=== PATIENT | female | born 1935 | race Caucasian/White ===

== ENCOUNTER → 2020-05-08 11:12 | Outpatient (BNVA) | payer MEDICARE, SELFPAY | PROVIDERS: PCP Internal Medicine; Visit Provider Internal Medicine | DX: I48.0 Paroxysmal atrial fibrillation (principal); Z51.81 Encounter for therapeutic drug level monitoring; Z79.01 Long term (current) use of anticoagulants | CPT/HCPCS: 85610; 99211 ==

== ENCOUNTER 2020-06-25 10:53 | Outpatient (REF) | payer MEDICARE, SELFPAY ==
[2020-06-25 12:19] LABS: MANUAL DIFF FLAG NO
[2020-06-25 12:24] LABS: Basophils Percent Auto 0.2 % (0-2); Eosinophils Absolute Auto 0.1 X10*3/uL (0.0-0.4); Eosinophils Percent Auto 0.8 % (0-4); Hematocrit 39.3 % (37-47); Hemoglobin 13.4 g/dl (12.0-16.0); Imm Gran Abs Auto 0.04 X10*3/uL (0.00-0.03); Imm Gran Pct Auto 0.4 % (0.0-0.4); Lymphocytes Absolute Auto 2.5 X10*3/uL (1.2-4.9); Lymphocytes Percent Auto 27.5 % (20-40); Mean Corpuscular HGB Conc 34.1 g/dl (31.0-35.0); Mean Corpuscular Hemoglobin 34.4 pg (27.0-33.0); Mean Corpuscular Volume 100.8 fL (80-98); Mean Platelet Volume 9.1 fL (9.4-12.3); Monocytes Absolute Auto 1.1 X10*3/uL (0.1-1.2); Monocytes Percent Auto 11.5 % (2-11); Neutrophils Absolute Auto 5.4 X10*3/uL (2.0-8.3); Neutrophils Percent Auto 59.6 % (45-73); Platelet Count 223 X10*3/uL (160-400); Red Cell Distribution Width 12.9 % (11.0-16.0); White Blood Count 9.1 X10*3/uL (4.8-10.8)
[2020-06-25 13:11] LABS: Alanine Aminotransferase 19 U/L (0-31); Albumin Level 3.8 g/dL (3.5-5.0); Alkaline Phosphatase 74 U/L (39-117); Anion Gap 13 (12-20); Aspartate Amino Transferase 20 U/L (5-31); Bilirubin Total 1.5 mg/dL (0.0-1.0); Blood Urea Nitrogen 24 mg/dL (9-16); Calcium 8.6 mg/dL (8.4-10.2); Carbon Dioxide 29 mmol/L (22-29); Chloride 97 mmol/L (96-108); Cholesterol 231 mg/dL; Estimated Glomerular Filt Rate > 60; Glucose Random 87 mg/dL (60-115); HDL Cholesterol 105 mg/dL; LDL Cholesterol Calculated 111 mg/dl; Potassium 4.2 mmol/l (3.3-5.1); Sodium 135 mmol/L (135-145); Total Protein 6.5 g/dL (6.5-8.0); Triglycerides 79 mg/dL
[2020-06-25 13:15] LABS: B Type Natriuretic Peptide 545 pg/mL (<100)
[2020-06-25 13:30] LABS: Thyroid Stimulating Hormone 2.18 uIU/mL (0.32-4.0)
[2020-06-25 13:38] LABS: Folate 5.8 ng/mL (> or = 4.0); Vitamin B12 1837 pg/mL (200-900)
== END 2020-06-25 10:54 | disposition home or self-care (01) ==
LOC: HO.LAB 10:53
PROVIDERS: PCP Internal Medicine; Visit Provider Internal Medicine
DX: Z76.89 Persons encountering health services in other specified circumstances (principal)
CPT/HCPCS: 36415; 80053; 80061; 82607; 82746; 83880; 84439; 84443; 85025; 85610; 99211

== ENCOUNTER 2020-06-26 15:36 | Inpatient (IN) | payer MEDICARE, SELFPAY ==
[2020-06-26 15:46] VITALS: BP 128/65; BP 153/93; PULSE 63; PULSE 70; RESP 17; TEMP 36.7; O2SAT 94; O2SAT 98; BMI 24.9
--- NOTE | 2020-06-26 16:08 | CT_ITS ---
EXAMINATION: CT HEAD WITHOUT CONTRAST CT CERVICAL SPINE WITHOUT CONTRAST CLINICAL INFORMATION: Fall. Hit head. COMPARISON: CT head from 06/15/2019. TECHNIQUE: Contiguous axial imaging was performed from the skull base to vertex without intravenous administration of contrast. Contiguous axial imaging was performed from the upper chest through the skull base without intravenous administration of contrast. Coronal and sagittal reformats were obtained at the acquisition workstation. This CT examination was performed using dose optimization techniques as appropriate, variously including the following: *Automated exposure control. *Adjustment of mA and/or kV according to patient size (this includes techniques or standardized protocols for targeted exams where dose is matched to indication/reason for exam; i.e. extremities or head). *Use of iterative reconstruction technique. DLP: 1054 mGy-cm FINDINGS: Head: There is no evidence of acute intracranial hemorrhage or edematous territorial infarction. 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 Scattered hypoattenuation in the periventricular and deep white matter are consistent with moderate microangiopathy. No new loss of aviles-white matter differentiation. Proportional prominence of the ventricles and sulcal spaces. No evidence for obstructive hydrocephalus. No abnormal mass effect or midline shift. No extra-axial fluid collections. Calcific atherosclerotic disease of the intracranial internal carotid arteries without hyperdense vessel sign. No acute soft tissue or osseous abnormalities. Mild degenerative arthropathy of the left temporomandibular joint. Mild mucosal thickening of the paranasal sinuses. The mastoid air cells and middle ear cavities are clear. Bilateral lens extractions. Cervical Spine: The atlantooccipital and atlantoaxial articulations remain well aligned. There is anatomic alignment of the vertebral bodies and posterior elements. No evidence of acute fracture or subluxation. The vertebral body heights are maintained. Moderate degenerative disc disease at C5-C6 and C6-C7. Moderate facet and uncovertebral joint arthropathy leads to osseous encroachment on the neural foramina from C4-C7. There is no prevertebral soft tissue swelling. The thyroid gland and remaining cervical soft tissues are normal in appearance. The lung apices demonstrate no abnormalities. CT/CT cervical spine wo con IMPRESSION: 1. No evidence of acute intracranial hemorrhage or edematous territorial infarction. 2. No evidence of acute fracture or traumatic subluxation of the cervical spine. 3. 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 Moderate underlying microangiopathy and generalized cerebral volume loss. 4. 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
--- NOTE | 2020-06-26 16:08 | XR_ITS ---
EXAMINATION: XR CHEST CLINICAL INFORMATION: Trauma, fall COMPARISON: 2 view chest 11/30/2018 TECHNIQUE: Frontal view of the chest was obtained. FINDINGS: The heart is enlarged. There is rotation to the right causing the cardiac silhouette to project further into the left hemithorax. No evidence of CHF. It is difficult to exclude a small left effusion because of rotation. No acute displaced rib fractures seen. There is an old healed rib fracture involving the left 10th posterolateral rib. Degenerative changes and mild scoliosis present throughout the spine. Vascular calcifications are present. XR/XR chest 1V IMPRESSION: No evidence of an acute traumatic injury.
--- NOTE | 2020-06-26 16:08 | XR_ITS ---
EXAMINATION: XR HIP, RIGHT CLINICAL INFORMATION: Fall, trauma, pain COMPARISON: Radiographs bilateral hips 06/24/2019. TECHNIQUE: AP view pelvis is performed along with AP and crosstable lateral views of the right hip. FINDINGS: There is right femoral neck fracture. The lateral base femoral head is ill-defined and the possibility of a pathologic fracture cannot be excluded. There is varus angulation distal fracture fragment and superior displacement distal fragment by approximately one half bone diameter. There is no dislocation. There is mild osteitis pubis. The pelvis appears intact. Left hip are unremarkable. Bowel gas is normal. Rectal stool ball measures 7.4 cm in diameter. XR/XR hip RT min 2V IMPRESSION: Right hip fracture, possibly pathologic.
--- NOTE | 2020-06-26 16:09 | ECG_ITS ---
Test Reason : FALL Blood Pressure : / mmHG Vent. Rate : 077 BPM Atrial Rate : 101 BPM P-R Int : 000 ms QRS Dur : 088 ms QT Int : 390 ms P-R-T Axes : 000 061 050 degrees QTc Int : 441 ms Atrial fibrillation with premature ventricular or aberrantly conducted complexes Nonspecific ST abnormality Abnormal ECG When compared with ECG of 14-NOV-2015 12:28, No significant change was found Referred By: Abigail Mendiola Electronically Signed By:Juan Jules
--- NOTE | 2020-06-26 16:12 | ED.FALL ---
HPI - Fall General Chief Complaint: Fall <Abelardo Smiley NP - Last Filed: 06/26/20 18:06> Stated Complaint: FALL,RT SIDED HIP PAIN <Abelardo Smiley NP - Last Filed: 06/26/20 18:06> Time Seen by Provider: 06/26/20 16:00 <Abelardo Smiley NP - Last Filed: 06/26/20 18:06> Source: EMS <Abelardo Smiley NP - Last Filed: 06/26/20 18:06> Mode of arrival: EMS <Abelardo Smiley NP - Last Filed: 06/26/20 18:06> Limitations: no limitations <Abelardo Smiley NP - Last Filed: 06/26/20 18:06> History of Present Illness HPI Narrative: 4-year-old female with a past medical history of high cholesterol, hypertension, peripheral vascular disease, osteoarthritis, insomnia, AFib on Coumadin, allergic rhinitis, vitamin-D deficiency, TIA, congestive heart failure, mitral valve insufficiency, tricuspid valve insufficiency here with right hip pain. The patient tells me that she does have chronic right hip pain and has had multiple cortisone injections. She tells me that today she had a slip and fall landing on her right hip. She believe she may have hit her head. She denies loss of consciousness. No headache, nausea, dizziness, vision changes. No chest or abdominal pain. No back or neck pain. The patient tells me she does have right hip pain. She took 1 tylenol #3 at home with continued pain. Unable to bear weight since fall. <Abelardo Smiley NP - Last Filed: 06/26/20 18:06> MD complaint: fall <Abelardo Smiley NP - Last Filed: 06/26/20 18:06> Onset (ago): hour(s) <Abelardo Smiley NP - Last Filed: 06/26/20 18:06> Fall from: standing <Abelardo Smiley NP - Last Filed: 06/26/20 18:06> Fall witnessed: no <Abelardo Smiley NP - Last Filed: 06/26/20 18:06> Place fall occurred: home <Abelardo Smiley NP - Last Filed: 06/26/20 18:06> Loss of consciousness: none <Abelardo Smiley NP - Last Filed: 06/26/20 18:06> Prolonged down time: no <Abelardo Smiley NP - Last Filed: 06/26/20 18:06> Symptoms prior to fall: none <Abelardo Smiley NP - Last Filed: 06/26/20 18:06> Context: tripped/slipped <Abelardo Smiley NP - Last Filed: 06/26/20 18:06> Location of injury: other (righ thip ) <Abelardo Smiley NP - Last Filed: 06/26/20 18:06> Severity: moderate <Abelardo Smiley NP - Last Filed: 06/26/20 18:06> Quality: sharp <Abelardo Smiley NP - Last Filed: 06/26/20 18:06> Associated symptoms (after fall): denies <Abelardo Smiley NP - Last Filed: 06/26/20 18:06> Related Data Home Medications: Home Medications Medication Instructions Recorded Confirmed cholecalciferol (vitamin D3) 25 25 mcg PO DAILY 05/14/20 06/26/20 mcg (1,000 unit) capsule cyanocobalamin (vitamin B-12) 1,000 mcg PO DAILY 05/14/20 06/26/20 1,000 mcg capsule warfarin 2.5 mg PO SUTUWETHFRSA 06/26/20 07/05/20 warfarin 5 mg PO MO 06/26/20 07/05/20 Previous Rx's Medication Instructions Recorded zolpidem 12.5 mg tablet,extended 12.5 mg PO BEDTIME 90 Days #90 tab 04/19/20 release,multiphase losartan 50 mg tablet 50 mg PO DAILY 90 Days #90 tab 04/20/20 comp.stocking,knee,long,medium #12 ea 05/10/20 compress.stocking,knee,reg,med #2 ea 05/14/20 metoprolol succinate 200 mg 300 mg PO DAILY #135 cap 05/30/20 tablet,extended release 24 hr Walker with seat and wheels #1 ea 06/22/20 acetaminophen 300 mg-codeine 30 mg 1 tab PO TID PRN 30 Days #90 tab 07/02/20 tablet enoxaparin 40 mg SUBCUT Q24H #5 ml 07/02/20 walker #1 ea 07/02/20 cane #1 ea 07/04/20 miscellaneous medical supply #1 ea 07/04/20 walker #1 ea 07/04/20 <Abelardo Smiley NP - Last Filed: 06/26/20 18:06> Allergies/Adverse Reactions: Allergies Allergy/AdvReac Type Severity Reaction Status Date / Time amlodipine [AMLODIPINE] Allergy Unknown UNKNOWN Verified 07/05/20 12:20 carvedilol [CARVEDILOL] Allergy Unknown UNKNOWN Verified 07/05/20 12:20 irbesartan [From AVAPRO] Allergy Unknown UNKNOWN Verified 07/05/20 12:20 levofloxacin [From LEVAQUIN] Allergy Unknown GENERALIZED Verified 07/05/20 12:20 MUSCLE PAIN naproxen [Naproxen] Allergy Unknown HIVES, Verified 07/05/20 12:20 severe rash tetracycline [TETRACYCLINE] Allergy Unknown UNKNOWN Verified 07/05/20 12:20 <Abelardo Smiley NP - Last Filed: 06/26/20 18:06> Review of Systems Review of Systems: Yes all other systems are reviewed and are negative <Abelardo Smiley NP - Last Filed: 06/26/20 18:06> Constitutional: Constitutional: Reports no additional constitutional complaints, Denies body ache(s), Denies chills, Denies fever(s), Denies headache(s) and Denies weakness <Abelardo Smiley NP - Last Filed: 06/26/20 18:06> Eyes: Eyes: Reports no additional eye complaints and Denies change in vision <Abelardo Smiley NP - Last Filed: 06/26/20 18:06> ENT: Reports system reviewed and no additional complaints, except as documented, Denies dizziness, Denies headache(s), Denies nasal congestion, Denies nasal discharge and Denies neck pain <Abelardo Smiley NP - Last Filed: 06/26/20 18:06> Cardiovascular: Cardiovascular: Reports no additional cardiovascular complaints, Denies chest pain, Denies leg edema and Denies dyspnea <Abelardo Smiley NP - Last Filed: 06/26/20 18:06> Respiratory: Respiratory: Reports no additional respiratory complaints, Denies cough and Denies dyspnea <Abelardo Smiley NP - Last Filed: 06/26/20 18:06> Gastrointestinal: Gastrointestinal: Reports no additional gastrointestinal complaints, Denies abdominal pain, Denies diarrhea, Denies nausea and Denies vomiting <Abelardo Smiley NP - Last Filed: 06/26/20 18:06> Genitourinary: Genitourinary: Reports no additional female genitourinary complaints and Denies urinary incontinence <Abelardo Smiley NP - Last Filed: 06/26/20 18:06> Musculoskeletal: Musculoskeletal: Reports no additional musculoskeletal complaints, Denies back pain, Reports arthralgias, Reports joint swelling, Denies neck pain, Denies numbness and Denies tingling <Abelardo Smiley NP - Last Filed: 06/26/20 18:06> Integumentary/Breasts: Skin/Breast: Reports system reviewed and no additional complaints, except as docu and Denies rash <Abelardo Smiley NP - Last Filed: 06/26/20 18:06> Neurologic: Reports system reviewed and no additional complaints, except as documented, Denies Abnormal speech present, Denies dizziness, Denies headache(s), Denies numbness, Denies tingling and Denies weakness <Abelardo Smiley NP - Last Filed: 06/26/20 18:06> [facility] Past Medical History Attestation statement: The following information was validated with the patient. <Abelardo Smiley NP - Last Filed: 06/26/20 18:06> Source: old records reviewed and nursing notes reviewed <Abelardo Smiley NP - Last Filed: 06/26/20 18:06> Medical History: Medical History Atrial fibrillation Cataract Compression fracture of T10 vertebra Congestive heart failure Hypercholesterolemia Hypertension Insomnia Mammogram declined Osteoarthritis of knee Peripheral vascular disease Porphyria cutanea tarda TIA (transient ischemic attack) Uterine prolapse <Abelardo Smiley NP - Last Filed: 06/26/20 18:06> Surgical History: Surgical History History of biopsy History of D&C History of uterine prolapse <Abelardo Smiley NP - Last Filed: 06/26/20 18:06> Family History Family History: Family History Father Hypertension Mother Hypertension Daughter Colon cancer Lymph node cancer <Abelardo Smiley NP - Last Filed: 06/26/20 18:06> Social History Social History: Social History Household Members: None Housing: House Smoking Status: Never smoker Second Hand Smoke Exposure: No service: No Current occupational status: retired <Abelardo Smiley NP - Last Filed: 06/26/20 18:06> Physical Exam Vital Signs: Vital Signs: Last Vital Signs Temp 98.5 F 07/02/20 12:06 Pulse 62 07/02/20 12:06 Resp 16 07/02/20 12:06 BP 150/88 H 07/02/20 10:00 Pulse Ox 95 07/02/20 08:00 Body Mass Index 24.9 <Abelardo Smiley NP - Last Filed: 06/26/20 18:06> Vital Signs: Last Vital Signs Temp 98.5 F 07/02/20 12:06 Pulse 62 07/02/20 12:06 Resp 16 07/02/20 12:06 BP 150/88 H 07/02/20 10:00 Pulse Ox 95 07/02/20 08:00 Body Mass Index 24.9 <Fred Rider - Last Filed: 06/28/20 07:28> Vital Signs: Last Vital Signs Temp 98.5 F 07/02/20 12:06 Pulse 62 07/02/20 12:06 Resp 16 07/02/20 12:06 BP 150/88 H 07/02/20 10:00 Pulse Ox 95 07/02/20 08:00 Body Mass Index 24.9 <Ambrosio Enamorado MD - Last Filed: 07/08/20 09:39> Const: General: cooperative, healthy appearing, comfortable and no acute distress <Abelardo Smiley NP - Last Filed: 06/26/20 18:06> Orientation/consciousness: patient oriented x3 <Abelardo Smiley NP - Last Filed: 06/26/20 18:06> Limitations: no limitations <Abelardo Smiley NP - Last Filed: 06/26/20 18:06> HENMT: Head: Yes normal to inspection <Abelardo Smiley NP - Last Filed: 06/26/20 18:06> Ears: hearing grossly normal bilaterally <Abelardo Smiley NP - Last Filed: 06/26/20 18:06> General nose exam: Normal external nose present <Abelardo Smiley NP - Last Filed: 06/26/20 18:06> Face and sinus: Yes normal facial exam <Abelardo Smiley NP - Last Filed: 06/26/20 18:06> Mouth: Normal oral and palatal mucosa present <Abelardo Smiley NP - Last Filed: 06/26/20 18:06> Throat: Yes posterior oropharynx normal <Abelardo Smiley NP - Last Filed: 06/26/20 18:06> Eyes: General: appearance normal, both eyes and all related structures <Abelardo Smiley NP - Last Filed: 06/26/20 18:06> Pupils: Equal, round and reactive pupils present <Abelardo Smiley NP - Last Filed: 06/26/20 18:06> Neck: Neck: Yes normal visual inspection <Abelardo Smiley NP - Last Filed: 06/26/20 18:06> Chest: Chest palpation & inspection: normal inspection of the chest <Abelardo Smiley NP - Last Filed: 06/26/20 18:06> Resp: Effort & Inspection: normal respiratory effort <Abelardo Smiley NP - Last Filed: 06/26/20 18:06> Auscultation: clear to auscultation bilaterally <Abelardo Smiley NP - Last Filed: 06/26/20 18:06> Cardio: Rate: regular rate <Abelardo Smiley NP - Last Filed: 06/26/20 18:06> Rhythm: regular rhythm <Abelardo Smiley NP - Last Filed: 06/26/20 18:06> Peripheral pulses: Peripheral pulses 2+ throughout <Abelardo Smiley NP - Last Filed: 06/26/20 18:06> GI: Inspection: Yes normal to inspection <Abelardo Smiley NP - Last Filed: 06/26/20 18:06> Palpation (GI): Soft to palpation and nontender <Abelardo Smiley NP - Last Filed: 06/26/20 18:06> Auscultation: normal bowel sounds <Abelardo Smiley NP - Last Filed: 06/26/20 18:06> Back/Spine/Pelvis: Thoracic/Lumbar Spine: thoracic and lumbar spine normal to inspection <Abelardo Smiley NP - Last Filed: 06/26/20 18:06> Skin: Other: Patient has ecchymosis over the bilateral lower extremities, upper thighs <Abelardo Smiley NP - Last Filed: 06/26/20 18:06> General skin exam: no rashes or lesions noted <Abelardo Smiley NP - Last Filed: 06/26/20 18:06> Neuro: General: patient oriented x3, no focal motor deficits and normal sensation to monofilament <Abelardo Smiley [facility] - Last Filed: 06/26/20 18:06> Cranial nerves: Yes Equal, round and reactive pupils present <Abelardo Smiley NP - Last Filed: 06/26/20 18:06> Cognition (Neuro): normal cognition <Abelardo Smiley NP - Last Filed: 06/26/20 18:06> Speech: No Abnormal speech present <Abelardo Smiley NP - Last Filed: 06/26/20 18:06> Gait exam (Neuro): Normal gait present <Abelardo Smiley NP - Last Filed: 06/26/20 18:06> Motor exam (neuro): 5/5 motor strength present throughout <Abelardo Smiley NP - Last Filed: 06/26/20 18:06> Extrem: Other: Moderate pain to right lateral and posterior hip. There is no external rotation or shortening of the right lower leg. Neurovascular intact distally. Normal cap refill. Patient is able to flex and extend the foot. Not able to move the entire leg <Abelardo Smiley NP - Last Filed: 06/26/20 18:06> General: Yes normal to inspection <Abelardo Smiley NP - Last Filed: 06/26/20 18:06> Course Course Course Narrative: 84-year-old female here with right hip pain status post mechanical fall. She will need imaging of the hip and pelvis. She does tell me she hit her head so will check imaging of head and neck. She was on Coumadin so will check labs including INR. EKG for preop clearance for fracture. COVID swab for inpatient. 1700-hip x-rays c/w with right femoral neck fracture, lateral base of head is ill defined and pathological fracture cannot be excluded. Discussed with orthopedics. Will need surgical intervention. Plan to evaluate patient tomorrow. Will discuss with Medicine for admission of once additional imaging and labs are returned. Nursing to place Ling catheter. 1800-Labs pending. Reviewed labs from 06/25 including INR 2.2. Discussed with Chiquis PANIAGUA who was made aware of patient. Sign out to Marimar PETERS who will review labs when resulted today and notify medicine of any changes. <Abelardo Smiley NP - Last Filed: 06/26/20 18:06> I have reviewed the chart <Ambrosio Enamorado MD - Last Filed: 07/08/20 09:39> MDM - Fall MDM Narrative Medical decision making narrative: Contusion, arthritis, fracture <Abelardo Smiley NP - Last Filed: 06/26/20 18:06> Medical Records Attestation: I reviewed the patient's medical records. <Abelardo Smiley NP - Last Filed: 06/26/20 18:06> Lab Data Attestation: I reviewed the patient's lab results. <Abelardo Smiley NP - Last Filed: 06/26/20 18:06> Result diagrams: : 07/02/20 05:19 06/29/20 06:07 <Abelardo Smiley, [facility] - Last Filed: 06/26/20 18:06> Labs: Lab Results 06/26/20 06/26/20 06/26/20 Range/Units 17:50 17:50 17:50 WBC 13.0 H (4.8-10.8) X10*3/uL RBC 3.39 L (4.20-5.50) X10*6/uL Hgb 11.6 L (12.0-16.0) g/dl Hct 33.6 L (37-47) % MCV 99.1 H (80-98) fL MCH 34.2 H (27.0-33.0) pg MCHC 34.5 (31.0-35.0) g/dl RDW 12.8 (11.0-16.0) % Plt Count 180 (160-400) X10*3/uL MPV 9.2 L (9.4-12.3) fL Immature Gran % (Auto) 0.6 H (0.0-0.4) % Neut % (Auto) 78.9 H (45-73) % Lymph % (Auto) 12.4 L (20-40) % [place] % (Auto) 7.6 (2-11) % Eos % (Auto) 0.4 (0-4) % Baso % (Auto) 0.1 (0-2) % Lymph # (Auto) 1.6 (1.2-4.9) X10*3/uL [place] # (Auto) 1.0 (0.1-1.2) X10*3/uL Eos # (Auto) 0.1 (0.0-0.4) X10*3/uL Baso # (Auto) 0.0 (0.0-0.2) X10*3/uL Abs Immat Gran (auto) 0.08 H (0.00-0.03) X10*3/uL Absolute Neuts (auto) 10.2 H (2.0-8.3) X10*3/uL Absolute Nucleated RBC 0.000 (0.0-0.012) X10*3/uL Nucleated RBC % (auto) 0.0 (0.0-0.2) /100WBC PT 28.5 H (10.8-13.0) SEC INR 2.4 H (0.9-1.1) Sodium 134 L (135-145) mmol/L Potassium 3.7 (3.3-5.1) mmol/l Chloride 98 (96-108) mmol/L Carbon Dioxide 25 (22-29) mmol/L Anion Gap 15 (12-20) BUN 21 H (9-16) mg/dL Creatinine 0.66 (0.5-1.4) mg/dL Estim Creat Clear Calc 59.2 Estimated GFR > 60 Random Glucose 134 H D (60-115) mg/dL Calcium 8.1 L (8.4-10.2) mg/dL COVID-19 ([place]) (Negative) COVID-19 Clin Com 06/26/20 Range/Units 17:50 WBC (4.8-10.8) X10*3/uL RBC (4.20-5.50) X10*6/uL Hgb (12.0-16.0) g/dl Hct (37-47) % MCV (80-98) fL MCH (27.0-33.0) pg MCHC (31.0-35.0) g/dl RDW (11.0-16.0) % Plt Count (160-400) X10*3/uL MPV (9.4-12.3) fL Immature Gran % (Auto) (0.0-0.4) % Neut % (Auto) (45-73) % Lymph % (Auto) (20-40) % [place] % (Auto) (2-11) % Eos % (Auto) (0-4) % Baso % (Auto) (0-2) % Lymph # (Auto) (1.2-4.9) X10*3/uL [place] # (Auto) (0.1-1.2) X10*3/uL Eos # (Auto) (0.0-0.4) X10*3/uL Baso # (Auto) (0.0-0.2) X10*3/uL Abs Immat Gran (auto) (0.00-0.03) X10*3/uL Absolute Neuts (auto) (2.0-8.3) X10*3/uL Absolute Nucleated RBC (0.0-0.012) X10*3/uL Nucleated RBC % (auto) (0.0-0.2) /100WBC PT (10.8-13.0) SEC INR (0.9-1.1) Sodium (135-145) mmol/L Potassium (3.3-5.1) mmol/l Chloride (96-108) mmol/L Carbon Dioxide (22-29) mmol/L Anion Gap (12-20) BUN (9-16) mg/dL Creatinine (0.5-1.4) mg/dL Estim Creat Clear Calc Estimated GFR Random Glucose (60-115) mg/dL Calcium (8.4-10.2) mg/dL COVID-19 ([place]) Negative (Negative) COVID-19 Clin Com See Note <Abelardo Smiley, ARCELIA - Last Filed: 06/26/20 18:06> Lab Results 06/26/20 06/26/20 06/26/20 Range/Units 17:50 17:50 17:50 WBC 13.0 H (4.8-10.8) X10*3/uL RBC 3.39 L (4.20-5.50) X10*6/uL Hgb 11.6 L (12.0-16.0) g/dl Hct 33.6 L (37-47) % MCV 99.1 H (80-98) fL MCH 34.2 H (27.0-33.0) pg MCHC 34.5 (31.0-35.0) g/dl RDW 12.8 (11.0-16.0) % Plt Count 180 (160-400) X10*3/uL MPV 9.2 L (9.4-12.3) fL Immature Gran % (Auto) 0.6 H (0.0-0.4) % Neut % (Auto) 78.9 H (45-73) % Lymph % (Auto) 12.4 L (20-40) % [place] % (Auto) 7.6 (2-11) % Eos % (Auto) 0.4 (0-4) % Baso % (Auto) 0.1 (0-2) % Lymph # (Auto) 1.6 (1.2-4.9) X10*3/uL [place] # (Auto) 1.0 (0.1-1.2) X10*3/uL Eos # (Auto) 0.1 (0.0-0.4) X10*3/uL Baso # (Auto) 0.0 (0.0-0.2) X10*3/uL Abs Immat Gran (auto) 0.08 H (0.00-0.03) X10*3/uL Absolute Neuts (auto) 10.2 H (2.0-8.3) X10*3/uL Absolute Nucleated RBC 0.000 (0.0-0.012) X10*3/uL Nucleated RBC % (auto) 0.0 (0.0-0.2) /100WBC PT 28.5 H (10.8-13.0) SEC INR 2.4 H (0.9-1.1) Sodium 134 L (135-145) mmol/L Potassium 3.7 (3.3-5.1) mmol/l Chloride 98 (96-108) mmol/L Carbon Dioxide 25 (22-29) mmol/L Anion Gap 15 (12-20) BUN 21 H (9-16) mg/dL Creatinine 0.66 (0.5-1.4) mg/dL Estim Creat Clear Calc 59.2 Estimated GFR > 60 Random Glucose 134 H D (60-115) mg/dL Calcium 8.1 L (8.4-10.2) mg/dL COVID-19 ([place]) (Negative) COVID-19 Clin Com 06/26/20 Range/Units 17:50 WBC (4.8-10.8) X10*3/uL RBC (4.20-5.50) X10*6/uL Hgb (12.0-16.0) g/dl Hct (37-47) % MCV (80-98) fL MCH (27.0-33.0) pg MCHC (31.0-35.0) g/dl RDW (11.0-16.0) % Plt Count (160-400) X10*3/uL MPV (9.4-12.3) fL Immature Gran % (Auto) (0.0-0.4) % Neut % (Auto) (45-73) % Lymph % (Auto) (20-40) % [place] % (Auto) (2-11) % Eos % (Auto) (0-4) % Baso % (Auto) (0-2) % Lymph # (Auto) (1.2-4.9) X10*3/uL [place] # (Auto) (0.1-1.2) X10*3/uL Eos # (Auto) (0.0-0.4) X10*3/uL Baso # (Auto) (0.0-0.2) X10*3/uL Abs Immat Gran (auto) (0.00-0.03) X10*3/uL Absolute Neuts (auto) (2.0-8.3) X10*3/uL Absolute Nucleated RBC (0.0-0.012) X10*3/uL Nucleated RBC % (auto) (0.0-0.2) /100WBC PT (10.8-13.0) SEC INR (0.9-1.1) Sodium (135-145) mmol/L Potassium (3.3-5.1) mmol/l Chloride (96-108) mmol/L Carbon Dioxide (22-29) mmol/L Anion Gap (12-20) BUN (9-16) mg/dL Creatinine (0.5-1.4) mg/dL Estim Creat Clear Calc Estimated GFR Random Glucose (60-115) mg/dL Calcium (8.4-10.2) mg/dL COVID-19 ([place]) Negative (Negative) COVID-19 Clin Com See Note <Fred Ridre - Last Filed: 06/28/20 07:28> Lab Results 06/26/20 06/26/20 06/26/20 Range/Units 17:50 17:50 17:50 WBC 13.0 H (4.8-10.8) X10*3/uL RBC 3.39 L (4.20-5.50) X10*6/uL Hgb 11.6 L (12.0-16.0) g/dl Hct 33.6 L (37-47) % MCV 99.1 H (80-98) fL MCH 34.2 H (27.0-33.0) pg MCHC 34.5 (31.0-35.0) g/dl RDW 12.8 (11.0-16.0) % Plt Count 180 (160-400) X10*3/uL MPV 9.2 L (9.4-12.3) fL Immature Gran % (Auto) 0.6 H (0.0-0.4) % Neut % (Auto) 78.9 H (45-73) % Lymph % (Auto) 12.4 L (20-40) % [place] % (Auto) 7.6 (2-11) % Eos % (Auto) 0.4 (0-4) % Baso % (Auto) 0.1 (0-2) % Lymph # (Auto) 1.6 (1.2-4.9) X10*3/uL [place] # (Auto) 1.0 (0.1-1.2) X10*3/uL Eos # (Auto) 0.1 (0.0-0.4) X10*3/uL Baso # (Auto) 0.0 (0.0-0.2) X10*3/uL Abs Immat Gran (auto) 0.08 H (0.00-0.03) X10*3/uL Absolute Neuts (auto) 10.2 H (2.0-8.3) X10*3/uL Absolute Nucleated RBC 0.000 (0.0-0.012) X10*3/uL Nucleated RBC % (auto) 0.0 (0.0-0.2) /100WBC PT 28.5 H (10.8-13.0) SEC INR 2.4 H (0.9-1.1) Sodium 134 L (135-145) mmol/L Potassium 3.7 (3.3-5.1) mmol/l Chloride 98 (96-108) mmol/L Carbon Dioxide 25 (22-29) mmol/L Anion Gap 15 (12-20) BUN 21 H (9-16) mg/dL Creatinine 0.66 (0.5-1.4) mg/dL Estim Creat Clear Calc 59.2 Estimated GFR > 60 Random Glucose 134 H D (60-115) mg/dL Calcium 8.1 L (8.4-10.2) mg/dL COVID-19 ([place]) (Negative) COVID-19 Clin Com 12/15/20 Range/Units 17:50 WBC (4.8-10.8) X10*3/uL RBC (4.20-5.50) X10*6/uL Hgb (12.0-16.0) g/dl Hct (37-47) % MCV (80-98) fL MCH (27.0-33.0) pg MCHC (31.0-35.0) g/dl RDW (11.0-16.0) % Plt Count (160-400) X10*3/uL MPV (9.4-12.3) fL Immature Gran % (Auto) (0.0-0.4) % Neut % (Auto) (45-73) % Lymph % (Auto) (20-40) % [place] % (Auto) (2-11) % Eos % (Auto) (0-4) % Baso % (Auto) (0-2) % Lymph # (Auto) (1.2-4.9) X10*3/uL [place] # (Auto) (0.1-1.2) X10*3/uL Eos # (Auto) (0.0-0.4) X10*3/uL Baso # (Auto) (0.0-0.2) X10*3/uL Abs Immat Gran (auto) (0.00-0.03) X10*3/uL Absolute Neuts (auto) (2.0-8.3) X10*3/uL Absolute Nucleated RBC (0.0-0.012) X10*3/uL Nucleated RBC % (auto) (0.0-0.2) /100WBC PT (10.8-13.0) SEC INR (0.9-1.1) Sodium (135-145) mmol/L Potassium (3.3-5.1) mmol/l Chloride (96-108) mmol/L Carbon Dioxide (22-29) mmol/L Anion Gap (12-20) BUN (9-16) mg/dL Creatinine (0.5-1.4) mg/dL Estim Creat Clear Calc Estimated GFR Random Glucose (60-115) mg/dL Calcium (8.4-10.2) mg/dL COVID-19 ([place]) Negative (Negative) COVID-19 Clin Com See Note <Ambrosio Enamorado MD - Last Filed: 07/08/20 09:39> Imaging Data Chest x-ray: Attestation: I personally reviewed and interpreted this imaging study as follows: <Abelardo Smiley NP - Last Filed: 06/26/20 18:06> Radiologist's impression: [address] [address] XRay Report Signed Patient: Theodora Meehan#: [id number] : 5Acct:[id number] Age/Sex: 84 / FADM Date: 06/26/20 Loc: HO.ED Attending Dr: Ordering Physician: ABELARDO SMILEY NP Date of Service: 06/26/20 Procedure(s): XR chest 1V Accession Number(s): [id number] cc: ABELARDO SMILEY NP~ EXAMINATION: XR CHEST CLINICAL INFORMATION: Trauma, fall COMPARISON: 2 view chest 11/30/2018 TECHNIQUE: Frontal view of the chest was obtained. FINDINGS: The heart is enlarged. There is rotation to the right causing the cardiac silhouette to project further into the left hemithorax. No evidence of CHF. It is difficult to exclude a small left effusion because of rotation. No acute displaced rib fractures seen. There is an old healed rib fracture involving the left 10th posterolateral rib. Degenerative changes and mild scoliosis present throughout the spine. Vascular calcifications are present. XR/XR chest 1V IMPRESSION: No evidence of an acute traumatic injury. <Abelardo Smiley NP - Last Filed: 06/26/20 18:06> hip xray: Attestation: I personally reviewed and interpreted this imaging study as follows: <Abelardo Smiley NP - Last Filed: 06/26/20 18:06> Radiologist's impression: EXAMINATION: XR HIP, RIGHT CLINICAL INFORMATION: Fall, trauma, pain COMPARISON: Radiographs bilateral hips 06/24/2019. TECHNIQUE: AP view pelvis is performed along with AP and crosstable lateral views of the right hip. FINDINGS: There is right femoral neck fracture. The lateral base femoral head is ill-defined and the possibility of a pathologic fracture cannot be excluded. There is varus angulation distal fracture fragment and superior displacement distal fragment by approximately one half bone diameter. There is no dislocation. There is mild osteitis pubis. The pelvis appears intact. Left hip are unremarkable. Bowel gas is normal. Rectal stool ball measures 7.4 cm in diameter. XR/XR hip RT min 2V IMPRESSION: Right hip fracture, possibly pathologic. <Abelardo Smiley NP - Last Filed: 06/26/20 18:06> ct head/cervical: Attestation: I personally reviewed and interpreted this imaging study as follows: <Abelardo Smiley NP - Last Filed: 06/26/20 18:06> Radiologist's impression: CT/CT cervical spine wo con IMPRESSION: 1. No evidence of acute intracranial hemorrhage or edematous territorial infarction. 2. No evidence of acute fracture or traumatic subluxation of the cervical spine. 3. 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 Moderate underlying microangiopathy and generalized cerebral volume loss. 4. 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 <Abelardo Smiley NP - Last Filed: 06/26/20 18:06> ECG Data Attestation: I personally reviewed and interpreted this ECG as follows: <Abelardo Smiley NP - Last Filed: 06/26/20 18:06> ECG interpretation date: 06/26/20 <Abelardo Smiley NP - Last Filed: 06/26/20 18:06> ECG interpretation time: 17:00 <Abelardo Smiley NP - Last Filed: 06/26/20 18:06> Interpretation: AFib, rate 77, normal QRS, normal QT <Abelardo Smiley NP - Last Filed: 06/26/20 18:06> Discharge Plan Discharge Clinical Impression: Femoral neck fracture Qualifiers: Encounter type: initial encounter Fracture type: closed Laterality: right Qualified Code(s): S72.001A - Fracture of unspecified part of neck of right femur, initial encounter for closed fracture <ARCELIA Sabillon Last Filed: 06/26/20 18:06> Patient Disposition: Admitted As Inpatient <Abelardo Smiley NP - Last Filed: 06/26/20 18:06> Interventions: Admission Worksheet (ED) Last Done: 06/26/20 23:52 <Abelardo Smiley NP - Last Filed: 06/26/20 18:06> Discharge Date/Time: 06/26/20 23:53 <Abelardo Smiley NP - Last Filed: 06/26/20 18:06>
[2020-06-26 17:51] VITALS: RESP 18
[2020-06-26] MEDS: fentaNYL citrate/PF 100 MCG/2 ML VIAL 25 MCG IVPUSH (17:51)
[2020-06-26 17:59] LABS: MANUAL DIFF FLAG NO
[2020-06-26 18:05] LABS: Basophils Percent Auto 0.1 % (0-2); Eosinophils Absolute Auto 0.1 X10*3/uL (0.0-0.4); Eosinophils Percent Auto 0.4 % (0-4); Hematocrit 33.6 % (37-47); Hemoglobin 11.6 g/dl (12.0-16.0); Imm Gran Abs Auto 0.08 X10*3/uL (0.00-0.03); Imm Gran Pct Auto 0.6 % (0.0-0.4); Lymphocytes Absolute Auto 1.6 X10*3/uL (1.2-4.9); Lymphocytes Percent Auto 12.4 % (20-40); Mean Corpuscular HGB Conc 34.5 g/dl (31.0-35.0); Mean Corpuscular Hemoglobin 34.2 pg (27.0-33.0); Mean Corpuscular Volume 99.1 fL (80-98); Mean Platelet Volume 9.2 fL (9.4-12.3); Monocytes Percent Auto 7.6 % (2-11); Neutrophils Absolute Auto 10.2 X10*3/uL (2.0-8.3); Neutrophils Percent Auto 78.9 % (45-73); Platelet Count 180 X10*3/uL (160-400); Red Blood Count 3.39 X10*6/uL (4.20-5.50); Red Cell Distribution Width 12.8 % (11.0-16.0)
[2020-06-26 18:12] LABS: INTERNATIONAL NORM RATIO 2.4 (0.9-1.1); Prothrombin Time 28.5 SEC (10.8-13.0)
[2020-06-26 18:22] VITALS: RESP 17
[2020-06-26] MEDS: Morphine Sulfate 4 MG/ML CARTRIDGE IVPUSH (18:22)
[2020-06-26 18:25] LABS: Anion Gap 15 (12-20); Blood Urea Nitrogen 21 mg/dL (9-16); Calcium 8.1 mg/dL (8.4-10.2); Carbon Dioxide 25 mmol/L (22-29); Chloride 98 mmol/L (96-108); Creatinine Clr Calc Pharmacy 59.2; Estimated Glomerular Filt Rate > 60; Glucose Random 134 mg/dL (60-115); Potassium 3.7 mmol/l (3.3-5.1); Sodium 134 mmol/L (135-145)
--- NOTE | 2020-06-26 19:07 | P.HPHOSP_ITS ---
History of Present Illness Date of Service: 06/26/20 <Chiquis Baeza NP - Last Filed: 06/26/20 19:32> Chief Complaint: Fall <Chiquis Baeza NP - Last Filed: 06/26/20 19:32> 84-year-old woman presented to the ER after a fall. She slipped and fell on the landing in her house. She reports that she may have hit her head but did not pass. She denied any headache, chest pain, shortness of breath, visual changes, nausea vomiting. She reported that she has been having chronic right hip pain and has had multiple cortisone injections. She reported that she was able to crawl to the phone and call her son. Hip x-ray in the ER showed right hip fracture. head CT was negative for any acute abnormality. Chest x-ray and cervical spine CT also negative. White blood cell count was elevated at 13.0, at at this point no source of infection. Urinalysis is pending. BNP was noted to be elevated with patient does not appear to be in heart failure. Her vital signs are stable she was not noted to have any fever or hypoxia. She was given fentanyl and morphine for pain. She will be admitted for hip fracture secondary to mechanical fall. <Chiquis Baeza NP - Last Filed: 06/26/20 19:32> Review of Systems Review of Systems: Denies any recent fever chills or decrease in appetite respiratory denies any shortness of breath coverage production cardiovascular is adjustment of any PND or edema gastrointestinal denies any dysphagia abdominal pain nausea vomiting or diarrhea genitourinary denies any dysuria frequency or hematuria musculoskeletal hip pain neuropsych denies any weakness or seizures all other systems reviewed are negative <Chiquis Baeza NP - Last Filed: 06/26/20 19:32> Constitutional: Constitutional: Denies headache(s) and Denies weakness <Chiquis Baeza NP - Last Filed: 06/26/20 19:32> ENT: Denies dizziness and Denies headache(s) <Chiquis Baeza NP - Last Filed: 06/26/20 19:32> Musculoskeletal: Musculoskeletal: Denies numbness and Denies tingling <Jose Baeza NP - Last Filed: 06/26/20 19:32> Neurologic: Reports system reviewed and no additional complaints, except as documented, Denies Abnormal speech present, Denies dizziness, Denies headache(s), Denies numbness, Denies tingling and Denies weakness <Chiquis Baeza NP - Last Filed: 06/26/20 19:32> [facility] Medical History: Medical History Atrial fibrillation Cataract Compression fracture of T10 vertebra Congestive heart failure Hypercholesterolemia Hypertension Insomnia Mammogram declined Osteoarthritis of knee Peripheral vascular disease Porphyria cutanea tarda TIA (transient ischemic attack) Uterine prolapse <Chiquis Baeza NP - Last Filed: 06/26/20 19:32> Family History: Family History Father Hypertension Mother Hypertension Daughter Colon cancer Lymph node cancer <Chiquis Baeza NP - Last Filed: 06/26/20 19:32> Surgical History: Surgical History History of biopsy History of D&C History of uterine prolapse <Chiquis Baeza NP - Last Filed: 06/26/20 19:32> Social History: Social History Household Members: None Housing: House Smoking Status: Never smoker Second Hand Smoke Exposure: No service: No Current occupational status: retired <Chiquis Baeza NP - Last Filed: 06/26/20 19:32> Meds Allergies/Adverse reactions: Allergies Allergy/AdvReac Type Severity Reaction Status Date / Time amlodipine [AMLODIPINE] Allergy Unknown UNKNOWN Verified 07/05/20 12:20 carvedilol [CARVEDILOL] Allergy Unknown UNKNOWN Verified 07/05/20 12:20 irbesartan [From AVAPRO] Allergy Unknown UNKNOWN Verified 07/05/20 12:20 levofloxacin [From LEVAQUIN] Allergy Unknown GENERALIZED Verified 07/05/20 12:20 MUSCLE PAIN naproxen [Naproxen] Allergy Unknown HIVES, Verified 07/05/20 12:20 severe rash tetracycline [TETRACYCLINE] Allergy Unknown UNKNOWN Verified 07/05/20 12:20 <Chiquis Baeza NP - Last Filed: 06/26/20 19:32> Home medications: Home Medications Medication Instructions Recorded Confirmed Type cholecalciferol (vitamin D3) 25 25 mcg PO DAILY 05/14/20 08/06/20 History mcg (1,000 unit) capsule cyanocobalamin (vitamin B-12) 1,000 mcg PO DAILY 05/14/20 08/06/20 History 1,000 mcg capsule warfarin 5 mg PO MO 06/26/20 08/06/20 History <Chiquis Baeza NP - Last Filed: 06/26/20 19:32> Physical Exam Vital Signs and Narrative: Vital Signs: Last Vital Signs Temp 98.1 F 06/26/20 15:46 Pulse 63 06/26/20 15:46 Resp 17 06/26/20 18:22 BP 128/65 06/26/20 15:46 Pulse Ox 94 06/26/20 15:46 Body Mass Index 24.9 <Chiquis Baeza NP - Last Filed: 06/26/20 19:32> Appearing in no acute distress head is normocephalic atraumatic eyes pupils are PERRLA sclera is anicteric mouth throat mucous membranes are intact and moist neck is supple no lymphadenopathy, no JVD noted lung sounds are clear to auscultation heart regular rate rhythm, clear S1, S2 positive bowel sounds, abdomen is soft, nontender neuro patient is alert x3 Difficult to assess for neuro deficits as patient has hip pain. <Chiquis Baeza NP - Last Filed: 06/26/20 19:32> Neuro: Speech: No Abnormal speech present <Chiquis Baeza NP - Last Filed: 06/26/20 19:32> Results Labs CBC and Chem 7: : 07/02/20 05:19 06/29/20 06:07 <Chiquis Baeza NP - Last Filed: 06/26/20 19:32> Labs: Laboratory Results - last 24 hr 06/26/20 06/26/20 06/26/20 17:50 17:50 17:50 MCV 99.1 H MCH 34.2 H MCHC 34.5 RDW 12.8 Plt Count 180 MPV 9.2 L Immature Gran % (Auto) 0.6 H Neut % (Auto) 78.9 H Lymph % (Auto) 12.4 L Graham % (Auto) 7.6 Eos % (Auto) 0.4 Baso % (Auto) 0.1 Lymph # (Auto) 1.6 Graham # (Auto) 1.0 Eos # (Auto) 0.1 Baso # (Auto) 0.0 Abs Immat Gran (auto) 0.08 H Absolute Neuts (auto) 10.2 H Absolute Nucleated RBC 0.000 Nucleated RBC % (auto) 0.0 PT 28.5 H INR 2.4 H Anion Gap 15 Estim Creat Clear Calc 59.2 Estimated GFR > 60 Random Glucose 134 H D Calcium 8.1 L <Chiquis Baeza NP - Last Filed: 06/26/20 19:32> Imaging Radiologist's Impressions: Impressions Cervical Spine CT 06/26/20 16:08 IMPRESSION: 1. No evidence of acute intracranial hemorrhage or edematous territorial infarction. 2. No evidence of acute fracture or traumatic subluxation of the cervical spine. 3. 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 Moderate underlying microangiopathy and generalized cerebral volume loss. 4. 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 Chest X-Ray 06/26/20 16:08 IMPRESSION: No evidence of an acute traumatic injury. Head CT 06/26/20 16:08 IMPRESSION: 1. No evidence of acute intracranial hemorrhage or edematous territorial infarction. 2. No evidence of acute fracture or traumatic subluxation of the cervical spine. 3. 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 Moderate underlying microangiopathy and generalized cerebral volume loss. 4. 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 Hip X-Ray 06/26/20 16:08 IMPRESSION: Right hip fracture, possibly pathologic. <Chiquis Baeza NP - Last Filed: 06/26/20 19:32> Assessment and Plan (1) Femoral neck fracture: Qualifiers: Encounter type: initial encounter Fracture type: closed Laterality: right Qualified Code(s): S72.001A - Fracture of unspecified part of neck of right femur, initial encounter for closed fracture <Chiquis Baeza NP - Last Filed: 06/26/20 19:32> Status: Acute <Chiquis Baeza NP - Last Filed: 06/26/20 19:32> 84-year-old woman with acute hip fracture secondary to mechanical fall. Acute femoral neck fracture. Secondary to mechanical fall. Will consult Orthopedic surgery. She is on warfarin reported that she took her last dose at 15:00 today. Will start vitamin K, check PT INR closely. Pain management. Bedrest. Atrial fibrillation. Hold warfarin, will need surgical intervention for acute femoral neck fracture. Continue with metoprolol. Hypertension. Stable blood pressure. Continue losartan. DVT prophylaxis with mechanical compression boots. Case discussed with Dr. Espinal Full code <Chiquis Baeza NP - Last Filed: 06/26/20 19:32>
[2020-06-26 20:09] VITALS: BP 137/70; PULSE 73; RESP 16; O2SAT 93
[2020-06-26 20:26] LABS: Glucose Urine UA NEG (NEG); Leukocyte Esterase Urine NEG (NEG); Nitrite Urine NEG (NEG); PH 5.5 (5.0-8.0); Specific Gravity - Urine >= 1.030 (1.005-1.025); Urine Blood NEG (NEG); Urine Ketones NEG (NEG); Urine Protein NEG (NEG-TRACE)
[2020-06-26 20:29] LABS: Appearance Urine CLEAR; Color Urine AMBER
[2020-06-26 22:20] LABS: COVID-19 Test Negative (Negative)
[2020-06-26 23:41] VITALS: BP 140/53; PULSE 71; RESP 19; TEMP 36.3; O2SAT 96
[2020-06-26] MEDS: Zolpidem Tartrate 5 MG TABLET PO (23:55)
[2020-06-26] MEDS: Acetaminophen 325 MG TABLET 650 MG PO (23:55)
--- NOTE | 2020-06-27 00:46 | P.EN_ITS ---
Event Note Date of Service: 06/27/20 Event Note: admission note: 85 y/o female with an extensive PMHX who presented from home s/p fall. To be admitted for right hip fracture. ROS and PE as per H and P. PMHX; Atrial fibrillation Cataract Compression fracture of T10 vertebra Congestive heart failure Hypercholesterolemia Hypertension Insomnia Mammogram declined Osteoarthritis of knee Peripheral vascular disease Porphyria cutanea tarda TIA (transient ischemic attack) Uterine prolapse PSx; History of biopsy History of D&C History of uterine prolapse Assessment/Plan: 1- Right Hip fracture s/p mechanical fall NPO IV fluids Pain control Hold Anticoagulation. Follow up repeat INR and start with vit K as of now Orthopedic consult for management Cardiology consult in the am Rest of the plan as discussed with [employer] Chiquis jackson per H and P
[2020-06-27] MEDS: Phytonadione (Vit K1) 5 MG in 0.9 % Sodium Chloride 50 ML 50.5 MG IV (00:53)
[2020-06-27] MEDS: 0.9 % Sodium Chloride Flush 3 ML SYRINGE IVFLUSH ×4 (00:54→22:34)
[2020-06-27 04:00] VITALS: RESP 16
[2020-06-27] MEDS: Acetaminophen 325 MG TABLET 650 MG PO ×4 (05:50→22:33)
[2020-06-27] MEDS: oxyCODONE HCl Immed Release 5 MG TABLET PO (05:50)
[2020-06-27 08:00] VITALS: BP 192/89; PULSE 73; RESP 17; TEMP 36.3; O2SAT 95
--- NOTE | 2020-06-27 08:18 | HO.PM.IMPN ---
Subjective Subjective Date of Service: 06/27/20 Interval History: Seen in f/u for right hip fracture due to fall. Has pain with movement, she is agreable to surgery Review of Systems Gen: no fever Resp: no sob, no cough CV: no chest, no ROLDAN, no leg edema GI: No n/v, no abd pain Neuro: No confusion Muskl: hip pain with movement Physical Exam Vital Signs: Vital Signs: Last Vital Signs Temp 97.3 F 06/27/20 08:00 Pulse 73 06/27/20 08:00 Resp 17 06/27/20 08:00 BP 192/89 H 06/27/20 08:00 Pulse Ox 95 06/27/20 08:00 Body Mass Index 24.9 Const: Other: General: AO X 3, no acute distress Resp: CTA bilateral CVS: S1,S2,RRR GI: +BS, NT, no distention Skin: No rash Neuro: motor grossly intact Psych: appropriate affect Objective Data Current Medications Generic Name Dose Route Start Last Admin Trade Name Freq PRN Reason Stop Dose Admin Acetaminophen 650 mg 06/26/20 23:01 06/27/20 05:50 Acetaminophen 325 Mg Tablet PO 650 mg Q6H GIA Administration Cyanocobalamin 1,000 mcg 06/27/20 09:00 Cyanocobalamin (Vitamin B-12) 1,000 Mcg Tablet PO DAILY [facility] Losartan Potassium 50 mg 06/27/20 09:00 Losartan Potassium 50 Mg Tablet PO DAILY [facility] Protocol Metoprolol Succinate 300 mg 06/27/20 09:00 Metoprolol Succinate Er 100 Mg Tab.Er.24h PO DAILY [facility] Protocol Morphine Sulfate 2 mg 06/26/20 23:01 Morphine Sulfate 2 Mg/Ml Cartridge IM Q4H PRN Pain, Mild (Pain Scale 1-3) Ondansetron HCl 4 mg 06/26/20 23:01 Ondansetron Hcl 4 Mg/2 Ml Vial IVPUSH Q8H PRN Nausea and Vomiting Oxycodone HCl 5 mg 06/26/20 23:01 06/27/20 05:50 Oxycodone Hcl Immed Release 5 Mg Tablet PO 5 mg Q6H PRN Administration Pain, Mild (Pain Scale 1-3) Pharmacy Consult 1 each 06/26/20 16:10 Consult Rx Perform Med Rec MISCELLANE ONCE PRN Consult order Sodium Chloride 3 ml 06/27/20 00:00 06/27/20 00:54 0.9 % Sodium Chloride Flush 3 Ml Syringe IVFLUSH 3 ml QSHIFT GIA Administration Vitamin D 25 mcg 06/27/20 09:00 Cholecalciferol (Vitamin D3) 25 Mcg Tablet PO DAILY [facility] Labs CBC & Chem 7: 06/26/20 17:50 06/26/20 17:50 Assessment and Plan (1) Femoral neck fracture: Status: Acute (2) Atrial fibrillation: Problem details: Dr. Diaz 03/12/2011 Holter and echo September 2017, ejection fraction 60-65% moderate pulmonary hypertension April 2019 normal LV elevate LV EDP, atrial dilatation moderate MR TR Status: Acute (3) Hypertension: Status: Acute (4) Hypercholesterolemia: Status: Acute (5) Congestive heart failure: Status: Acute (6) Peripheral vascular disease: Status: Acute Assessment and Plan: 84/F with AF on coumadin, CHF, HTN, HLd here with right hip fracture from mechanical fall Acute femoral neck fracture. She is agreable to operative repair, no further risk stratification w/u at this time, check INR today Atrial fibrillation. continue Metoprolol, hold coumadin until after surgery Hypertension. Stable blood pressure. Continue losartan and Metoprolol DVT prophylaxis with mechanical compression boots and resume coumadin after sugery
[2020-06-27] MEDS: Cholecalciferol (Vitamin D3) 25 MCG TABLET PO (08:30)
[2020-06-27] MEDS: Losartan Potassium 50 MG TABLET PO (08:30)
[2020-06-27] MEDS: Cyanocobalamin (Vitamin B-12) 1,000 MCG TABLET 1000 MCG PO (08:30)
[2020-06-27] MEDS: Metoprolol Succinate ER 100 MG TAB.ER.24H 300 MG PO (08:30)
[2020-06-27 09:00] LABS: MANUAL DIFF FLAG NO
[2020-06-27 09:24] LABS: INTERNATIONAL NORM RATIO 1.4 (0.9-1.1); Prothrombin Time 16.7 SEC (10.8-13.0)
[2020-06-27 09:40] LABS: Anion Gap 12 (12-20); Blood Urea Nitrogen 20 mg/dL (9-16); Calcium 7.9 mg/dL (8.4-10.2); Carbon Dioxide 26 mmol/L (22-29); Chloride 98 mmol/L (96-108); Creatinine Clr Calc Pharmacy 60.9; Estimated Glomerular Filt Rate > 60; Glucose Random 112 mg/dL (60-115); Potassium 3.9 mmol/l (3.3-5.1); Sodium 132 mmol/L (135-145)
[2020-06-27] MEDS: Morphine Sulfate 2 MG/ML CARTRIDGE IVPUSH ×2 (09:56→17:58)
[2020-06-27 10:40] LABS: Basophils Percent Auto 0.3 % (0-2); Eosinophils Absolute Auto 0.2 X10*3/uL (0.0-0.4); Eosinophils Percent Auto 1.6 % (0-4); Hematocrit 29.9 % (37-47); Hemoglobin 10.3 g/dl (12.0-16.0); Imm Gran Abs Auto 0.07 X10*3/uL (0.00-0.03); Imm Gran Pct Auto 0.6 % (0.0-0.4); Lymphocytes Absolute Auto 1.7 X10*3/uL (1.2-4.9); Lymphocytes Percent Auto 15.1 % (20-40); Mean Corpuscular HGB Conc 34.4 g/dl (31.0-35.0); Mean Corpuscular Hemoglobin 34.3 pg (27.0-33.0); Mean Corpuscular Volume 99.7 fL (80-98); Mean Platelet Volume 9.7 fL (9.4-12.3); Monocytes Absolute Auto 0.9 X10*3/uL (0.1-1.2); Monocytes Percent Auto 7.7 % (2-11); Neutrophils Absolute Auto 8.3 X10*3/uL (2.0-8.3); Neutrophils Percent Auto 74.7 % (45-73); Platelet Count 169 X10*3/uL (160-400); Red Cell Distribution Width 12.9 % (11.0-16.0); White Blood Count 11.2 X10*3/uL (4.8-10.8)
--- NOTE | 2020-06-27 10:49 | P.CONOP_ITS ---
History of Present Illness HPI Consult date: 06/27/20 Chief complaint: Fall Narrative: Ms. Meehan is an 85-year-old female who presented to the emergency department after sustaining a fall at home. She has a past medical history significant for Congestive heart failure and AFib on Coumadin. She also has mitral valve insufficiency and tricuspid valve insufficiency. She fell off landing on her right hip and EMS was called and she was transported to the emergency department for evaluation of the right hip. On exam she was found to have a hip fracture and x-rays demonstrated a right femoral neck fracture. She was admitted to the hospital service and Orthopedics was consulted for further evaluation and treatment . Review of Systems Constitutional: Constitutional: Denies headache(s) and Denies weakness ENT: Denies dizziness and Denies headache(s) Musculoskeletal: Musculoskeletal: Denies numbness and Denies tingling Neurologic: Reports system reviewed and no additional complaints, except as d ocumented, Denies Abnormal speech present, Denies dizziness, Denies headache(s), Denies numbness, Denies tingling and Denies weakness PMFSH Past Medical History Medical History Atrial fibrillation Cataract Compression fracture of T10 vertebra Congestive heart failure Hypercholesterolemia Hypertension Insomnia Mammogram declined Osteoarthritis of knee Peripheral vascular disease Porphyria cutanea tarda TIA (transient ischemic attack) Uterine prolapse Family History Family History Father Hypertension Mother Hypertension Daughter Colon cancer Lymph node cancer Surgical History Surgical History History of biopsy History of D&C History of uterine prolapse Social History Social History Household Members: None Housing: House Housing Other:: Ambulates with a cane Do you presently have visiting nurse or other home services: Yes (elder care, heel slugger, meals on wheels) Smoking Status: Never smoker Second Hand Smoke Exposure: No Use of substances other than those prescribed or required for medical reasons: No Have you been hit, kicked, punched, or otherwise hurt by someone within the past year? If so, by whom?: No Do you feel safe in your current relationship?: No Is there a partner from a previous relationship who is making you feel unsafe now?: No Are you made to feel afraid or neglected: No Advance Directives: No Advance Directives Information Provided: Yes Do you have thoughts of harming others: None Do you have a plan to hurt others: No Plan Recently lost weight without trying: No service: No Current occupational status: retired Meds Allergies Allergy/AdvReac Type Severity Reaction Status Date / Time amlodipine [AMLODIPINE] Allergy Unknown UNKNOWN Verified 05/14/20 13:06 carvedilol [CARVEDILOL] Allergy Unknown UNKNOWN Verified 05/14/20 13:06 irbesartan [From AVAPRO] Allergy Unknown UNKNOWN Verified 05/14/20 13:06 levofloxacin [From LEVAQUIN] Allergy Unknown GENERALIZED Verified 05/14/20 13:06 MUSCLE PAIN naproxen [Naproxen] Allergy Unknown HIVES, Verified 05/14/20 13:06 severe rash tetracycline [TETRACYCLINE] Allergy Unknown UNKNOWN Verified 05/14/20 13:06 Home Medications Medication Instructions Recorded Confirmed Type cholecalciferol (vitamin D3) 25 25 mcg PO DAILY 05/14/20 06/26/20 History mcg (1,000 unit) capsule cyanocobalamin (vitamin B-12) 1,000 mcg PO DAILY 05/14/20 06/26/20 History 1,000 mcg capsule acetaminophen-codeine 1 tab PO TID PRN 06/26/20 06/26/20 History warfarin 2.5 mg PO SUTUWETHFRSA 06/26/20 06/26/20 History warfarin 5 mg PO MO 06/26/20 06/26/20 History Physical Exam Vital Signs: Vital Signs: Last Vital Signs Temp 97.3 F 06/27/20 08:00 Pulse 73 06/27/20 08:00 Resp 17 06/27/20 08:00 BP 192/89 H 06/27/20 08:00 Pulse Ox 95 06/27/20 08:00 Body Mass Index 24.9 Const: General: cooperative, healthy appearing, comfortable, no acute distress, well developed and alert Orientation/consciousness: patient oriented x3 HENMT: Head: Yes normal to inspection, Yes normocephalic and Yes atraumatic Eyes: General: appearance normal, both eyes and all related structures Neck: Neck: Yes normal visual inspection and Yes no lymphadenopathy Resp: Effort & Inspection: normal respiratory effort and able to speak in complete sentences Cardio: Rate: regular rate Peripheral pulses: Peripheral pulses 2+ throughout GI: Inspection: Yes normal to inspection Palpation (GI): Soft to palpation Skin: General skin exam: no rashes or lesions noted Neuro: General: patient oriented x3 Speech: No Abnormal speech present Extrem: Other: Right hip skin intact there is tenderness over the lateral aspect of the hip and pain with log roll she is unable to actively flex the right hip. Peripheral pulses are present. Psych: Appearance: grossly normal Results Labs Result Diagrams: 06/27/20 08:03 06/27/20 08:03 Labs: Abnormal lab results 06/26/20 06/26/20 06/26/20 Range/Units 17:50 17:50 17:50 WBC 13.0 H (4.8-10.8) X10*3/uL RBC 3.39 L (4.20-5.50) X10*6/uL Hgb 11.6 L (12.0-16.0) g/dl Hct 33.6 L (37-47) % MCV 99.1 H (80-98) fL MCH 34.2 H (27.0-33.0) pg MPV 9.2 L (9.4-12.3) fL Immature Gran % (Auto) 0.6 H (0.0-0.4) % Neut % (Auto) 78.9 H (45-73) % Lymph % (Auto) 12.4 L (20-40) % Abs Immat Gran (auto) 0.08 H (0.00-0.03) X10*3/uL Absolute Neuts (auto) 10.2 H (2.0-8.3) X10*3/uL PT 28.5 H (10.8-13.0) SEC INR 2.4 H (0.9-1.1) Sodium 134 L (135-145) mmol/L BUN 21 H (9-16) mg/dL Random Glucose 134 H D (60-115) mg/dL Calcium 8.1 L (8.4-10.2) mg/dL Ur Specific [place] (1.005-1.025) 06/26/20 06/27/20 06/27/20 Range/Units 20:08 08:03 08:03 WBC (4.8-10.8) X10*3/uL RBC (4.20-5.50) X10*6/uL Hgb (12.0-16.0) g/dl Hct (37-47) % MCV (80-98) fL MCH (27.0-33.0) pg MPV (9.4-12.3) fL Immature Gran % (Auto) (0.0-0.4) % Neut % (Auto) (45-73) % Lymph % (Auto) (20-40) % Abs Immat Gran (auto) (0.00-0.03) X10*3/uL Absolute Neuts (auto) (2.0-8.3) X10*3/uL PT 16.7 H D (10.8-13.0) SEC INR 1.4 H (0.9-1.1) Sodium 132 L (135-145) mmol/L BUN 20 H (9-16) mg/dL Random Glucose (60-115) mg/dL Calcium 7.9 L (8.4-10.2) mg/dL Ur Specific [place] >= 1.030 H (1.005-1.025) H & H 06/26/20 Range/Units 17:50 Hgb 11.6 L (12.0-16.0) g/dl Hct 33.6 L (37-47) % Coagulation 06/26/20 06/27/20 Range/Units 17:50 08:03 INR 2.4 H 1.4 H (0.9-1.1) All other labs normal. Diagnostic results Hip x-ray: image reviewed (There is a displaced right femoral neck fracture) Assessment and Plan (1) Femoral neck fracture: Qualifiers: Encounter type: initial encounter Fracture type: closed Laterality: right Qualified Code(s): S72.001A - Fracture of unspecified part of neck of right femur, initial encounter for closed fracture Status: Acute I discussed the case with Dr. Villanueva and explained the extent of the injury to the patient and options available which include surgical intervention. I explained the procedure in detail along with the length of recovery and rehab course. I explained the risk, benefits and alternatives. Risk including, but not limited to infection, blood clots, bleeding, non union or malunion and nerve/tissue damage to surrounding areas. I answered all their questions and with their understanding they have consented to move forward with Operative Fixation of (the right hip . The patient with be T&S, med clearance obtained and NPO after midnight. Cardiology recommendation: Postprocedure recommend restart of Coumadin with INR goal 2-3. Since she received vitamin K may take longer for her INR to reach goal. Recommend Lovenox bridge with her high chads Vasc score
[2020-06-27 12:00] VITALS: BP 177/84; PULSE 72; RESP 16; TEMP 36.7; O2SAT 96
--- NOTE | 2020-06-27 13:58 | P.CONCA_ITS ---
History of Present Illness History of Present Illness Date of Service: 06/27/20 Requesting physician: Tim Tyson Consult reason: pre-op evaluation Chief complaint: Fall Narrative: Julianna is an 85 yo female with PMH of HTN, HLD, diastolic HF, pulm HTN, chronic afib with coumadin for anticoagulation who had mechanical fall at home and is admitted with fx right hip. Cardiology clearance requested. Today she reports that she has been doing generally well since her last visit to Cardiology 05/2019. She has not had any other hospital admissions. She describes a mechanical fall at home with no dizziness, lightheadedness prior to the event. She had no loss of consciousness. She states she does not typically fall at home. She denies having any chest discomfort at rest or with activity, palpitations, dizziness, presyncope, syncope, PND, orthopnea. She does have mild lower leg edema which is not new for her. She will get short of breath with walking which she contributes to her age. She lives alone at home and has help of a home health aide and Elder Care Service. She reports compliance with all her medications and follows at the [facility]. Review of Systems Review of Systems: As above Yes all other systems are reviewed and are negative Musculoskeletal: Comments: Right hip discomfort with movement PMFSH Past Medical History Medical History Atrial fibrillation Cataract Compression fracture of T10 vertebra Congestive heart failure Hypercholesterolemia Hypertension Insomnia Mammogram declined Osteoarthritis of knee Peripheral vascular disease Porphyria cutanea tarda TIA (transient ischemic attack) Uterine prolapse Family History Family History Father Hypertension Mother Hypertension Daughter Colon cancer Lymph node cancer Surgical History Surgical History History of biopsy History of D&C History of uterine prolapse Social History Social History Household Members: None Housing: House Housing Other:: Ambulates with a cane Do you presently have visiting nurse or other home services: Yes (elder care, wood die maker, meals on wheels) Smoking Status: Never smoker Second Hand Smoke Exposure: No Use of substances other than those prescribed or required for medical reasons: No Have you been hit, kicked, punched, or otherwise hurt by someone within the past year? If so, by whom?: No Do you feel safe in your current relationship?: No Is there a partner from a previous relationship who is making you feel unsafe now?: No Are you made to feel afraid or neglected: No Advance Directives: No Advance Directives Information Provided: Yes Do you have thoughts of harming others: None Do you have a plan to hurt others: No Plan Recently lost weight without trying: No Meds Allergies Allergy/AdvReac Type Severity Reaction Status Date / Time amlodipine [AMLODIPINE] Allergy Unknown UNKNOWN Verified 05/14/20 13:06 carvedilol [CARVEDILOL] Allergy Unknown UNKNOWN Verified 05/14/20 13:06 irbesartan [From AVAPRO] Allergy Unknown UNKNOWN Verified 05/14/20 13:06 levofloxacin [From LEVAQUIN] Allergy Unknown GENERALIZED Verified 05/14/20 13:06 MUSCLE PAIN naproxen [Naproxen] Allergy Unknown HIVES, Verified 05/14/20 13:06 severe rash tetracycline [TETRACYCLINE] Allergy Unknown UNKNOWN Verified 05/14/20 13:06 Home Medications Medication Instructions Recorded Confirmed Type cholecalciferol (vitamin D3) 25 25 mcg PO DAILY 05/14/20 06/26/20 History mcg (1,000 unit) capsule cyanocobalamin (vitamin B-12) 1,000 mcg PO DAILY 05/14/20 06/26/20 History 1,000 mcg capsule acetaminophen-codeine 1 tab PO TID PRN 06/26/20 06/26/20 History warfarin 2.5 mg PO SUTUWETHFRSA 06/26/20 06/26/20 History warfarin 5 mg PO MO 06/26/20 06/26/20 History Physical Exam Vital Signs: Vital Signs: Last Vital Signs Temp 98.1 F 06/27/20 12:00 Pulse 72 06/27/20 12:00 Resp 16 06/27/20 12:00 BP 177/84 H 06/27/20 12:00 Pulse Ox 96 06/27/20 12:00 Body Mass Index 24.9 Const: General: cooperative, no acute distress, alert and awake Orientation/consciousness: patient oriented x3 HENMT: Head: Yes normal to inspection Neck: Neck: Yes normal visual inspection and Yes no JVD Resp: Effort & Inspection: normal respiratory effort, able to speak in complete sentences and not labored Auscultation: clear to auscultation bilaterally, no crackles, no rales, no rhonchi and no wheezes Cardio: Other: Heart irregularly irregular Palpation: normal PMI Heart sounds: S1 normal heart sound present and S2 normal heart sound present Peripheral pulses: Peripheral pulses 2+ throughout GI: Inspection: Yes normal to inspection Skin: General skin exam: no rashes or lesions noted Neuro: General: patient oriented x3 Extrem: Other: Ecchymotic area noted to left inner thigh. Facial grimace with repositioning, related to right hip discomfort. Soft pitting edema of her lower extremities bilaterally Results Labs and Meds Result diagrams: 06/27/20 08:03 06/27/20 08:03 Lab results: Laboratory Results - last 24 hr 06/26/20 06/26/20 06/26/20 17:50 17:50 17:50 WBC 13.0 H RBC 3.39 L Hgb 11.6 L Hct 33.6 L MCV 99.1 H MCH 34.2 H MCHC 34.5 RDW 12.8 Plt Count 180 MPV 9.2 L Immature Gran % (Auto) 0.6 H Neut % (Auto) 78.9 H Lymph % (Auto) 12.4 L [place] % (Auto) 7.6 Eos % (Auto) 0.4 Baso % (Auto) 0.1 Lymph # (Auto) 1.6 [place] # (Auto) 1.0 Eos # (Auto) 0.1 Baso # (Auto) 0.0 Abs Immat Gran (auto) 0.08 H Absolute Neuts (auto) 10.2 H Absolute Nucleated RBC 0.000 Nucleated RBC % (auto) 0.0 PT 28.5 H INR 2.4 H Sodium 134 L Potassium 3.7 Chloride 98 Carbon Dioxide 25 Anion Gap 15 BUN 21 H Creatinine 0.66 Estim Creat Clear Calc 59.2 Estimated GFR > 60 Random Glucose 134 H D Calcium 8.1 L Urine Color Urine Appearance Urine pH Ur Specific [place] Urine Protein Urine Glucose (UA) Urine Ketones Urine Blood Urine Nitrite Ur Leukocyte Esterase COVID-19 ([place]) COVID-19 Clin Com Blood Type Antibody Screen 06/26/20 06/26/20 06/27/20 17:50 20:08 08:03 WBC 11.2 H RBC 3.00 L Hgb 10.3 L Hct 29.9 L MCV 99.7 H MCH 34.3 H MCHC 34.4 RDW 12.9 Plt Count 169 MPV 9.7 Immature Gran % (Auto) 0.6 H Neut % (Auto) 74.7 H Lymph % (Auto) 15.1 L [place] % (Auto) 7.7 Eos % (Auto) 1.6 Baso % (Auto) 0.3 Lymph # (Auto) 1.7 [place] # (Auto) 0.9 Eos # (Auto) 0.2 Baso # (Auto) 0.0 Abs Immat Gran (auto) 0.07 H Absolute Neuts (auto) 8.3 Absolute Nucleated RBC 0.000 Nucleated RBC % (auto) 0.0 PT INR Sodium Potassium Chloride Carbon Dioxide Anion Gap BUN Creatinine Estim Creat Clear Calc Estimated GFR Random Glucose Calcium Urine Color JONATHAN Urine Appearance CLEAR Urine pH 5.5 Ur Specific [place] >= 1.030 H Urine Protein NEG Urine Glucose (UA) NEG Urine Ketones NEG Urine Blood NEG Urine Nitrite NEG Ur Leukocyte Esterase NEG COVID-19 ([place]) Negative COVID-19 Clin Com See Note Blood Type Antibody Screen 06/27/20 06/27/20 06/27/20 08:03 08:03 12:09 WBC RBC Hgb Hct MCV MCH MCHC RDW Plt Count MPV Immature Gran % (Auto) Neut % (Auto) Lymph % (Auto) [place] % (Auto) Eos % (Auto) Baso % (Auto) Lymph # (Auto) [place] # (Auto) Eos # (Auto) Baso # (Auto) Abs Immat Gran (auto) Absolute Neuts (auto) Absolute Nucleated RBC Nucleated RBC % (auto) PT 16.7 H D INR 1.4 H Sodium 132 L Potassium 3.9 Chloride 98 Carbon Dioxide 26 Anion Gap 12 BUN 20 H Creatinine 0.63 Estim Creat Clear Calc 60.9 Estimated GFR > 60 Random Glucose 112 Calcium 7.9 L Urine Color Urine Appearance Urine pH Ur Specific [place] Urine Protein Urine Glucose (UA) Urine Ketones Urine Blood Urine Nitrite Ur Leukocyte Esterase COVID-19 ([place]) COVID-19 Clin Com Blood Type B Positive Antibody Screen NEGATIVE Assessment and Plan (1) Preop cardiovascular exam: Status: Acute Preop for ORIF of right hip. She has no known history of coronary artery disease, prior NM or cardiomyopathy. She does have history of diastolic Congestive heart failure, chronic AFib. No reports of anginal sounding symptoms. No clinical signs of acute heart failure on examination. She is on Coumadin for anticoagulation, INR yesterday 2.4. She did recieve Vit K yest. INR today 1.4. EKG yesterday shows atrial fibrillation, poor tracing without obvious acute abnormalities, rate 77. Case reviewed with Dr. Jules. Patient i s intermediate cardiac risk to proceed with hip surgery. Continue metoprolol, losartan. She is chads Vasc score of at least 5 (CHF, HTN, age, female). Postprocedure recommend restart of Coumadin with INR goal 2-3. Since she received vitamin K may take longer for her INR to reach goal. Recommend Lovenox bridge with her high chads Vasc score. Call us if needed (2) Current use of anticoagulant therapy: Status: Acute (3) Atrial fibrillation: Qualifiers: Atrial fibrillation type: paroxysmal Qualified Code(s): I48.0 - Paroxy smal atrial fibrillation Problem details: Dr. Gamez 03/12/2011 Holter and echo September 2017, ejection fraction 60-65% moderate pulmonary hypertension April 2019 normal LV elevate LV EDP, atrial dilatation moderate MR TR Status: Acute History of persistent AFib, now seems chronic. EKG on admit shows AFib, rate 77. No reports of heart palpitations. She is maintained on metoprolol for heart rate control and on Coumadin for anticoagulation. Follows with the [facility] as outpatient. (4) Femoral neck fracture: Qualifiers: Encounter type: initial encounter Fracture type: closed Laterality: right Qualified Code(s): S72.001A - Fracture of unspecified part of neck of right femur, initial encounter for closed fracture Status: Acute Being followed by Orthopedics (5) Hypertension: Qualifiers: Hypertension type: essential hypertension Qualified Code(s): I10 - Essential (primary) hypertension Status: Acute BP has been elevated. She is restarted on her usual metoprolol and losartan. Elevation may be related to pain. Treat with pain control. There is room to increase losartan if needed.
[2020-06-27 15:36] VITALS: BP 134/60; PULSE 81; RESP 18; TEMP 36.3; O2SAT 93
--- NOTE | 2020-06-27 15:40 | MHC.CM.PN ---
nurse overnight caregiver note electronic medical record reviewed along with case discussed with staff nurse. met with patient and explained the role f the nurse overnight caregiver intake transition from the hospital to home or to short term rehab . patient reports that she had a mechanical fall at home (she denied any dizziness, no ringing in the ears , no blurred vision.) patient reports that she had a fall about a year ago, she reports that at times she requires some assistance with alds , she receives services with [facility] services - 1. meals on wheels (Thursday -Thursday ) and band saw marker 2x week ) she has no vna services , she confirmed pcp dr dey and she is followed by [facility] application helper fr her a-fib and on warfarin. she comes to the [facility] last seen Thursday and comes usually q6 weeks. she reported she has a health care proxy and Darius and Chrissy are her agents , requested copy to be brought in . reviewed with patient short term rehab facilities and she requested that i try the ones in the [facility] naty Gross , [facility] , [place] AND [facility] THEN SHE CAN HAVE CHOICES nd discuss further with her family DISCHARGE PLAN STR TO BE DETERMINED REFERRALS STARTED WITH NATY ROMO ,[facility] , [facility] AND [facility] /
[2020-06-27 19:33] VITALS: BP 116/62; PULSE 75; RESP 19; TEMP 36.7; O2SAT 94
[2020-06-27] MEDS: Zolpidem Tartrate 5 MG TABLET PO (22:33)
[2020-06-28] VITALS (11 sets, daily range): BP systolic 104–180; BP diastolic 59–94; PULSE 62–90; RESP 14–19; TEMP 36.2–37.6; O2SAT 95–100
[2020-06-28] MEDS: Acetaminophen 325 MG TABLET 650 MG PO ×4 (04:56→22:21)
[2020-06-28] MEDS: oxyCODONE HCl Immed Release 5 MG TABLET PO ×2 (04:56→22:21)
[2020-06-28 06:16] LABS: Hematocrit 27.7 % (37-47); Hemoglobin 9.5 g/dl (12.0-16.0); Mean Corpuscular HGB Conc 34.3 g/dl (31.0-35.0); Mean Corpuscular Hemoglobin 34.4 pg (27.0-33.0); Mean Corpuscular Volume 100.4 fL (80-98); Mean Platelet Volume 9.4 fL (9.4-12.3); Platelet Count 153 X10*3/uL (160-400); Red Blood Count 2.76 X10*6/uL (4.20-5.50); Red Cell Distribution Width 12.8 % (11.0-16.0); White Blood Count 10.8 X10*3/uL (4.8-10.8)
[2020-06-28 06:40] LABS: Anion Gap 10 (12-20); Blood Urea Nitrogen 21 mg/dL (9-16); Calcium 7.8 mg/dL (8.4-10.2); Carbon Dioxide 29 mmol/L (22-29); Chloride 97 mmol/L (96-108); Creatinine Clr Calc Pharmacy 54.1; Estimated Glomerular Filt Rate > 60; Glucose Random 131 mg/dL (60-115); Potassium 3.7 mmol/l (3.3-5.1); Sodium 132 mmol/L (135-145)
[2020-06-28] MEDS: Lactated Ringers 1,000 ML 100 ML IVCONT ×3 (06:43→22:43)
[2020-06-28] MEDS: ceFAZolin Sodium/Dextrose,Iso 2 GM/50 ML PIGGYBACK IV ×2 (06:48→13:29)
--- NOTE | 2020-06-28 07:28 | HO.ANESPROP2 ---
[facility] Past Medical History Medical History Atrial fibrillation Cataract Compression fracture of T10 vertebra Congestive heart failure Hypercholesterolemia Hypertension Insomnia Mammogram declined Osteoarthritis of knee Peripheral vascular disease Porphyria cutanea tarda TIA (transient ischemic attack) Uterine prolapse Family History Family History Father Hypertension Mother Hypertension Daughter Colon cancer Lymph node cancer Surgical History Surgical History History of biopsy History of D&C History of uterine prolapse Social History Social History Household Members: None Housing: House Housing Other:: Ambulates with a cane Do you presently have visiting nurse or other home services: Yes (elder care, foster care worker, meals on wheels) Smoking Status: Never smoker Second Hand Smoke Exposure: No Use of substances other than those prescribed or required for medical reasons: No Currently Displaying Signs/Symptoms of Drug Intoxication Withdrawal: No Have you been hit, kicked, punched, or otherwise hurt by someone within the past year? If so, by whom?: No Do you feel safe in your current relationship?: No Is there a partner from a previous relationship who is making you feel unsafe now?: No Are you made to feel afraid or neglected: No Advance Directives: No Advance Directives Information Provided: Yes Do you have thoughts of harming others: None Do you have a plan to hurt others: No Plan Recently lost weight without trying: No service: No Current occupational status: retired Meds Allergies Allergy/AdvReac Type Severity Reaction Status Date / Time amlodipine [AMLODIPINE] Allergy Unknown UNKNOWN Verified 05/14/20 13:06 carvedilol [CARVEDILOL] Allergy Unknown UNKNOWN Verified 05/14/20 13:06 irbesartan [From AVAPRO] Allergy Unknown UNKNOWN Verified 05/14/20 13:06 levofloxacin [From LEVAQUIN] Allergy Unknown GENERALIZED Verified 05/14/20 13:06 MUSCLE PAIN naproxen [Naproxen] Allergy Unknown HIVES, Verified 05/14/20 13:06 severe rash tetracycline [TETRACYCLINE] Allergy Unknown UNKNOWN Verified 05/14/20 13:06 Home Medications Medication Instructions Recorded Confirmed Type cholecalciferol (vitamin D3) 25 25 mcg PO DAILY 05/14/20 06/26/20 History mcg (1,000 unit) capsule cyanocobalamin (vitamin B-12) 1,000 mcg PO DAILY 05/14/20 06/26/20 History 1,000 mcg capsule acetaminophen-codeine 1 tab PO TID PRN 06/26/20 06/26/20 History warfarin 2.5 mg PO SUTUWETHFRSA 06/26/20 06/26/20 History warfarin 5 mg PO MO 06/26/20 06/26/20 History Exam Exam Date and Time: June 28, 2020 07 Height,Weight and Vital Signs: Height 5 ft 4 in Weight 65.771 kg Last Vital Signs Temp 98.2 F 06/28/20 06:13 Pulse 62 06/28/20 06:13 Resp 16 06/28/20 06:13 BP 153/94 H 06/28/20 06:13 Pulse Ox 95 06/28/20 06:13 Pertinent Lab Results Pertinent Lab Results: Laboratory Tests 06/26/20 06/26/20 06/26/20 17:50 17:50 17:50 WBC 13.0 H RBC 3.39 L Hgb 11.6 L Hct 33.6 L MCV 99.1 H MCH 34.2 H MCHC 34.5 RDW 12.8 Plt Count 180 MPV 9.2 L Immature Gran % (Auto) 0.6 H Neut % (Auto) 78.9 H Lymph % (Auto) 12.4 L [place] % (Auto) 7.6 Eos % (Auto) 0.4 Baso % (Auto) 0.1 Lymph # (Auto) 1.6 [place] # (Auto) 1.0 Eos # (Auto) 0.1 Baso # (Auto) 0.0 Abs Immat Gran (auto) 0.08 H Absolute Neuts (auto) 10.2 H Absolute Nucleated RBC 0.000 Nucleated RBC % (auto) 0.0 PT 28.5 H INR 2.4 H Sodium 134 L Potassium 3.7 Chloride 98 Carbon Dioxide 25 Anion Gap 15 BUN 21 H Creatinine 0.66 Estim Creat Clear Calc 59.2 Estimated GFR > 60 Random Glucose 134 H D Calcium 8.1 L Urine Color Urine Appearance Urine pH Ur Specific [place] Urine Protein Urine Glucose (UA) Urine Ketones Urine Blood Urine Nitrite Ur Leukocyte Esterase COVID-19 ([place]) COVID-19 Clin Com Blood Type Antibody Screen 06/26/20 06/26/20 06/27/20 17:50 20:08 08:03 WBC 11.2 H RBC 3.00 L Hgb 10.3 L Hct 29.9 L MCV 99.7 H MCH 34.3 H MCHC 34.4 RDW 12.9 Plt Count 169 MPV 9.7 Immature Gran % (Auto) 0.6 H Neut % (Auto) 74.7 H Lymph % (Auto) 15.1 L [place] % (Auto) 7.7 Eos % (Auto) 1.6 Baso % (Auto) 0.3 Lymph # (Auto) 1.7 [place] # (Auto) 0.9 Eos # (Auto) 0.2 Baso # (Auto) 0.0 Abs Immat Gran (auto) 0.07 H Absolute Neuts (auto) 8.3 Absolute Nucleated RBC 0.000 Nucleated RBC % (auto) 0.0 PT INR Sodium Potassium Chloride Carbon Dioxide Anion Gap BUN Creatinine Estim Creat Clear Calc Estimated GFR Random Glucose Calcium Urine Color JONATHAN Urine Appearance CLEAR Urine pH 5.5 Ur Specific [place] >= 1.030 H Urine Protein NEG Urine Glucose (UA) NEG Urine Ketones NEG Urine Blood NEG Urine Nitrite NEG Ur Leukocyte Esterase NEG COVID-19 ([place]) Negative COVID-[employer] Com See Note Blood Type Antibody Screen 06/27/20 06/27/20 06/27/20 08:03 08:03 12:09 WBC RBC Hgb Hct MCV MCH MCHC RDW Plt Count MPV Immature Gran % (Auto) Neut % (Auto) Lymph % (Auto) [place] % (Auto) Eos % (Auto) Baso % (Auto) Lymph # (Auto) [place] # (Auto) Eos # (Auto) Baso # (Auto) Abs Immat Gran (auto) Absolute Neuts (auto) Absolute Nucleated RBC Nucleated RBC % (auto) PT 16.7 H D INR 1.4 H Sodium 132 L Potassium 3.9 Chloride 98 Carbon Dioxide 26 Anion Gap 12 BUN 20 H Creatinine 0.63 Estim Creat Clear Calc 60.9 Estimated GFR > 60 Random Glucose 112 Calcium 7.9 L Urine Color Urine Appearance Urine pH Ur Specific [place] Urine Protein Urine Glucose (UA) Urine Ketones Urine Blood Urine Nitrite Ur Leukocyte Esterase COVID-19 ([place]) COVID-[employer] Com Blood Type B Positive Antibody Screen NEGATIVE 06/28/20 06/28/20 06:01 06:01 WBC 10.8 RBC 2.76 L Hgb 9.5 L Hct 27.7 L MCV 100.4 H MCH 34.4 H MCHC 34.3 RDW 12.8 Plt Count 153 L MPV 9.4 Immature Gran % (Auto) Neut % (Auto) Lymph % (Auto) [place] % (Auto) Eos % (Auto) Baso % (Auto) Lymph # (Auto) [place] # (Auto) Eos # (Auto) Baso # (Auto) Abs Immat Gran (auto) Absolute Neuts (auto) Absolute Nucleated RBC 0.000 Nucleated RBC % (auto) 0.0 PT INR Sodium 132 L Potassium 3.7 Chloride 97 Carbon Dioxide 29 Anion Gap 10 L BUN 21 H Creatinine 0.71 Estim Creat Clear Calc 54.1 Estimated GFR > 60 Random Glucose 131 H Calcium 7.8 L Urine Color Urine Appearance Urine pH Ur Specific [place] Urine Protein Urine Glucose (UA) Urine Ketones Urine Blood Urine Nitrite Ur Leukocyte Esterase COVID-19 ([place]) COVID-19 Clin Com Blood Type Antibody Screen Airway Mallampati Class: II TM Dist: >3cm Neck ROM: Full Partial: Upper and Lower
--- NOTE | 2020-06-28 09:01 | P.PCNOP_ITS ---
Brief Operative Note Date of procedure: 06/28/20 Pre-op diagnosis: fractured right hip Post-op diagnosis: same Procedure: OPERATIVE FIXATION RIGHT HIP WITH HEMIARTHROPLASTY Anesthesia: SULMAA Surgeon: Fredy Villanueva House Painter Helper: Jimena Healy Estimated blood loss (mL): 100 Condition: stable Disposition: PACU
--- NOTE | 2020-06-28 09:03 | MHC.SHP ---
Pre-Procedural Eval Section A The patient is an INPATIENT: Yes Section B Chief Complaint: Fall Allergies: Allergies Allergy/AdvReac Type Severity Reaction Status Date / Time amlodipine [AMLODIPINE] Allergy Unknown UNKNOWN Verified 05/14/20 13:06 carvedilol [CARVEDILOL] Allergy Unknown UNKNOWN Verified 05/14/20 13:06 irbesartan [From AVAPRO] Allergy Unknown UNKNOWN Verified 05/14/20 13:06 levofloxacin [From LEVAQUIN] Allergy Unknown GENERALIZED Verified 05/14/20 13:06 MUSCLE PAIN naproxen [Naproxen] Allergy Unknown HIVES, Verified 05/14/20 13:06 severe rash tetracycline [TETRACYCLINE] Allergy Unknown UNKNOWN Verified 05/14/20 13:06 Plan I have reviewed the history and physical and performed a pertinent physical examination on my patient. No changes have occurred unless specified.
[2020-06-28] MEDS: Cyanocobalamin (Vitamin B-12) 1,000 MCG TABLET 1000 MCG PO (10:42)
[2020-06-28] MEDS: Cholecalciferol (Vitamin D3) 25 MCG TABLET PO (10:43)
[2020-06-28] MEDS: Losartan Potassium 50 MG TABLET PO (10:43)
[2020-06-28] MEDS: Metoprolol Succinate ER 100 MG TAB.ER.24H 300 MG PO (10:43)
--- NOTE | 2020-06-28 12:26 | HO.PM.IMPN ---
Subjective Subjective Date of Service: 06/28/20 Interval History: Seen in f/u for right hip fracture due to fall. Surgery today without complication Physical Exam Vital Signs: Vital Signs: vitals Selected Entries 06/28/20 14:15 Temperature 97.8 F Pulse Rate 84 Respiratory Rate 17 Blood Pressure 104/66 Pulse Oximetry 99 Body Mass Index 24.9 Const: Other: General: AO X 3, no acute distress Resp: CTA bilateral CVS: S1,S2,RRR GI: +BS, NT, no distention Skin: wound d/c/i Neuro: motor grossly intact Psych: appropriate affect Objective Data Current Medications Generic Name Dose Route Start Last Admin Trade Name Freq PRN Reason Stop Dose Admin Acetaminophen 650 mg 06/26/20 23:01 06/28/20 10:43 Acetaminophen 325 Mg Tablet PO 650 mg Q6H GIA Administration Cyanocobalamin 1,000 mcg 06/27/20 09:00 06/28/20 10:42 Cyanocobalamin (Vitamin B-12) 1,000 Mcg Tablet PO 1,000 mcg DAILY GIA Administration Lactated Ringer's 1,000 mls @ 100 mls/hr 06/28/20 07:30 06/28/20 11:35 Lr IVCONT 100 mls/hr .Q10H GIA Administration Cefazolin Sodium/Dextrose 2 gm in 50 mls @ 100 mls/hr 06/28/20 13:50 Ancef IV 06/28/20 14:19 POSTOP ONE Losartan Potassium 50 mg 06/27/20 09:00 06/28/20 10:43 Losartan Potassium 50 Mg Tablet PO 50 mg DAILY GIA Administration Protocol Metoprolol Succinate 300 mg 06/27/20 09:00 06/28/20 10:43 Metoprolol Succinate Er 100 Mg Tab.Er.24h PO 300 mg DAILY GIA Administration Protocol Morphine Sulfate 2 mg 06/28/20 10:15 Morphine Sulfate 2 Mg/Ml Cartridge IVPUSH Q2H PRN Pain, Severe (Pain Scale 7-10) Naloxone HCl 0.2 mg 06/28/20 10:15 Naloxone Hcl 0.4 Mg/Ml Vial IVPUSH Q2M PRN Excessive sedation or RR < 8 Ondansetron HCl 4 mg 06/26/20 23:01 Ondansetron Hcl 4 Mg/2 Ml Vial IVPUSH Q8H PRN Nausea and Vomiting Oxycodone HCl 5 mg 06/26/20 23:01 06/28/20 04:56 Oxycodone Hcl Immed Release 5 Mg Tablet PO 5 mg Q6H PRN Administration Pain, Mild (Pain Scale 1-3) Sodium Chloride 3 ml 06/27/20 00:00 06/28/20 10:52 0.9 % Sodium Chloride Flush 3 Ml Syringe IVFLUSH Not Given QSHIFT [facility] Sodium Chloride 3 ml 06/28/20 16:00 0.9 % Sodium Chloride Flush 3 Ml Syringe IVFLUSH QSHIFT GIA Vitamin D 25 mcg 06/27/20 09:00 06/28/20 10:43 Cholecalciferol (Vitamin D3) 25 Mcg Tablet PO 25 mcg DAILY GIA Administration Labs CBC & Chem 7: 06/29/20 06:07 06/29/20 06:07 Assessment and Plan (1) Femoral neck fracture: Status: Acute (2) Atrial fibrillation: Problem details: Dr. Gamez 03/12/2011 Holter and echo September 2017, ejection fraction 60-65% moderate pulmonary hypertension April 2019 normal LV elevate LV EDP, atrial dilatation moderate MR TR Status: Acute (3) Hypertension: Status: Acute (4) Hypercholesterolemia: Status: Acute (5) Congestive heart failure: Status: Acute (6) Peripheral vascular disease: Status: Acute Assessment and Plan: 84/F with AF on coumadin, CHF, HTN, HLd here with right hip fracture from mechanical fall Acute femoral neck fracture. Repair done today, no post op issues Atrial fibrillation. continue Metoprolol. Restart coumadin tomorrow Hypertension. Continue losartan and Metoprolol DVT prophylaxis with mechanical compression boots and resume coumadin after sugery
[2020-06-28] MEDS: Zolpidem Tartrate 5 MG TABLET PO (22:21)
[2020-06-29] VITALS (11 sets, daily range): BP systolic 103–165; BP diastolic 53–89; PULSE 57–81; RESP 15–19; TEMP 36.2–36.8; O2SAT 99–100
[2020-06-29] MEDS: Acetaminophen 325 MG TABLET 650 MG PO ×4 (05:46→23:02)
[2020-06-29 06:28] LABS: Hematocrit 24.8 % (37-47); Hemoglobin 8.1 g/dl (12.0-16.0); Mean Corpuscular HGB Conc 32.7 g/dl (31.0-35.0); Mean Corpuscular Hemoglobin 33.6 pg (27.0-33.0); Mean Corpuscular Volume 102.9 fL (80-98); Mean Platelet Volume 9.3 fL (9.4-12.3); Platelet Count 146 X10*3/uL (160-400); Red Blood Count 2.41 X10*6/uL (4.20-5.50); Red Cell Distribution Width 12.8 % (11.0-16.0); White Blood Count 10.7 X10*3/uL (4.8-10.8)
--- NOTE | 2020-06-29 06:43 | PC.NURSE ---
cabrera removed at 0640.
--- NOTE | 2020-06-29 07:00 | XR_ITS ---
EXAMINATION: XR HIP, RIGHT CLINICAL INFORMATION: Status post right hip arthroplasty COMPARISON: 06/26/2020 right hip radiographs. TECHNIQUE: Two views of the right hip. FINDINGS: The patient is status post right hip arthroplasty showing good anatomic alignment with no evidence for hardware malfunction. There is no acute fracture. The right hemipelvis is intact. Mild subcutaneous air is noted. XR/XR hip RT w [id number] IMPRESSION: Postsurgical changes without hardware abnormality.
[2020-06-29 07:06] LABS: Anion Gap 11 (12-20); Blood Urea Nitrogen 20 mg/dL (9-16); Calcium 7.7 mg/dL (8.4-10.2); Carbon Dioxide 28 mmol/L (22-29); Chloride 101 mmol/L (96-108); Creatinine Clr Calc Pharmacy 56.4; Estimated Glomerular Filt Rate > 60; Glucose Random 145 mg/dL (60-115); Potassium 4.5 mmol/l (3.3-5.1); Sodium 135 mmol/L (135-145)
--- NOTE | 2020-06-29 09:25 | P.PNIM_ITS ---
Subjective Subjective Date of Service: 06/29/20 Interval History: Seen in f/u for right hip fracture due to fall. POD 1, doing well. Denies pain Review of Systems Gen: no fever Resp: no sob, no cough CV: no chest, no ROLDAN, no leg edema GI: No n/v, no abd pain Neuro: No confusion Cardiovascular Cardiovascular: Denies chest pain, Denies leg edema and Denies dyspnea Respiratory Respiratory: Reports no additional respiratory complaints, Denies cough and Denies dyspnea Gastrointestinal Gastrointestinal: Reports no additional gastrointestinal complaints, Denies abdominal pain, Denies diarrhea, Denies nausea and Denies vomiting Musculoskeletal Musculoskeletal: Reports no additional musculoskeletal complaints, Denies back pain, Reports arthralgias and Reports joint swelling Physical Exam Vital Signs: Vital Signs: Last Vital Signs Temp 97.1 F 06/29/20 07:27 Pulse 57 06/29/20 07:27 Resp 18 06/29/20 07:27 BP 163/89 H 06/29/20 07:27 Pulse Ox 100 06/29/20 07:27 Body Mass Index 24.9 Const: Other: General: AO X 3, no acute distress Resp: CTA bilateral CVS: S1,S2,RRR GI: +BS, NT, no distention Skin: wound d/c/i Neuro: motor grossly intact Psych: appropriate affect Objective Data Current Medications Generic Name Dose Route Start Last Admin Trade Name Herve PRN Reason Stop Dose Admin Acetaminophen 650 mg 06/26/20 23:01 06/29/20 05:46 Acetaminophen 325 Mg Tablet PO 650 mg Q6H GIA Administration Cyanocobalamin 1,000 mcg 06/27/20 09:00 06/28/20 10:42 Cyanocobalamin (Vitamin B-12) 1,000 Mcg Tablet PO 1,000 mcg DAILY GIA Administration Lactated Ringer's 1,000 mls @ 100 mls/hr 06/28/20 07:30 06/28/20 22:43 Lr IVCONT 100 mls/hr .Q10H GIA Administration Losartan Potassium 50 mg 06/27/20 09:00 06/28/20 10:43 Losartan Potassium 50 Mg Tablet PO 50 mg DAILY GIA Administration Protocol Metoprolol Succinate 300 mg 06/27/20 09:00 06/28/20 10:43 Metoprolol Succinate Er 100 Mg Tab.Er.24h PO 300 mg DAILY GIA Administration Protocol Morphine Sulfate 2 mg 06/28/20 10:15 Morphine Sulfate 2 Mg/Ml Cartridge IVPUSH Q2H PRN Pain, Severe (Pain Scale 7-10) Naloxone HCl 0.2 mg 06/28/20 10:15 Naloxone Hcl 0.4 Mg/Ml Vial IVPUSH Q2M PRN Excessive sedation or RR < 8 Ondansetron HCl 4 mg 06/26/20 23:01 Ondansetron Hcl 4 Mg/2 Ml Vial IVPUSH Q8H PRN Nausea and Vomiting Oxycodone HCl 5 mg 06/26/20 23:01 06/28/20 22:21 Oxycodone Hcl Immed Release 5 Mg Tablet PO 5 mg Q6H PRN Administration Pain, Mild (Pain Scale 1-3) Sodium Chloride 3 ml 06/27/20 00:00 06/28/20 22:22 0.9 % Sodium Chloride Flush 3 Ml Syringe IVFLUSH Not Given QSHIFT [facility] Sodium Chloride 3 ml 06/28/20 16:00 06/28/20 23:47 0.9 % Sodium Chloride Flush 3 Ml Syringe IVFLUSH Not Given QSHIFT [facility] Vitamin D 25 mcg 06/27/20 09:00 06/28/20 10:43 Cholecalciferol (Vitamin D3) 25 Mcg Tablet PO 25 mcg DAILY [facility] Administration Warfarin Sodium 2.5 mg 06/29/20 18:00 Warfarin Sodium 2.5 Mg Tablet PO SUTUWETHFRSA [facility] Warfarin Sodium 5 mg 07/02/20 18:00 Warfarin Sodium 5 Mg Tablet PO MO [facility] Labs CBC & Chem 7: 06/29/20 06:07 06/29/20 06:07 Assessment and Plan (1) Femoral neck fracture: Status: Acute (2) Atrial fibrillation: Problem details: Dr. Gamez 03/12/2011 Holter and echo September 2017, ejection fraction 60-65% mo derate pulmonary hypertension April 2019 normal LV elevate LV EDP, atrial dilatation moderate MR TR Status: Acute (3) Hypertension: Status: Acute (4) Hypercholesterolemia: Status: Acute (5) Congestive heart failure: Status: Acute (6) Peripheral vascular disease: Status: Acute Assessment and Plan: 84/F with AF on coumadin, CHF, HTN, HLd here with right hip fracture from mechanical fall Acute femoral neck fracture. Repair done 06/28 without complications, -post op management with pain control, PT/OT, restart coumadin for DVT prophylaxis Atrial fibrillation. Rate controlled. continue Metoprolol. Restart coumadin tomorrow Hypertension. Continue losartan and Metoprolol Anemia from acute blood loss from fractured hip, monitor to rehab by tomorrow DVT prophylaxis with mechanical compression boots and resume coumadin after sugery
[2020-06-29] MEDS: Cyanocobalamin (Vitamin B-12) 1,000 MCG TABLET 1000 MCG PO (09:40)
[2020-06-29] MEDS: Lactated Ringers 1,000 ML 100 ML IVCONT ×2 (09:40→19:53)
[2020-06-29] MEDS: Cholecalciferol (Vitamin D3) 25 MCG TABLET PO (09:40)
[2020-06-29] MEDS: Metoprolol Succinate ER 100 MG TAB.ER.24H 300 MG PO (09:45)
[2020-06-29] MEDS: Losartan Potassium 50 MG TABLET PO (09:45)
--- NOTE | 2020-06-29 12:04 | P.CDIC_ITS ---
CDI Concurrent Query Service Date: 06/30/20 Documentation Clarification: Please clarify if you are treating a proba ble/suspected/likely or confirmed: Acute on chronic diastolic and/or systolic Congestive heart failure Chronic diastolic and/or systolic Congestive heart failure Please specify if known Provider Response: Other Other Diagnosis: Chronic diastolic heart failure PLEASE DO NOT DELETE/MODIFY EXISTING CONTENT Additional information is needed in order to code to the highest accuracy and appropriate Severity of Illness (SOI). Please clarify the information noted below in your progress notes and discharge summary. Risk Factors/Clinical Indicators/Treatments History of CHF Dr. Gamez 03/12/2011 Holter and echo September 2017, ejection fraction 60-65% moderate pulmonary hypertension April 2019 normal LV elevate LV EDP, atrial dilatation moderate MR TR Assessment/plan: CHF, acute CDS: Maci Dunn [facility], CDIS Contact Number: [phone] Please Review the information above and exercise your independent professional judgment in responding to the query. If you concur, pleas document in the PROGRESS NOTES and DISCHARGE SUMMARY. If you do not agree with the query, please document in the query above. THIS QUERY IS PART OF THE PERMANENT MEDICAL RECORD
--- NOTE | 2020-06-29 12:22 | MHC.CM.PN ---
nurse embedded case manager note -desiree [facility] no INSURANCE CONTRACTS, [facility] TO FOLLOW DEPENDING ON BED AVAILABILITY, [facility] [place] [facility] AND [facility] SENT VIA [employer] DISCHARGE PLAN SHORT TERM REHAB- [facility] PENDING BED AVAIABILITY, [facility] [place]
--- NOTE | 2020-06-29 14:00 | HO.POSTANES ---
Post Anesthesia Evaluation Post Anesthesia Evaluation Vital Signs: Vital Signs Temp Pulse Resp BP Pulse Ox 06/29/20 12:00 73 06/29/20 11:55 98.3 F 18 103/53 L 100 06/29/20 10:09 81 140/67 H 06/29/20 09:45 81 140/67 H 06/29/20 07:27 97.1 F 57 18 163/89 H 100 06/29/20 04:00 98.0 F 62 19 121/58 L 100 Anesthesia: General Mental Status: Awake Pain Control: Satisfactory Nausea/Vomiting: None Hydration: Adequate Anesthesia-Related Issues: No Anes. Related Issues
--- NOTE | 2020-06-29 14:27 | MHC.CM.PN ---
Addendum entered by Mel Quinonez RN 06/29/20 16:08: REFERRAL MADE FOR [facility], PT ACCEPTED PENDING INSURANCE AUTHORIZATION. Original Note: THIS RN DISCUSSED SHORT TERM REHAB WITH AND THE TWO OPTIONS WHO HAD OFFERED HER A BED, [facility] AND [facility], PATIENT ASKED RN TO COME BACK AND AFTER THIS RN RETURNED PATIENT CONTINUING TO REFUSE SHORT TERM REHAB. THIS RN CALLED HCP DAUGHTER AILYN AND AILYN REPORTS SHE WOULD ALSO LIKE HER MOM TO GO TO [facility] AND SPOKE TO HER BROTHER WINTER AND THEY ARE IN AGREEMENT [facility] IS THE BETTER OPTION AND THEY WILL WORK ON CONVINCING HER TO GO. NOTE: DAUGHTER/HCP DOES REPORT SHE IS UNABLE TO CARE FOR HER MOTHER SHE WOULD ONLY BE ABLE TO ASSIST ON OCCASION.
--- NOTE | 2020-06-29 14:37 | OP_ITS ---
SURGEON: Fredy Villanueva MD PREOPERATIVE DIAGNOSIS: Garden 4 subcapital fracture, right hip. POSTOPERATIVE DIAGNOSIS: Garden 4 subcapital fracture, right hip. PROCEDURE PERFORMED: Operative fixation of right hip with hemiarthroplasty - Austin Accolade II, size 5 x 127 femoral component, +4 neck sleeve, 46 mm Unitrax head. ESTIMATED BLOOD LOSS: COMPLICATIONS: No complications. ANESTHESIA: ASSISTANTS: LORRAINE Fam. SPECIMENS: CLINICAL NOTE: This lady fell and injured her hip on the date of her admission. She was admitted to the medical service. We were subsequently consulted and after she was medically cleared and explaining the risks, benefits, and alternatives and answering all her questions, it was mutually agreed upon to carry following procedure. DESCRIPTION OF PROCEDURE: Under a general anesthetic, the patient was placed in the left lateral decubitus position with the right hip up. The right hip was prepped and draped in standard fashion with the right leg free. Surgical time-out was then performed. The patient was identified, procedure confirmed, site confirmed. Medical analogy and history were reviewed. Preoperative antibiotics were given. Standard DVT prophylaxis was in place. All other items were discussed and agreed upon. Standard anterolateral approach to the hip was carried out, taken down through subcutaneous tissues. Hemostasis was achieved along the way using electrocautery. This brought us down level of fascia spencer, divided along the length of the incision. The abductor musculature was then identified. The anterior two-thirds were taken through tendon directly off the capsule and elevated to the level of the acetabulum. Capsulectomy was then performed as significant amount of fracture hematoma was cleared. The fracture was delivered into the wound. The head and neck were resected according to preoperative templating. The head was removed, it measured to 46 mm size. The acetabulum was then thoroughly inspected. There was no evidence of any significant arthritis and therefore, we turned our attention to the femur. Box osteotome was used to lateralize the canal. T-reamer was used to sound the reamer. It was sequentially broached from a 0 to a 5. Once 5 was fully seated, it had excellent fit and fill and rotational control. Then, we trialed a standard length 46 mm Unitrax head. It had good leg length, excellent range of motion, and was stable even with full extension and external rotation, but just to see if there was any difference, it was retrialed with a +4 sleeve and the leg lengths were just slightly longer, but it appeared to be a more stable in that position and therefore, the size 5 x 127 Accolade II stem with the 46 mm Unitrax head and the +4 neck sleeve were selected and brought up the table. The hip was re-dislocated. The trial components were all removed. The acetabulum was thoroughly irrigated. The femoral canal was thoroughly irrigated. The permanent components were brought up the table. The femoral component was press-fit into place. The Moses taper was cleaned and dried, the head sleeve already in it was tapped into place. The hip was reduced a final time. It demonstrated excellent leg lengths, full range of motion, and stability and therefore proceeded to closure. Wound was thoroughly irrigated. The abductor musculature was closed with #2 Dexon. Fascia spencer was closed with #2 Quill suture. Skin approximated using interrupted 2-0 Dexon. Skin was closed with jeferson. Sterile dressing was then applied. The patient's anesthesia was then reversed and transferred supine to the room bed, then taken to the recovery room in good condition. Intraoperatively, there was approximately 100 mL blood loss. MD RAMIRO Hassan/FAISAL / [id number]
[2020-06-29] MEDS: 0.9 % Sodium Chloride Flush 3 ML SYRINGE IVFLUSH (15:04)
[2020-06-29] MEDS: oxyCODONE HCl Immed Release 5 MG TABLET PO (16:21)
[2020-06-29] MEDS: Warfarin Sodium 2.5 MG TABLET PO (17:28)
--- NOTE | 2020-06-29 19:05 | PC.NURSE ---
1500- Pt cabrera removed at 0640 this morning. It is unclear if patient had been incontinent at one point or not. Pad dry now. Pt bladder scanned for 169ml. Dr. Tyson made aware. No new orders. 1730- Pt incontinent of large amount of urine. Will continue to monitor.
[2020-06-30] VITALS (18 sets, daily range): BP systolic 136–200; BP diastolic 71–99; PULSE 55–89; RESP 17–20; TEMP 36.1–36.6; O2SAT 95–100
[2020-06-30] MEDS: diphenhydrAMINE HCL 50 MG/ML VIAL 25 MG IVPUSH (01:12)
[2020-06-30] MEDS: Acetaminophen 325 MG TABLET 650 MG PO ×4 (05:06→23:32)
[2020-06-30] MEDS: Lactated Ringers 1,000 ML 100 ML IVCONT ×2 (05:07→20:51)
[2020-06-30 06:55] LABS: Hematocrit 22.7 % (37-47); Hemoglobin 7.6 g/dl (12.0-16.0)
[2020-06-30] MEDS: oxyCODONE HCl Immed Release 5 MG TABLET PO ×2 (07:48→13:17)
[2020-06-30] MEDS: Cholecalciferol (Vitamin D3) 25 MCG TABLET PO (08:51)
[2020-06-30] MEDS: Losartan Potassium 50 MG TABLET PO (08:51)
[2020-06-30] MEDS: Cyanocobalamin (Vitamin B-12) 1,000 MCG TABLET 1000 MCG PO (08:52)
[2020-06-30] MEDS: Metoprolol Succinate ER 100 MG TAB.ER.24H 300 MG PO (08:52)
--- NOTE | 2020-06-30 10:23 | P.PNIM_ITS ---
Subjective Subjective Date of Service: 06/30/20 Interval History: Seen in f/u for right hip fracture due to fall. POD 1, doing well. Denies pain, H/H is lower, with some oozing at surgery site and needing reenforce dressing. Review of Systems Gen: no fever Resp: no sob, no cough CV: no chest, no ROLDAN, no leg edema GI: No n/v, no abd pain Neuro: No confusion Physical Exam Vital Signs: Vital Signs: Last Vital Signs Temp 97.3 F 06/30/20 10:21 Pulse 77 06/30/20 10:21 Resp 20 06/30/20 10:21 BP 136/71 06/30/20 10:21 Pulse Ox 100 06/30/20 07:51 Body Mass Index 24.9 Const: Other: General: AO X 3, no acute distress Resp: CTA bilateral CVS: S1,S2,RRR GI: +BS, NT, no distention Skin: wound d/c/i, earlier reported to have blood in dresing Neuro: motor grossly intact Psych: appropriate affect Objective Data Current Medications Generic Name Dose Route Start Last Admin Trade Name Freq PRN Reason Stop Dose Admin Acetaminophen 650 mg 06/26/20 23:01 06/30/20 05:06 Acetaminophen 325 Mg Tablet PO 650 mg Q6H GIA Administration Cyanocobalamin 1,000 mcg 06/27/20 09:00 06/30/20 08:52 Cyanocobalamin (Vitamin B-12) 1,000 Mcg Tablet PO 1,000 mcg DAILY GIA Administration Lactated Ringer's 1,000 mls @ 100 mls/hr 06/28/20 07:30 06/30/20 05:07 Lr IVCONT 100 mls/hr .Q10H GIA Administration Losartan Potassium 50 mg 06/27/20 09:00 06/30/20 08:51 Losartan Potassium 50 Mg Tablet PO 50 mg DAILY GIA Administration Protocol Metoprolol Succinate 300 mg 06/27/20 09:00 06/30/20 08:52 Metoprolol Succinate Er 100 Mg Tab.Er.24h PO 300 mg DAILY GIA Administration Protocol Morphine Sulfate 2 mg 06/28/20 10:15 Morphine Sulfate 2 Mg/Ml Cartridge IVPUSH Q2H PRN Pain, Severe (Pain Scale 7-10) Naloxone HCl 0.2 mg 06/28/20 10:15 Naloxone Hcl 0.4 Mg/Ml Vial IVPUSH Q2M PRN Excessive sedation or RR < 8 Ondansetron HCl 4 mg 06/26/20 23:01 Ondansetron Hcl 4 Mg/2 Ml Vial IVPUSH Q8H PRN Nausea and Vomiting Oxycodone HCl 5 mg 06/26/20 23:01 06/30/20 07:48 Oxycodone Hcl Immed Release 5 Mg Tablet PO 5 mg Q6H PRN Administration Pain, Mild (Pain Scale 1-3) Sodium Chloride 3 ml 06/27/20 00:00 06/30/20 07:50 0.9 % Sodium Chloride Flush 3 Ml Syringe IVFLUSH Not Given QSHIFT [facility] Vitamin D 25 mcg 06/27/20 09:00 06/30/20 08:51 Cholecalciferol (Vitamin D3) 25 Mcg Tablet PO 25 mcg DAILY GIA Administration Warfarin Sodium 2.5 mg 06/29/20 18:00 06/29/20 17:28 Warfarin Sodium 2.5 Mg Tablet PO 2.5 mg SUTUWETHFRSA GIA Administration Warfarin Sodium 5 mg 07/02/20 18:00 Warfarin Sodium 5 Mg Tablet PO MO [facility] Labs CBC & Chem 7: 06/30/20 06:19 06/29/20 06:07 Assessment and Plan (1) Femoral neck fracture: Status: Acute (2) Atrial fibrillation: Problem details: Dr. Gamez 03/12/2011 Holter and echo September 2017, ejection fraction 60-65% moderate pulmonary hypertension April 2019 normal LV elevate LV EDP, atrial dilatation moderate MR TR Status: Acute (3) Hypertension: Status: Acute (4) Hypercholesterolemia: Status: Acute (5) Congestive heart failure: Status: Acute (6) Peripheral vascular disease: Status: Acute Assessment and Plan: 84/F with AF on coumadin, CHF, HTN, HLd here with right hip fracture from mechanical fall Acute femoral neck fracture. Repair done 06/28 without complications, -post op management with pain control, PT/OT, restarted coumadin for DVT prophylaxis Atrial fibrillation. Rate controlled. continue Metoprolol. Restart coumadin tomorrow Hypertension. BP on high side this morning. Continue losartan and Metoprolol Anemia from acute blood loss from fractured hip, H/H down further. She has consented for 2 units of RBC Monitor today and if stable tomorrow then transfer to rehab DVT prophylaxis with mechanical compression boots and resume coumadin after suge ry
--- NOTE | 2020-06-30 11:10 | MHC.CM.PN ---
[facility] HAS VERBAL AUTH TO ADMIT PATIENT OVER THE WEEKEND ACCORDING TO REVIEW OF PROGRESS NOTE, NO PLAN FOR DC TODAY; POSSIBLY TOMORROW.
[2020-06-30 11:28] LABS: INTERNATIONAL NORM RATIO 1.2 (0.9-1.1); Prothrombin Time 14.2 SEC (10.8-13.0)
--- NOTE | 2020-06-30 13:09 | PC.NURSE ---
DRESSING TO RIGHT HIP WIT LARGE AMOUNT OF STAINING AND LEAKING OUT ONTO BED PAD. DRESSING REINFORCED. HH LOW- DR LOCO AWARE AND TRANSFUSION ORDERED. DR FOWLER NOTIFIED OF DRESSING VIA [employer]. WILL CONTINUE TO MONITOR.
--- NOTE | 2020-06-30 19:20 | PC.NURSE ---
1230: dr giang notified of bp 167/86 after 1st unit of bloos transfused. ok to start 2nd bag per md. 2 units complete at [address] giang tigtrey message sent regardinh holding coumadin secondary to dressing with large amount drainage this morning and low hh. no response. this rn spoke to superviser Darius and coumadin held.
[2020-06-30] MEDS: hydrALAZINE HCl 20 MG/ML VIAL 5 MG IVPUSH (20:47)
[2020-06-30] MEDS: traZODone HCL 25 MG HALFTAB PO (20:47)
--- NOTE | 2020-06-30 23:18 | PC.NURSE ---
Pt had a BP 180/91. Md was made aware. Hydrazine was ordered. After the hour BP was 174/98. Md was made aware. No further action was needed. 15 mins later BP was 155/81
[2020-06-30] MEDS: 0.9 % Sodium Chloride Flush 3 ML SYRINGE IVFLUSH (23:33)
[2020-07-01] VITALS (18 sets, daily range): BP systolic 110–205; BP diastolic 53–98; PULSE 63–100; RESP 16–18; TEMP 36.1–37.1; O2SAT 94–100
[2020-07-01] MEDS: Zolpidem Tartrate 5 MG TABLET PO ×2 (01:51→20:59)
[2020-07-01] MEDS: hydrALAZINE HCl 20 MG/ML VIAL 5 MG IVPUSH (01:51)
[2020-07-01] MEDS: Acetaminophen 325 MG TABLET 650 MG PO ×4 (05:47→22:57)
[2020-07-01] MEDS: Morphine Sulfate 2 MG/ML CARTRIDGE IVPUSH (05:47)
[2020-07-01] MEDS: Lactated Ringers 1,000 ML 100 ML IVCONT (06:19)
[2020-07-01] MEDS: Nitroglycerin 0.1 MG PATCH.TD24 TRANSDERMA (06:19)
--- NOTE | 2020-07-01 06:42 | PC.NURSE ---
At 07/01/20 01:30 pt had a BP of 191/93. Md was made aware. Another dose of hydrazine was ordered. Pt BP improved
--- NOTE | 2020-07-01 06:48 | PC.NURSE ---
Pt had a BP of 196/98 @ 0522. was made aware. Nitro patch was ordered.
[2020-07-01 07:04] LABS: INTERNATIONAL NORM RATIO 1.2 (0.9-1.1); Prothrombin Time 13.7 SEC (10.8-13.0)
[2020-07-01 07:09] LABS: Hemoglobin 11.9 g/dl (12.0-16.0); Mean Platelet Volume 9.4 fL (9.4-12.3); Platelet Count 183 X10*3/uL (160-400); Red Blood Count 3.61 X10*6/uL (4.20-5.50); Red Cell Distribution Width 16.1 % (11.0-16.0); White Blood Count 9.3 X10*3/uL (4.8-10.8)
[2020-07-01] MEDS: Cyanocobalamin (Vitamin B-12) 1,000 MCG TABLET 1000 MCG PO (07:32)
[2020-07-01] MEDS: Losartan Potassium 50 MG TABLET PO (07:32)
[2020-07-01] MEDS: Cholecalciferol (Vitamin D3) 25 MCG TABLET PO (07:32)
[2020-07-01] MEDS: Metoprolol Succinate ER 100 MG TAB.ER.24H 300 MG PO (07:33)
--- NOTE | 2020-07-01 08:52 | HO.PM.IMPN ---
Subjective Subjective Date of Service: 07/01/20 Interval History: Seen in f/u for right hip fracture due to fall. POD 2, doing well. Doesn't feel good, blood pressure is high Review of Systems Gen: no fever Resp: no sob, no cough CV: no chest, no ROLDAN, no leg edema GI: No n/v, no abd pain Neuro: No confusion Physical Exam Vital Signs: Vital Signs: Last Vital Signs Temp 97.8 F 07/01/20 07:58 Pulse 73 07/01/20 07:58 Resp 17 07/01/20 07:58 BP 186/84 H 07/01/20 07:58 Pulse Ox 100 07/01/20 07:58 Body Mass Index 24.9 Const: Other: General: AO X 3, no acute distress Resp: CTA bilateral CVS: S1,S2,RRR GI: +BS, NT, no distention Skin: wound d/c/i, no bleeding at the site Neuro: motor grossly intact Psych: appropriate affect Objective Data Current Medications Generic Name Dose Route Start Last Admin Trade Name Rodolfoq PRN Reason Stop Dose Admin Acetaminophen 650 mg 06/26/20 23:01 07/01/20 05:47 Acetaminophen 325 Mg Tablet PO 650 mg Q6H GIA Administration Cyanocobalamin 1,000 mcg 06/27/20 09:00 07/01/20 07:32 Cyanocobalamin (Vitamin B-12) 1,000 Mcg Tablet PO 1,000 mcg DAILY GIA Administration Enoxaparin Sodium 40 mg 07/01/20 09:00 Enoxaparin Sodium 40 Mg/0.4 Ml Syringe SUBCUT Q24H GIA Losartan Potassium 50 mg 06/27/20 09:00 07/01/20 07:32 Losartan Potassium 50 Mg Tablet PO 50 mg DAILY GIA Administration Protocol Metoprolol Succinate 300 mg 06/27/20 09:00 07/01/20 07:33 Metoprolol Succinate Er 100 Mg Tab.Er.24h PO 300 mg DAILY GIA Administration Protocol Morphine Sulfate 2 mg 06/28/20 10:15 07/01/20 05:47 Morphine Sulfate 2 Mg/Ml Cartridge IVPUSH 2 mg Q2H PRN Administration Pain, Severe (Pain Scale 7-10) Naloxone HCl 0.2 mg 06/28/20 10:15 Naloxone Hcl 0.4 Mg/Ml Vial IVPUSH Q2M PRN Excessive sedation or RR < 8 Ondansetron HCl 4 mg 06/26/20 23:01 Ondansetron Hcl 4 Mg/2 Ml Vial IVPUSH Q8H PRN Nausea and Vomiting Oxycodone HCl 5 mg 06/26/20 23:01 06/30/20 13:17 Oxycodone Hcl Immed Release 5 Mg Tablet PO 5 mg Q6H PRN Administration Pain, Mild (Pain Scale 1-3) Sodium Chloride 3 ml 06/27/20 00:00 06/30/20 23:33 0.9 % Sodium Chloride Flush 3 Ml Syringe IVFLUSH 3 ml QSHIFT [facility] Administration Vitamin D 25 mcg 06/27/20 09:00 07/01/20 07:32 Cholecalciferol (Vitamin D3) 25 Mcg Tablet PO 25 mcg DAILY [facility] Administration Warfarin Sodium 2.5 mg 06/29/20 18:00 06/30/20 18:12 Warfarin Sodium 2.5 Mg Tablet PO Not Given SUTUWETHFRSA [facility] Warfarin Sodium 5 mg 07/02/20 18:00 Warfarin Sodium 5 Mg Tablet PO MO [facility] Labs CBC & Chem 7: 07/01/20 06:30 06/29/20 06:07 Assessment and Plan (1) Femoral neck fracture: Status: Acute (2) Atrial fibrillation: Problem details: Dr. Gamez 03/12/2011 Holter and echo September 2017, ejection fraction 60-65% moderate pulmonary hypertension April 2019 normal LV elevate LV EDP, atrial dilatation moderate MR TR Status: Acute (3) Hypertension: Status: Acute (4) Hypercholesterolemia: Status: Acute (5) Congestive heart failure: Status: Acute (6) Peripheral vascular disease: Status: Acute Assessment and Plan: 84/F with AF on coumadin, CHF, HTN, HLd here with right hip fracture from mechanical fall Acute femoral neck fracture. Repair done 06/28 without complications, -post op management with pain control, PT/OT, restarted coumadin for DVT prophylaxis along with Lovenox until INR is up Atrial fibrillation. Rate controlled. continue Metoprolol. Continue coumadin adjust for INR 2 to 3 Hypertension. BP remains high not due to pain. Continue Metoprolol 300mg/daily, increase Losartan form 50 to 100 and if neede Anemia from acute blood loss from fractured hip, Hct 22 on 06/30 and transfused 2 units of RBC, hematocrit today 07/01 is 35. Monitor today and if no issues to rehab later today or tomorrow
[2020-07-01] MEDS: 0.9 % Sodium Chloride Flush 3 ML SYRINGE IVFLUSH ×3 (09:41→21:02)
[2020-07-01] MEDS: Enoxaparin Sodium 40 MG/0.4 ML SYRINGE SUBCUT (09:41)
[2020-07-01] MEDS: oxyCODONE HCl Immed Release 5 MG TABLET PO (09:42)
[2020-07-01] MEDS: Losartan Potassium 25 MG TABLET PO (09:43)
--- NOTE | 2020-07-01 16:02 | PC.NURSE ---
BP 110/53. HR 63. NITRODUR PATCH REMOVED FROM LEFT ARM. PO FLUIDS ENCOURAGED. REPORTED BP TO DR LOCO. WILL CONTINUE TO MONITOR
[2020-07-01] MEDS: Warfarin Sodium 2.5 MG TABLET PO (17:37)
[2020-07-02] VITALS (9 sets, daily range): BP systolic 150–221; BP diastolic 60–124; PULSE 62–80; RESP 14–16; TEMP 35.9–36.9; O2SAT 95–96
[2020-07-02] MEDS: Acetaminophen 325 MG TABLET 650 MG PO (04:58)
[2020-07-02 05:45] LABS: Hematocrit 34.2 % (37-47); Hemoglobin 11.6 g/dl (12.0-16.0); Mean Corpuscular HGB Conc 33.9 g/dl (31.0-35.0); Mean Corpuscular Hemoglobin 32.7 pg (27.0-33.0); Mean Corpuscular Volume 96.3 fL (80-98); Platelet Count 214 X10*3/uL (160-400); Red Blood Count 3.55 X10*6/uL (4.20-5.50); Red Cell Distribution Width 15.5 % (11.0-16.0); White Blood Count 8.5 X10*3/uL (4.8-10.8)
[2020-07-02 05:48] LABS: INTERNATIONAL NORM RATIO 1.2 (0.9-1.1); Prothrombin Time 13.8 SEC (10.8-13.0)
--- NOTE | 2020-07-02 08:35 | PC.NURSE ---
notified dr. Caleb cesar that Pt's BP manual was 170/90 in the left arm. The machine had the BP much higher. Waiting for a response.
--- NOTE | 2020-07-02 08:42 | PC.NURSE ---
Dr. Ellis responded to monitor BP
[2020-07-02] MEDS: Cholecalciferol (Vitamin D3) 25 MCG TABLET PO (08:44)
[2020-07-02] MEDS: Metoprolol Succinate ER 100 MG TAB.ER.24H 300 MG PO (08:44)
[2020-07-02] MEDS: Losartan Potassium 50 MG TABLET PO (08:45)
[2020-07-02] MEDS: Cyanocobalamin (Vitamin B-12) 1,000 MCG TABLET 1000 MCG PO (08:45)
[2020-07-02] MEDS: Enoxaparin Sodium 40 MG/0.4 ML SYRINGE SUBCUT (08:46)
[2020-07-02] MEDS: 0.9 % Sodium Chloride Flush 3 ML SYRINGE IVFLUSH (08:46)
--- NOTE | 2020-07-02 09:01 | MHC.CM.PN ---
JEREMY received a call from pts daughter, Chrissy who reports the pt is telling her she wants to go home instead of STR. She reports the pt lives alone and has no services. CM explained the DC plan has been STR at [facility] likely today. CM assured Chrissy that CM would speak with the pt and encourage STR. CM will call Chrissy back once the DC is confirmed. Chrissy [phone]
--- NOTE | 2020-07-02 09:50 | PC.NURSE ---
retook patients BP after given BP medication 150/88, Dr. Ellis aware by tigertext
--- NOTE | 2020-07-02 11:06 | P.DS_ITS ---
DS: Providers Provider Date of admission: 06/26/20 19:22 Primary care physician: Unknown Physician Consults: 06/26/20 23:01 Consult to Orthopedics Routine Consulting Provider: Fredy Villanueva Reason for consultation: Fall, hip fracture Has provider been notified: No 06/27/20 00:49 Consult to Cardiology Routine Consulting Provider: [facility] [place] [facility] Reason for consultation: proposed right hip procedure. Patient on anticoagulation. Has provider been notified: No DS: Diagnosis Discharge Diagnosis (1) Femoral neck fracture: Status: Acute (2) Atrial fibrillation: Status: Acute Problem details: Dr. Gamez 03/12/2011 Holter and echo September 2017, ejection fraction 60-65% moderate pulmonary hypertension April 2019 normal LV elevate LV EDP, atrial dilatation moderate MR TR (3) Hypertension: Status: Acute (4) Hypercholesterolemia: Status: Acute (5) Congestive heart failure: Status: Acute (6) Peripheral vascular disease: Status: Acute DS: Medications Discharge Medications Home Medications: Home Medications Medication Instructions Recorded Confirmed cholecalciferol (vitamin D3) 25 25 mcg PO DAILY 05/14/20 06/26/20 mcg (1,000 unit) capsule cyanocobalamin (vitamin B-12) 1,000 mcg PO DAILY 05/14/20 06/26/20 1,000 mcg capsule warfarin 2.5 mg PO SUTUWETHFRSA 06/26/20 06/26/20 warfarin 5 mg PO MO 06/26/20 06/26/20 Previous Rx's Medication Instructions Recorded zolpidem 12.5 mg tablet,extended 12.5 mg PO BEDTIME 90 Days #90 tab 04/19/20 release,multiphase losartan 50 mg tablet 50 mg PO DAILY 90 Days #90 tab 04/20/20 comp.stocking,knee,long,medium #12 ea 05/10/20 compress.stocking,knee,reg,med #2 ea 05/14/20 metoprolol succinate 200 mg 300 mg PO DAILY #135 cap 05/30/20 tablet,extended release 24 hr Walker with seat and wheels #1 ea 06/22/20 acetaminophen 300 mg-codeine 30 mg 1 tab PO TID PRN 30 Days #90 tab 06/29/20 tablet enoxaparin 40 mg SUBCUT Q24H #5 ml 07/02/20 DS: Summary Hospital Course Hospital Course: Patient was admitted for mechanical fall causing femoral neck fracture. Surgery 06/27/2020, which was uneventful, other than expected postoperative blood loss anemia. Patient did receive 2 units PRBC and hemoglobin responded appropriately. Was able to ambulate with physical therapy. Have been labile, we have avoided over treating, given fall risks. Patient will be discharged home with home physical therapy. She has been restarted on her Coumadin, she will be bridged with prophylactic dose Lovenox. Time Spent with Patient Time attestation: Total time spent providing and/or coordinating discharge services: Physical Exam Vital Signs: Vital Signs: Last Vital Signs Temp 98.5 F 07/02/20 08:00 Pulse 80 07/02/20 08:00 Resp 16 07/02/20 08:00 BP 150/88 H 07/02/20 10:00 Pulse Ox 95 07/02/20 08:00 Body Mass Index 24.9 General: AO X 3, no acute distress Resp: CTA bilateral CVS: S1,S2,RRR GI: soft, non tender, non distended Neuro: motor grossly intact Psych: appropriate affect DS: Data Data Completed and Pending Completed studies during hospitalization [Text1]: Pending at discharge 06/28/20 08:48 Surgical [PTH] Routine Labs on day of discharge: 06/26/20 16:08 CT cervical spine wo con Stat CT head/brain wo con Stat XR chest 1V Stat XR hip RT min 2V Stat 06/26/20 16:09 ECG 12 lead EKG Stat EKG Documentation DIRECTED 06/26/20 16:10 Consult Rx Perform Med Rec 1 each MISCELLANE ONCE PRN fentaNYL citrate/PF [Sublimaze] 25 mcg IVPUSH ONCE ONE 06/26/20 17:50 Basic Metabolic Panel Stat COVID-19 ID NOW (Mchugh) Stat Complete Blood Count Auto Diff Stat Prothrombin Time INR Stat 06/26/20 18:08 Morphine Sulfate 4 mg IVPUSH ONCE ONE 06/26/20 19:16 Transfer Order Routine 06/26/20 20:08 UA CC w/rflx Micro + Cult Stat 06/26/20 23:01 Morphine Sulfate 2 mg IM Q4H PRN Phytonadione (Vit K1) [Vitamin K] 5 mg 0.9 % Sodium Chloride [Ns] 50 ml IV ONCE oxyCODONE HCl Immed Release [Roxicodone] 5 mg PO Q6H PRN 06/26/20 23:46 Zolpidem Tartrate [Ambien] 5 mg PO ONCE ONE 06/27/20 00:46 Phytonadione (Vit K1) [Vitamin K] 10 mg IV .STK-MED ONE 06/27/20 08:03 Basic Metabolic Panel DAILY@0600 Complete Blood Count Auto Diff DAILY@0600 Prothrombin Time INR DAILY@0600 06/27/20 08:32 Morphine Sulfate 2 mg IVPUSH Q4H PRN 06/27/20 Breakfast NPO Diet 06/27/20 12:09 Type and Screen Stat 06/27/20 Lunch Cardiac Diet 06/27/20 21:15 Zolpidem Tartrate [Ambien] 5 mg PO ONCE ONE 06/28/20 06:00 ceFAZolin Sodium/Dextrose,Iso [Ancef] 2 gm in 50 ml IV PREOP 06/28/20 06:01 Basic Metabolic Panel DAILY@0600 Complete Blood Count no Diff DAILY@0600 06/28/20 06:47 ceFAZolin Sodium/Dextrose,Iso [Ancef] 2 gm in 50 ml .ROUTE As directed 06/28/20 07:30 Lactated Ringers [Lr] 1,000 ml IVCONT 100 mls/hr 06/28/20 07:44 Ketamine HCl/NS 50 mg IVPUSH .STK-MED ONE dexAMETHasone sod phosphate [Decadron] 4 mg .ROUTE .STK-MED ONE ondansetron HCL [Zofran] 4 mg .ROUTE .STK-MED ONE propofoL [Diprivan] 200 mg IVPUSH .STK-MED ONE 06/28/20 07:45 Lidocaine HCl 2 % MPF [Xylocaine 2 % MPF] 5 ml .ROUTE .STK-MED ONE Rocuronium [place] [Zemuron] 100 mg IV .STK-MED ONE 06/28/20 07:48 fentaNYL citrate/PF [Sublimaze] 50 mcg .ROUTE .STK-MED ONE 06/28/20 08:03 Phenylephrine HCL 1,000 mcg IVPUSH .STK-MED ONE 06/28/20 08:25 Ketamine HCl/NS 50 mg IVPUSH .STK-MED ONE 06/28/20 08:45 Sugammadex Sodium [Bridion] 200 mg IVPUSH .STK-MED ONE 06/28/20 08:48 Surgical [PTH] Routine 06/28/20 08:55 Transfer Order Routine 06/28/20 13:50 ceFAZolin Sodium/Dextrose,Iso [Ancef] 2 gm in 50 ml IV POSTOP 06/28/20 16:00 0.9 % Sodium Chloride Flush [NS Flush] 3 ml IVFLUSH QSHIFT 06/28/20 22:16 Zolpidem Tartrate [Ambien] 5 mg PO ONCE ONE 06/29/20 06:07 Basic Metabolic Panel DAILY@0600 Complete Blood Count no Diff DAILY@0600 06/29/20 07:00 XR hip RT w PEL1V Routine 06/30/20 00:52 diphenhydrAMINE HCL [Benadryl] 25 mg IVPUSH ONCE ONE 06/30/20 06:19 Hemoglobin and Hematocrit DAILY@0600 06/30/20 07:28 Red Blood Cells Routine 06/30/20 10:59 Prothrombin Time INR Stat 06/30/20 20:13 hydrALAZINE HCl [Apresoline] 5 mg IVPUSH ONCE ONE traZODone HCL [Desyrel] 25 mg PO ONCE ONE 07/01/20 01:33 Zolpidem Tartrate [Ambien] 5 mg PO ONCE ONE hydrALAZINE HCl [Apresoline] 5 mg IVPUSH ONCE ONE 07/01/20 05:27 Nitroglycerin [Nitro-Dur] 0.1 mg TRANSDERMA ONCE ONE 07/01/20 06:30 Complete Blood Count no Diff DAILY@0600 Prothrombin Time INR Routine 07/01/20 08:59 Losartan Potassium [Cozaar] 25 mg PO ONCE ONE 07/02/20 05:19 Complete Blood Count no Diff DAILY@0600 Prothrombin Time INR DAILY@0600 Laboratory Last Values WBC 8.5 X10*3/uL (4.8-10.8) 07/02/20 05:19 RBC 3.55 X10*6/uL (4.20-5.50) L 07/02/20 05:19 Hgb 11.6 g/dl (12.0-16.0) L 07/02/20 05:19 Hct 34.2 % (37-47) L 07/02/20 05:19 MCV 96.3 fL (80-98) 07/02/20 05:19 MCH 32.7 pg (27.0-33.0) 07/02/20 05:19 MCHC 33.9 g/dl (31.0-35.0) 07/02/20 05:19 RDW 15.5 % (11.0-16.0) 07/02/20 05:19 Plt Count 214 X10*3/uL (160-400) 07/02/20 05:19 MPV 9.0 fL (9.4-12.3) L 07/02/20 05:19 Immature Gran % (Auto) 0.6 % (0.0-0.4) H 06/27/20 08:03 Neut % (Auto) 74.7 % (45-73) H 06/27/20 08:03 Lymph % (Auto) 15.1 % (20-40) L 06/27/20 08:03 Rankin % (Auto) 7.7 % (2-11) 06/27/20 08:03 Eos % (Auto) 1.6 % (0-4) 06/27/20 08:03 Baso % (Auto) 0.3 % (0-2) 06/27/20 08:03 Lymph # (Auto) 1.7 X10*3/uL (1.2-4.9) 06/27/20 08:03 Rankin # (Auto) 0.9 X10*3/uL (0.1-1.2) 06/27/20 08:03 Eos # (Auto) 0.2 X10*3/uL (0.0-0.4) 06/27/20 08:03 Baso # (Auto) 0.0 X10*3/uL (0.0-0.2) 06/27/20 08:03 Abs Immat Gran (auto) 0.07 X10*3/uL (0.00-0.03) H 06/27/20 08:03 Absolute Neuts (auto) 8.3 X10*3/uL (2.0-8.3) 06/27/20 08:03 Absolute Nucleated RBC 0.000 X10*3/uL (0.0-0.012) 07/02/20 05:19 Nucleated RBC % (auto) 0.0 /100WBC (0.0-0.2) 07/02/20 05:19 PT 13.8 SEC (10.8-13.0) H 07/02/20 05:19 INR 1.2 (0.9-1.1) H 07/02/20 05:19 Sodium 135 mmol/L (135-145) 06/29/20 06:07 Potassium 4.5 mmol/l (3.3-5.1) D 06/29/20 06:07 Chloride 101 mmol/L (96-108) 06/29/20 06:07 Carbon Dioxide 28 mmol/L (22-29) 06/29/20 06:07 Anion Gap 11 (12-20) L 06/29/20 06:07 BUN 20 mg/dL (9-16) H 06/29/20 06:07 Creatinine 0.68 mg/dL (0.5-1.4) 06/29/20 06:07 Estim Creat Clear Calc 56.4 06/29/20 06:07 Estimated GFR > 60 06/29/20 06:07 Random Glucose 145 mg/dL (60-115) H 06/29/20 06:07 Calcium 7.7 mg/dL (8.4-10.2) L 06/29/20 06:07 Urine Color JONATHAN 06/26/20 20:08 Urine Appearance CLEAR 06/26/20 20:08 Urine pH 5.5 (5.0-8.0) 06/26/20 20:08 Ur Specific [place] >= 1.030 (1.005-1.025) H 06/26/20 20:08 Urine Protein NEG MG/DL (NEG-TRACE) 06/26/20 20:08 Urine Glucose (UA) NEG MG/DL (NEG) 06/26/20 20:08 Urine Ketones NEG MG/DL (NEG) 06/26/20 20:08 Urine Blood NEG (NEG) 06/26/20 20:08 Urine Nitrite NEG (NEG) 06/26/20 20:08 Ur Leukocyte Esterase NEG (NEG) 06/26/20 20:08 COVID-19 ([place]) Negative (Negative) 06/26/20 17:50 COVID-19 Clin Com See Note 06/26/20 17:50 Blood Type B Positive 06/27/20 12:09 Antibody Screen NEGATIVE 06/27/20 12:09 Crossmatch See Detail 06/27/20 12:09 Discharge Plan Discharge Patient Disposition: Home Health Service Referrals: Jimena Healy PA-C [Physician House [facility]] - (2 weeks post op) Physician,Unknown [Primary Care Provider] - Discharge Medications: New enoxaparin 40 mg/0.4 mL Syringe 40 mg subcut Q24H Qty: 5 RF: 0 Continued zolpidem 12.5 mg tablet,ext release multiphase 12.5 mg PO BEDTIME 90 Days Qty: 90 RF: 0 losartan 50 mg tablet 50 mg PO DAILY 90 Days Qty: 90 RF: 0 (DME) comp.stocking,knee,long,medium Misc See Rx Instructions .ROUTE .MEDSUPPLY Qty: 12 RF: 0 metoprolol succinate 200 mg tablet extended release 24 hr 300 mg PO DAILY Qty: 135 RF: 1 (DME) Walker with seat and wheels See Rx Instructions .Route .MEDSUPPLY Qty: 1 RF: 0 acetaminophen-codeine 300-30 mg tablet 1 tab PO TID PRN (Reason: pain) 30 Days Qty: 90 RF: 0 warfarin 5 mg Tablet 5 mg PO MO RF: 0 warfarin 5 mg Tablet 2.5 mg PO SUTUWETHFRSA RF: 0 cyanocobalamin (vitamin B-12) 1,000 mcg capsule 1,000 mcg PO DAILY RF: 0 cholecalciferol (vitamin D3) 25 mcg (1,000 unit) capsule 25 mcg PO DAILY RF: 0 (DME) compress.stocking,knee,reg,med Misc See Rx Instructions .ROUTE .MEDSUPPLY Qty: 2 RF: 0 Discharge Orders: Discharge Order (Routine); Ordered 07/02/20 Ordered By: Kwesi Ellis Diet: regular diet Activity on Discharge: Use cane or walker Activity Restrictions/Additional Instructions: * Physical Therapy for right hip lyn arthroplasty: no precautions, gait training, ROM, strength * Limit stair climbing * No showering, no tub bath-keep dressing clean, dry and intact * No driving x6 weeks * Continue Anticoagulation * Follow up with [facility] [place] [facility] in 2 weeks Visit Report Forms: Patient Portal Discharge page Care Plan Goals: Restore function of right hip Health Concerns: none Plan of Treatment: Physical Therapy Pain management DVT prophylaxis
--- NOTE | 2020-07-02 11:06 | P.F2F_ITS ---
Service Date Service Date: 07/02/20 Reasons for Services Homebound: Leaving the home is medically contraindicated at this time without the asist of a device and/or another person due th the listed conditions above and below. Certification: Based on the above findings, I certify that this patient is confined to the home and needs intermittent long term care, physical therapy and/or speech therapy, or continues to need occupational therapy. The patient is under my care, and I have initiated the establishment of the plan of care. The patient will be followed by a physician who will periodically review the plan of care.
--- NOTE | 2020-07-02 12:12 | P.PNOP_ITS ---
Subjective Subjective Date of Service: 07/02/20 Principal diagnosis: RT hip hemiarthroplasty Interval history: POD 4 s/p RT hip hemiarthroplasty no overnight events, resting chair, bandage saturated. no complaints. Physical Exam Vital Signs: Vital Signs: Last Vital Signs Temp 98.5 F 07/02/20 12:06 Pulse 62 07/02/20 12:06 Resp 16 07/02/20 12:06 BP 150/88 H 07/02/20 10:00 Pulse Ox 95 07/02/20 08:00 Body Mass Index 24.9 Const: General: cooperative, healthy appearing and no acute distress Resp: Effort & Inspection: normal respiratory effort and able to speak in complete sentences Cardio: Rate: regular rate Peripheral pulses: Peripheral pulses 2+ throughout GI: Inspection: Yes normal to inspection Palpation (GI): Soft to palpation Skin: General skin exam: no rashes or lesions noted Extrem: Other: Right hip skin intact, mild swelling and ecchymosis. No drainage. Progress Note: A&P Assessment and plan (1) Femoral neck fracture: Status: Acute Assessment and Plan: Continue pain mgmnt coumadin dvt ppx PT for Rt hip Dispo planning-home Fall Risk Details Current Medications: Current Medications Generic Name Dose Route Start Last Admin Trade Name Freq PRN Reason Stop Dose Admin Acetaminophen 650 mg 06/26/20 23:01 07/02/20 04:58 Acetaminophen 325 Mg Tablet PO 650 mg Q6H GIA Administration Cyanocobalamin 1,000 mcg 06/27/20 09:00 07/02/20 08:45 Cyanocobalamin (Vitamin B-12) 1,000 Mcg Tablet PO 1,000 mcg DAILY GIA Administration Enoxaparin Sodium 40 mg 07/01/20 09:00 07/02/20 08:46 Enoxaparin Sodium 40 Mg/0.4 Ml Syringe SUBCUT 40 mg Q24H GIA Administration Losartan Potassium 50 mg 06/27/20 09:00 07/02/20 08:45 Losartan Potassium 50 Mg Tablet PO 50 mg DAILY GIA Administration Protocol Metoprolol Succinate 300 mg 06/27/20 09:00 07/02/20 08:44 Metoprolol Succinate Er 100 Mg Tab.Er.24h PO 300 mg DAILY GIA Administration Protocol Morphine Sulfate 2 mg 06/28/20 10:15 07/01/20 05:47 Morphine Sulfate 2 Mg/Ml Cartridge IVPUSH 2 mg Q2H PRN Administration Pain, Severe (Pain Scale 7-10) Naloxone HCl 0.2 mg 06/28/20 10:15 Naloxone Hcl 0.4 Mg/Ml Vial IVPUSH Q2M PRN Excessive sedation or RR < 8 Ondansetron HCl 4 mg 06/26/20 23:01 Ondansetron Hcl 4 Mg/2 Ml Vial IVPUSH Q8H PRN Nausea and Vomiting Oxycodone HCl 5 mg 07/01/20 09:01 Oxycodone Hcl Immed Release 5 Mg Tablet PO Q6H PRN Pain, Severe (Pain Scale 7-10) Sodium Chloride 3 ml 06/27/20 00:00 07/02/20 08:46 0.9 % Sodium Chloride Flush 3 Ml Syringe IVFLUSH 3 ml QSHIFT GIA Administration Vitamin D 25 mcg 06/27/20 09:00 07/02/20 08:44 Cholecalciferol (Vitamin D3) 25 Mcg Tablet PO 25 mcg DAILY GIA Administration Warfarin Sodium 2.5 mg 06/29/20 18:00 07/01/20 17:37 Warfarin Sodium 2.5 Mg Tablet PO 2.5 mg SUTUWETHFRSA GIA Administration Warfarin Sodium 5 mg 07/02/20 18:00 Warfarin Sodium 5 Mg Tablet PO MO [facility] Zolpidem Tartrate 5 mg 07/01/20 15:49 07/01/20 20:59 Zolpidem Tartrate 5 Mg Tablet PO 5 mg BEDTIME PRN Administration Insomnia Time Spent With Patient Time: Total time spent is greater than 50% in coordination of care (as do cumented) at patient's floor/unit and/or counseling patient: Time with patient: less than 15 minutes
--- NOTE | 2020-07-02 12:28 | MHC.CM.PN ---
Addendum entered by Mel Quinonez RN 07/02/20 13:17: Daughter to meet ambulance at patients home to get her settled and reports she will stay with her for the time being. Original Note: Pt continues to refuse STR, hospitalist ok to send patient home with VNA nursing and PT, referral sent to [facility] per patient. Patient will need nursing for lovenox teaching and daily INR's, CM spoke with daughter who is concerned that patient needs more care and is concerned about her being alone, daughter reports patient uses walker or cane in the home and rarely leaves house prior to fall. Daughter reports patient has [facility] services twice a week for two hours for cleaning, meals on wheels, referral was sent requesting assessment for an increase in hours and assistance with personal care. Daughter does report she goes to patients house daily in the mornings. CM requested bedside nurse to do initial lovenox teaching, VNA to reinforce and will do daily INR's. Daughter/HCP Chrissy [phone]
--- NOTE | 2020-07-02 13:41 | MHC.CM.PN ---
Addendum entered by Mel Quinonez RN 07/02/20 13:47: PT RECEIVED SCRIPT FOR WHEELED SEATED WALKER PER HER REQUEST, DAUGHTER AWARE. Original Note: CM MET WITH PATIENT A SECOND TIME TODAY ENCOURAGING PT TO GO TO SHORT TERM REHAB HOWEVER PT ADAMANTLY DECLINES, PER DAUGHTER PATIENT HAS LIFE-LINE WHICH SHE DOES WEAR, PT DISCHARGING HOME WITH [facility] AND PT TO START TOMORROW 07/03/20, [facility] FOR BLS TRANSPORTATION, REFERRAL FOR INCREASES HOURS AND CARE WITH [facility] SUBMITTED WELL. PER DAUGHTER PT HAS GIVEN HERSELF LOVENOX INJECTIONS SO SHE IS COMFORTABLE ASSISTING OR ADMINISTERING TO PATIENT.
--- NOTE | 2020-07-06 18:31 | PC.NURSE ---
LATE ENTRY: 06/30/20 1615 UNIT PRBCS COMPLETE. 350ML INTAKE.
== END 2020-07-02 13:45 | disposition home health service (06) | DRG 522 ==
LOC: HO.ED 17:39 → HO.S3 22:30
PROVIDERS: Internal Medicine; Nurse Practitioner Acute Care; Nurse Practitioner Family; Orthopaedic Surgery; Admitting Provider Internal Medicine; Emergency Provider Emergency Medicine; Visit Provider Internal Medicine
PROC: 0SRR0JA Replacement of Right Hip Joint, Femoral Surface with Synthetic Substitute, Uncemented, Open Approach (ICD-10-PCS; CPT 27125; principal; 2020-06-28 07:30)
DX: S72.011A Unspecified intracapsular fracture of right femur, initial encounter for closed fracture (principal); I48.20 Chronic atrial fibrillation, unspecified; I50.32 Chronic diastolic (congestive) heart failure; D62 Acute posthemorrhagic anemia; W01.0XXA Fall on same level from slipping, tripping and stumbling without subsequent striking against object, initial encounter; I11.0 Hypertensive heart disease with heart failure; Y93.9 Activity, unspecified; Y92.9 Unspecified place or not applicable; Y99.9 Unspecified external cause status; Z20.828 Contact with and (suspected) exposure to other viral communicable diseases; Z88.6 Allergy status to analgesic agent; Z79.01 Long term (current) use of anticoagulants; Z79.899 Other long term (current) drug therapy
CPT/HCPCS: 36415; 70450; 71045; 72125; 73502; 80048; 80053; 80061; 81003; 82607; 82746; 83880; 84439; 84443; 85014; 85018; 85025; 85027; 85610; 86850; 86900; 86901; 86920; 86923; 87635; 88305; 88311; 93005; 96374; 96375; 97110; 97116; 97162; 97166; 99211; 99285; C1758; C1776; J0690; J1100; J1200; J1650; J2270; J2370; J2405; J3010; J3430; P9016

== ENCOUNTER → 2020-07-03 13:17 | Outpatient (BNVA) | payer MEDICARE, SELFPAY | PROVIDERS: PCP Internal Medicine; Visit Provider Internal Medicine | DX: I48.91 Unspecified atrial fibrillation (principal); Z79.01 Long term (current) use of anticoagulants; Z51.81 Encounter for therapeutic drug level monitoring; S72.001D Fracture of unspecified part of neck of right femur, subsequent encounter for closed fracture with routine healing; X58.XXXD Exposure to other specified factors, subsequent encounter | CPT/HCPCS: Q3014 ==

== ENCOUNTER → 2020-07-05 12:19 | Outpatient (BNVA) | payer MEDICARE, SELFPAY | PROVIDERS: PCP Internal Medicine; Visit Provider Internal Medicine | DX: I48.0 Paroxysmal atrial fibrillation (principal); Z79.01 Long term (current) use of anticoagulants; Z51.81 Encounter for therapeutic drug level monitoring | CPT/HCPCS: Q3014 ==

== ENCOUNTER → 2020-07-09 12:52 | Outpatient (BNVA) | payer MEDICARE, SELFPAY | PROVIDERS: PCP Internal Medicine; Visit Provider Internal Medicine | DX: I48.0 Paroxysmal atrial fibrillation (principal); Z51.81 Encounter for therapeutic drug level monitoring; Z79.01 Long term (current) use of anticoagulants | CPT/HCPCS: Q3014 ==

== ENCOUNTER → 2020-07-12 15:10 | Outpatient (BNVA) | payer MEDICARE, SELFPAY | PROVIDERS: PCP Internal Medicine; Visit Provider Internal Medicine | DX: I48.0 Paroxysmal atrial fibrillation (principal); Z51.81 Encounter for therapeutic drug level monitoring; Z79.01 Long term (current) use of anticoagulants | CPT/HCPCS: Q3014 ==

== ENCOUNTER → 2020-07-16 15:15 | Outpatient (BNVA) | payer MEDICARE, SELFPAY | PROVIDERS: PCP Internal Medicine; Visit Provider Internal Medicine | DX: I48.0 Paroxysmal atrial fibrillation (principal); Z51.81 Encounter for therapeutic drug level monitoring; Z79.01 Long term (current) use of anticoagulants | CPT/HCPCS: Q3014 ==

== ENCOUNTER → 2020-07-17 12:35 | Outpatient (BNVA) | payer MEDICARE, SELFPAY | PROVIDERS: PCP Internal Medicine; Visit Provider Orthopaedic Surgery | DX: Z47.1 Aftercare following joint replacement surgery (principal); Z96.641 Presence of right artificial hip joint | CPT/HCPCS: 99212 ==

== ENCOUNTER 2020-07-21 07:59 | Emergency (ER) | payer MEDICARE, SELFPAY ==
[2020-07-21] VITALS (10 sets, daily range): BP systolic 97–161; BP diastolic 57–91; PULSE 61–82; RESP 7–20; TEMP 36.9; O2SAT 95–100; BMI 24.7
--- NOTE | 2020-07-21 | XR_ITS ---
EXAMINATION: XR HIP, RIGHT CLINICAL INFORMATION: Right hip reduction COMPARISON: None TECHNIQUE: 6 views of the right hip. FINDINGS: Multiple images during reduction of the right hip are submitted. The final image labeled as 3 of 3 demonstrates reduction of the right hip arthroplasty now in anatomic alignment with the right acetabulum. No acute visible fracture or dislocation is visualized. Orthopedic hardware is intact. Radiopaque screw is noted overlying the right iliac wing. 1.4 cm soft tissue granuloma versus fat necrosis along the right lateral subcutaneous soft tissues of the hip. Degenerative changes of the lumbosacral spine, inferior aspect of the right sacroiliac joint and pubic symphysis. XR/XR hip RT 1V IMPRESSION: 1. Interval reduction of previously visualized right hip arthroplasty dislocation now with the right hip femoral arthroplasty in anatomic alignment with the right acetabulum. 2. No acute visualize dislocation. 3. Degenerative changes.
--- NOTE | 2020-07-21 08:18 | PC.NURSE ---
su baird [phone]
--- NOTE | 2020-07-21 08:20 | XR_ITS ---
EXAMINATION: XR PELVIS XR FEMUR, RIGHT CLINICAL INFORMATION: Status post fall, pain, recent surgery COMPARISON: Right hip radiograph from 06/29/2020 TECHNIQUE: AP view of the pelvis and 4 views of the femur were obtained FINDINGS: Patient is status post right hip arthroplasty with rotation and superior anterior displacement of the femoral head prosthesis in relation to the right acetabulum. Orthopedic hardware is otherwise intact. A screw is noted overlying the right iliac wing. No acute visible fracture. Visualized osseous structures are osteopenic. Degenerative changes of the right knee with narrowing of the lateral femorotibial compartment. There are changes of the lower lumbar spine, left femoral acetabular joint, and pubic symphysis. Visualized bowel gas pattern is intact. Atherosclerotic calculations are visualized. Pelvic phleboliths are visualized. XR/XR femur RT 2V IMPRESSION: 1. Status post right hip arthroplasty with rotation and superior anterior displacement of the femoral head prosthesis in relation to the right acetabulum. 2. No acute visualized fracture. 3. Osteopenia. This critical result was discussed with Abigail Mendiola by telephone on 07/21/2020 9:03 AM and it was ascertained that the content and urgency of the report was understood at the time of direct communication.
--- NOTE | 2020-07-21 08:20 | XR_ITS ---
EXAMINATION: XR PELVIS XR FEMUR, RIGHT CLINICAL INFORMATION: Status post fall, pain, recent surgery COMPARISON: Right hip radiograph from 06/29/2020 TECHNIQUE: AP view of the pelvis and 4 views of the femur were obtained FINDINGS: Patient is status post right hip arthroplasty with rotation and superior anterior displacement of the femoral head prosthesis in relation to the right acetabulum. Orthopedic hardware is otherwise intact. A screw is noted overlying the right iliac wing. No acute visible fracture. Visualized osseous structures are osteopenic. Degenerative changes of the right knee with narrowing of the lateral femorotibial compartment. There are changes of the lower lumbar spine, left femoral acetabular joint, and pubic symphysis. Visualized bowel gas pattern is intact. Atherosclerotic calculations are visualized. Pelvic phleboliths are visualized. XR/XR pelvis 1-2V IMPRESSION: 1. Status post right hip arthroplasty with rotation and superior anterior displacement of the femoral head prosthesis in relation to the right acetabulum. 2. No acute visualized fracture. 3. Osteopenia. This critical result was discussed with Abigail Mendiola by telephone on 07/21/2020 9:03 AM and it was ascertained that the content and urgency of the report was understood at the time of direct communication.
--- NOTE | 2020-07-21 08:22 | ED.FALL ---
HPI - Fall General Chief Complaint: Fall Stated Complaint: fall, r hip pain Time Seen by Provider: 07/21/20 08:06 Source: patient and EMS Mode of arrival: EMS Limitations: no limitations History of Present Illness HPI Narrative: 85-year-old female with a past medical history of high cholesterol, hypertension, peripheral vascular disease, osteoarthritis, insomnia, AFib on Coumadin, TIA, CHF, mitral valve insufficiency, tricuspid valve insufficiency here with right hip pain. The patient tells me that she stepped up onto the scale to check her weight and lost her balance falling backwards landing on the right hip. She tells me she did not hit her head. There was no loss of consciousness. Her son was there and he was able to get her into the wheelchair. She has not tried weight-bearing since the fall. Of note, the patient is ORIF with right lyn arthroplasty on 06/[address] Villanueva. complaint: fall Onset (ago): hour(s) Fall from: standing Fall witnessed: yes, by family Place fall occurred: home Loss of consciousness: none Prolonged down time: no Symptoms prior to fall: none Context: tripped/slipped Location of injury: pelvis (Right hip) Severity: mild Quality: sharp Associated symptoms (after fall): denies Related Data Home Medications Medication Instructions Recorded Confirmed cholecalciferol (vitamin D3) 25 25 mcg PO DAILY 05/14/20 07/21/20 mcg (1,000 unit) capsule cyanocobalamin (vitamin B-12) 1,000 mcg PO DAILY 05/14/20 07/21/20 1,000 mcg capsule warfarin 2.5 mg PO SUTUWETHFRSA 06/26/20 07/21/20 warfarin 5 mg PO MO 06/26/20 07/21/20 zolpidem 1 tab PO BEDTIME 07/21/20 07/21/20 Previous Rx's Medication Instructions Recorded comp.stocking,knee,long,medium #12 ea 05/10/20 compress.stocking,knee,reg,med #2 ea 05/14/20 metoprolol succinate 200 mg 300 mg PO DAILY #135 cap 05/30/20 tablet,extended release 24 hr Walker with seat and wheels #1 ea 06/22/20 acetaminophen 300 mg-codeine 30 mg 1 tab PO TID PRN 30 Days #90 tab 07/02/20 tablet enoxaparin 40 mg SUBCUT Q24H #5 ml 07/02/20 walker #1 ea 07/02/20 cane #1 ea 07/04/20 miscellaneous medical supply #1 ea 07/04/20 walker #1 ea 07/04/20 losartan 50 mg tablet 50 mg PO DAILY #90 cap 07/16/20 Allergies Allergy/AdvReac Type Severity Reaction Status Date / Time amlodipine [AMLODIPINE] Allergy Unknown UNKNOWN Verified 07/05/20 12:20 carvedilol [CARVEDILOL] Allergy Unknown UNKNOWN Verified 07/05/20 12:20 irbesartan [From AVAPRO] Allergy Unknown UNKNOWN Verified 07/05/20 12:20 levofloxacin [From LEVAQUIN] Allergy Unknown GENERALIZED Verified 07/05/20 12:20 MUSCLE PAIN naproxen [Naproxen] Allergy Unknown HIVES, Verified 07/05/20 12:20 severe rash tetracycline [TETRACYCLINE] Allergy Unknown UNKNOWN Verified 07/05/20 12:20 Review of Systems Review of Systems: Yes all other systems are reviewed and are negative Constitutional: Constitutional: Reports no additional constitutional complaints, Denies body ache(s), Denies chills, Denies fever(s), Denies headache(s) and Denies weakness Eyes: Eyes: Reports no additional eye complaints and Denies change in vision ENT: Reports system reviewed and no additional complaints, except as documented, Denies dizziness, Denies headache(s), Denies nasal congestion, Denies nasal discharge and Denies neck pain Cardiovascular: Cardiovascular: Reports no additional cardiovascular complaints, Denies chest pain, Denies leg edema and Denies dyspnea Respiratory: Respiratory: Reports no additional respiratory complaints, Denies cough and Denies dyspnea Gastrointestinal: Gastrointestinal: Reports no additional gastrointestinal complaints, Denies abdominal pain, Denies diarrhea, Denies nausea and Denies vomiting Genitourinary: Genitourinary: Reports no additional female genitourinary complaints and Denies urinary incontinence Musculoskeletal: Musculoskeletal: Reports no additional musculoskeletal complaints, Denies back pain, Reports arthralgias, Denies joint swelling, Denies neck pain, Denies numbness and Denies tingling Integumentary/Breasts: Skin/Breast: Reports system reviewed and no additional complaints, except as docu and Denies rash Neurologic: Reports system reviewed and no additional complaints, except as documented, Denies Abnormal speech present, Denies dizziness, Denies headache(s), Denies numbness, Denies tingling and Denies weakness PMF Past Medical History Attestation statement: The following information was validated with the patient. Source: old records reviewed and nursing notes reviewed Medical History Atrial fibrillation Cataract Compression fracture of T10 vertebra Congestive heart failure Hypercholesterolemia Hypertension Insomnia Mammogram declined Osteoarthritis of knee Peripheral vascular disease Porphyria cutanea tarda TIA (transient ischemic attack) Uterine prolapse Surgical History History of biopsy History of D&C History of uterine prolapse Family History Family History Father Hypertension Mother Hypertension Daughter Colon cancer Lymph node cancer Social History Social History Household Members: None Housing: House Smoking Status: Never smoker Smoked in Last 30 Days: No Second Hand Smoke Exposure: No Use of substances other than those prescribed or required for medical reasons: No Advance Directives: No Advance Directives Information Provided: No service: No Current occupational status: retired Physical Exam Vital Signs: Vital Signs: Last Vital Signs Temp 98.5 F 07/21/20 10:27 Pulse 61 07/21/20 11:07 Resp 13 07/21/20 11:07 BP 143/68 H 07/21/20 11:07 Pulse Ox 98 07/21/20 10:57 Body Mass Index 24.7 Const: General: cooperative, healthy appearing, comfortable and no acute distress Orientation/consciousness: patient oriented x3 Limitations: no limitations HENMT: Head: Yes normal to inspection Ears: hearing grossly normal bilaterally General nose exam: Normal external nose present Face and sinus: Yes normal facial exam Mouth: Normal oral and palatal mucosa present Throat: Yes posterior oropharynx normal Eyes: General: appearance normal, both eyes and all related structures Pupils: Equal, round and reactive pupils present Neck: Neck: Yes normal visual inspection Chest: Chest palpation & inspection: normal inspection of the chest Resp: Effort & Inspection: normal respiratory effort Auscultation: clear to auscultation bilaterally Cardio: Rate: regular rate Rhythm: regular rhythm Peripheral pulses: Peripheral pulses 2+ throughout GI: Inspection: Yes normal to inspection Palpation (GI): Soft to palpation and nontender Auscultation: normal bowel sounds Back/Spine/Pelvis: Thoracic/Lumbar Spine: thoracic and lumbar spine normal to inspection Skin: General skin exam: no rashes or lesions noted Neuro: General: patient oriented x3, no focal motor deficits, normal sensation to monofilament and Unable to assess gait Cranial nerves: Yes Equal, round and reactive pupils present Cognition (Neuro): normal cognition Speech: No Abnormal speech present Gait exam (Neuro): Unable to assess gait Extrem: Other: RLE is shortened and externally rotated. Palpable DP/PT pulses. Sensation intact. Pain over lateral hip Bilateral lower extremity swelling which is pitting extending to the mid calf. Mild redness. No warmth or discomfort on exam. Patient tells me this is chronic General: Yes normal to inspection Course Course Course Narrative: 85-year-old female here with right hip pain status post mechanical fall. There was no reports of head injury and the fall was witnessed by his son. Of note, the patient is approximately 1 month post right ORIF with lyn. On exam the right hip is shortened and externally rotated. Concern for additional fracture versus dislocation. Will check x-rays. Check labs including INR. Also on exam notes some bilateral lower extremity pitting edema which patient tells me is chronic. No shortness of breath, cough or chest pain. Stable vital signs. 0900-informed by nursing that patient has an abnormal x-ray. Looked at the x-ray is concerning for right hip dislocation. As the patient is recently postop I will discuss with orthopedics. Attending physician Dr. Palafox aware as patient will likely need reduction and conscious sedation in the emergency department. 0920-discussed with Vandana orthopedic LORRAINE who will come down to see the patient. 1100-conscious sedation done at the bedside for joint reduction with Dr. Morales. Respiratory therapy and nursing at the bedside. See flow sheet. Reduction took 3 attempts as the patient easily was dislocated with any manipulation. Postreduction films confirmed alignment. Will discuss with Orthopedics if splinting is required. 1115-Discussed with Vandana PETERS. Recommended avoid external rotation. Ambulate with walker at baseline. Will attempt ambulation here when more awake. Nursing aware. 1215-patient ambulated with a walker to the bathroom with no difficulty. Plan for discharge home. Called and discussed with su Mccoy. Reviewed instructions for care and follow-up by Dr. Villanueva. Reviewed worrisome signs and symptoms and when to return to the emergency department. Comfortable discharge home. Procedures Orthopedic Joint Reduction Joint #1: Time Out Performed: Yes Side: right Joint Reduction Location: hip Analgesia: procedural sedation Technique used: other (Comer technique) Post-reduction neuro exam: intact Post-reduction vascular: intact Post Reduction X-Ray Obtained: Yes Post Reduction X-Ray Results: reduced Patient Tolerated Procedure: well Additional Comments: See conscious sedation flow sheet. Patient required 100 mg total of propofol. Three attempts for reduction with success on 3rd attempt. Done with Dr Morales. Procedural Sedation Indication: fracture/dislocation reduction Presedation Evaluation: Water 06 ASA Class: III Time of Last PO Intake: 06:00 Preparation: surveillance monitor applied, pulse oximeter, capnometry used, supplemental O2 applied, suction/airway equipment at bedside and IV secured IV Propofol dose (mg): 100 Patient Tolerated Procedure: well Complications: none MDM - Fall Medical Records Attestation: I reviewed the patient's medical records. Lab Data Attestation: I reviewed the patient's lab results. Result diagrams: 07/21/20 09:36 07/21/20 09:36 Labs: Lab Results 07/21/20 07/21/20 07/21/20 Range/Units 09:36 09:36 09:36 WBC 8.6 (4.8-10.8) X10*3/uL RBC 3.37 L (4.20-5.50) X10*6/uL Hgb 11.2 L (12.0-16.0) g/dl Hct 34.5 L (37-47) % MCV 102.4 H (80-98) fL MCH 33.2 H (27.0-33.0) pg MCHC 32.5 (31.0-35.0) g/dl RDW 15.1 (11.0-16.0) % Plt Count 271 D (160-400) X10*3/uL MPV 8.6 L (9.4-12.3) fL Immature Gran % (Auto) 0.5 H (0.0-0.4) % Neut % (Auto) 59.8 (45-73) % Lymph % (Auto) 24.9 (20-40) % [place] % (Auto) 13.1 H (2-11) % Eos % (Auto) 1.4 (0-4) % Baso % (Auto) 0.3 (0-2) % Lymph # (Auto) 2.1 (1.2-4.9) X10*3/uL [place] # (Auto) 1.1 (0.1-1.2) X10*3/uL Eos # (Auto) 0.1 (0.0-0.4) X10*3/uL Baso # (Auto) 0.0 (0.0-0.2) X10*3/uL Abs Immat Gran (auto) 0.04 H (0.00-0.03) X10*3/uL Absolute Neuts (auto) 5.1 (2.0-8.3) X10*3/uL Absolute Nucleated RBC 0.000 (0.0-0.012) X10*3/uL Nucleated RBC % (auto) 0.0 (0.0-0.2) /100WBC PT 26.0 H D (10.8-13.0) SEC INR 2.2 H (0.9-1.1) Sodium 138 (135-145) mmol/L Potassium 3.9 (3.3-5.1) mmol/l Chloride 95 L (96-108) mmol/L Carbon Dioxide 35 H (22-29) mmol/L Anion Gap 12 (12-20) BUN 28 H (9-16) mg/dL Creatinine 0.70 (0.5-1.4) mg/dL Estim Creat Clear Calc 50.7 Estimated GFR > 60 Random Glucose 112 (60-115) mg/dL Calcium 8.6 D (8.4-10.2) mg/dL Imaging Data hip xr-y right: Attestation: I personally reviewed and interpreted this imaging study as follows: Radiologist's impression: right hip is status post right arthroplasty with rotation and superior anterior displacement right hip xray: Attestation: I personally reviewed and interpreted this imaging study as follows: Radiologist's impression: Reduction and anatomic alignment ECG Data Attestation: I personally reviewed and interpreted this ECG as follows: ECG interpretation date: 07/21/20 ECG interpretation time: 09:21 Interpretation: AFib with a rate of 68, normal QRS, normal QT Discharge Plan Discharge Clinical Impression: Dislocation closed, hip Qualifiers: Encounter type: initial encounter Laterality: right Qualified Code(s): S73.004A - Unspecified dislocation of right hip, initial encounter Patient Disposition: Home, Self-Care Instructions: Hip Dislocation (ED) Additional Instructions: Avoid external rotation of the right lower extremity Follow-up with Dr. Villanueva Prescriptions: No Action (DME) comp.stocking,knee,long,medium Misc See Rx Instructions .ROUTE .MEDSUPPLY Qty: 12 RF: 0 metoprolol succinate 200 mg tablet extended release 24 hr 300 mg PO DAILY Qty: 135 RF: 1 (DME) Walker with seat and wheels See Rx Instructions .Route .MEDSUPPLY Qty: 1 RF: 0 acetaminophen-codeine 300-30 mg tablet 1 tab PO TID PRN (Reason: pain) 30 Days Qty: 90 RF: 0 (DME) walker Misc See Rx Instructions .MEDSUPPLY Qty: 1 RF: 0 (DME) cane Device See Rx Instructions .MEDSUPPLY Qty: 1 RF: 0 (DME) miscellaneous medical supply Misc See Rx Instructions .ROUTE .MEDSUPPLY Qty: 1 RF: 0 losartan 50 mg tablet 50 mg PO DAILY Qty: 90 RF: 2 warfarin 5 mg Tablet 5 mg PO MO RF: 0 warfarin 5 mg Tablet 2.5 mg PO SUTUWETHFRSA RF: 0 enoxaparin 40 mg/0.4 mL Syringe 40 mg subcut Q24H Qty: 5 RF: 0 (DME) walker Misc See Rx Instructions .ROUTE .MEDSUPPLY Qty: 1 RF: 0 zolpidem 12.5 mg tablet,ext release multiphase 1 tab PO BEDTIME RF: 0 cyanocobalamin (vitamin B-12) 1,000 mcg capsule 1,000 mcg PO DAILY RF: 0 cholecalciferol (vitamin D3) 25 mcg (1,000 unit) capsule 25 mcg PO DAILY RF: 0 (DME) compress.stocking,knee,reg,med Misc See Rx Instructions .ROUTE .MEDSUPPLY Qty: 2 RF: 0 Referrals: Fredy Villanueva MD [Physician] - 2 days Interventions: ED Discharge Assessment Last Done: 07/21/20 12:24 Discharge Date/Time: 07/21/20 13:01
--- NOTE | 2020-07-21 08:48 | ECG_ITS ---
Test Reason : WEAKNESS Blood Pressure : / mmHG Vent. Rate : 068 BPM Atrial Rate : 072 BPM P-R Int : 000 ms QRS Dur : 088 ms QT Int : 398 ms P-R-T Axes : 000 060 038 degrees QTc Int : 423 ms Atrial fibrillation Abnormal ECG When compared with ECG of 26-JUN-2020 17:00, No significant change was found Referred By: Abigail Mendiola Electronically Signed By:Juan Jules
[2020-07-21 09:40] LABS: MANUAL DIFF FLAG NO
[2020-07-21 09:41] LABS: Basophils Percent Auto 0.3 % (0-2); Eosinophils Absolute Auto 0.1 X10*3/uL (0.0-0.4); Eosinophils Percent Auto 1.4 % (0-4); Hematocrit 34.5 % (37-47); Hemoglobin 11.2 g/dl (12.0-16.0); Imm Gran Abs Auto 0.04 X10*3/uL (0.00-0.03); Imm Gran Pct Auto 0.5 % (0.0-0.4); Lymphocytes Absolute Auto 2.1 X10*3/uL (1.2-4.9); Lymphocytes Percent Auto 24.9 % (20-40); Mean Corpuscular HGB Conc 32.5 g/dl (31.0-35.0); Mean Corpuscular Hemoglobin 33.2 pg (27.0-33.0); Mean Corpuscular Volume 102.4 fL (80-98); Mean Platelet Volume 8.6 fL (9.4-12.3); Monocytes Absolute Auto 1.1 X10*3/uL (0.1-1.2); Monocytes Percent Auto 13.1 % (2-11); Neutrophils Absolute Auto 5.1 X10*3/uL (2.0-8.3); Neutrophils Percent Auto 59.8 % (45-73); Platelet Count 271 X10*3/uL (160-400); Red Blood Count 3.37 X10*6/uL (4.20-5.50); Red Cell Distribution Width 15.1 % (11.0-16.0); White Blood Count 8.6 X10*3/uL (4.8-10.8)
[2020-07-21 09:49] LABS: INTERNATIONAL NORM RATIO 2.2 (0.9-1.1)
[2020-07-21 10:13] LABS: Anion Gap 12 (12-20); Blood Urea Nitrogen 28 mg/dL (9-16); Calcium 8.6 mg/dL (8.4-10.2); Carbon Dioxide 35 mmol/L (22-29); Chloride 95 mmol/L (96-108); Creatinine Clr Calc Pharmacy 50.7; Estimated Glomerular Filt Rate > 60; Glucose Random 112 mg/dL (60-115); Potassium 3.9 mmol/l (3.3-5.1); Sodium 138 mmol/L (135-145)
[2020-07-21] MEDS: fentaNYL citrate/PF 100 MCG/2 ML VIAL 50 MCG IVPUSH (10:27)
[2020-07-21] MEDS: propofoL 200 MG/20 ML VIAL IVPUSH (11:33)
== END 2020-07-21 13:01 | disposition home or self-care (01) ==
PROVIDERS: Nurse Practitioner Family; Emergency Provider Internal Medicine; PCP Internal Medicine
DX: S73.004A Unspecified dislocation of right hip, initial encounter (principal); W17.89XA Other fall from one level to another, initial encounter; I11.0 Hypertensive heart disease with heart failure; I50.9 Heart failure, unspecified; I48.91 Unspecified atrial fibrillation; Y93.89 Activity, other specified; Y92.019 Unspecified place in single-family (private) house as the place of occurrence of the external cause; Y99.9 Unspecified external cause status; Z86.73 Personal history of transient ischemic attack (TIA), and cerebral infarction without residual deficits; Z79.01 Long term (current) use of anticoagulants
CPT/HCPCS: 27250; 36415; 72170; 73501; 73552; 80048; 85025; 85610; 93005; 96374; 96375; 99152; 99284; 99285; J3010

== ENCOUNTER → 2020-07-23 15:25 | Outpatient (BNVA) | payer MEDICARE, SELFPAY | PROVIDERS: PCP Internal Medicine; Visit Provider Internal Medicine | DX: I48.0 Paroxysmal atrial fibrillation (principal); Z79.01 Long term (current) use of anticoagulants; Z51.81 Encounter for therapeutic drug level monitoring | CPT/HCPCS: Q3014 ==

== ENCOUNTER → 2020-07-25 14:21 | Outpatient (BNVA) | payer MEDICARE, SELFPAY | PROVIDERS: PCP Internal Medicine; Visit Provider Orthopaedic Surgery | DX: Z96.649 Presence of unspecified artificial hip joint (principal) | CPT/HCPCS: 99212 ==

== ENCOUNTER → 2020-07-31 10:32 | Outpatient (BNVA) | payer MEDICARE, SELFPAY | PROVIDERS: PCP Internal Medicine; Visit Provider Internal Medicine | DX: I48.91 Unspecified atrial fibrillation (principal); Z79.01 Long term (current) use of anticoagulants; Z51.81 Encounter for therapeutic drug level monitoring | CPT/HCPCS: Q3014 ==

== ENCOUNTER → 2020-08-06 15:07 | Outpatient (BNVA) | payer MEDICARE, SELFPAY | PROVIDERS: PCP Internal Medicine; Visit Provider Internal Medicine | DX: I48.0 Paroxysmal atrial fibrillation (principal); Z51.81 Encounter for therapeutic drug level monitoring; Z79.01 Long term (current) use of anticoagulants | CPT/HCPCS: Q3014 ==

== ENCOUNTER → 2020-08-13 11:27 | Outpatient (BNVA) | payer MEDICARE, SELFPAY | PROVIDERS: PCP Internal Medicine; Visit Provider Internal Medicine | DX: I48.0 Paroxysmal atrial fibrillation (principal); Z51.81 Encounter for therapeutic drug level monitoring; Z79.01 Long term (current) use of anticoagulants | CPT/HCPCS: Q3014 ==

== ENCOUNTER 2020-08-21 08:07 | Outpatient (RCR) | payer MEDICARE, SELFPAY | END 2020-11-09 11:24 | disposition home or self-care (01) | LOC: HO.WCC 08:07 | PROVIDERS: Visit Provider Physician Assistant | DX: L89.892 Pressure ulcer of other site, stage 2 (principal); L89.893 Pressure ulcer of other site, stage 3; I87.2 Venous insufficiency (chronic) (peripheral); Z96.641 Presence of right artificial hip joint | CPT/HCPCS: 11042; 11045; 97597; 99212 ==

== ENCOUNTER → 2020-08-23 15:03 | Outpatient (BNVA) | payer MEDICARE, SELFPAY | PROVIDERS: PCP Internal Medicine; Visit Provider Internal Medicine | DX: I48.0 Paroxysmal atrial fibrillation (principal); Z51.81 Encounter for therapeutic drug level monitoring; Z79.01 Long term (current) use of anticoagulants | CPT/HCPCS: Q3014 ==

== ENCOUNTER → 2020-08-29 15:37 | Outpatient (BNVA) | payer MEDICARE, SELFPAY | PROVIDERS: PCP Internal Medicine; Visit Provider Internal Medicine | DX: I48.0 Paroxysmal atrial fibrillation (principal); Z51.81 Encounter for therapeutic drug level monitoring; Z79.01 Long term (current) use of anticoagulants | CPT/HCPCS: Q3014 ==

== ENCOUNTER → 2020-09-04 09:28 | Outpatient (BNVA) | payer MEDICARE, SELFPAY | PROVIDERS: PCP Internal Medicine; Visit Provider Orthopaedic Surgery | DX: Z96.643 Presence of artificial hip joint, bilateral (principal) | CPT/HCPCS: 99212 ==

== ENCOUNTER → 2020-09-06 13:40 | Outpatient (BNVA) | payer MEDICARE, SELFPAY | PROVIDERS: PCP Internal Medicine; Visit Provider Internal Medicine | DX: I48.0 Paroxysmal atrial fibrillation (principal); Z51.81 Encounter for therapeutic drug level monitoring; Z79.01 Long term (current) use of anticoagulants | CPT/HCPCS: Q3014 ==

== ENCOUNTER → 2020-09-13 12:16 | Outpatient (BNVA) | payer MEDICARE, SELFPAY | PROVIDERS: PCP Internal Medicine; Visit Provider Internal Medicine | DX: I48.0 Paroxysmal atrial fibrillation (principal); Z51.81 Encounter for therapeutic drug level monitoring; Z79.01 Long term (current) use of anticoagulants | CPT/HCPCS: Q3014 ==

== ENCOUNTER 2020-09-18 10:00 | Outpatient (REF) | payer MEDICARE, SELFPAY ==
--- NOTE | ~2020-09-18 | US_ITS ---
EXAMINATION: COLOR-FLOW DUPLEX IMAGING OF THE BILATERAL LOWER EXTREMITY ARTERIAL SYSTEM. VELOCITY MEASUREMENTS THROUGHOUT THE FEMORAL ARTERIES WITH ANKLE-BRACHIAL PERIPHERAL ARTERIAL TESTING. CLINICAL INFORMATION: This is an 85-year-old female with hyperlipidemia, hypertension. Peripheral vascular disease. Pressure ulcer. Interventional Radiologist: Aiden Millan M.D., F.S.I.R., F.A.C.R. RIGHT FEMORAL RUNOFF VELOCITIES: The right common femoral artery measures 149 cm/s and triphasic. The right profunda femoral artery is 94 cm/s and is triphasic. Right proximal superficial femoral artery measures 92 cm/s and biphasic. Mid superficial femoral artery is 128 cm/s and triphasic. Distal right superficial femoral artery measures 89 cm/s and is triphasic. Right popliteal velocity measures 98 cm/s and is triphasic. The posterior tibial artery velocity measures 41 cm/s and was monophasic. LEFT FEMORAL RUNOFF VELOCITIES: The left common femoral artery measures 120 cm/s and biphasic. The left profunda femoral artery is 111 cm/s and is biphasic. Left proximal superficial femoral artery measures 120 cm/s and biphasic. Mid superficial femoral artery is 84 cm/s and biphasic. Distal left superficial femoral artery measures 67 cm/s and is biphasic. Left popliteal velocity measures 75 cm/s and is biphasic. The posterior tibial artery velocity measures 42 cm/s and was monophasic. An arrhythmia is seen during the duplex portion of the exam. There is a right popliteal fossa cyst. US/US arterial duplex LE BI IMPRESSION: 1. No hemodynamically significant stenosis is seen in the inflow or outflow vessels bilaterally.
== END 2020-09-18 10:01 | disposition home or self-care (01) ==
LOC: HO.US 10:00
PROVIDERS: PCP Internal Medicine; Visit Provider Physician Assistant
DX: L89.893 Pressure ulcer of other site, stage 3 (principal); I73.9 Peripheral vascular disease, unspecified
CPT/HCPCS: 93925

== ENCOUNTER → 2020-09-20 11:35 | Outpatient (BNVA) | payer MEDICARE, SELFPAY | PROVIDERS: PCP Internal Medicine; Visit Provider Internal Medicine | DX: I48.0 Paroxysmal atrial fibrillation (principal); Z51.81 Encounter for therapeutic drug level monitoring; Z79.01 Long term (current) use of anticoagulants | CPT/HCPCS: Q3014 ==

== ENCOUNTER → 2020-09-27 12:11 | Outpatient (BNVA) | payer MEDICARE, SELFPAY | PROVIDERS: PCP Internal Medicine; Visit Provider Internal Medicine | DX: I48.0 Paroxysmal atrial fibrillation (principal); Z51.81 Encounter for therapeutic drug level monitoring; Z79.01 Long term (current) use of anticoagulants | CPT/HCPCS: Q3014 ==

== ENCOUNTER → 2020-10-04 11:24 | Outpatient (BNVA) | payer MEDICARE, SELFPAY | PROVIDERS: PCP Internal Medicine; Visit Provider Internal Medicine | DX: I48.0 Paroxysmal atrial fibrillation (principal); Z51.81 Encounter for therapeutic drug level monitoring; Z79.01 Long term (current) use of anticoagulants | CPT/HCPCS: Q3014 ==

== ENCOUNTER → 2020-10-11 13:40 | Outpatient (BNVA) | payer MEDICARE, SELFPAY | PROVIDERS: PCP Internal Medicine; Visit Provider Internal Medicine | DX: I48.0 Paroxysmal atrial fibrillation (principal); Z51.81 Encounter for therapeutic drug level monitoring; Z79.01 Long term (current) use of anticoagulants | CPT/HCPCS: Q3014 ==

== ENCOUNTER → 2020-10-18 15:09 | Outpatient (BNVA) | payer MEDICARE, SELFPAY | PROVIDERS: PCP Internal Medicine; Visit Provider Internal Medicine | DX: I48.0 Paroxysmal atrial fibrillation (principal); Z79.01 Long term (current) use of anticoagulants; Z51.81 Encounter for therapeutic drug level monitoring | CPT/HCPCS: Q3014 ==

== ENCOUNTER → 2020-10-25 10:14 | Outpatient (BNVA) | payer MEDICARE, SELFPAY | PROVIDERS: PCP Internal Medicine; Visit Provider Internal Medicine | DX: I48.0 Paroxysmal atrial fibrillation (principal); Z79.01 Long term (current) use of anticoagulants; Z51.81 Encounter for therapeutic drug level monitoring | CPT/HCPCS: Q3014 ==

== ENCOUNTER 2020-11-05 | Outpatient (REF) | payer MEDICARE, SELFPAY ==
[2020-11-05 11:15] LABS: INTERNATIONAL NORM RATIO 1.7 (0.9-1.1); Prothrombin Time 19.9 SEC (10.8-13.0)
== END 2020-11-05 00:01 ==
LOC: HO.LHD
PROVIDERS: Visit Provider Internal Medicine
DX: I48.0 Paroxysmal atrial fibrillation (principal); Z51.81 Encounter for therapeutic drug level monitoring; Z79.01 Long term (current) use of anticoagulants
CPT/HCPCS: 36415; 85610; Q3014

== ENCOUNTER 2020-11-12 02:55 | Outpatient (REF) | payer MEDICARE, SELFPAY | END 2020-11-12 02:56 | disposition home or self-care (01) | LOC: HO.LHD 02:55 | PROVIDERS: Visit Provider Internal Medicine | DX: Z13.89 Encounter for screening for other disorder (principal) ==

== ENCOUNTER 2020-11-13 01:03 | Outpatient (REF) | payer MEDICARE, SELFPAY ==
[2020-11-13 11:34] LABS: INTERNATIONAL NORM RATIO 2.4 (0.9-1.1); Prothrombin Time 28.9 SEC (10.8-13.0)
== END 2020-11-13 01:04 | disposition home or self-care (01) ==
LOC: HO.LHD 01:03
PROVIDERS: Visit Provider Internal Medicine
DX: I48.0 Paroxysmal atrial fibrillation (principal)
CPT/HCPCS: 36415; 85610

== ENCOUNTER 2020-12-03 10:33 | Outpatient (REF) | payer MEDICARE, SELFPAY ==
[2020-12-03 12:12] LABS: MANUAL DIFF FLAG NO
[2020-12-03 12:24] LABS: Basophils Absolute Auto 0.1 X10*3/uL (0.0-0.2); Basophils Percent Auto 0.8 % (0-2); Eosinophils Absolute Auto 0.1 X10*3/uL (0.0-0.4); Eosinophils Percent Auto 1.2 % (0-4); Hematocrit 38.5 % (37-47); Hemoglobin 12.9 g/dl (12.0-16.0); Imm Gran Abs Auto 0.02 X10*3/uL (0.00-0.03); Imm Gran Pct Auto 0.3 % (0.0-0.4); Lymphocytes Absolute Auto 2.3 X10*3/uL (1.2-4.9); Lymphocytes Percent Auto 36.1 % (20-40); Mean Corpuscular HGB Conc 33.5 g/dl (31.0-35.0); Mean Corpuscular Hemoglobin 31.7 pg (27.0-33.0); Mean Corpuscular Volume 94.6 fL (80-98); Monocytes Absolute Auto 0.8 X10*3/uL (0.1-1.2); Monocytes Percent Auto 11.7 % (2-11); Neutrophils Absolute Auto 3.2 X10*3/uL (2.0-8.3); Neutrophils Percent Auto 49.9 % (45-73); Platelet Count 185 X10*3/uL (160-400); Red Blood Count 4.07 X10*6/uL (4.20-5.50); Red Cell Distribution Width 13.4 % (11.0-16.0); White Blood Count 6.4 X10*3/uL (4.8-10.8)
[2020-12-03 12:39] LABS: B Type Natriuretic Peptide 266 pg/mL (<100)
[2020-12-03 12:40] LABS: Alanine Aminotransferase 13 U/L (0-31); Albumin Level 3.9 g/dL (3.5-5.0); Alkaline Phosphatase 100 U/L (39-117); Anion Gap 17 (12-20); Aspartate Amino Transferase 27 U/L (5-31); Bilirubin Total 1.5 mg/dL (0.0-1.0); Blood Urea Nitrogen 14 mg/dL (9-16); Calcium 9.3 mg/dL (8.4-10.2); Carbon Dioxide 22 mmol/L (22-29); Chloride 97 mmol/L (96-108); Cholesterol 199 mg/dL; Estimated Glomerular Filt Rate > 60; Glucose Random 95 mg/dL (60-115); HDL Cholesterol 93 mg/dL; LDL Cholesterol Calculated 91 mg/dl; Potassium 4.1 mmol/L (3.3-5.1); Sodium 132 mmol/L (135-145); Total Protein 7.7 g/dL (6.5-8.0); Triglycerides 77 mg/dL
[2020-12-03 12:55] LABS: Free T4 (Free Thyroxine) 1.06 ng/dL (0.71-1.85); Thyroid Stimulating Hormone 1.86 uIU/mL (0.32-4.0)
== END 2020-12-03 10:34 | disposition home or self-care (01) ==
LOC: HO.LAB 10:33
PROVIDERS: PCP Internal Medicine; Visit Provider Internal Medicine
DX: I50.32 Chronic diastolic (congestive) heart failure (principal); E78.00 Pure hypercholesterolemia, unspecified; I48.0 Paroxysmal atrial fibrillation; Z51.81 Encounter for therapeutic drug level monitoring; Z79.01 Long term (current) use of anticoagulants
CPT/HCPCS: 36415; 80053; 80061; 83880; 84439; 84443; 85025; 85610; 99211

== ENCOUNTER 2020-12-12 10:30 | Outpatient (RCR) | payer MEDICARE, SELFPAY | END 2020-12-24 16:24 | disposition home or self-care (01) | LOC: HO.WCC 10:30 | PROVIDERS: Visit Provider Surgery | DX: I87.301 Chronic venous hypertension (idiopathic) without complications of right lower extremity (principal) | CPT/HCPCS: 99212 ==

== ENCOUNTER → 2021-01-03 08:15 | Outpatient (BNVA) | payer MEDICARE, SELFPAY | PROVIDERS: PCP Internal Medicine; Visit Provider Internal Medicine | DX: I48.0 Paroxysmal atrial fibrillation (principal); Z51.81 Encounter for therapeutic drug level monitoring; Z79.01 Long term (current) use of anticoagulants | CPT/HCPCS: 85610; 99211 ==

== ENCOUNTER → 2021-02-05 08:33 | Outpatient (BNVA) | payer MEDICARE, SELFPAY | PROVIDERS: PCP Internal Medicine; Visit Provider Internal Medicine | DX: I48.0 Paroxysmal atrial fibrillation (principal); Z51.81 Encounter for therapeutic drug level monitoring; Z79.01 Long term (current) use of anticoagulants | CPT/HCPCS: 85610; 99211 ==

== ENCOUNTER → 2021-02-19 08:23 | Outpatient (BNVA) | payer MEDICARE, SELFPAY | PROVIDERS: PCP Internal Medicine; Visit Provider Internal Medicine | DX: I48.0 Paroxysmal atrial fibrillation (principal); Z51.81 Encounter for therapeutic drug level monitoring; Z79.01 Long term (current) use of anticoagulants | CPT/HCPCS: 85610; 99211 ==

== ENCOUNTER → 2021-02-26 09:16 | Outpatient (BNVA) | payer MEDICARE, SELFPAY | PROVIDERS: PCP Internal Medicine; Visit Provider Internal Medicine | DX: I48.0 Paroxysmal atrial fibrillation (principal); Z51.81 Encounter for therapeutic drug level monitoring; Z79.01 Long term (current) use of anticoagulants | CPT/HCPCS: 85610; 99211 ==

== ENCOUNTER 2021-05-06 10:51 | Outpatient (REF) | payer MEDICARE, SELFPAY ==
[2021-05-06 11:43] LABS: INTERNATIONAL NORM RATIO 2.1 (0.9-1.1); Prothrombin Time 23.9 SEC (9.9-13.0)
== END 2021-05-06 10:52 | disposition home or self-care (01) ==
LOC: HO.LAB 10:51
PROVIDERS: PCP Internal Medicine; Visit Provider Nurse Practitioner Family
DX: I48.0 Paroxysmal atrial fibrillation (principal); R09.81 Nasal congestion; R05.9 Cough, unspecified; H10.9 Unspecified conjunctivitis; Z20.822 Contact with and (suspected) exposure to COVID-19
CPT/HCPCS: 36415; 85610; U0003; U0005

== ENCOUNTER 2021-05-30 10:09 | Outpatient (REF) | payer MEDICARE, SELFPAY ==
--- NOTE | ~2021-05-30 | XR_ITS ---
EXAMINATION: XR CHEST CLINICAL INFORMATION: Bronchitis. COMPARISON: Chest x-ray 06/26/2020 TECHNIQUE: 2 views of the chest were obtained. FINDINGS: Large hiatal hernia. Cardiac mediastinal contours remain unchanged. No acute airspace disease. No pleural effusion or pneumothorax. Kyphosis of dorsal spine. Dextroscoliosis of thoracolumbar spine. Multilevel degenerative spondylosis of the spine. XR/XR chest 2V IMPRESSION: No acute abnormality of chest. Large hiatal hernia.
== END 2021-05-30 10:10 | disposition home or self-care (01) ==
LOC: HO.XRAY 10:09
PROVIDERS: PCP Internal Medicine; Visit Provider Internal Medicine
DX: J40 Bronchitis, not specified as acute or chronic (principal)
CPT/HCPCS: 71046

== ENCOUNTER 2021-06-21 12:24 | Outpatient (REF) | payer MEDICARE, SELFPAY ==
[2021-06-21 12:38] LABS: MANUAL DIFF FLAG NO
[2021-06-21 13:00] LABS: Basophils Percent Auto 0.6 % (0-2); Eosinophils Absolute Auto 0.4 X10*3/uL (0.0-0.4); Eosinophils Percent Auto 5.2 % (0-4); Hematocrit 40.9 % (37.0-47.0); Hemoglobin 13.6 g/dl (12.0-16.0); Imm Gran Abs Auto 0.01 X10*3/uL (0.00-0.03); Imm Gran Pct Auto 0.1 % (0.0-0.4); Lymphocytes Absolute Auto 2.1 X10*3/uL (1.2-4.9); Lymphocytes Percent Auto 30.7 % (20-40); Mean Corpuscular HGB Conc 33.3 g/dl (31.0-35.0); Mean Corpuscular Hemoglobin 33.2 pg (27.0-33.0); Mean Corpuscular Volume 99.8 fL (80.0-98.0); Mean Platelet Volume 9.6 fL (9.4-12.3); Monocytes Absolute Auto 0.9 X10*3/uL (0.1-1.2); Monocytes Percent Auto 13.5 % (2-11); Neutrophils Absolute Auto 3.3 x10*3/uL (2.0-8.3); Neutrophils Percent Auto 49.9 % (45-73); Platelet Count 190 X10*3/uL (160-400); White Blood Count 6.7 X10*3/uL (4.8-10.8)
[2021-06-21 13:08] LABS: INTERNATIONAL NORM RATIO 3.9 (0.9-1.1); Prothrombin Time 45.2 SEC (9.9-13.0)
[2021-06-21 13:27] LABS: Alanine Aminotransferase 14 U/L (0-31); Albumin Level 4.2 g/dL (3.5-5.0); Alkaline Phosphatase 99 U/L (39-117); Anion Gap 15 (12-20); Aspartate Amino Transferase 28 U/L (5-31); Bilirubin Total 1.2 mg/dL (0.0-1.0); Blood Urea Nitrogen 17 mg/dL (9-16); Calcium 9.8 mg/dL (8.4-10.2); Carbon Dioxide 27 mmol/L (22-29); Chloride 98 mmol/L (96-108); Estimated Glomerular Filt Rate > 60; Glucose Random 102 mg/dL (60-115); Potassium 4.5 mmol/L (3.3-5.1); Sodium 135 mmol/L (135-145); Total Protein 7.8 g/dL (6.5-8.0)
[2021-06-21 13:47] LABS: Thyroid Stimulating Hormone 3.23 uIU/mL (0.32-4.0)
[2021-06-21 14:29] LABS: Folate 9.6 ng/mL (> or = 4.0); Vitamin B12 1756 pg/mL (200-900)
== END 2021-06-21 12:25 | disposition home or self-care (01) ==
LOC: HO.LAB 12:24
PROVIDERS: PCP Internal Medicine; Visit Provider Internal Medicine
DX: I48.0 Paroxysmal atrial fibrillation (principal)
CPT/HCPCS: 36415; 80053; 82607; 82746; 84443; 85025; 85610

== ENCOUNTER 2021-06-26 09:10 | Emergency (ER) | payer MEDICARE, SELFPAY ==
[2021-06-26] VITALS (9 sets, daily range): BP systolic 136–204; BP diastolic 58–95; PULSE 68–88; RESP 16–18; O2SAT 94–97; BMI 24.0
--- NOTE | ~2021-06-26 | XR_ITS ---
EXAMINATION: BILATERAL KNEES CLINICAL INFORMATION: Fall. On Coumadin. COMPARISON: March 16, 2015 TECHNIQUE: 4 views of each knee FINDINGS: Left knee: There is a large amount of soft tissue swelling seen about the anterior aspect of the patella and suprapatellar regions. No acute fracture or dislocation is seen. The joint spaces are maintained. There is some spurring undersurface of the patella. Prominent vascular calcifications are seen. Right knee: There appears to be a nondisplaced fracture through the mid patella without distraction of fragments. There is severe narrowing of the medial joint space compartment with prominent marginal spurring. There is a large knee effusion. XR/XR knee RT 4V IMPRESSION: Nondisplaced right patellar fracture with large amount soft tissue swelling and large right knee effusion. Significant degenerative joint disease involving the right medial joint space and the patellofemoral joint. Patellofemoral joint spurring.
--- NOTE | ~2021-06-26 | CT_ITS ---
EXAMINATION: CT CHEST, ABDOMEN AND PELVIS WITH CONTRAST CLINICAL INFORMATION: Fall, on Coumadin. COMPARISON: Chest x-ray 05/30/2021 TECHNIQUE: 5 mm thin axial and reformatted 3 mm thin sagittal and coronal images of the chest, abdomen and pelvis were obtained without contrast. DLP: 1202 mGy-cm. FINDINGS: CHEST: Lungs: The lungs are well-expanded with patchy atelectatic changes in the lingula and bilateral dependent lower lobes, slightly greater on the left. No consolidation, contusion, mass, or abnormal nodule visualized. Mediastinum: The thyroid lobes are symmetric and normal. The central trachea and the bronchi are widely patent. Heart size and pulmonary vascularity is normal. Mild arthroscopic changes of thoracic arch are noted. No aneurysmal dilatation. There are mild coronary artery calcifications. A moderate-sized hiatal hernia is present. No abnormal sized lymph nodes seen. Pleura: There is no pleural effusion, thickening or calcification. Axilla: No abnormal lymph nodes seen. The chest wall is unremarkable. ABDOMEN AND PELVIS: Liver, Ducts and Gallbladder: The liver is homogeneous in density, normal size and contour. No focal lesion or intrahepatic ductal dilatation seen. The gallbladder is distended without any radiopaque calculi or wall thickening. Spleen: Unremarkable. Pancreas: Unremarkable. Adrenal Glands: Small left adrenal lesion measuring 1.4 x 1.3 cm measuring 1.50 Hounsfield units suggestive of benign adenoma. The right adrenal gland is unremarkable. Kidneys, Ureter and Bladder: Both kidneys are normal size, contour and density. No radiopaque renal calculi or hydronephrosis seen. There is bilateral perinephric stranding, likely chronic. Lymphovascular Structures: There is atherosclerotic calcification of the abdominal aorta without aneurysmal dilatation. No abnormal sized retroperitoneal or mesenteric lymph nodes seen. GI Tract: There is gas, diverticula and stool visualized in the colon without distention. The small bowel loops are normal caliber. The appendix is not seen. There is a moderate sized hiatal hernia. Abdominal Wall: There is no evidence of hernia. Mild kyphosis of the dorsolumbar junction with endplate deformity of T10 and T12 vertebrae, as described above. There is vacuum disc phenomena throughout lower dorsal and upper lumbar spine with bridging ventral osteophytes. Pelvis: The uterus is midline. There are scattered phleboliths and vascular calcifications in the pelvis. Osseous Structures: There is a right hip prosthesis producing beam hardening artifact and limiting evaluation of the lower pelvis. No aggressive lytic or sclerotic process seen. There is mild kyphosis at the thoracolumbar junction. There is old T12 superior endplate and old T10 inferior endplate compression fractures with intervening vacuum disc phenomena. There is moderate ventral spondylosis. CT/CT abdomen pelvis wo con IMPRESSION: Dependent atelectatic changes in both lower lobes and lingula. No acute mass or contusion. No consolidation. Moderate sized hiatal hernia. Mild constipation. No free air or free fluid. No obstruction seen. There is mild constipation and colonic diverticulosis without obstruction. No free air or free fluid. Mild kyphosis of the dorsolumbar junction with old endplate deformity T12 and T10 vertebrae.
--- NOTE | ~2021-06-26 | XR_ITS ---
EXAMINATION: BILATERAL KNEES CLINICAL INFORMATION: Fall. On Coumadin. COMPARISON: March 16, 2015 TECHNIQUE: 4 views of each knee FINDINGS: Left knee: There is a large amount of soft tissue swelling seen about the anterior aspect of the patella and suprapatellar regions. No acute fracture or dislocation is seen. The joint spaces are maintained. There is some spurring undersurface of the patella. Prominent vascular calcifications are seen. Right knee: There appears to be a nondisplaced fracture through the mid patella without distraction of fragments. There is severe narrowing of the medial joint space compartment with prominent marginal spurring. There is a large knee effusion. XR/XR knee LT 4V IMPRESSION: Nondisplaced right patellar fracture with large amount soft tissue swelling and large right knee effusion. Significant degenerative joint disease involving the right medial joint space and the patellofemoral joint. Patellofemoral joint spurring.
--- NOTE | ~2021-06-26 | CT_ITS ---
EXAMINATION: CT CERVICAL SPINE WITHOUT CONTRAST CLINICAL INFORMATION: Fall on Coumadin. COMPARISON: June 26, 2020 TECHNIQUE: CT cervical spine with coronal and sagittal reconstructions. This CT examination was performed using dose optimization techniques as appropriate, variously including the following: *Automated exposure control *Adjustment of mA and/or kV according to patient size (this includes techniques or standardized protocols for targeted exams where dose is matched to indication/reason for exam; i.e. extremities or head) *Use of iterative reconstruction technique DLP: 395.20 mGy-cm FINDINGS: No acute cervical spine fracture is identified. No abnormal prevertebral soft tissue swelling is seen. Paraspinal fat planes are maintained. There is degenerative disc disease seen C4-C7 most significant at the C5-C6 and C6-C7 levels. There is spurring of the joints of Luschka at the C5-C6 and C6-C7 levels bilaterally causing some mild anterior neural foraminal encroachment. There is some degenerative flattening and irregularity of the left mandibular condyle. Pterygoid plates intact. CT/CT cervical spine wo con IMPRESSION: Cervical spondylosis without evidence of acute fracture.
--- NOTE | ~2021-06-26 | CT_ITS ---
EXAMINATION: CT HEAD WITHOUT CONTRAST CLINICAL INFORMATION: History of fall. On Coumadin COMPARISON: None TECHNIQUE: Contiguous axial imaging was performed from the skull base to vertex without intravenous administration of contrast. This CT examination was performed using dose optimization techniques as appropriate, variously including the following: *Automated exposure control *Adjustment of mA and/or kV according to patient size (this includes techniques or standardized protocols for targeted exams where dose is matched to indication/reason for exam; i.e. extremities or head) *Use of iterative reconstruction technique DLP: 737 mGy-cm FINDINGS: There is no evidence of acute intracranial hemorrhage or territorial infarction. 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 Younger to white matter differentiation is well preserved. No extra-axial fluid collections are identified. The ventricles are normal in size. There is no abnormal attenuation within the brain parenchyma. There is bilateral frontal scalp hematoma without calvarial fracture. The mastoid air cells and visualized portions of the paranasal sinuses are well aerated. CT/CT head/brain wo con IMPRESSION: No acute intracranial process seen. 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 Bilateral frontal scalp moderate size hematoma without calvarial fracture.
--- NOTE | ~2021-06-26 | CT_ITS ---
EXAMINATION: CT FACIAL BONES WITHOUT CONTRAST CLINICAL INFORMATION: Fall COMPARISON: None TECHNIQUE: CT facial bones with sagittal and coronal reconstructions This CT examination was performed using dose optimization techniques as appropriate, variously including the following: *Automated exposure control *Adjustment of mA and/or kV according to patient size (this includes techniques or standardized protocols for targeted exams where dose is matched to indication/reason for exam; i.e. extremities or head) *Use of iterative reconstruction technique DLP: 264.20 mGy-cm FINDINGS: There is no acute maxillofacial fracture. The pterygoid plates are intact. The zygomatic arches are intact. The lamina papyracea are intact. The orbital rims are intact. The paranasal sinuses are well-aerated. No air-fluid levels are seen. There is no deviation of the nasal septum. The ostiomeatal complexes are clear. The lamina papyracea are intact. The ethmoid roofs are symmetric. The carotid canals are normally covered by bone. Carotid artery calcifications seen. There is prominent soft tissue swelling seen about the bilateral frontal regions, periorbital, and maxillary soft tissues. No intraconal abnormalities appreciated. No maxillary periapical disease is seen. The mastoid air cells and visualized middle ear cavities are well-aerated. The orbits are normal. There is mild degenerative change of the left temporomandibular joint.. CT/CT facial bones wo con IMPRESSION: No acute discrete facial bone fracture.
--- NOTE | 2021-06-26 09:38 | ED.FALL ---
HPI - Fall General Chief Complaint: Fall Stated Complaint: FALL T-I W/ HEAD STRIKE/FACIAL INJURY,+CCOLLAR Time Seen by Provider: 06/26/21 09:28 Source: patient Mode of arrival: EMS Limitations: no limitations History of Present Illness complaint: fall Onset (ago): day(s) (yesterday) Fall from: standing Fall witnessed: yes, by family Place fall occurred: home Loss of consciousness: none Prolonged down time: no Symptoms prior to fall: none Context: tripped/slipped (fell using walker outside - came today because the bruising was so sever) Location of injury: head and face Location of injury - extremities: left: knee Severity: moderate Quality: aching Associated symptoms (after fall): headache and unable to walk Related Data Home Medications Medication Instructions Recorded Confirmed warfarin 1 mg tablet 1 mg PO DAILY 06/26/21 06/26/21 Previous Rx's Medication Instructions Recorded cholecalciferol (vitamin D3) 25 25 mcg PO DAILY #90 cap 08/29/20 mcg (1,000 unit) capsule (Vitamin D3) furosemide 20 mg tablet 20 mg PO DAILY 90 Days #90 cap 12/04/20 metoprolol succinate 200 mg 300 mg PO DAILY #135 cap 12/14/20 tablet,extended release 24 hr losartan 50 mg tablet 50 mg PO DAILY #90 cap 05/02/21 fluticasone propionate 50 1 spray INTRANASAL DAILY #16 g 05/17/21 mcg/actuation nasal spray,suspension (Flonase Allergy Relief) zolpidem 12.5 mg tablet,extended 12.5 mg PO BEDTIME PRN 90 Days #90 05/17/21 release,multiphase tab cyanocobalamin (vitamin B-12) 1,000 mcg PO DAILY #90 cap 05/28/21 1,000 mcg tablet (Vitamin B-12) acetaminophen 300 mg-codeine 30 mg 1 tab PO BID PRN 30 Days #60 tab 06/12/21 tablet albuterol sulfate 90 mcg/actuation 2 puff INHALATION Q6H PRN #8.5 g 06/19/21 aerosol inhaler (ProAir HFA) Allergies Allergy/AdvReac Type Severity Reaction Status Date / Time amlodipine [AMLODIPINE] Allergy Unknown UNKNOWN Verified 06/19/21 13:52 carvedilol [CARVEDILOL] Allergy Unknown UNKNOWN Verified 06/19/21 13:52 irbesartan [From AVAPRO] Allergy Unknown UNKNOWN Verified 06/19/21 13:52 levofloxacin [From LEVAQUIN] Allergy Unknown GENERALIZED Verified 06/19/21 13:52 MUSCLE PAIN naproxen [Naproxen] Allergy Unknown HIVES, Verified 06/19/21 13:52 severe rash tetracycline [TETRACYCLINE] Allergy Unknown UNKNOWN Verified 06/19/21 13:52 Review of Systems Review of Systems: Constitutional : No Fever, No Chills, No Fatigue ENT/Mouth : No sore throat, No Rhinorrhea Eyes: No Eye Pain, pos Swelling, No Redness Cardiovascular : No Chest Pain, No SOB, No Dyspnea on Exertion Respiratory : No Cough, No Sputum Gastrointestinal : No Nausea, No Vomiting, No Diarrhea, No abdominal Pain Genitourinary : No Dysuria, No Urinary Frequency, No Hematuria, Musculoskeletal : pos joint pain, No Myalgias, pos Joint Swelling Skin : No Skin Lesions, No rash Neuro : No Weakness, No Numbness, No Dizziness, positive Headache Psych : No Anxiety/Panic, No Depression Heme/Lymph: pos Bruising, No Bleeding,No Lymphadenopathy Endocrine : No Polyuria, No Polydipsia All other systems reviewed and are negative [facility] Past Medical History Medical History Atrial fibrillation Cataract Compression fracture of T10 vertebra Congestive heart failure Hypercholesterolemia Hypertension Insomnia Mammogram declined Osteoarthritis of knee Peripheral vascular disease Porphyria cutanea tarda TIA (transient ischemic attack) Uterine prolapse Surgical History History of biopsy History of D&C History of right hip hemiarthroplasty History of uterine prolapse S/P hip hemiarthroplasty Family History Family History Father Hypertension Mother Hypertension Daughter Colon cancer Lymph node cancer Social History Social History Household Members: None Housing: House Housing Other:: Ambulates with a cane Do you presently have visiting nurse or other home services: Yes (elder care, blindstitch hemmer, meals on wheels) Alcohol intake: current Alcohol intake frequency: does not drink Alcohol type: wine Patient Tobacco Use Status: Never used Tobacco e-Cigarette/Vaping Use: Never Used Second Hand Smoke Exposure: No Use of substances other than those prescribed or required for medical reasons: No Advance Directives: No Advance Directives Information Provided: No service: No Current occupational status: retired Physical Exam Vital Signs: Vital Signs: Last Vital Signs Pulse 68 06/26/21 12:58 Resp 18 06/26/21 12:58 BP 153/72 H 06/26/21 12:58 Pulse Ox 96 06/26/21 12:58 BMI result Body Mass Index 24.0 Appearance: Alert. Oriented X3. No acute distress. Eyes: Pupils equal, round and reactive to light. L eye subconjunctival hemorrhage, vision intact. Ecchymosis to both periorbital area, nasal bridge, zygomas, entire forehead is swollen and ecchymotic ENT: Pharynx normal. Neck: Normal inspection. Neck supple. CVS: Normal heart rate and rhythm. Pulses normal. No chest wall pain no bruising noted Respiratory: No respiratory distress. Breath sounds normal. Abdomen: Soft and non-tender. Back: notes some lower back mild ttp no bruising noted Skin: Skin warm and dry. Normal skin color. Normal skin turgor. Extremities: No lower extremity edema. Ecchymosis and ttp to both knees anteriorly Neuro: Oriented X 3. No motor deficit. No sensory deficit. Course Course Course Narrative: - discussed with orthopedics - immobilizer toe touch weight bearing and follow up with orthopedics in 2 weeks - Monet PETERS Patient placed in physician observation at 148pm. The indication for observation is that the patient needs more time for PT/CM input given falls injury and patella fracture she is not safe DC to home. At this time the patient is well developed well nourished, lungs clear, CV RRR, abd nontender, neuro is intact. Procedures Orthopedic Splinting/Casting Injury #1: Side: right Lower Extremity Injury Location: knee Lower Extremity Immobilizer: knee immobilizer MDM - Fall MDM Narrative Medical decision making narrative: 85 yo female with hx of afib on coumadin, CHF, falls, PVD, bronchitis, uses a walker had mechanical fall yesterday c/o injury to face and head no LOC as well as both knees at this time given significant bruising and swelling to face needs STAT trauma workup of CT head, facial bones, cervical spine, CT chest and abdomen - also xrays of both knees - dispo per results and findings. She has vision intact Lab Data Result diagrams: 06/26/21 10:34 06/26/21 10:34 Labs: Lab Results 06/26/21 06/26/21 06/26/21 Range/Units 09:35 10:34 10:34 WBC 9.7 (4.8-10.8) X10*3/uL RBC 3.48 L (4.20-5.50) X10*6/uL Hgb 11.6 L (12.0-16.0) g/dl Hct 34.4 L (37.0-47.0) % MCV 98.9 H (80.0-98.0) fL MCH 33.3 H (27.0-33.0) pg MCHC 33.7 (31.0-35.0) g/dl RDW 12.7 (11.0-16.0) % Plt Count 150 L (160-400) X10*3/uL MPV 9.8 (9.4-12.3) fL Immature Gran % (Auto) 0.3 (0.0-0.4) % Neut % (Auto) 78.0 H (45-73) % Lymph % (Auto) 9.0 L (20-40) % [place] % (Auto) 12.4 H (2-11) % Eos % (Auto) 0.0 (0-4) % Baso % (Auto) 0.3 (0-2) % Lymph # (Auto) 0.9 L (1.2-4.9) X10*3/uL [place] # (Auto) 1.2 (0.1-1.2) X10*3/uL Eos # (Auto) 0.0 (0.0-0.4) X10*3/uL Baso # (Auto) 0.0 (0.0-0.2) X10*3/uL Abs Immat Gran (auto) 0.03 (0.00-0.03) X10*3/uL Absolute Neuts (auto) 7.6 (2.0-8.3) x10*3/uL Absolute Nucleated RBC 0.000 (0.0-0.012) X10*3/uL Nucleated RBC % (auto) 0.0 (0.0-0.2) /100WBC PT 23.6 H (9.9-13.0) SEC Whole Blood PT 24.3 H (11.1-13.5) sec INR 2.0 H (0.9-1.1) Whole Blood INR 2.0 H (0.9-1.1) Sodium (135-145) mmol/L Potassium (3.3-5.1) mmol/L Chloride (96-108) mmol/L Carbon Dioxide (22-29) mmol/L Anion Gap (12-20) BUN (9-16) mg/dL Creatinine (0.5-1.4) mg/dL Estim Creat Clear Calc Estimated GFR Random Glucose (60-115) mg/dL Calcium (8.4-10.2) mg/dL Total Bilirubin (0.0-1.0) mg/dL Direct Bilirubin (0.0-0.5) mg/dL AST (5-31) U/L ALT (0-31) U/L Alkaline Phosphatase (39-117) U/L Total Protein (6.5-8.0) g/dL Albumin (3.5-5.0) g/dL Lipase (8-78) U/L COVID-19 ([facility]) (Negative) COVID-19 Clin Com 06/26/21 06/26/21 Range/Units 10:34 10:34 WBC (4.8-10.8) X10*3/uL RBC (4.20-5.50) X10*6/uL Hgb (12.0-16.0) g/dl Hct (37.0-47.0) % MCV (80.0-98.0) fL MCH (27.0-33.0) pg MCHC (31.0-35.0) g/dl RDW (11.0-16.0) % Plt Count (160-400) X10*3/uL MPV (9.4-12.3) fL Immature Gran % (Auto) (0.0-0.4) % Neut % (Auto) (45-73) % Lymph % (Auto) (20-40) % Marinette % (Auto) (2-11) % Eos % (Auto) (0-4) % Baso % (Auto) (0-2) % Lymph # (Auto) (1.2-4.9) X10*3/uL [place] # (Auto) (0.1-1.2) X10*3/uL Eos # (Auto) (0.0-0.4) X10*3/uL Baso # (Auto) (0.0-0.2) X10*3/uL Abs Immat Gran (auto) (0.00-0.03) X10*3/uL Absolute Neuts (auto) (2.0-8.3) x10*3/uL Absolute Nucleated RBC (0.0-0.012) X10*3/uL Nucleated RBC % (auto) (0.0-0.2) /100WBC PT (9.9-13.0) SEC Whole Blood PT (11.1-13.5) sec INR (0.9-1.1) Whole Blood INR (0.9-1.1) Sodium 134 L (135-145) mmol/L Potassium 4.6 (3.3-5.1) mmol/L Chloride 98 (96-108) mmol/L Carbon Dioxide 25 (22-29) mmol/L Anion Gap 16 (12-20) BUN 16 (9-16) mg/dL Creatinine 0.69 (0.5-1.4) mg/dL Estim Creat Clear Calc 51.4 Estimated GFR > 60 Random Glucose 169 H (60-115) mg/dL Calcium 9.7 (8.4-10.2) mg/dL Total Bilirubin 2.4 H (0.0-1.0) mg/dL Direct Bilirubin 0.8 H (0.0-0.5) mg/dL AST 27 (5-31) U/L ALT 14 (0-31) U/L Alkaline Phosphatase 81 (39-117) U/L Total Protein 7.4 (6.5-8.0) g/dL Albumin 4.1 (3.5-5.0) g/dL Lipase < 4 L (8-78) U/L COVID-19 ([facility]) Negative (Negative) COVID-19 Clin Com See Note Discharge Plan Discharge Clinical Impression: Subconjunctival hemorrhage of left eye Facial hematoma Qualifiers: Encounter type: initial encounter Qualified Code(s): S00.83XA - Contusion of other part of head, initial encounter Fracture, patella Qualifiers: Encounter type: initial encounter Fracture type: closed Fracture morphology: longitudinal Fracture alignment: nondisplaced Laterality: right Qualified Code(s): S82.024A - Nondisplaced longitudinal fracture of right patella, initial encounter for closed fracture Additional Instructions: remain in immobilizer - toe touch weight bearing follow up with orthopedics in 2 weeks Prescriptions: No Action cholecalciferol (vitamin D3) [Vitamin D3] 25 mcg (1,000 unit) capsule 25 mcg PO DAILY Qty: 90 RF: 3 metoprolol succinate 200 mg tablet extended release 24 hr 300 mg PO DAILY Qty: 135 RF: 2 losartan 50 mg tablet 50 mg PO DAILY Qty: 90 RF: 2 cyanocobalamin (vitamin B-12) [Vitamin B-12] 1,000 mcg tablet 1,000 mcg PO DAILY Qty: 90 RF: 2 acetaminophen-codeine 300-30 mg tablet 1 tab PO BID PRN (Reason: pain) 30 Days Qty: 60 RF: 0 warfarin 1 mg tablet 1 mg PO DAILY RF: 0 furosemide 20 mg tablet 20 mg PO DAILY 90 Days Qty: 90 RF: 3 fluticasone propionate [Flonase Allergy Relief] 50 mcg/actuation spray,suspension 1 spray intranasal DAILY Qty: 16 RF: 0 zolpidem 12.5 mg tablet,ext release multiphase 12.5 mg PO BEDTIME PRN (Reason: insomnia) 90 Days Qty: 90 RF: 1 albuterol sulfate [ProAir HFA] 90 mcg/actuation HFA aerosol inhaler 2 puff inhalation Q6H PRN (Reason: shortness of breath or wheezing) Qty: 8.5 RF: 0
[2021-06-26 10:40] LABS: MANUAL DIFF FLAG NO
[2021-06-26 10:45] LABS: Basophils Percent Auto 0.3 % (0-2); Hematocrit 34.4 % (37.0-47.0); Hemoglobin 11.6 g/dl (12.0-16.0); Imm Gran Abs Auto 0.03 X10*3/uL (0.00-0.03); Imm Gran Pct Auto 0.3 % (0.0-0.4); Lymphocytes Absolute Auto 0.9 X10*3/uL (1.2-4.9); Mean Corpuscular HGB Conc 33.7 g/dl (31.0-35.0); Mean Corpuscular Hemoglobin 33.3 pg (27.0-33.0); Mean Corpuscular Volume 98.9 fL (80.0-98.0); Mean Platelet Volume 9.8 fL (9.4-12.3); Monocytes Absolute Auto 1.2 X10*3/uL (0.1-1.2); Monocytes Percent Auto 12.4 % (2-11); Neutrophils Absolute Auto 7.6 x10*3/uL (2.0-8.3); Platelet Count 150 X10*3/uL (160-400); Red Blood Count 3.48 X10*6/uL (4.20-5.50); Red Cell Distribution Width 12.7 % (11.0-16.0); White Blood Count 9.7 X10*3/uL (4.8-10.8)
[2021-06-26 10:49] LABS: Prothrombin Time 23.6 SEC (9.9-13.0)
[2021-06-26] MEDS: HYDROcodone Bit/Acetam 5/325 TABLET 1 TAB PO ×2 (10:56→16:55)
[2021-06-26] MEDS: Ondansetron ODT 4 MG TAB.RAPDIS TRANSLINGU (10:56)
[2021-06-26 10:57] LABS: COVID-19 Test Negative (Negative); IDNOW Serial# 9DD0AD1C
--- NOTE | 2021-06-26 10:59 | PC.NURSE ---
pt is alert and oriented, skin pwd, respirations even and unlabored, pt coming in for a fall outside yesterday, entire face covered with brusing, raccoons eyes, very swollen eyes, left knee swollen, but pt reports right knee pain, 10/10
[2021-06-26 11:07] LABS: Alanine Aminotransferase 14 U/L (0-31); Albumin Level 4.1 g/dL (3.5-5.0); Alkaline Phosphatase 81 U/L (39-117); Anion Gap 16 (12-20); Aspartate Amino Transferase 27 U/L (5-31); Bilirubin Direct 0.8 mg/dL (0.0-0.5); Bilirubin Total 2.4 mg/dL (0.0-1.0); Blood Urea Nitrogen 16 mg/dL (9-16); Calcium 9.7 mg/dL (8.4-10.2); Carbon Dioxide 25 mmol/L (22-29); Chloride 98 mmol/L (96-108); Creatinine Clr Calc Pharmacy 51.4; Estimated Glomerular Filt Rate > 60; Glucose Random 169 mg/dL (60-115); Lipase < 4 U/L (8-78); Potassium 4.6 mmol/L (3.3-5.1); Sodium 134 mmol/L (135-145); Total Protein 7.4 g/dL (6.5-8.0)
--- NOTE | 2021-06-26 11:37 | PHA.MEDREC ---
Pharmacy Consult ? Medication Reconciliation Pharmacy has completed the medication reconciliation. Last patient INR was 3.9, patient did not take any warfarin on the weekend and restarted 1mg on thursday. Thanks Ag Plasencia Pharm D
[2021-06-26 11:55] LABS: Prothrombin Time Whole Bld POC 24.3 sec (11.1-13.5)
[2021-06-26] MEDS: Losartan Potassium 50 MG TABLET PO (16:11)
[2021-06-26] MEDS: Metoprolol Succinate ER 100 MG TAB.ER.24H 300 MG PO (16:11)
[2021-06-26] MEDS: Furosemide 20 MG TABLET PO (16:12)
--- NOTE | 2021-06-26 16:48 | MHC.CM.ED ---
CM met with alana, A&Ox3 elderly woman and her children. Pt tripped and fell yesterday with her walker. Extreme bruising and swelling to face and eyes. One eye swollen shut, the other eye partially swollen shut. Pt has R patellar FX and can only bear toe touch weight on that leg. PT recommends STR. Pt is adamant that she will go home tomorrow. Family wants STR. CM spoke with patient at length regarding need for STR. Discussed non-weight bearing and pain concerns. Will place referrals and discuss again in the am. Might have to have pt attempt to stand to convince her she needs STR. Requesting pain meds and ice pack. RN notified. Pt lives with her son. Very independent. Has [employer] 1.5 hr/day/5 days a week. Also has MOW. Services through [facility]. Pt has a walker, a wheeled walker, and a cane. Pt still drives. Fully vaccinated with J&J 10/31. D/C plan is STR. Referrals placed. Transportation by [facility]
--- NOTE | 2021-06-26 18:18 | PC.NURSE ---
pt reports feeling a little better after the medication, pain at 5/10
--- NOTE | 2021-06-26 19:33 | PC.NURSE ---
Assumed care of pt. Pt resting in bed and in NAD, given dinner tray and tolerated PO intake w/o issue, plan for case management. Call light at hand
[2021-06-26] MEDS: Zolpidem Tartrate 5 MG TABLET PO (22:08)
[2021-06-27 00:30] VITALS: RESP 16
--- NOTE | 2021-06-27 03:52 | PC.NURSE ---
Vital signs deferred to promote sleep hygiene. Even and non-labored respirations noted
[2021-06-27 05:05] VITALS: BP 142/91; PULSE 79; RESP 16; TEMP 37.1; O2SAT 96
--- NOTE | 2021-06-27 09:12 | MHC.CM.ED ---
Patient remains in ER. Short term rehab bed offers have been made by [facility] Met with patient in regards to discharge planning. Patient is adament that she can safely return home because she has had problem with that leg are years. Patient is agreeable to getting out of bed with assitance to make sure she can safely transfer. If she can safely transfer, patient will be discharged home with [facility]. Daisha LANDEROS aware. Continue to monitor for d/c needs.
--- NOTE | 2021-06-27 09:43 | PC.NURSE ---
pt bruised throughout face and left knee, right 5th toe. adamant that she be discharged home. has removed her knee brace. insists on getting her sneakers and cane. i want to go home and call a [facility]
[2021-06-27 09:48] VITALS: BP 148/70; PULSE 87; RESP 18; O2SAT 98
[2021-06-27 09:49] VITALS: BP 148/70; PULSE 87
[2021-06-27] MEDS: Metoprolol Succinate ER 100 MG TAB.ER.24H 300 MG PO (09:49)
[2021-06-27 09:50] VITALS: BP 148/70; PULSE 87
[2021-06-27] MEDS: Furosemide 20 MG TABLET PO (09:50)
[2021-06-27] MEDS: Cyanocobalamin (Vitamin B-12) 1,000 MCG TABLET 1000 MCG PO (09:50)
[2021-06-27] MEDS: Losartan Potassium 50 MG TABLET PO (09:50)
--- NOTE | 2021-06-27 10:06 | PC.NURSE ---
up to commode with kneebrace on. walker used. pt has poor judgement, planning of mechanics and needs assistance.
[2021-06-27 11:08] VITALS: BP 148/70; PULSE 87
--- NOTE | 2021-06-27 12:03 | MHC.CM.ED ---
Physical therapy re-eval completed. Short term rehab is still being recommended. Met with patient again in regards to discharge planning. Patient is still refusing short term rehab. T/W spoke with patient's daughter, Chrissy, via telephone at [phone]. Explained above information. Chrissy is concerned about patient being home all day by herself. T/W explained about patient's capacity to make her own decisions, even if they're bad decisions. Chrissy verbalized understanding. She will be coming to the ER to speak with patient. Continue to monitor for d/c needs.
--- NOTE | 2021-06-27 12:29 | PC.NURSE ---
family with patient
--- NOTE | 2021-06-27 12:33 | MHC.CM.ED ---
Patient's son Darius visiting with patient. Darius is adamant that patient needs STR. Patient is adamant that she is going home. Patient states she will be able to get to the bathroom herself and make her own food. Patient and son discussing discharge plan. Continue to monitor for d/c needs.
--- NOTE | 2021-06-27 12:41 | PC.NURSE ---
up to commode with assist and difficulty. son present. pt insists on leaving.
--- NOTE | 2021-06-27 14:16 | MHC.CM.ED ---
Transport booked with [facility]. Med nec with chart. Patient and daughter, Chrissy aware.
--- NOTE | 2021-06-27 15:20 | MHC.CM.ED ---
[facility] was not able to see patient before Thursday. T/W attempted to find another agency. However, due to patient not being safe to go home, no other agency has accepted. [facility]
--- NOTE | 2021-06-29 08:11 | MHC.CM.ED ---
Received notification from [facility] that patient is not safe to go home and therefore can't be accepted to their service. Patient and daughter made aware by LETI Sim.
== END 2021-06-27 16:57 | disposition home or self-care (01) ==
PROVIDERS: Emergency Provider Emergency Medicine; PCP Internal Medicine
DX: H11.32 Conjunctival hemorrhage, left eye (principal); S00.93XA Contusion of unspecified part of head, initial encounter; S82.024A Nondisplaced longitudinal fracture of right patella, initial encounter for closed fracture; R51.9 Headache, unspecified; I48.91 Unspecified atrial fibrillation; I11.0 Hypertensive heart disease with heart failure; I50.9 Heart failure, unspecified; K44.9 Diaphragmatic hernia without obstruction or gangrene; M47.812 Spondylosis without myelopathy or radiculopathy, cervical region; Z86.73 Personal history of transient ischemic attack (TIA), and cerebral infarction without residual deficits; Z79.01 Long term (current) use of anticoagulants; W01.0XXA Fall on same level from slipping, tripping and stumbling without subsequent striking against object, initial encounter; Y93.9 Activity, unspecified; Y92.009 Unspecified place in unspecified non-institutional (private) residence as the place of occurrence of the external cause; Y99.9 Unspecified external cause status; Z20.822 Contact with and (suspected) exposure to COVID-19
CPT/HCPCS: 36415; 70450; 70486; 71250; 72125; 73564; 74176; 80048; 80076; 83690; 85025; 85610; 87635; 97162; 97530; 99285

== ENCOUNTER 2021-07-09 07:22 | Outpatient (REF) | payer MEDICARE, SELFPAY ==
[2021-07-09 09:59] LABS: INTERNATIONAL NORM RATIO 1.1 (0.9-1.1); Prothrombin Time 12.5 SEC (9.9-13.0)
== END 2021-07-09 07:23 | disposition home or self-care (01) ==
LOC: HO.LHD 07:22
PROVIDERS: Visit Provider Internal Medicine
DX: I48.0 Paroxysmal atrial fibrillation (principal); Z79.01 Long term (current) use of anticoagulants
CPT/HCPCS: 36415; 85610

== ENCOUNTER 2021-07-26 05:52 | Outpatient (REF) | payer MEDICARE, SELFPAY ==
[2021-07-26 10:53] LABS: MANUAL DIFF FLAG NO
[2021-07-26 10:57] LABS: Basophils Absolute Auto 0.1 X10*3/uL (0.0-0.2); Basophils Percent Auto 0.8 % (0-2); Eosinophils Absolute Auto 0.3 X10*3/uL (0.0-0.4); Eosinophils Percent Auto 4.6 % (0-4); Hematocrit 39.5 % (37.0-47.0); Hemoglobin 13.1 g/dl (12.0-16.0); Imm Gran Abs Auto 0.01 X10*3/uL (0.00-0.03); Imm Gran Pct Auto 0.2 % (0.0-0.4); Immature Retic Fraction 6.7 % (3.0-15.9); Lymphocytes Absolute Auto 2.4 X10*3/uL (1.2-4.9); Lymphocytes Percent Auto 37.5 % (20-40); Mean Corpuscular HGB Conc 33.2 g/dl (31.0-35.0); Mean Corpuscular Hemoglobin 33.5 pg (27.0-33.0); Mean Platelet Volume 9.7 fL (9.4-12.3); Monocytes Absolute Auto 0.8 X10*3/uL (0.1-1.2); Monocytes Percent Auto 12.3 % (2-11); Neutrophils Absolute Auto 2.8 x10*3/uL (2.0-8.3); Neutrophils Percent Auto 44.6 % (45-73); Platelet Count 206 X10*3/uL (160-400); Red Blood Count 3.91 X10*6/uL (4.20-5.50); Red Cell Distribution Width 13.9 % (11.0-16.0); Retic HGB Equivalent 35.8 pg (30.0-35.0); Reticulocyte Percent 1.9 % (0.5-1.8); Reticulocytes Absolute 0.074 X10*6/uL (0.026-0.095); White Blood Count 6.3 X10*3/uL (4.8-10.8)
[2021-07-26 11:05] LABS: Prothrombin Time 11.7 SEC (9.9-13.0)
[2021-07-26 11:29] LABS: Alanine Aminotransferase 13 U/L (0-31); Albumin Level 4.2 g/dL (3.5-5.0); Alkaline Phosphatase 106 U/L (39-117); Anion Gap 12 (12-20); Aspartate Amino Transferase 22 U/L (5-31); Bilirubin Total 1.4 mg/dL (0.0-1.0); Blood Urea Nitrogen 18 mg/dL (9-16); Carbon Dioxide 30 mmol/L (22-29); Chloride 97 mmol/L (96-108); Estimated Glomerular Filt Rate > 60; Glucose Random 117 mg/dL (60-115); Iron 172 mcg/dL (30-160); Percent Iron Saturation 55 % (15-50); Potassium 4.3 mmol/L (3.3-5.1); Sodium 135 mmol/L (135-145); Total Iron Binding Capacity 310 mcg/dL (228-428); Unsaturated Iron Binding 138 ug/dL
[2021-07-26 11:54] LABS: Ferritin 344 ng/mL (10-250)
[2021-07-26 12:14] LABS: Folate 7.5 ng/mL (> or = 4.0); Vitamin B12 974 pg/mL (200-900)
== END 2021-07-26 05:53 | disposition home or self-care (01) ==
LOC: HO.LHD 05:52
PROVIDERS: Visit Provider Internal Medicine
DX: I48.0 Paroxysmal atrial fibrillation (principal); R29.6 Repeated falls
CPT/HCPCS: 36415; 80053; 82607; 82728; 82746; 83540; 85025; 85045; 85610

== ENCOUNTER 2021-08-02 06:00 | Outpatient (REF) | payer MEDICARE, SELFPAY ==
[2021-08-02 11:02] LABS: INTERNATIONAL NORM RATIO 1.1 (0.9-1.1); Prothrombin Time 12.1 SEC (9.9-13.0)
== END 2021-08-02 06:01 | disposition home or self-care (01) ==
LOC: HO.LHD 06:00
PROVIDERS: Visit Provider Internal Medicine
DX: I48.0 Paroxysmal atrial fibrillation (principal)
CPT/HCPCS: 36415; 85610

== ENCOUNTER 2021-08-09 06:59 | Outpatient (REF) | payer MEDICARE, SELFPAY | END 2021-08-09 07:00 | disposition home or self-care (01) | LOC: HO.LHD 06:59 | PROVIDERS: Visit Provider Internal Medicine | DX: Z13.89 Encounter for screening for other disorder (principal) ==

== ENCOUNTER 2022-03-04 11:36 | Outpatient (REF) | payer MEDICARE, SELFPAY ==
--- NOTE | ~2022-03-04 | XR_ITS ---
EXAMINATION: XR RIBS, LEFT CLINICAL INFORMATION: Chest pain and left rib pain COMPARISON: Previous chest x-ray May [address] June 2021 TECHNIQUE: 3 views of the left ribs and one view of the chest were obtained. FINDINGS: The cardiac silhouette is slightly enlarged but stable. There is a large air-fluid level to projects over the heart just above the esophageal hernia or intrathoracic stomach. Hilar and mediastinal contours are otherwise unremarkable. The lungs are clear. There is no pleural effusion or pneumothorax. There are old left anterior lateral lower rib fractures. No acute rib fracture is seen. There are degenerative changes of the thoracic spine and multiple old compression fractures. XR/XR ribs LT min 3V w CXR1V IMPRESSION: Old left rib fractures. No acute rib fracture or acute disease in the chest. Large esophageal hernia or intrathoracic stomach. Multiple thoracic compression fractures.
== END 2022-03-04 11:37 | disposition home or self-care (01) ==
LOC: HO.XRAY 11:36
PROVIDERS: PCP Internal Medicine; Visit Provider Internal Medicine
DX: R07.9 Chest pain, unspecified (principal)
CPT/HCPCS: 71101

== ENCOUNTER 2022-06-04 12:13 | Outpatient (REF) | payer MEDICARE, SELFPAY ==
[2022-06-04 12:28] LABS: MANUAL DIFF FLAG NO
[2022-06-04 12:56] LABS: Basophils Absolute Auto 0.1 X10*3/uL (0.0-0.2); Basophils Percent Auto 0.8 % (0-2); Eosinophils Absolute Auto 0.1 X10*3/uL (0.0-0.4); Eosinophils Percent Auto 1.8 % (0-4); Hematocrit 40.6 % (37.0-47.0); Hemoglobin 13.5 g/dl (12.0-16.0); Imm Gran Abs Auto 0.02 X10*3/uL (0.00-0.03); Imm Gran Pct Auto 0.3 % (0.0-0.4); Lymphocytes Absolute Auto 2.1 X10*3/uL (1.2-4.9); Lymphocytes Percent Auto 29.5 % (20-40); Mean Corpuscular HGB Conc 33.3 g/dl (31.0-35.0); Mean Corpuscular Hemoglobin 33.8 pg (27.0-33.0); Mean Corpuscular Volume 101.8 fL (80.0-98.0); Mean Platelet Volume 9.7 fL (9.4-12.3); Monocytes Percent Auto 14.3 % (2-11); Neutrophils Absolute Auto 3.8 x10*3/uL (2.0-8.3); Neutrophils Percent Auto 53.3 % (45-73); Platelet Count 185 X10*3/uL (160-400); Red Blood Count 3.99 X10*6/uL (4.20-5.50); Red Cell Distribution Width 13.1 % (11.0-16.0); White Blood Count 7.2 X10*3/uL (4.8-10.8)
[2022-06-04 13:00] LABS: INTERNATIONAL NORM RATIO 1.2 (0.9-1.1); Prothrombin Time 14.2 SEC (10.0-13.1)
[2022-06-04 13:21] LABS: Alanine Aminotransferase 12 U/L (0-31); Albumin Level 4.3 g/dL (3.5-5.0); Alkaline Phosphatase 122 U/L (39-117); Anion Gap 19 (12-20); Aspartate Amino Transferase 23 U/L (5-31); Bilirubin Total 1.5 mg/dL (0.0-1.0); Blood Urea Nitrogen 16 mg/dL (9-16); Calcium 10.2 mg/dL (8.4-10.2); Carbon Dioxide 29 mmol/L (22-29); Chloride 93 mmol/L (96-108); Estimated Glomerular Filt Rate > 60; Glucose Random 102 mg/dL (60-115); Potassium 4.6 mmol/L (3.3-5.1); Sodium 136 mmol/L (135-145); Total Protein 7.8 g/dL (6.5-8.0)
[2022-06-04 13:51] LABS: Appearance Urine Clear; Color Urine Yellow; Glucose Urine UA Negative (Negative); Leukocyte Esterase Urine Negative (Negative); Nitrite Urine Negative (Negative); Urine Blood Negative (Negative); Urine Ketones Negative (Negative); Urine Protein Negative (Neg-Trace)
[2022-06-04 13:58] LABS: Bacteria Urine None Seen (None Seen); Hyaline Casts Urine 0-2 /LPF (0-2); RBC Urine 0-2 /HPF (0-2); Squamous Epithelial Cell Urine 0-2 /HPF (0-2); WBC Urine 0-5 /HPF (0-5)
== END 2022-06-04 12:14 | disposition home or self-care (01) ==
LOC: HO.LAB 12:13
PROVIDERS: PCP Internal Medicine; Visit Provider Internal Medicine
DX: I48.0 Paroxysmal atrial fibrillation (principal)
CPT/HCPCS: 36415; 80053; 81001; 85025; 85610

== ENCOUNTER 2022-10-30 14:17 | Outpatient (REF) | payer MEDICARE, SELFPAY ==
--- NOTE | ~2022-10-30 | XR_ITS ---
EXAMINATION: XR CHEST CLINICAL INFORMATION: Cough COMPARISON: 03/04/2022 TECHNIQUE: 2 views of the chest were obtained. FINDINGS: The lungs are well expanded. There is no focal consolidation, edema, or effusion. No pneumothorax. The cardiomediastinal silhouette is within normal limits. No acute osseous abnormality. Large gas-filled hiatal hernia. XR/XR chest 2V IMPRESSION: Clear lungs. Large hiatal hernia.
== END 2022-10-30 14:18 | disposition home or self-care (01) ==
LOC: HO.XRAY 14:17
PROVIDERS: PCP Internal Medicine; Visit Provider Internal Medicine
DX: R05.9 Cough, unspecified (principal)
CPT/HCPCS: 71046

== ENCOUNTER 2022-11-24 08:10 | Outpatient (REF) | payer MEDICARE, SELFPAY ==
[2022-11-24 08:31] LABS: MANUAL DIFF FLAG NO
[2022-11-24 08:49] LABS: Basophils Absolute Auto 0.1 X10*3/uL (0.0-0.2); Basophils Percent Auto 0.8 % (0-2); Eosinophils Percent Auto 13.5 % (0-4); Hematocrit 39.4 % (37.0-47.0); Hemoglobin 12.9 g/dl (12.0-16.0); Imm Gran Abs Auto 0.02 X10*3/uL (0.00-0.03); Imm Gran Pct Auto 0.3 % (0.0-0.4); Lymphocytes Absolute Auto 2.1 X10*3/uL (1.2-4.9); Lymphocytes Percent Auto 28.5 % (20-40); Mean Corpuscular HGB Conc 32.7 g/dl (31.0-35.0); Mean Corpuscular Hemoglobin 33.4 pg (27.0-33.0); Mean Corpuscular Volume 102.1 fL (80.0-98.0); Mean Platelet Volume 9.9 fL (9.4-12.3); Monocytes Absolute Auto 0.8 X10*3/uL (0.1-1.2); Monocytes Percent Auto 10.6 % (2-11); Neutrophils Absolute Auto 3.4 x10*3/uL (2.0-8.3); Neutrophils Percent Auto 46.3 % (45-73); Platelet Count 185 X10*3/uL (160-400); Red Blood Count 3.86 X10*6/uL (4.20-5.50); White Blood Count 7.3 X10*3/uL (4.8-10.8)
[2022-11-24 08:52] LABS: INTERNATIONAL NORM RATIO 1.1 (0.9-1.1); Prothrombin Time 12.9 SEC (10.0-13.1)
[2022-11-24 09:31] LABS: B Type Natriuretic Peptide 290 pg/mL (<100)
[2022-11-24 09:38] LABS: Alanine Aminotransferase 14 U/L (0-31); Albumin Level 3.7 g/dL (3.5-5.0); Alkaline Phosphatase 73 U/L (39-117); Anion Gap 12 (12-20); Aspartate Amino Transferase 20 U/L (5-31); Bilirubin Total 1.5 mg/dL (0.0-1.0); Blood Urea Nitrogen 21 mg/dL (9-16); Calcium 9.4 mg/dL (8.4-10.2); Carbon Dioxide 34 mmol/L (22-29); Chloride 98 mmol/L (96-108); Estimated Glomerular Filt Rate 59; Glucose Random 112 mg/dL (60-115); Magnesium 1.8 mg/dL (1.6-2.6); Sodium 140 mmol/L (135-145); Total Protein 6.8 g/dL (6.5-8.0)
[2022-11-24 09:57] LABS: Free T4 (Free Thyroxine) 1.13 ng/dL (0.71-1.85); Thyroid Stimulating Hormone 2.33 uIU/mL (0.32-4.0)
== END 2022-11-24 08:11 | disposition home or self-care (01) ==
LOC: HO.LAB 08:10
PROVIDERS: PCP Internal Medicine; Visit Provider Internal Medicine
DX: I48.0 Paroxysmal atrial fibrillation (principal); I50.32 Chronic diastolic (congestive) heart failure
CPT/HCPCS: 36415; 80053; 83735; 83880; 84439; 84443; 85025; 85610

== ENCOUNTER 2023-04-07 09:06 | Outpatient (AMB) | payer MEDICARE, SELFPAY ==
[2023-04-07 09:16] VITALS: BP 152/88; PULSE 87; O2SAT 96; BMI 22.3
--- NOTE | 2023-04-07 09:16 | A.OFFPC_ITS ---
Vital Signs 04/07/23 09:16 Height 5 ft 4 in Weight 130 lb BMI 22.3 BP 152/88 H Blood Pressure Location Lt brachial Position Sitting Pulse 87 Pulse Source Pulse Oximeter Pulse Oximetry (%) 96 Oxygen Delivery Method Room Air Intake Visit Reasons: CHF Allergies amlodipine [AMLODIPINE] Allergy (Unknown, Verified 04/07/23 09:17) UNKNOWN carvedilol [CARVEDILOL] Allergy (Unknown, Verified 04/07/23 09:17) UNKNOWN irbesartan [From AVAPRO] Allergy (Unknown, Verified 04/07/23 09:17) UNKNOWN levofloxacin [From LEVAQUIN] Allergy (Unknown, Verified 04/07/23 09:17) GENERALIZED MUSCLE PAIN naproxen [Naproxen] Allergy (Unknown, Verified 04/07/23 09:17) HIVES, severe rash tetracycline [TETRACYCLINE] Allergy (Unknown, Verified 04/07/23 09:17) UNKNOWN Medication List - Last Reconciled 04/07/23 by Ann Marie Lyles MD acetaminophen-codeine 300-15 mg 1 tab PO Q8H PRN albuterol sulfate 90 mcg/actuation 2 inhalations inhalation Q6H albuterol sulfate 2.5 mg (3 mL) inhalation QID PRN apixaban 2.5 mg PO BID 30 days carbamide peroxide 6.5% (Debrox) 4 drps otic (ear) left BID 4 days cholecalciferol (vitamin D3) (Vitamin D3) 25 mcg PO DAILY cyanocobalamin (vitamin B-12) (Vitamin B-12) 1,000 mcg PO DAILY fluticasone propionate 50 mcg/actuation (Flonase Allergy Relief) 1 spray intranasal DAILY furosemide 40 mg PO DAILY 90 days guaifenesin ER (Mucinex) 600 mg PO Q12H PRN losartan 50 mg PO DAILY melatonin 1 mg PO BEDTIME PRN metoprolol succinate ER 300 mg (1.5 x 200 mg) PO DAILY nebulizers (Aeroneb Go Nebulizer) As directed nystatin 1 appl topical BID nystatin 1 appl topical TID sodium chloride 0.65% (Saline Nasal) 2 sprays intranasal QID PRN [wheelchair As directed] zolpidem ER 6.25 mg PO BEDTIME PRN 90 days Tobacco use date assessed: 12/19/22 Fall risk assessment: No Falls in past year Last assessed Fall Risk: 04/07/23 Dental Screening Dental Screen Date: 04/07/23 Did you have a dental visit in the last 12 months?: No Did you have a dental problem in the last 6 months where you did not have access to dental care?: No Was dental information given to patient?: No HPI CHF HPI Details 87-year-old female with a history of atr ial fibrillation congestive heart failure with osteoarthritis of the knee on narcotic pain medication coming in for follow-up. Last seen in November 2022. Patient was seen by the nurse practitioner in December 2022 for shortness of breath treated with doxycycline prednisone. [facility] Medical History Atrial fibrillation Bilateral artificial lens implant Blurring of vision Bronchitis Cataract Compression fracture of T10 vertebra Congestive heart failure Conjunctivitis, both eyes Cough Hypercholesterolemia Hypertension Insomnia Left-sided chest pain Mammogram declined Nasal congestion Nasal congestion Osteoarthritis of knee Peripheral vascular disease Porphyria cutanea tarda Reactive airway disease Screening for eye condition TIA (transient ischemic attack) Uterine prolapse Surgical History History of biopsy History of D&C History of right hip hemiarthroplasty History of uterine prolapse S/P hip hemiarthroplasty Family History Father Hypertension Mother Hypertension Daughter Colon cancer Lymph node cancer Social History Household Members: None Housing: House Housing Other:: Ambulates with a cane Do you presently have visiting nurse or other home services: Yes (elder care, rn travel, meals on wheels) Alcohol intake: current Alcohol intake frequency: does not drink Alcohol type: wine Patient Tobacco Use Status: Never used Tobacco e-Cigarette/Vaping Use: Never Used Second Hand Smoke Exposure: No service: No Current occupational status: retired Cognitive needs: No Hearing needs: Yes Vision needs: Yes Questionnaire PHQ-9 Over the last 2 weeks, how often have you been bothered by any of the following problems? 1. Little interest or pleasure in doing things: not at all 2. Feeling down, depressed, or hopeless: not at all 3. Trouble falling or staying asleep, or sleeping too much: not at all 4. Feeling tired or having little energy: not at all 5. Poor appetite or overeating: not at all 6. Feeling bad about yourself - or that you are a failure or have let yourself or your family down: not at all 7. Trouble concentrating on things, such as reading the newspaper or watching television: not at all 8. Moving or speaking so slowly that other people could have noticed. Or the opposite - being so fidgety or restless that you have been moving around a lot more than usual: not at all 9. Thoughts that you would be better off or of hurting yourself in some way: not at all Total score: 0 Depression Screening Interpretation: Negative Source: Developed by Drs. Kevin Kelly, Jacqui Horton, Castro Buck and colleagues, with an educational ed from [employer]. Thrive Questionnaire Date Thrive assessed: 08/15/22 AUDIT C Alcohol Use Questionnaire (AUDIT-C) 1. How often do you have a drink containing alcohol?: Never 3. How often do you have six or more drinks on one occasion?: Never Total Score: 0 Score Reviewed/Action Taken: No BRIAN-7 AMB Questionnaire BRIAN-7 Date BRIAN - 7 assessed: 08/15/22 Source: Developed by Drs. Kevin Kelly, Jacqui Horton, Castro Buck and colleagues, with an educational ed from [employer]. Physical exam (Primary Care) Vital Signs: Last Vital Signs Pulse 87 04/07/23 09:16 BP 152/88 H 04/07/23 09:16 Pulse Ox 96 04/07/23 09:16 Oxygen Delivery Method Room Air 04/07/23 09:16 Care Plan Goal for BP management: impacted cerumen bilateral ear BMI result Body Mass Index 22.3 Tobacco/Smoking Status: Tobacco use Status Tobacco use date assessed 12/19/22 04/07/23 09:29 Patient Tobacco Use Status Never used Tobacco 04/07/23 09:29 e-Cigarette/Vaping Use Never Used 04/07/23 09:29 PHQ-9: PHQ-9 Score PHQ-9: Total score 0 04/07/23 09:58 Depression Screening Interpretation: Negative Thrive Assessment: Date of Thrive Assessment Date Thrive assessed 02/03/23 09/26/23 09:29 Const General: alert; No acute distress Eyes Conjunctivae: conjunctivae normal Resp Auscultation: clear to auscultation bilaterally Cardio Rate: regular rate Rhythm: regular rhythm GI Inspection: Yes normal to inspection Extrem General: Yes normal to inspection and No edema Office Procedures Cerumen Removal From which ear canal was the cerumen removed: right Removal: otoscope w/curette and cerumen loop/spoon Notes: patient tolerated procedure well, no complications and ear canal clear [id number] Wax Removal by Spoon/Curette Assessment and Plan Assessment & Plan (1) Atrial fibrillation: Comment: Dr. Gamez 03/12/2011 Holter and echo September 2017, ejection fraction 60-65% moderat e pulmonary hypertension April 2019 normal LV elevate LV EDP, atrial dilatation moderate MR TR Code(s): I48.91 - Unspecified atrial fibrillation Qualifiers: Atrial fibrillation type: paroxysmal Qualified Code(s): I48.0 - Paroxysmal atrial fibrillation Plan: Continue with anticoagulation (2) Hypertension: Code(s): I10 - Essential (primary) hypertension Qualifiers: Hypertension type: essential hypertension Qualified Code(s): I10 - Essential (primary) hypertension Plan: Continue with blood pressure medication. Decrease salt intake and exercise continue with metoprolol 300 mg once a day with losartan 50 mg once a day patient follows up with Cardiology (3) Hypercholesterolemia: Code(s): E78.00 - Pure hypercholesterolemia, unspecified Plan: Avoid fried foods, chicken skin, eggs, butter margarine, pastries and meat. Be it pork or beef they have a lot of cholesterol LDL goal of less than 100 and triglyceride of less than 150 (4) Peripheral vascular disease: Code(s): I73.9 - Peripheral vascular disease, unspecified Plan: When sitting down elevate the legs, exercise, and support stockings (5) Osteoarthritis of knee: Code(s): M17.10 - Unilateral primary osteoarthritis, unspecified knee Qualifiers: Laterality: bilateral Osteoarthritis type: primary Qualified Code(s): M17.0 - Bilateral primary osteoarthritis of knee Plan: Narcotic pain meds: Is being prescribed with the understanding that these medications are potentially addictive and should be used only when absolutely necessary and must always be secured. Any remaining pills should be safely disposed off appropriately. Patient is advised that narcotics can impaired judgment and one should not drive or operate heavy machinery while taking these medications. Never share these medications with anybody and do not leave them unattended. They will not be replaced under any circumstances. (6) Congestive heart failure: Code(s): I50.9 - Heart failure, unspecified Qualifiers: Heart failure chronicity: chronic Heart failure type: diastolic Qualified Code(s): I50.32 - Chronic diastolic (congestive) heart failure Plan: Weigh daily and continue with the diuretic (7) Vision changes: Code(s): H53.9 - Unspecified visual disturbance (8) Impacted cerumen of both ears: Code(s): H61.23 - Impacted cerumen, bilateral Plan: scoop used R ear TM intact, L ear not succesful and will need irrigaiton (9) Ulnar neuropathy at elbow of left upper extremity: Code(s): G56.22 - Lesion of ulnar nerve, left upper limb Orders: Orders Complete Blood Count Auto Diff Today I50.32 - Chronic diastolic (congestive) heart failure Comprehensive Met. Panel Today I50.32 - Chronic diastolic (congestive) heart failure Thyroid Stimulating Hormone Today I50.32 - Chronic diastolic (congestive) heart failure Vitamin B12 and Folate Today I50.32 - Chronic diastolic (congestive) heart failure Magnesium Today I50.32 - Chronic diastolic (congestive) heart failure Phosphorus Today I50.32 - Chronic diastolic (congestive) heart failure CA echo transthoracic complete Today I48.0 - Paroxysmal atrial fibrillation B Type Natriuretic Peptide Today I50.32 - Chronic diastolic (congestive) heart failure Lipid Panel Today E78.00 - Pure hypercholesterolemia, unspecified, I50.32 - Chronic diastolic (congestive) heart failure Free T4 (Free Thyroxine) Today I50.32 - Chronic diastolic (congestive) heart failure Referrals Ophthalmology Referral H53.9 - Unspecified visual disturbance Cardiology Referral I48.0 - Paroxysmal atrial fibrillation Medications: New carbamide peroxide 6.5% (Debrox) 4 drps otic (ear) left BID 4 days 15 mL 0RF H61.23 - Impacted cerumen, bilateral Coding Level of Care Code Est Pt Level 4 (66528) Diagnoses Paroxysmal atrial fibrillation I48.0 Atrial fibrillation type: paroxysmal Essential hypertension I10 Hypertension type: essential hypertension Hypercholesterolemia E78.00 Peripheral vascular disease I73.9 Primary osteoarthritis of both knees M17.0 Laterality: bilateral Osteoarthritis type: primary Chronic diastolic congestive heart failure I50.32 Heart failure chronicity: chronic Heart failure type: diastolic Vision changes H53.9 Impacted cerumen of both ears H61.23 Ulnar neuropathy at elbow of left upper extremity G56.22 CPT Codes Office Procedure - CPT: 61196-Tqz Wax Removal by Spoon/Curette ([id number])
== END 2023-04-07 10:27 | disposition home or self-care (01) ==
PROVIDERS: PCP Internal Medicine; Visit Provider Internal Medicine
DX: I48.0 Paroxysmal atrial fibrillation (principal); I11.0 Hypertensive heart disease with heart failure; I73.9 Peripheral vascular disease, unspecified; I50.32 Chronic diastolic (congestive) heart failure; H61.23 Impacted cerumen, bilateral; E78.00 Pure hypercholesterolemia, unspecified; M17.0 Bilateral primary osteoarthritis of knee; H53.9 Unspecified visual disturbance; G56.22 Lesion of ulnar nerve, left upper limb
CPT/HCPCS: 69210; 99214

== ENCOUNTER 2023-04-14 09:12 | Outpatient (REF) | payer MEDICARE, SELFPAY ==
[2023-04-14 10:00] LABS: MANUAL DIFF FLAG NO
[2023-04-14 10:35] LABS: Basophils Absolute Auto 0.1 X10*3/uL (0.0-0.2); Basophils Percent Auto 0.8 % (0-2); Eosinophils Absolute Auto 0.2 X10*3/uL (0.0-0.4); Eosinophils Percent Auto 3.2 % (0-4); Hematocrit 36.8 % (37.0-47.0); Hemoglobin 12.2 g/dl (12.0-16.0); Imm Gran Abs Auto 0.02 X10*3/uL (0.00-0.03); Imm Gran Pct Auto 0.3 % (0.0-0.4); Lymphocytes Percent Auto 34.1 % (20-40); Mean Corpuscular HGB Conc 33.2 g/dl (31.0-35.0); Mean Corpuscular Hemoglobin 33.3 pg (27.0-33.0); Mean Corpuscular Volume 100.5 fL (80.0-98.0); Mean Platelet Volume 10.2 fL (9.4-12.3); Monocytes Absolute Auto 0.9 X10*3/uL (0.1-1.2); Monocytes Percent Auto 14.7 % (2-11); Neutrophils Absolute Auto 2.8 x10*3/uL (2.0-8.3); Neutrophils Percent Auto 46.9 % (45-73); Platelet Count 164 X10*3/uL (160-400); Red Blood Count 3.66 X10*6/uL (4.20-5.50); Red Cell Distribution Width 12.3 % (11.0-16.0)
[2023-04-14 10:53] LABS: B Type Natriuretic Peptide 417 pg/mL (<100)
[2023-04-14 11:17] LABS: Alanine Aminotransferase 10 U/L (0-31); Albumin Level 4.1 g/dL (3.5-5.0); Alkaline Phosphatase 90 U/L (39-117); Anion Gap 15 (12-20); Aspartate Amino Transferase 22 U/L (5-31); Bilirubin Total 0.9 mg/dL (0.0-1.0); Blood Urea Nitrogen 24 mg/dL (9-16); Calcium 9.8 mg/dL (8.4-10.2); Carbon Dioxide 29 mmol/L (22-29); Chloride 98 mmol/L (96-108); Cholesterol 203 mg/dL (<200); Estimated Glomerular Filt Rate > 60; Glucose Random 109 mg/dL (60-115); HDL Cholesterol 105 mg/dL (>40); LDL Cholesterol Calculated 88 mg/dL (<100); Potassium 4.1 mmol/L (3.3-5.1); Sodium 138 mmol/L (135-145); Total Protein 7.8 g/dL (6.5-8.0); Triglycerides 54 mg/dL (<150)
[2023-04-14 11:25] LABS: Free T4 (Free Thyroxine) 0.98 ng/dL (0.71-1.85)
[2023-04-14 11:34] LABS: Folate 7.3 ng/mL (> or = 4.0); Vitamin B12 1077 pg/mL (200-900)
== END 2023-04-14 09:13 | disposition home or self-care (01) ==
LOC: HO.LAB 09:12
PROVIDERS: PCP Internal Medicine; Visit Provider Internal Medicine
DX: I50.32 Chronic diastolic (congestive) heart failure (principal); E78.00 Pure hypercholesterolemia, unspecified
CPT/HCPCS: 36415; 80053; 80061; 82607; 82746; 83735; 83880; 84100; 84439; 84443; 85025

== ENCOUNTER 2023-04-23 13:35 | Outpatient (AMB) | payer MEDICARE, SELFPAY ==
--- NOTE | 2023-04-23 13:39 | A.OFFPC_ITS ---
Vital Signs 04/23/23 13:46 Height 5 ft 1 in Weight 129 lb 6 oz BMI 24.4 BP 182/112 H Blood Pressure Location Lt brachial Position Sitting Respiration 17 Pulse 62 Pulse Source Pulse Oximeter Pulse Oximetry (%) 97 Oxygen Delivery Method Room Air Intake Visit Reasons: ear irrigation Intake Note: Pt is here for left ear irrigation. 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: No Accompanied by: daughter in law Allergies amlodipine [AMLODIPINE] Allergy (Unknown, Verified 04/23/23 13:53) UNKNOWN carvedilol [CARVEDILOL] Allergy (Unknown, Verified 04/23/23 13:53) UNKNOWN irbesartan [From AVAPRO] Allergy (Unknown, Verified 04/23/23 13:53) UNKNOWN levofloxacin [From LEVAQUIN] Allergy (Unknown, Verified 04/23/23 13:53) GENERALIZED MUSCLE PAIN naproxen [Naproxen] Allergy (Unknown, Verified 04/23/23 13:53) HIVES, severe rash tetracycline [TETRACYCLINE] Allergy (Unknown, Verified 04/23/23 13:53) UNKNOWN Tobacco use date assessed: 12/19/22 Fall risk assessment: No Falls in past year Last assessed Fall Risk: 04/23/23 Dental Screening Dental Screen Date: 04/23/23 Did you have a dental visit in the last 12 months?: No Did you have a dental problem in the last 6 months where you did not have access to dental care?: No Was dental information given to patient?: No HPI HPI Comments History of Present Illness Details 87-year-old female past medical history significant for hypercholesteremia, PVD, hypertension, AFib, CHF. Patient , patient presents today for left ear irrigation. Patient tolerated procedure well denies any lightheadedness, dizziness or left ear pain. Patient also reports that she was scratched by her son's dog 2 weeks ago, patient reports she has red annular erythematous rash surrounding the dog scratches. Denies any fever, chills her shortness of breath. Patient reports that she has been keeping the area clean and dry/covered. Patient's blood pressure elevated in office today 182/112, patient reports she did not take her Lasix today as she didnt want to have to avoid during appointment. Patient's blood pressure repeated prior to leaving this appointment decreased to 160/82. Patient advised to continue on her daily medications and take her Lasix as directed. [facility] Medical History Atrial fibrillation Bilateral artificial lens implant Blurring of vision Bronchitis Cataract Compression fracture of T10 vertebra Congestive heart failure Conjunctivitis, both eyes Cough Hypercholesterolemia Hypertension Insomnia Left-sided chest pain Mammogram declined Nasal congestion Nasal congestion Osteoarthritis of knee Peripheral vascular disease Porphyria cutanea tarda Reactive airway disease Screening for eye condition TIA (transient ischemic attack) Uterine prolapse Surgical History History of right hip hemiarthroplasty S/P hip hemiarthroplasty History of uterine prolapse History of biopsy History of D&C Family History Father Hypertension Mother Hypertension Daughter Colon cancer Lymph node cancer Social History Household Members: None Housing: House Housing Other:: Ambulates with a cane Do you presently have visiting nurse or other home services: Yes (elder care, needle grinder, meals on wheels) Alcohol intake: current Alcohol intake frequency: does not drink Alcohol type: wine Patient Tobacco Use Status: Never used Tobacco e-Cigarette/Vaping Use: Never Used Second Hand Smoke Exposure: No service: No Current occupational status: retired Cognitive needs: No Hearing needs: Yes Vision needs: Yes Questionnaire Thrive Questionnaire Date Thrive assessed: 08/15/22 BRIAN-7 AMB Questionnaire BRIAN-7 Date BRIAN - 7 assessed: 08/15/22 Source: Developed by Drs. Kevin Kelly, Jacqui Horton, Castro Buck and colleagues, with an educational ed from [employer]. Review of Systems ENT Denies vertigo, Denies dizziness and Denies otalgia Card Reports no additional complaints Resp Reports no additional complaints Skin/Breast Details: dog scratch to right forearm. Neuro Denies vertigo and Denies dizziness Physical exam (Primary Care) Vital Signs: Last Vital Signs Pulse 62 04/23/23 13:46 Resp 17 04/23/23 13:46 BP 182/112 H 04/23/23 13:46 Pulse Ox 97 04/23/23 13:46 Oxygen Delivery Method Room Air 04/23/23 13:46 BMI result Body Mass Index 24.4 Tobacco/Smoking Status: Tobacco use Status Tobacco use date assessed 12/19/22 04/23/23 13:45 Patient Tobacco Use Status Never used Tobacco 04/23/23 13:45 e-Cigarette/Vaping Use Never Used 04/23/23 13:45 Thrive Assessment: Date of Thrive Assessment Date Thrive assessed 08/15/22 04/23/23 13:45 Resp Effort & Inspection: normal respiratory effort Skin Other: Patient has 2 small less than 1 cm, scabbed over scratches to right forearm with annular erythematous rash surrounding scratches. Office Procedures Cerumen Removal From which ear canal was the cerumen removed: left Removal: irrigation Notes: patient tolerated procedure well and no complications [id number] Irrigation/Lavage Flu Questionnaire Does the patient have a severe egg allergy?: No Does the patient have severe life threatening allergies?: No Does the patient have a fever or illness today?: No Has the patient ever had Guillain-Butler Syndrome?: No Has the patient ever had any past reaction to a flu shot?: No Immunizations flu vacc [id number] 6mos up(PF) 60 mcg(15 mcgx4)/0.5 mL IM syringe Performing Provider: ELIAN Gallego Performing Location: [facility] Administered by: TAYLA Marquis on 04/23/23 14:12 Dose Route Admin Location Dispensed Lot Number Expiration Date NDC Remote Sensing Specialist 0.5 mL IM Left Deltoid 0.5 mL [id number] 01/10/24 47829-874-45 Film Fresh VIS Given Date VIS Provided VIS Publication Date 04/23/23 Single Vaccine 21 Eligibility Eligibility Date Funding Source Not [facility] Eligible 04/23/23 Private Assessment and Plan Assessment & Plan (1) Dog scratch: Code(s): W54.8XXA - Other contact with dog, initial encounter Plan: Given patient was scratched by son's dog over 2 weeks ago and states his having a progressive rash surrounding site will cover patient with Augmentin to prevent infection. Patient agreeable with plan of care. Signs and symptoms reviewed with patient when to call office or seek medical attention. (2) Impacted cerumen, left ear: Code(s): H61.22 - Impacted cerumen, left ear Plan: Patient tolerated procedure well minimal cerumen remains in left ear canal. Patient denies any lightheadedness, dizziness or ear pain. Plan Keep scheduled follow-up with PCP or follow-up sooner if needed. Orders: Orders Influenza [id number] Immunization 04/23/23 Z23 - Encounter for immunization Medications: New amoxicillin-pot clavulanate 875-125 mg 1 tab PO BID 14 tabs 0RF H61.22 - Impacted cerumen, left ear, W54.8XXA - Other contact with dog, initial encounter Coding Level of Care Code Est Pt Level 3 (57592) Diagnoses Dog scratch W54.8XXA Impacted cerumen, left ear H61.22 CPT Codes Office Procedure - CPT: 75257-Lhw Irrigation/Lavage ([id number])
[2023-04-23 13:46] VITALS: BP 182/112; PULSE 62; RESP 17; O2SAT 97; BMI 24.4
== END 2023-04-23 14:26 | disposition home or self-care (01) ==
PROVIDERS: PCP Internal Medicine; Visit Provider Nurse Practitioner Family
DX: Z23 Encounter for immunization (principal); H61.22 Impacted cerumen, left ear; S50.811A Abrasion of right forearm, initial encounter; W54.8XXA Other contact with dog, initial encounter
CPT/HCPCS: 69209; 90471; 90686; 99213

== ENCOUNTER 2023-05-04 13:19 | Outpatient (AMB) | payer MEDICARE, SELFPAY ==
[2023-05-04 13:31] VITALS: BP 158/82; PULSE 74; TEMP 36.5; O2SAT 96
--- NOTE | 2023-05-04 13:31 | MHC.PC.OV ---
Vital Signs 05/04/23 13:31 Height 5 ft 1 in BMI Reason not done Patient refused/unable BP 158/82 H Blood Pressure Location Lt brachial Position Sitting Pulse 74 Pulse Source Pulse Oximeter Temp 97.7 F Temp Source Oral Pulse Oximetry (%) 96 Oxygen Delivery Method Room Air Intake Visit Reasons: right arm swollen. finished Augmentin Intake Note: pt states senior living right arm swelling and blistering [employer] Fab[employer] Presser Required: No Allergies amlodipine [AMLODIPINE] Allergy (Unknown, Verified 05/04/23 13:31) UNKNOWN carvedilol [CARVEDILOL] Allergy (Unknown, Verified 05/04/23 13:31) UNKNOWN irbesartan [From AVAPRO] Allergy (Unknown, Verified 05/04/23 13:31) UNKNOWN levofloxacin [From LEVAQUIN] Allergy (Unknown, Verified 05/04/23 13:31) GENERALIZED MUSCLE PAIN naproxen [Naproxen] Allergy (Unknown, Verified 05/04/23 13:31) HIVES, severe rash tetracycline [TETRACYCLINE] Allergy (Unknown, Verified 05/04/23 13:31) UNKNOWN Medication List - Last Reconciled 05/04/23 by Ann Marie Lyles MD acetaminophen-codeine 300-15 mg 1 tab PO Q8H PRN albuterol sulfate 90 mcg/actuation 2 inhalations inhalation Q6H albuterol sulfate 2.5 mg (3 mL) inhalation QID PRN apixaban 2.5 mg PO BID 30 days carbamide peroxide 6.5% (Debrox) 4 drps otic (ear) left BID 4 days cholecalciferol (vitamin D3) (Vitamin D3) 25 mcg PO DAILY cyanocobalamin (vitamin B-12) (Vitamin B-12) 1,000 mcg PO DAILY fluticasone propionate 50 mcg/actuation (Flonase Allergy Relief) 1 spray intranasal DAILY furosemide 40 mg PO DAILY 90 days guaifenesin ER (Mucinex) 600 mg PO Q12H PRN losartan 50 mg PO DAILY melatonin 1 mg PO BEDTIME PRN metoprolol succinate ER 300 mg (1.5 x 200 mg) PO DAILY nebulizers (Aeroneb Go Nebulizer) As directed nystatin 1 appl topical BID nystatin 1 appl topical TID sodium chloride 0.65% (Saline Nasal) 2 sprays intranasal QID PRN sulfamethoxazole-trimethoprim 800-160 mg (Bactrim DS) 1 tab PO BID [wheelchair As directed] zolpidem ER 6.25 mg PO BEDTIME PRN 90 days Tobacco use date assessed: 05/04/23 Fall risk assessment: No Falls in past year Last assessed Fall Risk: 05/04/23 HPI right arm swollen. finished Augmentin HPI Details 87-year-old female with hypertension atrial fibrillation hypercholesterolemia congestive heart failure knee osteoarthritis coming in for follow-up. Last seen in April 2023 for a dog scratch treated with antibiotic. Right arm noted redness, finished with antibiotic. Discussed with the patient that the rash looks more like an allergic contact dermatitis and advised to stop any creams. [facility] Medical History Atrial fibrillation Bilateral artificial lens implant Blurring of vision Bronchitis Cataract Compression fracture of T10 vertebra Congestive heart failure Conjunctivitis, both eyes Cough Hypercholesterolemia Hypertension Insomnia Left-sided chest pain Mammogram declined Nasal congestion Nasal congestion Osteoarthritis of knee Peripheral vascular disease Porphyria cutanea tarda Reactive airway disease Screening for eye condition TIA (transient ischemic attack) Uterine prolapse Surgical History History of right hip hemiarthroplasty S/P hip hemiarthroplasty History of uterine prolapse History of biopsy History of D&C Family History Father Hypertension Mother Hypertension Daughter Colon cancer Lymph node cancer Social History Household Members: None Housing: House Housing Other:: Ambulates with a cane Do you presently have visiting nurse or other home services: Yes (elder care, school cleaner, meals on wheels) Alcohol intake: current Alcohol intake frequency: does not drink Alcohol type: wine Patient Tobacco Use Status: Never used Tobacco e-Cigarette/Vaping Use: Never Used Second Hand Smoke Exposure: No service: No Current occupational status: retired Cognitive needs: No Hearing needs: Yes Vision needs: Yes Questionnaire Thrive Questionnaire Date Thrive assessed: 08/15/22 AUDIT C Alcohol Use Questionnaire (AUDIT-C) 1. How often do you have a drink containing alcohol?: Never 3. How often do you have six or more drinks on one occasion?: Never Total Score: 0 Score Reviewed/Action Taken: No BRIAN-7 AMB Questionnaire BRIAN-7 Date BRIAN - 7 assessed: 08/15/22 Source: Developed by Drs. Kevin Kelly, Jacqui Horton, Castro Buck and colleagues, with an educational ed from [employer]. Physical exam (Primary Care) Vital Signs: Last Vital Signs Temp 97.7 F 05/04/23 13:31 Pulse 74 05/04/23 13:31 BP 158/82 H 05/04/23 13:31 Pulse Ox 96 05/04/23 13:31 Oxygen Delivery Method Room Air 05/04/23 13:31 Tobacco/Smoking Status: Tobacco use Status Tobacco use date assessed 05/04/23 05/04/23 13:32 Patient Tobacco Use Status Never used Tobacco 05/04/23 13:32 e-Cigarette/Vaping Use Never Used 05/04/23 13:32 Thrive Assessment: Date of Thrive Assessment Date Thrive assessed 08/15/22 05/04/23 13:32 Const General: alert; No acute distress Eyes Conjunctivae: conjunctivae normal Resp Auscultation: clear to auscultation bilaterally Cardio Rate: regular rate Rhythm: regular rhythm GI Inspection: Yes normal to inspection Extrem Elbow/forearm/wrist images: 1. erythematous rash maculopapular with scaly surface Assessment and Plan Assessment & Plan (1) Cellulitis: Code(s): L03.90 - Cellulitis, unspecified Plan: Add Bactrim and advised to increase oral fluids (2) Allergic contact dermatitis: Code(s): L23.9 - Allergic contact dermatitis, unspecified cause Plan: advised to stop putting ointment - since not itchy and irritates- hold off any cream or ointment Medications: New sulfamethoxazole-trimethoprim 800-160 mg (Bactrim DS) 1 tab PO BID 14 tabs 0RF L03.90 - Cellulitis, unspecified triamcinolone acetonide 0.5% 1 appl topical DAILY 15 grams 0RF L23.9 - Allergic contact dermatitis, unspecified cause Coding Level of Care Code Est Pt Level 3 (94864) Diagnoses Cellulitis L03.90 Allergic contact dermatitis L23.9
== END 2023-05-04 14:24 | disposition home or self-care (01) ==
PROVIDERS: PCP Internal Medicine; Visit Provider Internal Medicine
DX: L03.90 Cellulitis, unspecified (principal); L23.9 Allergic contact dermatitis, unspecified cause
CPT/HCPCS: 99213

== ENCOUNTER 2023-05-11 12:21 | Outpatient (AMB) | payer MEDICARE, SELFPAY ==
[2023-05-11 12:41] VITALS: BP 140/88; PULSE 77; O2SAT 99; BMI 24.6
--- NOTE | 2023-05-11 12:41 | MHC.PC.OV ---
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: No Allergies amlodipine [AMLODIPINE] Allergy (Unknown, Verified 05/11/23 12:42) UNKNOWN carvedilol [CARVEDILOL] Allergy (Unknown, Verified 05/11/23 12:42) UNKNOWN irbesartan [From AVAPRO] Allergy (Unknown, Verified 05/11/23 12:42) UNKNOWN levofloxacin [From LEVAQUIN] Allergy (Unknown, Verified 05/11/23 12:42) GENERALIZED MUSCLE PAIN naproxen [Naproxen] Allergy (Unknown, Verified 05/11/23 12:42) HIVES, severe rash tetracycline [TETRACYCLINE] Allergy (Unknown, Verified 05/11/23 12:42) UNKNOWN Tobacco use date assessed: 05/11/23 Fall risk assessment: No Falls in past year Last assessed Fall Risk: 05/11/23 HPI 1 Week Follow Up Per Dr Lyles HPI Details 87-year-old female with the right arm rash seen last week patient was given some antibiotic but comes back in with more rash developing. Discussed with the patient that it looks like more of allergic contact dermatitis from question of antibiotic cream/ointment patient was advised to stop was given steroid cream and antibiotic change and was advised to come back here.patient asking for a wheelchair electric and advised NO! Patient asking for refill on the sleeping medication, and the pain medication. Also furosemide [facility] Medical History (Updated 05/11/23 @ 13:28 by Ann Marie Lyles MD) Left-sided chest pain Reactive airway disease Blurring of vision Nasal congestion Bronchitis Screening for eye condition Bilateral artificial lens implant Conjunctivitis, both eyes Cough Nasal congestion Compression fracture of T10 vertebra Mammogram declined Cataract Porphyria cutanea tarda Uterine prolapse Congestive heart failure TIA (transient ischemic attack) Atrial fibrillation Insomnia Hypertension Hypercholesterolemia Peripheral vascular disease Osteoarthritis of knee Surgical History History of right hip hemiarthroplasty S/P hip hemiarthroplasty History of uterine prolapse History of biopsy History of D&C Family History Father Hypertension Mother Hypertension Daughter Colon cancer Lymph node cancer Social History Household Members: None Housing: House Housing Other:: Ambulates with a cane Do you presently have visiting nurse or other home services: Yes (elder care, 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 How often do you have a drink containing alcohol?: Never 3. How often do you have six or more drinks on one occasion?: Never Total Score: 0 Score Reviewed/Action Taken: No BRIAN-7 AMB Questionnaire BRIAN-7 Date BRIAN - 7 assessed: 08/15/22 Source: Developed by Drs. Kevin Kelly, Jacqui Horton, Castro Buck and colleagues, with an educational ed from [employer]. Physical exam (Primary Care) Vital Signs: Last Vital Signs Pulse 77 05/11/23 12:41 BP 140/88 H 05/11/23 12:41 Pulse Ox 99 05/11/23 12:41 Oxygen Delivery Method Room Air 05/11/23 12:41 BMI result Body Mass Index 24.6 Tobacco/Smoking Status: Tobacco use Status Tobacco use date assessed 05/11/23 05/11/23 12:42 Patient Tobacco Use Status Never used Tobacco 05/11/23 12:42 e-Cigarette/Vaping Use Never Used 05/11/23 12:42 Thrive Assessment: Date of Thrive Assessment Date Thrive assessed 08/15/22 05/11/23 12:42 Const General: alert; No acute distress Eyes Conjunctivae: conjunctivae normal Resp Auscultation: clear to auscultation bilaterally Cardio Rate: regular rate Rhythm: regular rhythm GI Inspection: Yes normal to inspection Skin Other: Right hand rash has decreased and only has the scars seen. No open wounds Extrem General: Yes normal to inspection and No edema Assessment and Plan Assessment & Plan (1) Cellulitis: Code(s): L03.90 - Cellulitis, unspecified Plan: resolved (2) Allergic contact dermatitis: Code(s): L23.9 - Allergic contact dermatitis, unspecified cause Plan: resolved (3) History of right hip hemiarthroplasty: Comment: June 2020 Dr. Villanueva Code(s): Z96.641 - Presence of right artificial hip joint Plan: Narcotic pain meds: Is being prescribed with the understanding that these medications are potentially addictive and should be used only when absolutely necessary and must always be secured. Any remaining pills should be safely disposed off appropriately. Patient is advised that narcotics can impaired judgment and one should not drive or operate heavy machinery while taking these medications. Never share these medications with anybody and do not leave them unattended. They will not be replaced under any circumstances. (4) Insomnia: Code(s): G47.00 - Insomnia, unspecified Plan: refill done Medications: Refilled acetaminophen-codeine 300-15 mg 1 tab PO Q8H PRN 55 tabs 0RF pain F51.01 - Primary insomnia zolpidem ER will decrease dose 6.25 mg PO BEDTIME 90 days PRN 90 tabs 1RF insomnia F51.01 - Primary insomnia furosemide 40 mg PO DAILY 90 days 90 caps 3RF I87.2 - Venous insufficiency (chronic) (peripheral) Coding Level of Care Code Est Pt Level 4 (84587) Diagnoses Cellulitis L03.90 Allergic contact dermatitis L23.9 History of right hip hemiarthroplasty Z96.641 Insomnia G47.00
== END 2023-05-11 14:28 | disposition home or self-care (01) ==
PROVIDERS: PCP Internal Medicine; Visit Provider Internal Medicine
DX: L03.90 Cellulitis, unspecified (principal); L23.9 Allergic contact dermatitis, unspecified cause; Z96.641 Presence of right artificial hip joint; G47.00 Insomnia, unspecified
CPT/HCPCS: 99214

== ENCOUNTER → 2023-05-29 08:01 | Outpatient (REF) | payer MEDICARE, SELFPAY ==
--- NOTE | 2023-05-29 08:04 | CA_ITS ---
Transthoracic Echocardiogram Patient (Last, First, Middle): Berkley Meehan A Gender: Female Date of : 1935 Age: 87 Procedure Date: 05/29/2023 Procedure Type: Transthoracic Echocardiogram Location: OP Height: 162.56 cm Weight: 58.97 kg BSA: 1.63 m2 Heart Rate: bpm BP: 170 / 90 mmHg Gun Synchronizer: TO Referring MD: Ann Marie Lyles MD Symptoms: I48.0 - Paroxysmal atrial fibrillation Study Quality: Adequate ECG Rhythm: Atrial Fibrillation Conclusions: - The left ventricular systolic function is normal. The calculated ejection fraction is 60% by biplane method. - There is mild to moderately decreased right ventricular systolic function. - Severe biatrial enlargement. - There is mild to moderate mitral valve regurgitation. - There is mild to moderate tricuspid valve regurgitation. - The inferior vena cava is dilated and does not collapse with inspiration. - Moderate pulmonary hypertension is present. Findings Left Ventricle Normal left ventricular cavity size. The left ventricular systolic function is normal. The calculated ejection fraction is 60% by biplane method. There is no evidence of regional wall motion abnormalities. Diastolic function is indeterminate on the basis of available data. There is moderate septal and moderate basal asymmetric hypertrophy. Right Ventricle Mildly increased right ventricular cavity size. There is mild to moderately decreased right ventricular systolic function. Atria Severe biatrial enlargement. Aortic Valve There is mild calcification of the aortic valve. There is no aortic valve stenosis. There is no aortic valve regurgitation. Mitral Valve There is mild mitral annular calcification. There is mild to moderate mitral valve regurgitation. There is no mitral valve stenosis. Pulmonic Valve There is trace pulmonic valve regurgitation. Tricuspid Valve There is mild to moderate tricuspid valve regurgitation. The right ventricular systolic pressure is 65 mmHg. Moderate pulmonary hypertension is present. Great Vessels The asc aorta is normal in size. Small plaque is seen in the sino tubular ridge. Venous The inferior vena cava is dilated and does not collapse with inspiration. Pericardium/Pleural There is no evidence of pericardial effusion. Prior Study Comparison No significant change compared to prior study dated: 04/21/2019. Measurements 2D Linear Measurements IVSd: 1.36 0.6-0.9/0.6-1.0 cm LVIDd: 4.39 3.9-5.3/4.2-5.9 cm LVIDd Index: 2.69 2.4-3.2/2.2-3.1 cm/m2 LVIDs: 3.17 2.0-3.6 cm LVPWd: 0.97 0.7-1.1 cm LA Diam: 4.20 2.7-3.8/3.0-4.0 cm LAIDs Index: 2.58 1.5-2.3 cm/m2 LV Mass: 227.76 67-162/88-224 g LV Mass Index: 139.73 43-95/49-115 g/m2 LVOT Diam: 1.80 3.0+(-)1.3 cm 2D Systolic Function EF 4C: 58.40 >55% EF 2C: 63.80 >55% EF BiP: 60.30 >55% Mitral Valve MV VTI: 0.31 MV Pk Vimal: 1.50 MV Mn Vimal: 0.61 MV Pk Grad: 9.00 MV Mn Grad: 2.00 MV Pk E: 0.94 MV Decel Time: 240.00 E'Lateral: 9.50 E'Medial: 4.75 E/E' Med: 19.90 E/E' Lat: 9.90 PHT: 71.00 MVA PHT: 3.10 MVA Continuity: 1.69 Decel [place]: 3.97 Aortic Valve AoV Pk Vimal: 1.05 AoV Pk Grad: 4.00 LVOT LVOT Pk Vimal: 0.80 LVOT Mn Vimal: 0.57 LVOT VTI: 0.21 LVOT Pk Grad: 3.00 LVOT Mn Grad: 2.00 LVOT Diam: 1.80 LVOT Area: 2.54 Diastolic Function MV Pk E: 0.94 E'Medial: 4.75 E/E' Med: 19.90 E' Laterial: 9.50 E/E' Lat: 9.90 Right Ventricle TAPSE (mm): 11.70 TVS' Vimal: 7.79 Tricuspid Valve TR Pk Vimal: 3.54 TR Pk Grad: 50.00 RA Press: 15.00 RVSP: 65.00 Great Vessels Aorta Sinus of Valsalva: 3.02 2.0-3.[address] [place]: 2.00 1.7-3.4 cm Ao Asc: 3.20 2.1-3.4 cm Updated in Other Vendor System with Status of Final Kenny Kim MD electronically signed on 05/30/2023 12:46:07 PM with status of Final
== END ==
LOC: HO.CARD 08:01
PROVIDERS: PCP Internal Medicine; Visit Provider Internal Medicine
DX: I48.0 Paroxysmal atrial fibrillation (principal)
CPT/HCPCS: 93306

== ENCOUNTER → 2023-05-29 08:04 | Outpatient (BNV) | payer MEDICARE, SELFPAY | PROVIDERS: PCP Internal Medicine; Visit Provider Internal Medicine | DX: I48.0 Paroxysmal atrial fibrillation (principal); I34.0 Nonrheumatic mitral (valve) insufficiency; I36.1 Nonrheumatic tricuspid (valve) insufficiency | CPT/HCPCS: 93306 ==

== ENCOUNTER 2023-07-23 08:34 | Outpatient (AMB) | payer MEDICARE, SELFPAY ==
[2023-07-23 08:40] VITALS: BP 142/90; PULSE 52; O2SAT 98; BMI 24.6
--- NOTE | 2023-07-23 08:40 | MHC.PC.OV ---
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 Required: No Allergies amlodipine [AMLODIPINE] Allergy (Unknown, Verified 07/23/23 08:45) UNKNOWN carvedilol [CARVEDILOL] Allergy (Unknown, Verified 07/23/23 08:45) UNKNOWN irbesartan [From AVAPRO] Allergy (Unknown, Verified 07/23/23 08:45) UNKNOWN levofloxacin [From LEVAQUIN] Allergy (Unknown, Verified 07/23/23 08:45) GENERALIZED MUSCLE PAIN naproxen [Naproxen] Allergy (Unknown, Verified 07/23/23 08:45) HIVES, severe rash tetracycline [TETRACYCLINE] Allergy (Unknown, Verified 07/23/23 08:45) UNKNOWN CARE ONE TRIPLE ANTIBTIOTIC OINTMENT Allergy (Intermediate, Uncoded 07/23/23 08:45) rash Medication List - Last Reconciled 07/23/23 by Ann Marie Lyles MD acetaminophen-codeine 300-15 mg 1 tab PO Q8H PRN albuterol sulfate 90 mcg/actuation 2 inhalations inhalation Q6H albuterol sulfate 2.5 mg (3 mL) inhalation QID PRN apixaban 2.5 mg PO BID 30 days carbamide peroxide 6.5% (Debrox) 4 drps otic (ear) left BID 4 days cholecalciferol (vitamin D3) (Vitamin D3) 25 mcg PO DAILY cyanocobalamin (vitamin B-12) (Vitamin B-12) 1,000 mcg PO DAILY fluticasone propionate 50 mcg/actuation (Flonase Allergy Relief) 1 spray intranasal DAILY furosemide 40 mg PO DAILY 90 days guaifenesin ER (Mucinex) 600 mg PO Q12H PRN losartan 50 mg PO DAILY melatonin 1 mg PO BEDTIME PRN metoprolol succinate ER 300 mg (1.5 x 200 mg) PO DAILY nebulizers (Aeroneb Go Nebulizer) As directed nystatin 1 appl topical BID nystatin 1 appl topical TID sodium chloride 0.65% (Saline Nasal) 2 sprays intranasal QID PRN triamcinolone acetonide 0.5% 1 appl topical DAILY [wheelchair As directed] zolpidem ER 6.25 mg PO BEDTIME PRN 90 days Tobacco use date assessed: 07/23/23 Fall risk assessment: No Falls in past year Last assessed Fall Risk: 07/23/23 Dental Screening Dental Screen Date: 07/23/23 HPI 3 month f/u HPI Details 88-year-old female with a history of knee osteoarthritis on pain medication hypertension hypercholesterolemia atrial fibrillation venous stasis dermatitis coming in for follow-up. Last seen in April 2023 having cellulitis of the legs. Patient is here for follow-up. Review of the notes had echocardiogram done in May showing EF 60% mild to moderate decreased right ventricular systolic function severe biatrial enlargement mild to moderate MR [id number] TR moderate pulmonary hypertension. advised to check bp at home. [facility] [place] Medical History (Updated 07/23/23 @ 09:06 by Ann Marie Lyles MD) Left-sided chest pain Reactive airway disease Blurring of vision Nasal congestion Bronchitis Screening for eye condition Bilateral artificial lens implant Conjunctivitis, both eyes Cough Nasal congestion Compression fracture of T10 vertebra Mammogram declined Cataract Porphyria cutanea tarda Uterine prolapse Congestive heart failure TIA (transient ischemic attack) Atrial fibrillation Insomnia Hypertension Hypercholesterolemia Peripheral vascular disease Osteoarthritis of knee Surgical History History of right hip hemiarthroplasty S/P hip hemiarthroplasty History of uterine prolapse History of biopsy History of D&C Family History Father Hypertension Mother Hypertension Daughter Colon cancer Lymph node cancer Social History Household Members: None Housing: House Housing Other:: Ambulates with a cane Do you presently have visiting nurse or other home services: Yes (elder care, middle school professional, meals on wheels) Alcohol intake: current Alcohol intake frequency: does not drink Alcohol type: wine Comment: sleeping Patient Tobacco Use Status: Never used Tobacco e-Cigarette/Vaping Use: Never Used Second Hand Smoke Exposure: No service: No Current occupational status: retired Cognitive needs: No Hearing needs: Yes Vision needs: Yes Questionnaire PHQ-9 Over the last 2 weeks, how often have you been bothered by any of the following problems? 1. Little interest or pleasure in doing things: not at all 2. Feeling down, depressed, or hopeless: not at all 3. Trouble falling or staying asleep, or sleeping too much: not at all 4. Feeling tired or having little energy: not at all 5. Poor appetite or overeating: not at all 6. Feeling bad about yourself - or that you are a failure or have let yourself or your family down: not at all 7. Trouble concentrating on things, such as reading the newspaper or watching television: not at all 8. Moving or speaking so slowly that other people could have noticed. Or the opposite - being so fidgety or restless that you have been moving around a lot more than usual: not at all 9. Thoughts that you would be better off or of hurting yourself in some way: not at all Total score: 0 Depression Screening Interpretation: Negative Depression Screening Done: Yes Source: Developed by Drs. Kevin Kelly, Jacqui Horton, Castro Buck and colleagues, with an educational ed from [employer]. Thrive Questionnaire Date Thrive assessed: 07/23/23 AUDIT C Alcohol Use Questionnaire (AUDIT-C) 1. How often do you have a drink containing alcohol?: Never 3. How often do you have six or more drinks on one occasion?: Never Total Score: 0 Score Reviewed/Action Taken: No BRIAN-7 AMB Questionnaire BRIAN-7 Date BRIAN - 7 assessed: 07/23/23 Source: Developed by Drs. Kevin Kelly, Jacqui Horton, aCstro Buck and colleagues, with an educational ed from [employer]. Physical exam (Primary Care) Vital Signs: Last Vital Signs Pulse 52 07/23/23 08:40 BP 142/90 H 07/23/23 08:40 Pulse Ox 98 07/23/23 08:40 Oxygen Delivery Method Room Air 07/23/23 08:40 BMI result Body Mass Index 24.6 Tobacco/Smoking Status: Tobacco use Status Tobacco use date assessed 07/23/23 07/23/23 08:48 Patient Tobacco Use Status Never used Tobacco 07/23/23 08:48 e-Cigarette/Vaping Use Never Used 07/23/23 08:48 PHQ-9: PHQ-9 Score PHQ-9: Total score 0 07/23/23 08:51 Depression Screening Interpretation: Negative Thrive Assessment: Date of Thrive Assessment Date Thrive assessed 07/23/23 07/23/23 08:51 Const General: alert; No acute distress Eyes Conjunctivae: conjunctivae normal Resp Auscultation: clear to auscultation bilaterally Cardio Rate: regular rate Rhythm: regular rhythm GI Inspection: Yes normal to inspection Extrem General: Yes normal to inspection and No edema Assessment and Plan Assessment & Plan (1) Atrial fibrillation: Comment: Dr. Gamez 03/12/2011 Holter and echo September 2017, ejection fraction 60-65% moderate pulmonary hypertension April 2019 normal LV elevate LV EDP, atrial dilatation moderate MR TR, May 2023 Code(s): I48.91 - Unspecified atrial fibrillation Qualifiers: Atrial fibrillation type: paroxysmal Qualified Code(s): I48.0 - Paroxysmal atrial fibrillation Plan: Continue with anticoagulation with apixaban echocardiogram done May 2023 (2) Hypertension: Code(s): I10 - Essential (primary) hypertension Qualifiers: Hypertension type: essential hypertension Qualified Code(s): I10 - Essential (primary) hypertension Plan: Continue with blood pressure medication. Decrease salt intake and exercise presently on losartan 50 mg once a day metoprolol 300 mg once a day (3) Hypercholesterolemia: Code(s): E78.00 - Pure hypercholesterolemia, unspecified Plan: Avoid fried foods, chicken skin, eggs, butter margarine, pastries and meat. Be it pork or beef they have a lot of cholesterol LDL goal of less than 100. (4) Venous stasis dermatitis of both lower extremities: Code(s): I87.2 - Venous insufficiency (chronic) (peripheral) Plan: When sitting down elevate the legs, exercise, and support stockings (5) Osteoarthritis of knee: Code(s): M17.10 - Unilateral primary osteoarthritis, unspecified knee Qualifiers: Osteoarthritis type: primary Laterality: bilateral Qualified Code(s): M17.0 - Bilateral primary osteoarthritis of knee Plan: Narcotic pain meds: Is being prescribed with the understanding that these medications are potentially addictive and should be used only when absolutely necessary and must always be secured. Any remaining pills should be safely disposed off appropriately. Patient is advised that narcotics can impaired judgment and one should not drive or operate heavy machinery while taking these medications. Never share these medications with anybody and do not leave them unattended. They will not be replaced under any circumstances. Medications: Refilled acetaminophen-codeine 300-15 mg 1 tab PO Q8H PRN 55 tabs 0RF pain F51.01 - Primary insomnia acetaminophen-codeine 300-15 mg 1 tab PO Q8H PRN 55 tabs 0RF pain F51.01 - Primary insomnia Coding Level of Care Code Est Pt Level 4 (39287) Diagnoses Paroxysmal atrial fibrillation I48.0 Atrial fibrillation type: paroxysmal Essential hypertension I10 Hypertension type: essential hypertension Hypercholesterolemia E78.00 Venous stasis dermatitis of both lower extremities I87.2 Primary osteoarthritis of both knees M17.0 Osteoarthritis type: primary Laterality: bilateral
== END 2023-07-23 09:31 | disposition home or self-care (01) ==
PROVIDERS: PCP Internal Medicine; Visit Provider Internal Medicine
DX: I48.0 Paroxysmal atrial fibrillation (principal); I10 Essential (primary) hypertension; E78.00 Pure hypercholesterolemia, unspecified; I87.2 Venous insufficiency (chronic) (peripheral); M17.0 Bilateral primary osteoarthritis of knee
CPT/HCPCS: 99214

== ENCOUNTER 2023-08-24 13:04 | Outpatient (AMB) | payer MEDICARE, SELFPAY ==
--- NOTE | 2023-08-24 13:07 | MHC.OFFVIS ---
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/Paroxysmal atrial fibrillation Intake Note: NPV w/ EKG Hatch Supervisor Required: No Accompanied by: Daughter In Law Allergies amlodipine [AMLODIPINE] Allergy (Unknown, Verified 08/24/23 13:11) UNKNOWN carvedilol [CARVEDILOL] Allergy (Unknown, Verified 08/24/23 13:11) UNKNOWN irbesartan [From AVAPRO] Allergy (Unknown, Verified 08/24/23 13:11) UNKNOWN levofloxacin [From LEVAQUIN] Allergy (Unknown, Verified 08/24/23 13:11) GENERALIZED MUSCLE PAIN naproxen [Naproxen] Allergy (Unknown, Verified 08/24/23 13:11) HIVES, severe rash tetracycline [TETRACYCLINE] Allergy (Unknown, Verified 08/24/23 13:11) UNKNOWN CARE ONE TRIPLE ANTIBTIOTIC OINTMENT Allergy (Intermediate, Uncoded 08/24/23 13:11) rash Medication List - Last Reconciled 08/24/23 by Kenny Kim MD acetaminophen-codeine 300-15 mg 1 tab PO Q8H PRN albuterol sulfate 90 mcg/actuation 2 inhalations inhalation Q6H albuterol sulfate 2.5 mg (3 mL) inhalation QID PRN apixaban 2.5 mg PO BID 30 days carbamide peroxide 6.5% (Debrox) 4 drps otic (ear) left BID 4 days cholecalciferol (vitamin D3) (Vitamin D3) 25 mcg PO DAILY cyanocobalamin (vitamin B-12) (Vitamin B-12) 1,000 mcg PO DAILY fluticasone propionate 50 mcg/actuation (Flonase Allergy Relief) 1 spray intranasal DAILY furosemide 40 mg PO DAILY 90 days guaifenesin ER (Mucinex) 600 mg PO Q12H PRN losartan 50 mg PO DAILY metoprolol succinate ER 200 mg PO DAILY nebulizers (Aeroneb Go Nebulizer) As directed nystatin 1 appl topical BID nystatin 1 appl topical TID sodium chloride 0.65% (Saline Nasal) 2 sprays intranasal QID PRN triamcinolone acetonide 0.5% 1 appl topical DAILY [wheelchair As directed] zolpidem ER 6.25 mg PO BEDTIME PRN 90 days HPI HPI Comments History of Present Illness Details Berkley is here for consultation regarding atrial fibrillation. She has longstanding atrial fibrillation, possibly a decade or even longer. She does not have any symptoms from this. No history of any coronary disease, myocardial infarction or cardiomyopathy or in fact any other cardiac concerns. Within limits of her daily activity, she does not have any symptoms like chest pain or shortness of breath or palpitations or anything else longest lines. She states she is feeling fine. [facility] Medical History (Updated 08/24/23 @ 14:49 by Kenny Kim MD) Left-sided chest pain Reactive airway disease Blurring of vision Nasal congestion Bronchitis Screening for eye condition Bilateral artificial lens implant Conjunctivitis, both eyes Cough Nasal congestion Compression fracture of T10 vertebra Mammogram declined Cataract Porphyria cutanea tarda Uterine prolapse Congestive heart failure TIA (transient ischemic attack) Atrial fibrillation Insomnia Hypertension Hypercholesterolemia Peripheral vascular disease Osteoarthritis of knee Surgical History History of right hip hemiarthroplasty S/P hip hemiarthroplasty History of uterine prolapse History of biopsy History of D&C Family History Father Hypertension Mother Hypertension Daughter Colon cancer Lymph node cancer Social History Household Members: None Housing: House Housing Other:: Ambulates with a cane Do you presently have visiting nurse or other home services: Yes (elder care, waistband setter lockstitch, meals on wheels) Alcohol intake: current Alcohol intake frequency: does not drink Alcohol type: wine Comment: sleeping Patient Tobacco Use Status: Never used Tobacco e-Cigarette/Vaping Use: Never Used Second Hand Smoke Exposure: No service: No Current occupational status: retired Cognitive needs: No Hearing needs: Yes Vision needs: Yes Review of Systems Const Denies chills, Denies daytime sleepiness, Denies fatigue, Denies fever(s), Denies frequent falls, Denies night sweats, Denies snoring, Denies weakness, Denies weight gain and Denies weight loss Eyes Denies loss of vision ENT Denies dizziness and Denies hearing loss Card Denies chest pain, Denies chest pain with activity, Denies syncope, Denies rapid heart rate, Denies edema, Denies claudication, Denies leg edema, Denies lightheadedness, Denies palpitations, Denies dyspnea, Denies dyspnea on exertion and Denies orthopnea Resp Denies cough, Denies excessive phlegm production, Denies dyspnea, Denies dyspnea on exertion, Denies snoring and Denies wheezing GI Denies abdominal pain, Denies hematochezia, Denies change in bowel habits, Denies change in stool character, Denies heartburn, Denies nausea and Denies vomiting Denies hematuria, Denies urinary frequency and Denies dysuria Musc Denies arthralgias, Denies muscle weakness, Denies numbness and Denies tingling Skin/Breast Denies nail changes and Denies rash Neuro Denies Abnormal speech present, Denies dizziness, Denies syncope, Denies frequent falls, Denies loss of vision, Denies memory loss, Denies numbness, Denies tingling and Denies weakness Psych Denies depression and Denies memory loss Endo Denies fatigue and Denies palpitations Aller/Immun Denies wheezing Physical Exam Vital Signs: Last Vital Signs BP 144/74 H 08/24/23 13:13 Const General: comfortable and no acute distress Orientation/consciousness: patient oriented x3 HEENT Other: Unremarkable Head: Yes normal to inspection Neck Neck: Yes normal visual inspection Chest Chest palpation & inspection: normal inspection of the chest Resp Auscultation: clear to auscultation bilaterally Cardio Palpation: normal PMI Heart sounds: S1 normal heart sound present, S2 normal heart sound present, no gallops, no murmurs and no rubs GI Palpation (GI): Soft to palpation Back/Spine/Pelvis Other: unremarkable Skin General skin exam: no rashes or lesions noted Neuro General: patient oriented x3 Speech: No Abnormal speech present Extrem General: Yes normal to inspection Psych Mental Status: mental status grossly normal Office Procedures EKG Details: EKG with atrial fibrillation at a rate of 57/Min. [id number], Complete Assessment & Plan Assessment & Plan (1) Permanent atrial fibrillation: Code(s): I48.21 - Permanent atrial fibrillation (2) Hypertension: Code(s): I10 - Essential (primary) hypertension Qualifiers: Hypertension type: essential hypertension Qualified Code(s): I10 - Essential (primary) hypertension (3) Valvular regurgitation: Code(s): I38 - Endocarditis, valve unspecified (4) Pulmonary hypertension: Code(s): I27.20 - Pulmonary hypertension, unspecified Plan Echocardiogram with LVEF of 60%. Mild to moderately decreased right ventricular systolic function. Severe biatrial enlargement which indicates chronicity of atrial fibrillation. [id number] mitral/tricuspid regurgitation. Moderate pulmonary hypertension. Overall, likely permanent atrial fibrillation and well rate controlled on beta-blockers. Also on Eliquis for anticoagulation. May continue the current regimen without changes. With regard to the valvular regurgitation including mitral/tricuspid, no specific implication at this time. Could be related to longstanding atrial fibrillation. Pulmonary hypertension is likely again related to left heart diastolic dysfunction as well as longstanding atrial fibrillation. At her age, no specific management. Discussed with family who came for appointment. Medications: Changed From metoprolol succinate ER 300 mg (1.5 x 200 mg) PO DAILY 135 caps 2RF To metoprolol succinate ER 200 mg PO DAILY Coding Level of Care Code New Pt Level 4 (41434) Diagnoses Permanent atrial fibrillation I48.21 Essential hypertension I10 Hypertension type: essential hypertension Valvular regurgitation I38 Pulmonary hypertension I27.20 CPT Codes EKG - CPT: [id number], Complete ([id number])
[2023-08-24 13:13] VITALS: BP 144/74
== END 2023-08-24 13:35 | disposition home or self-care (01) ==
PROVIDERS: PCP Internal Medicine; Visit Provider Internal Medicine
DX: I48.21 Permanent atrial fibrillation (principal); I10 Essential (primary) hypertension; I38 Endocarditis, valve unspecified; I27.20 Pulmonary hypertension, unspecified
CPT/HCPCS: 93010; 99204

== ENCOUNTER → 2023-08-24 13:04 | Outpatient (BNVA) | payer MEDICARE, SELFPAY | PROVIDERS: PCP Internal Medicine; Visit Provider Internal Medicine | DX: I48.21 Permanent atrial fibrillation (principal); I10 Essential (primary) hypertension; I38 Endocarditis, valve unspecified; I27.20 Pulmonary hypertension, unspecified | CPT/HCPCS: 93005; 99202 ==

== ENCOUNTER 2023-10-29 09:42 | Outpatient (AMB) | payer MEDICARE, SELFPAY ==
[2023-10-29 09:59] VITALS: BP 136/80; PULSE 50; O2SAT 95; BMI 23.6
--- NOTE | 2023-10-29 09:59 | A.OFFPC_ITS ---
Vital Signs 10/29/23 09:59 Height 5 ft 1 in Weight 125 lb BMI 23.6 BP 136/80 Blood Pressure Location Lt brachial Position Sitting Pulse 50 Pulse Source Pulse Oximeter Pulse Oximetry (%) 95 Oxygen Delivery Method Room Air Intake Visit Reasons: HTN , A fib, knee OA Allergies amlodipine [AMLODIPINE] Allergy (Unknown, Verified 10/29/23 10:00) UNKNOWN carvedilol [CARVEDILOL] Allergy (Unknown, Verified 10/29/23 10:00) UNKNOWN irbesartan [From AVAPRO] Allergy (Unknown, Verified 10/29/23 10:00) UNKNOWN levofloxacin [From LEVAQUIN] Allergy (Unknown, Verified 10/29/23 10:00) GENERALIZED MUSCLE PAIN naproxen [Naproxen] Allergy (Unknown, Verified 10/29/23 10:00) HIVES, severe rash tetracycline [TETRACYCLINE] Allergy (Unknown, Verified 10/29/23 10:00) UNKNOWN CARE ONE TRIPLE ANTIBTIOTIC OINTMENT Allergy (Intermediate, Uncoded 10/29/23 10:00) rash Tobacco use date assessed: 10/29/23 Fall risk assessment: No Falls in past year Last assessed Fall Risk: 10/29/23 Dental Screening Dental Screen Date: 10/29/23 Did you have a dental visit in the last 12 months?: No Did you have a dental problem in the last 6 months where you did not have access to dental care?: No Was dental information given to patient?: No HPI HTN , A fib, knee OA HPI Details 88-year-old female with a history of atr ial fibrillation hypertension hypercholesterolemia knee osteoarthritis on narcotic pain medication coming in for follow-up. Last seen in July 2023 noted elevated blood pressure. Review of the notes follows up with Cardiologyechocardiogram showing 60% EF mild to moderate decreased right ventricular systolic function severe biatrial enlargement mild to moderate mitral/tricuspid regurgitation moderate pulmonary hypertension. Well controlled on beta-blockers continuing with anticoagulation continuing with metoprolol 300 mg once a day [facility] Medical History (Updated 10/29/23 @ 10:16 by Ann Marie Lyles MD) Left-sided chest pain Reactive airway disease Blurring of vision Nasal congestion Bronchitis Screening for eye condition Bilateral artificial lens implant Conjunctivitis, both eyes Cough Nasal congestion Compression fracture of T10 vertebra Mammogram declined Cataract Porphyria cutanea tarda Uterine prolapse Congestive heart failure TIA (transient ischemic attack) Atrial fibrillation Insomnia Hypertension Hypercholesterolemia Peripheral vascular disease Osteoarthritis of knee Surgical History History of right hip hemiarthroplasty S/P hip hemiarthroplasty History of uterine prolapse History of biopsy History of D&C Family History Father Hypertension Mother Hypertension Daughter Colon cancer Lymph node cancer Social History Household Members: None Housing: House Housing Other:: Ambulates with a cane Do you presently have visiting nurse or other home services: Yes (elder care, 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 1. Little interest or pleasure in doing things: not at all 2. Feeling down, depressed, or hopeless: not at all 3. Trouble falling or staying asleep, or sleeping too much: not at all 4. Feeling tired or having little energy: not at all 5. Poor appetite or overeating: not at all 6. Feeling bad about yourself - or that you are a failure or have let yourself or your family down: not at all 7. Trouble concentrating on things, such as reading the newspaper or watching television: not at all 8. Moving or speaking so slowly that other people could have noticed. Or the opposite - being so fidgety or restless that you have been moving around a lot more than usual: not at all 9. Thoughts that you would be better off or of hurting yourself in some way: not at all Total score: 0 Depression Screening Interpretation: Negative Depression Screening Done: Yes Source: Developed by Drs. Kevin Kelly, Jacqui Horton, Castro Buck and colleagues, with an educational ed from [employer]. Thrive Questionnaire Date Thrive assessed: 10/29/23 I am a: Parent/Caregiver What is your living situation today?: I have a steady place to live Within the past 12 months, did the food you bought not last and you didn't have the money to get more?: Never true Within the past 12 months, did you worry whether your food would run out before you got money to buy more?: Never true Do you have trouble paying for medicines?: No Do you have trouble getting transportation to medical appointments?: No Do you have trouble paying your heating and electricity bill?: No Do you have trouble taking care of your child, family member or friend?: No Do you have trouble with day-to-day activities such as bathing, preparing meals, shopping, managing finances, etc.?: No Are you currently unemployed and looking for a job?: No Are you interested in more education?: No Currently or been in a relationship where the following occur: no concerns reported THRIVE Score: 0 AUDIT C Alcohol Use Questionnaire (AUDIT-C) 1. How often do you have a drink containing alcohol?: Never 3. How often do you have six or more drinks on one occasion?: Never Total Score: 0 Score Reviewed/Action Taken: No BRIAN-7 AMB Questionnaire BRIAN-7 Date BRIAN - 7 assessed: 10/29/23 Feeling nervous, anxious, or on edge: 0 = Not at all Not being able to stop or control worryin = Not at all Worrying too much about different things: 0 = Not at all Trouble relaxin = Not at all Being so restless that it is hard to sit still: 0 = Not at all Becoming easily annoyed or irritable: 0 = Not at all Feeling afraid as if something awful might happen: 0 = Not at all Total BRIAN-7 score (0-4 normal; 5-9 mild; 10-14 moderate; 15-21 severe): 0 Source: Developed by Drs. Kevin Kelly, Jacqui Horton, Castro Buck and colleagues, with an educational ed from [employer]. Physical exam (Primary Care) Vital Signs: Oxygen Delivery Method Room Air 10/29/23 09:59 Tobacco/Smoking Status: Tobacco use Status Tobacco use date assessed 07/23/23 07/23/23 08:48 Patient Tobacco Use Status Never used Tobacco 07/23/23 08:48 e-Cigarette/Vaping Use Never Used 07/23/23 08:48 Depression Screening Interpretation: Negative Thrive Assessment: Date of Thrive Assessment Date Thrive assessed 07/23/23 07/23/23 08:51 Currently or been in a relationship where the following occur: no concerns reported Const General: alert; No acute distress Eyes Conjunctivae: conjunctivae normal Resp Auscultation: clear to auscultation bilaterally Cardio Rate: regular rate Rhythm: regular rhythm GI Inspection: Yes normal to inspection Other: L inguinal hernia noted 4 x 4 cm mass , non tender Extrem General: Yes normal to inspection and No edema Assessment and Plan Assessment & Plan (1) Atrial fibrillation: Comment: Dr. Gamez 03/12/2011 Holter and echo September 2017, ejection fraction 60-65% moderate pulmonary hypertension April 2019 normal LV elevate LV EDP, atrial dilatation moderate MR TR, May 2023 Code(s): I48.91 - Unspecified atrial fibrillation Qualifiers: Atrial fibrillation type: paroxysmal Qualified Code(s): I48.0 - Paroxysmal atrial fibrillation Plan: Continuing with anticoagulation and metoprolol. Discussed on twice a day year blood work needed. (2) Hypertension: Code(s): I10 - Essential (primary) hypertension Qualifiers: Hypertension type: essential hypertension Qualified Code(s): I10 - Essential (primary) hypertension Plan: Continue with blood pressure medication. Decrease salt intake and exercise presently on losartan 50 mg once a day and metoprolol 200 mg taking 1 and half tablets once a day (3) Hypercholesterolemia: Code(s): E78.00 - Pure hypercholesterolemia, unspecified Plan: Avoid fried foods, chicken skin, eggs, butter margarine, pastries and meat. Be it pork or beef they have a lot of cholesterol (4) Congestive heart failure: Code(s): I50.9 - Heart failure, unspecified Qualifiers: Heart failure type: diastolic Heart failure chronicity: chronic Qualified Code(s): I50.32 - Chronic diastolic (congestive) heart failure Plan: Continue with diuretic weigh daily and record (5) Osteoarthritis of knee: Code(s): M17.10 - Unilateral primary osteoarthritis, unspecified knee Qualifiers: Osteoarthritis type: primary Laterality: bilateral Qualified Code(s): M17.0 - Bilateral primary osteoarthritis of knee Plan: Narcotic pain meds: Is being prescribed with the understanding that these medications are potentially addictive and should be used only when absolutely necessary and must always be secured. Any remaining pills should be safely disposed off appropriately. Patient is advised that narcotics can impaired judgment and one should not drive or operate heavy machinery while taking these medications. Never share these medications with anybody and do not leave them unattended. They will not be replaced under any circumstances. (6) Left inguinal hernia: Code(s): K40.90 - Unilateral inguinal hernia, without obstruction or gangrene, not specified as recurrent Plan: monitor for now and increasing in pain will need referral to surgeon (7) Vision changes: Code(s): H53.9 - Unspecified visual disturbance Plan: referral done (8) Hemorrhoid: Code(s): K64.9 - Unspecified hemorrhoids Plan: avoid getting constipation, declined med (9) Constipation: Code(s): K59.00 - Constipation, unspecified Plan: increase oral fluids eat more fiber and keep moving Orders: Orders Comprehensive Met. Panel Today I48.21 - Permanent atrial fibrillation Complete Blood Count Auto Diff Today I48.21 - Permanent atrial fibrillation Referrals Ophthalmology Referral H53.9 - Unspecified visual disturbance Coding Level of Care Code Est Pt Level 4 (54033) Diagnoses Paroxysmal atrial fibrillation I48.0 Atrial fibrillation type: paroxysmal Essential hypertension I10 Hypertension type: essential hypertension Hypercholesterolemia E78.00 Chronic diastolic congestive heart failure I50.32 Heart failure type: diastolic Heart failure chronicity: chronic Primary osteoarthritis of both knees M17.0 Osteoarthritis type: primary Laterality: bilateral Left inguinal hernia K40.90 Vision changes H53.9 Hemorrhoid K64.9 Constipation K59.00
== END 2023-10-29 10:29 | disposition home or self-care (01) ==
PROVIDERS: PCP Internal Medicine; Visit Provider Internal Medicine
DX: I48.0 Paroxysmal atrial fibrillation (principal); I11.0 Hypertensive heart disease with heart failure; I50.32 Chronic diastolic (congestive) heart failure; E78.00 Pure hypercholesterolemia, unspecified; M17.0 Bilateral primary osteoarthritis of knee; K40.90 Unilateral inguinal hernia, without obstruction or gangrene, not specified as recurrent; H53.9 Unspecified visual disturbance; K64.9 Unspecified hemorrhoids; K59.00 Constipation, unspecified
CPT/HCPCS: 99214

== ENCOUNTER 2024-03-15 09:50 | Outpatient (AMB) | payer MEDICARE, SELFPAY ==
[2024-03-15 10:04] VITALS: BP 108/52; PULSE 67; O2SAT 96; BMI 22.5
--- NOTE | 2024-03-15 10:04 | MHC.PC.OV ---
Vital Signs 03/15/24 10:04 Height 5 ft 1 in Weight 119 lb BMI 22.5 BP 108/52 L Blood Pressure Location Lt brachial Position Sitting Pulse 67 Pulse Source Pulse Oximeter Pulse Oximetry (%) 96 Oxygen Delivery Method Room Air Intake Visit Reasons: afib Intake Note: abdomen pain on left side Allergies amlodipine [AMLODIPINE] Allergy (Unknown, Verified 03/15/24 10:04) UNKNOWN carvedilol [CARVEDILOL] Allergy (Unknown, Verified 03/15/24 10:04) UNKNOWN irbesartan [From AVAPRO] Allergy (Unknown, Verified 03/15/24 10:04) UNKNOWN levofloxacin [From LEVAQUIN] Allergy (Unknown, Verified 03/15/24 10:04) GENERALIZED MUSCLE PAIN naproxen [Naproxen] Allergy (Unknown, Verified 03/15/24 10:04) HIVES, severe rash tetracycline [TETRACYCLINE] Allergy (Unknown, Verified 03/15/24 10:04) UNKNOWN CARE ONE TRIPLE ANTIBTIOTIC OINTMENT Allergy (Intermediate, Uncoded 03/15/24 10:04) rash Medication List - Last Reconciled 03/15/24 by Ann Marie Lyles MD acetaminophen-codeine 300-15 mg 1 tab PO Q8H PRN albuterol sulfate 90 mcg/actuation 2 inhalations inhalation Q6H albuterol sulfate 2.5 mg (3 mL) inhalation QID PRN apixaban 2.5 mg PO BID 30 days carbamide peroxide 6.5% (Debrox) 4 drps otic (ear) left BID 4 days cholecalciferol (vitamin D3) (Vitamin D3) 25 mcg PO DAILY eugenie.stocking,thigh,reg,med As directed 20 - 30 mm HG cyanocobalamin (vitamin B-12) (Vitamin B-12) 1,000 mcg PO DAILY fluticasone propionate 50 mcg/actuation (Flonase Allergy Relief) 1 spray intranasal DAILY furosemide 40 mg PO DAILY 90 days guaifenesin ER (Mucinex) 600 mg PO Q12H PRN hydrocortisone 2.5% (Proctosol HC) 1 appl NM BID-QID PRN losartan 50 mg PO DAILY metoprolol succinate ER 200 mg PO DAILY nebulizers (Aeroneb Go Nebulizer) As directed nystatin 1 appl topical TID nystatin 1 appl topical BID sodium chloride 0.65% (Saline Nasal) 2 sprays intranasal QID PRN triamcinolone acetonide 0.5% 1 appl topical DAILY [wheelchair As directed] zolpidem ER 6.25 mg PO BEDTIME PRN 90 days Tobacco use date assessed: 10/29/23 Fall risk assessment: No Falls in past year Last assessed Fall Risk: 03/15/24 Dental Screening Dental Screen Date: 10/29/23 HPI afib HPI Details 88-year-old female with atrial fibrillation hypertension hypercholesterolemia congestive heart failure osteoarthritis of the knee coming in for follow-up. Last seen in October 2023. Noted to have lost weight 5 lb. concern on not eating , son at home but started to tell me taht has not drank alcohol and then stopped me from asking . has not been eating hence the weight loss, knows to eat better. declined hlep for family. [facility] Medical History (Updated 10/29/23 @ 10:16 by Ann Marie Lyles MD) Left-sided chest pain Reactive airway disease Blurring of vision Nasal congestion Bronchitis Screening for eye condition Bilateral artificial lens implant Conjunctivitis, both eyes Cough Nasal congestion Compression fracture of T10 vertebra Mammogram declined Cataract Porphyria cutanea tarda Uterine prolapse Congestive heart failure TIA (transient ischemic attack) Atrial fibrillation Insomnia Hypertension Hypercholesterolemia Peripheral vascular disease Osteoarthritis of knee Surgical History History of right hip hemiarthroplasty S/P hip hemiarthroplasty History of uterine prolapse History of biopsy History of D&C Family History Father Hypertension Mother Hypertension Daughter Colon cancer Lymph node cancer Social History Household Members: None Housing: House Housing Other:: Ambulates with a cane Do you presently have visiting nurse or other home services: Yes (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 1. Little interest or pleasure in doing things: not at all 2. Feeling down, depressed, or hopeless: not at all 3. Trouble falling or staying asleep, or sleeping too much: not at all 4. Feeling tired or having little energy: not at all 5. Poor appetite or overeating: not at all 6. Feeling bad about yourself - or that you are a failure or have let yourself or your family down: not at all 7. Trouble concentrating on things, such as reading the newspaper or watching television: not at all 8. Moving or speaking so slowly that other people could have noticed. Or the opposite - being so fidgety or restless that you have been moving around a lot more than usual: not at all 9. Thoughts that you would be better off or of hurting yourself in some way: not at all Total score: 0 Depression Screening Interpretation: Negative Depression Screening Done: Yes Source: Developed by Drs. Kevin Kelly, Jacqui Horton, Castro Buck and colleagues, with an educational ed from [employer]. Thrive Questionnaire Date Thrive assessed: 10/29/23 AUDIT C Alcohol Use Questionnaire (AUDIT-C) 1. How often do you have a drink containing alcohol?: Never 3. How often do you have six or more drinks on one occasion?: Never Total Score: 0 Score Reviewed/Action Taken: No BRIAN-7 AMB Questionnaire BRIAN-7 Date BRIAN - 7 assessed: 10/29/23 Source: Developed by Drs. Kevin Kelly, Castro Rajput and colleagues, with an educational ed from [employer]. Physical exam (Primary Care) Vital Signs: Last Vital Signs Pulse 67 03/15/24 10:04 BP 108/52 L 03/15/24 10:04 Pulse Ox 96 03/15/24 10:04 Oxygen Delivery Method Room Air 03/15/24 10:04 BMI result Body Mass Index 22.5 Tobacco/Smoking Status: Tobacco use Status Tobacco use date assessed 10/29/23 03/15/24 10:09 Patient Tobacco Use Status Never used Tobacco 03/15/24 10:09 Tobacco use type Cigarette 03/15/24 10:09 e-Cigarette/Vaping Use Never Used 03/15/24 10:09 PHQ-9: PHQ-9 Score PHQ-9: Total score 0 03/15/24 10:09 Depression Screening Interpretation: Negative Thrive Assessment: Date of Thrive Assessment Date Thrive assessed 10/29/23 03/15/24 10:09 Const General: alert; No acute distress Eyes Conjunctivae: conjunctivae normal Resp Auscultation: clear to auscultation bilaterally Cardio Rate: regular rate Rhythm: regular rhythm GI Inspection: Yes normal to inspection Extrem General: Yes normal to inspection and No edema Assessment and Plan Assessment & Plan (1) Permanent atrial fibrillation: Code(s): I48.21 - Permanent atrial fibrillation Plan: Continue with anticoagulation with apixaban but will need blood work on metoprolol 200 mg once a day (2) Hypertension: Code(s): I10 - Essential (primary) hypertension Qualifiers: Hypertension type: essential hypertension Qualified Code(s): I10 - Essential (primary) hypertension Plan: Continue with blood pressure medication. Decrease salt intake and exercise losartan 50 mg once a day and metoprolol 200 mg once a day (3) Hypercholesterolemia: Code(s): E78.00 - Pure hypercholesterolemia, unspecified Plan: Avoid fried foods, chicken skin, eggs, butter margarine, pastries and meat. Be it pork or beef they have a lot of cholesterol. LDL goal of less than 130 and triglyceride of less than 150 (4) Osteoarthritis of knee: Code(s): M17.10 - Unilateral primary osteoarthritis, unspecified knee Qualifiers: Osteoarthritis type: primary Laterality: bilateral Qualified Code(s): M17.0 - Bilateral primary osteoarthritis of knee Plan: Narcotic pain meds: Is being prescribed with the understanding that these medications are potentially addictive and should be used only when absolutely necessary and must always be secured. Any remaining pills should be safely disposed off appropriately. Patient is advised that narcotics can impaired judgment and one should not drive or operate heavy machinery while taking these medications. Never share these medications with anybody and do not leave them unattended. They will not be replaced under any circumstances. Orders: Orders Free T4 (Free Thyroxine) Today I48.21 - Permanent atrial fibrillation Liver Panel Today I48.21 - Permanent atrial fibrillation, R79.89 - Other specified abnormal findings of blood chemistry B Type Natriuretic Peptide Today I48.21 - Permanent atrial fibrillation Thyroid Stimulating Hormone Today I48.21 - Permanent atrial fibrillation Vitamin B12 and Folate Today I48.21 - Permanent atrial fibrillation Vitamin D 25-OH Total Today I48.21 - Permanent atrial fibrillation Medications: New eugenie.stocking,thigh,reg,med As directed 12 ea 0RF I87.2 - Venous insufficiency (chronic) (peripheral) eugenie.stocking,thigh,reg,med As directed 20 - 30 mm HG 12 ea 0RF I87.2 - Venous insufficiency (chronic) (peripheral) hydrocortisone 2.5% (Proctosol HC) 1 appl NM BID-QID PRN 30 grams 0RF hemorrhoids K64.9 - Unspecified hemorrhoids Coding Level of Care Code Est Pt Level 4 (78753) Diagnoses Permanent atrial fibrillation I48.21 Essential hypertension I10 Hypertension type: essential hypertension Hypercholesterolemia E78.00 Primary osteoarthritis of both knees M17.0 Osteoarthritis type: primary Laterality: bilateral
== END 2024-03-15 10:43 | disposition home or self-care (01) ==
PROVIDERS: PCP Internal Medicine; Visit Provider Internal Medicine
DX: I48.21 Permanent atrial fibrillation (principal); I10 Essential (primary) hypertension; E78.00 Pure hypercholesterolemia, unspecified; M17.0 Bilateral primary osteoarthritis of knee
CPT/HCPCS: 99214

== ENCOUNTER 2024-03-15 10:53 | Outpatient (REF) | payer MEDICARE, SELFPAY ==
[2024-03-15 11:10] LABS: MANUAL DIFF FLAG NO
[2024-03-15 11:42] LABS: Basophils Absolute Auto 0.1 X10*3/uL (0.0-0.2); Basophils Percent Auto 0.8 % (0-2); Eosinophils Absolute Auto 0.1 X10*3/uL (0.0-0.4); Eosinophils Percent Auto 1.7 % (0-4); Hematocrit 39.4 % (37.0-47.0); Hemoglobin 13.2 g/dl (12.0-16.0); Imm Gran Abs Auto 0.03 X10*3/uL (0.00-0.03); Imm Gran Pct Auto 0.5 % (0.0-0.4); Lymphocytes Percent Auto 30.7 % (20-40); Mean Corpuscular HGB Conc 33.5 g/dl (31.0-35.0); Mean Corpuscular Hemoglobin 33.2 pg (27.0-33.0); Mean Platelet Volume 9.9 fL (9.4-12.3); Monocytes Absolute Auto 0.7 X10*3/uL (0.1-1.2); Monocytes Percent Auto 11.2 % (2-11); Neutrophils Absolute Auto 3.6 x10*3/uL (2.0-8.3); Neutrophils Percent Auto 55.1 % (45-73); Platelet Count 216 X10*3/uL (160-400); Red Blood Count 3.98 X10*6/uL (4.20-5.50); Red Cell Distribution Width 12.6 % (11.0-16.0); White Blood Count 6.5 X10*3/uL (4.8-10.8)
[2024-03-15 12:03] LABS: B Type Natriuretic Peptide 381 pg/mL (<100)
[2024-03-15 12:41] LABS: Alanine Aminotransferase 9 U/L (0-31); Albumin Level 3.9 g/dL (3.5-5.0); Alkaline Phosphatase 82 U/L (39-117); Anion Gap 13 (12-20); Aspartate Amino Transferase 20 U/L (5-31); Bilirubin Direct 0.3 mg/dL (0.0-0.5); Bilirubin Total 0.9 mg/dL (0.0-1.0); Blood Urea Nitrogen 26 mg/dL (9-16); Carbon Dioxide 31 mmol/L (22-29); Chloride 99 mmol/L (96-108); Estimated Glomerular Filt Rate 59; Glucose Random 117 mg/dL (60-115); Sodium 139 mmol/L (135-145); Total Protein 8.1 g/dL (6.5-8.0)
[2024-03-15 12:43] LABS: Thyroid Stimulating Hormone 2.54 uIU/mL (0.32-4.0)
[2024-03-15 13:01] LABS: Folate 10.2 ng/mL (> or = 4.0); Vitamin B12 1769 pg/mL (200-900)
== END 2024-03-15 10:54 | disposition home or self-care (01) ==
LOC: HO.LAB 10:53
PROVIDERS: PCP Internal Medicine; Visit Provider Internal Medicine
DX: I48.21 Permanent atrial fibrillation (principal); R79.89 Other specified abnormal findings of blood chemistry
CPT/HCPCS: 36415; 80053; 82248; 82306; 82607; 82746; 83880; 84439; 84443; 85025

== ENCOUNTER 2024-06-30 09:27 | Outpatient (AMB) | payer MEDICARE, SELFPAY ==
--- NOTE | 2024-06-30 09:32 | A.OFFPC_ITS ---
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 Accompanied by: Self / Same As Patient Allergies amlodipine [AMLODIPINE] Allergy (Unknown, Verified 06/30/24 09:36) UNKNOWN carvedilol [CARVEDILOL] Allergy (Unknown, Verified 06/30/24 09:36) UNKNOWN irbesartan [From AVAPRO] Allergy (Unknown, Verified 06/30/24 09:36) UNKNOWN levofloxacin [From LEVAQUIN] Allergy (Unknown, Verified 06/30/24 09:36) GENERALIZED MUSCLE PAIN naproxen [Naproxen] Allergy (Unknown, Verified 06/30/24 09:36) HIVES, severe rash tetracycline [TETRACYCLINE] Allergy (Unknown, Verified 06/30/24 09:36) UNKNOWN CARE ONE TRIPLE ANTIBTIOTIC OINTMENT Allergy (Intermediate, Uncoded 03/15/24 10:04) rash Tobacco use date assessed: 10/29/23 Dental Screening Dental Screen Date: 10/29/23 HPI OA knee HPI Details The patient is an 89-year-old female presenting with unintended weight loss and associated symptoms. The patient reports continued weight loss despite previous interventions, with a noticeable decline in appetite. The problem of weight loss has persisted, and the patient states that despite no troubling laboratory results, she has been unable to maintain her previous weight and feels shrinking. The patient's nutritional intake has been insufficient, as she reports not eating well and declines appetite-stimulating interventions at this time. Contributory to her health decline, the patient notes intermittent allergies and nasal congestion, for which she inconsistently uses prescribed saline nasal sprays. Reports of knee effusion were noted downstairs, where drainage was suggested but not always deemed necessary by healthcare providers. She also has a history of atrial fibrillation, which requires careful monitoring. The patient's cardiac issues are paired with a history of using diuretics, noted to affect her fluid status, and the importance of managing this along with her cardiac condition was emphasized in previous visits. There is a mention of sinus-related discomfort for which sinus rinses were suggested. The patient reports experiences regarding the numbness of her left arm possibly due to nervous involvement, and while she described some discomfort involving her arm, she declined any further detailed evaluation or intervention at this time. [facility] Medical History (Updated 06/30/24 @ 10:09 by Ann Marie Lyles MD) Left-sided chest pain Ulnar neuropathy at elbow of left upper extremity Reactive airway disease Blurring of vision Nasal congestion Bronchitis Screening for eye condition Bilateral artificial lens implant Conjunctivitis, both eyes Cough Nasal congestion Compression fracture of T10 vertebra Mammogram declined Cataract Porphyria cutanea tarda Uterine prolapse Congestive heart failure TIA (transient ischemic attack) Atrial fibrillation Insomnia Hypertension Hypercholesterolemia Peripheral vascular disease Osteoarthritis of knee Surgical History History of right hip hemiarthroplasty S/P hip hemiarthroplasty History of uterine prolapse History of biopsy History of D&C Family History Father Hypertension Mother Hypertension Daughter Colon cancer Lymph node cancer Social History Household Members: None Housing: House Housing Other:: Ambulates with a cane Do you presently have visiting nurse or other home services: Yes (elder care, 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 Kevin Kelly, Jacqui Horton, Castro Buck and colleagues, with an educational ed from [employer]. Physical exam (Primary Care) Vital Signs: Last Vital Signs Pulse 72 06/30/24 09:35 BP 118/86 06/30/24 09:35 Pulse Ox 98 06/30/24 09:35 Oxygen Delivery Method Room Air 06/30/24 09:35 Next steps: Slight Tender on palpation of the left chest. No pains on the anterior chest. Also noted on the left lower quadrant of the abdomen to the groin area there is a 3 x 4 cm mass non reducible nontender on palpation no redness no swelling. BMI result Body Mass Index 22.1 Tobacco/Smoking Status: Tobacco use Status Tobacco use date assessed 10/29/23 06/30/24 09:34 Patient Tobacco Use Status Never used Tobacco 06/30/24 09:34 Tobacco use type Cigarette 06/30/24 09:34 e-Cigarette/Vaping Use Never Used 06/30/24 09:34 Thrive Assessment: Date of Thrive Assessment Date Thrive assessed 10/29/23 06/30/24 09:34 Const General: alert; No acute distress Eyes Conjunctivae: conjunctivae normal Resp Auscultation: clear to auscultation bilaterally Cardio Rate: regular rate Rhythm: regular rhythm GI Inspection: Yes normal to inspection Extrem General: Yes normal to inspection and No edema Office Procedures Flu Questionnaire Does the patient have a severe egg allergy?: No Flu Questionnaire Does the patient have a severe egg allergy?: No Does the patient have severe life threatening allergies?: No Does the patient have a fever or illness today?: No Has the patient ever had Guillain-[place] Syndrome?: No Has the patient ever had any past reaction to a flu shot?: No Immunizations Fluarix Triv [id number] (PF) 45 mcg (15 mcg x 3)/0.5 mL IM syringe Performing Provider: Ann Marie Lyles MD Performing Location: [facility] Documented (not given) by: AUTUMN Alejandre on 06/30/24 09:42 Reason Not Given: Patient Refused Fluarix Triv [id number] (PF) 45 mcg (15 mcg x 3)/0.5 mL IM syringe Performing Provider: Ann Marie Lyles MD Performing Location: [facility] Administered by: AUTUMN Fabian on 06/30/24 10:18 Dose Route Admin Location Dispensed Lot Number Expiration Date [facility] 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 0.5 mL IM Left Deltoid 0.5 mL [id number] 01/09/25 32325-191-25 [employer] VIS Given Date VIS Provided VIS Publication Date 06/30/24 Single Vaccine 21 Eligibility Eligibility Date Funding Source Not [facility] Eligible 06/30/24 Private Coding Level of Care Code Est Pt Level 4 (27215) Complex EM visit Add On G2211 Diagnoses Permanent atrial fibrillation I48.21 Chronic diastolic congestive heart failure I50.32 Heart failure chronicity: chronic Heart failure type: diastolic Essential hypertension I10 Hypertension type: essential hypertension Hypercholesterolemia E78.00 Primary osteoarthritis of both knees M17.0 Laterality: bilateral Osteoarthritis type: primary Primary insomnia F51.01 Insomnia type: primary Ulnar neuropathy at elbow of left upper extremity G56.22 Left inguinal hernia K40.90 Constipation K59.00 Left-sided chest pain R07.9 Assessment & Plan Assessment & Plan (1) Permanent atrial fibrillation: Code(s): I48.21 - Permanent atrial fibrillation Category: Medical Plan: Patient on apixaban 2.5 mg twice a day. Continue with anticoagulation continue with renal function testing twice a day year. (2) Congestive heart failure: Code(s): I50.9 - Heart failure, unspecified Category: Medical Qualifiers: Heart failure chronicity: chronic Heart failure type: diastolic Qualified Code(s): I50.32 - Chronic diastolic (congestive) heart failure Plan: Continue with the diuretic and monitor for renal function (3) Hypertension: Code(s): I10 - Essential (primary) hypertension Category: Medical Qualifiers: Hypertension type: essential hypertension Qualified Code(s): I10 - Essential (primary) hypertension Plan: Continue with blood pressure medication. Decrease salt intake and exercise takes metoprolol 200 mg once a day losartan 50 mg once a day (4) Hypercholesterolemia: Code(s): E78.00 - Pure hypercholesterolemia, unspecified Category: Medical Plan: Avoid fried foods, chicken skin, eggs, butter margarine, pastries and meat. Be it pork or beef they have a lot of cholesterol 2022 last tested LDL goal of less than 130 diet controlled. (5) Osteoarthritis of knee: Code(s): M17.10 - Unilateral primary osteoarthritis, unspecified knee Category: Medical Qualifiers: Laterality: bilateral Osteoarthritis type: primary Qualified Code(s): M17.0 - Bilateral primary osteoarthritis of knee Plan: Narcotic pain meds: Is being prescribed with the understanding that these medications are potentially addictive and should be used only when absolutely necessary and must always be secured. Any remaining pills should be safely disposed off appropriately. Patient is advised that narcotics can impaired judgment and one should not drive or operate heavy machinery while taking these medications. Never share these medications with anybody and do not leave them unattended. They will not be replaced under any circumstances. (6) Insomnia: Code(s): G47.00 - Insomnia, unspecified Category: Medical Qualifiers: Insomnia type: primary Qualified Code(s): F51.01 - Primary insomnia Plan: Continue with medication as needed (7) Ulnar neuropathy at elbow of left upper extremity: Code(s): G56.22 - Lesion of ulnar nerve, left upper limb Category: Medical (8) Left inguinal hernia: Code(s): K40.90 - Unilateral inguinal hernia, without obstruction or gangrene, not specified as recurrent Category: Medical (9) Constipation: Code(s): K59.00 - Constipation, unspecified Category: Medical (10) Left-sided chest pain: Code(s): R07.9 - Chest pain, unspecified Category: Medical Plan - Weight Loss: Discuss nutritional interventions and consider consulting a dietitian to address dietary intake. - Allergic Rhinitis: Continue regular use of saline nasal sprays. Consider environmental allergen evaluation. - Atrial Fibrillation: Maintain regular follow-up for cardiac evaluation. Ensure adherence to current medication regimen and monitor for symptoms. - Knee Effusion: Medical management as necessary. Consider orthopedic consultation if symptoms persist or worsen. - Neurologic Examination: Monitor symptoms of numbness in left arm and fingers; re-evaluate if symptoms progress or impair function. Orders: Orders Complete Blood Count Auto Diff 2 Months I48.21 - Permanent atrial fibrillation Comprehensive Met. Panel 2 Months I48.21 - Permanent atrial fibrillation Free T4 (Free Thyroxine) 2 Months I48.21 - Permanent atrial fibrillation Vitamin B12 and Folate 2 Months I48.21 - Permanent atrial fibrillation B Type Natriuretic Peptide 2 Months I48.21 - Permanent atrial fibrillation Influenza [id number] Immunization Today Z23 - Encounter for immunization XR chest 2V Today R07.9 - Chest pain, unspecified Thyroid Stimulating Hormone 2 Months I48.21 - Permanent atrial fibrillation Vitamin D 25-OH Total 2 Months I48.21 - Permanent atrial fibrillation Magnesium 2 Months I48.21 - Permanent atrial fibrillation Lipid Panel 2 Months E78.00 - Pure hypercholesterolemia, unspecified, I48.21 - Permanent atrial fibrillation Influenza [id number] Immunization Today Z23 - Encounter for immunization Medications: New sennosides-docusate sodium 8.6-50 mg (Senna Plus) 2 tab-caps (2 x 8.6-50 mg) PO DAILY 60 caps 0RF K59.00 - Constipation, unspecified
[2024-06-30 09:35] VITALS: BP 118/86; PULSE 72; O2SAT 98; BMI 22.1
== END 2024-06-30 10:19 | disposition home or self-care (01) ==
PROVIDERS: PCP Internal Medicine; Visit Provider Internal Medicine
DX: I48.21 Permanent atrial fibrillation (principal); I50.32 Chronic diastolic (congestive) heart failure; I10 Essential (primary) hypertension; E78.00 Pure hypercholesterolemia, unspecified; M17.0 Bilateral primary osteoarthritis of knee; F51.01 Primary insomnia; G56.22 Lesion of ulnar nerve, left upper limb; K40.90 Unilateral inguinal hernia, without obstruction or gangrene, not specified as recurrent; K59.00 Constipation, unspecified; R07.9 Chest pain, unspecified; Z23 Encounter for immunization

== ENCOUNTER → 2024-06-30 09:27 | Outpatient (BNVA) | payer MEDICARE, SELFPAY | PROVIDERS: PCP Internal Medicine; Visit Provider Internal Medicine | DX: M17.0 Bilateral primary osteoarthritis of knee (principal); I48.21 Permanent atrial fibrillation; I50.32 Chronic diastolic (congestive) heart failure; I11.0 Hypertensive heart disease with heart failure; E78.00 Pure hypercholesterolemia, unspecified; F51.01 Primary insomnia; G56.22 Lesion of ulnar nerve, left upper limb; R07.9 Chest pain, unspecified; K59.00 Constipation, unspecified; Z23 Encounter for immunization | CPT/HCPCS: 90471; 90656; 99212 ==

== ENCOUNTER 2024-09-30 09:39 | Outpatient (REF) | payer MEDICARE, SELFPAY ==
--- NOTE | ~2024-09-30 | XR_ITS ---
CLINICAL HISTORY: R07.9 - Chest pain, unspecified 2 view chest x-ray Comparison: 10/30/2022 Findings: No consolidation or effusion. Heart size is normal. Hiatal hernia again noted. No acute fracture. IMPRESSION: 1. No acute findings. This document has been electronically signed by: Satnam Johnson MD on 10/01/2024 08:08:20
== END 2024-09-30 09:40 | disposition home or self-care (01) ==
LOC: HO.XRAY 09:39
PROVIDERS: PCP Internal Medicine; Visit Provider Internal Medicine
DX: R07.9 Chest pain, unspecified (principal)
CPT/HCPCS: 71046

== ENCOUNTER → 2024-09-30 09:44 | Outpatient (BNV) | payer MEDICARE, SELFPAY | PROVIDERS: PCP Internal Medicine; Visit Provider Specialist | DX: R07.9 Chest pain, unspecified (principal) | CPT/HCPCS: 71046 ==

== ENCOUNTER 2024-10-04 09:51 | Outpatient (AMB) | payer MEDICARE, SELFPAY ==
[2024-10-04 10:01] VITALS: BP 112/68; PULSE 56; O2SAT 93; BMI 21.9
--- NOTE | 2024-10-04 10:01 | MHC.PC.OV ---
Vital Signs 10/04/24 10:01 Height 5 ft 1 in Weight 116 lb BMI 21.9 BP 112/68 Blood Pressure Location Lt brachial Position Sitting Pulse 56 Pulse Source Pulse Oximeter Pulse Oximetry (%) 93 Oxygen Delivery Method Room Air Intake Visit Reasons: Insomnia Intake Note: seems to have a rash on the right side of her back (mid section). States it is not painful or itchy. She also has pain on one of her toes on her right foot. She states it is swollen. She wants you to also look at her chest xray she had recently. Allergies amlodipine [AMLODIPINE] Allergy (Unknown, Verified 10/04/24 10:01) UNKNOWN carvedilol [CARVEDILOL] Allergy (Unknown, Verified 10/04/24 10:01) UNKNOWN irbesartan [From AVAPRO] Allergy (Unknown, Verified 10/04/24 10:01) UNKNOWN levofloxacin [From LEVAQUIN] Allergy (Unknown, Verified 10/04/24 10:01) GENERALIZED MUSCLE PAIN naproxen [Naproxen] Allergy (Unknown, Verified 10/04/24 10:01) HIVES, severe rash tetracycline [TETRACYCLINE] Allergy (Unknown, Verified 10/04/24 10:01) UNKNOWN CARE ONE TRIPLE ANTIBTIOTIC OINTMENT Allergy (Intermediate, Uncoded 10/04/24 10:01) rash Tobacco use date assessed: 10/04/24 Fall risk assessment: No Falls in past year Last assessed Fall Risk: 10/04/24 Dental Screening Dental Screen Date: 10/04/24 Did you have a dental visit in the last 12 months?: Yes Did you have a dental problem in the last 6 months where you did not have access to dental care?: No Was dental information given to patient?: Patient has dentist HPI Insomnia HPI Details Rigth mid back rash noted PFSH Medical History (Updated 10/04/24 @ 10:56 by Ann Marie Lyles MD) Left-sided chest pain Ulnar neuropathy at elbow of left upper extremity Reactive airway disease Blurring of vision Nasal congestion Bronchitis Screening for eye condition Bilateral artificial lens implant Conjunctivitis, both eyes Cough Nasal congestion Compression fracture of T10 vertebra Mammogram declined Cataract Porphyria cutanea tarda Uterine prolapse Congestive heart failure TIA (transient ischemic attack) Atrial fibrillation Insomnia Hypertension Hypercholesterolemia Peripheral vascular disease Osteoarthritis of knee Surgical History History of right hip hemiarthroplasty S/P hip hemiarthroplasty History of uterine prolapse History of biopsy History of D&C Family History Father Hypertension Mother Hypertension Daughter Colon cancer Lymph node cancer Social History Household Members: None Housing: House Housing Other:: Ambulates with a cane Do you presently have visiting nurse or other home services: Yes (elder care, preparer making department, meals on wheels) Alcohol intake: current Alcohol intake frequency: does not drink Alcohol type: wine Comment: sleeping Patient Tobacco Use Status: Never used Tobacco Tobacco use type: Cigarette e-Cigarette/Vaping Use: Never Used Second Hand Smoke Exposure: No service: No Current occupational status: retired Cognitive needs: No Hearing needs: Yes Vision needs: Yes Questionnaire PHQ-9 Over the last 2 weeks, how often have you been bothered by any of the following problems? 1. Little interest or pleasure in doing things: not at all 2. Feeling down, depressed, or hopeless: not at all 3. Trouble falling or staying asleep, or sleeping too much: not at all 4. Feeling tired or having little energy: not at all 5. Poor appetite or overeating: not at all 6. Feeling bad about yourself - or that you are a failure or have let yourself or your family down: not at all 7. Trouble concentrating on things, such as reading the newspaper or watching television: not at all 8. Moving or speaking so slowly that other people could have noticed. Or the opposite - being so fidgety or restless that you have been moving around a lot more than usual: not at all 9. Thoughts that you would be better off or of hurting yourself in some way: not at all Total score: 0 Depression Screening Interpretation: Negative Depression Screening Done: Yes Source: Developed by Drs. Kevin Kelly, Jacqui Horton, Castro Buck and colleagues, with an educational ed from [employer] Thrive Questionnaire Date Thrive assessed: 10/04/24 I am a: Patient What is your living situation today?: I have a steady place to live Within the past 12 months, did the food you bought not last and you didn't have the money to get more?: Never true Within the past 12 months, did you worry whether your food would run out before you got money to buy more?: Never true Do you have trouble paying for medicines?: No Do you have trouble getting transportation to medical appointments?: No Do you have trouble paying your heating and electricity bill?: No Do you have trouble taking care of your child, family member or friend?: No Do you have trouble with day-to-day activities such as bathing, preparing meals, shopping, managing finances, etc.?: No Are you currently unemployed and looking for a job?: No Are you interested in more education?: No Currently or been in a relationship where the following occur: No concerns reported THRIVE Score: 0 AUDIT C Alcohol Use Questionnaire (AUDIT-C) 1. How often do you have a drink containing alcohol?: Never 3. How often do you have six or more drinks on one occasion?: Never Total Score: 0 Score Reviewed/Action Taken: No BRIAN-7 AMB Questionnaire BRIAN-7 Date BRIAN - 7 assessed: 10/04/24 Feeling nervous, anxious, or on edge: 0 = Not at all Not being able to stop or control worryin = Not at all Worrying too much about different things: 0 = Not at all Trouble relaxin = Not at all Being so restless that it is hard to sit still: 0 = Not at all Becoming easily annoyed or irritable: 0 = Not at all Feeling afraid as if something awful might happen: 0 = Not at all Total BRIAN-7 score (0-4 normal; 5-9 mild; 10-14 moderate; 15-21 severe): 0 Source: Developed by Drs. Kevin Kelly, Jacqui Horton, Castro Buck and colleagues, with an educational ed from [employer] Physical exam (Primary Care) Vital Signs: Last Vital Signs Pulse 56 10/04/24 10:01 BP 112/68 10/04/24 10:01 Pulse Ox 93 10/04/24 10:01 Oxygen Delivery Method Room Air 10/04/24 10:01 BMI result Body Mass Index 21.9 Tobacco/Smoking Status: Tobacco use Status Tobacco use date assessed 10/04/24 10/04/24 10:04 Patient Tobacco Use Status Never used Tobacco 10/04/24 10:04 Tobacco use type Cigarette 10/04/24 10:04 e-Cigarette/Vaping Use Never Used 10/04/24 10:04 PHQ-9: PHQ-9 Score PHQ-9: Total score 0 10/04/24 10:47 Depression Screening Interpretation: Negative Thrive Assessment: Date of Thrive Assessment Date Thrive assessed 10/04/24 10/04/24 10:04 Currently or been in a relationship where the following occur: No concerns reported Const General: alert; No acute distress Eyes Conjunctivae: conjunctivae normal Resp Auscultation: clear to auscultation bilaterally Cardio Rate: regular rate Rhythm: regular rhythm GI Inspection: Yes normal to inspection Back/Spine/Pelvis Back/spine/pelvis image: 1. maculopapular to vesicular rash on the R mid back to The lower abdomen Extrem General: Yes normal to inspection and No edema Ankle/foot/toe images: 1. 1cm r middle toe redness, no swelling Coding Level of Care Code Est Pt Level 4 (06777) Complex EM visit Add On G2211 Diagnoses Primary osteoarthritis of both knees M17.0 Laterality: bilateral Osteoarthritis type: primary Essential hypertension I10 Hypertension type: essential hypertension Hypercholesterolemia E78.00 Paroxysmal atrial fibrillation I48.0 Atrial fibrillation type: paroxysmal Chronic diastolic congestive heart failure I50.32 Heart failure chronicity: chronic Heart failure type: diastolic Permanent atrial fibrillation I48.21 Shingles B02.9 Toe pain, right M79.674 Assessment & Plan Assessment & Plan (1) Osteoarthritis of knee: Code(s): M17.10 - Unilateral primary osteoarthritis, unspecified knee Category: Medical Qualifiers: Laterality: bilateral Osteoarthritis type: primary Qualified Code(s): M17.0 - Bilateral primary osteoarthritis of knee Plan: Narcotic pain meds: Is being prescribed with the understanding that these medications are potentially addictive and should be used only when absolutely necessary and must always be secured. Any remaining pills should be safely disposed off appropriately. Patient is advised that narcotics can impaired judgment and one should not drive or operate heavy machinery while taking these medications. Never share these medications with anybody and do not leave them unattended. They will not be replaced under any circumstances. (2) Hypertension: Code(s): I10 - Essential (primary) hypertension Category: Medical Qualifiers: Hypertension type: essential hypertension Qualified Code(s): I10 - Essential (primary) hypertension Plan: Continue with blood pressure medication. Decrease salt intake and exercise on losartan 50 mg once a day metoprolol 200 mg once a day (3) Hypercholesterolemia: Code(s): E78.00 - Pure hypercholesterolemia, unspecified Category: Medical Plan: Avoid fried foods, chicken skin, eggs, butter margarine, pastries and meat. Be it pork or beef they have a lot of cholesterol continuing to monitor (4) Atrial fibrillation: Comment: Dr. Gamez 03/12/2011 Holter and echo September 2017, ejection fraction 60-65% moderate pulmonary hypertension April 2019 normal LV elevate LV EDP, atrial dilatation moderate MR TR, May 2023 Code(s): I48.91 - Unspecified atrial fibrillation Category: Medical Qualifiers: Atrial fibrillation type: paroxysmal Qualified Code(s): I48.0 - Paroxysmal atrial fibrillation Plan: Continue with anticoagulation in the beta buster (5) Congestive heart failure: Code(s): I50.9 - Heart failure, unspecified Category: Medical Qualifiers: Heart failure chronicity: chronic Heart failure type: diastolic Qualified Code(s): I50.32 - Chronic diastolic (congestive) heart failure Plan: On metoprolol and furosemide 40 mg once a day (6) Permanent atrial fibrillation: Code(s): I48.21 - Permanent atrial fibrillation Category: Medical Plan: Continue with anticoagulation and metoprolol (7) Shingles: Comment: R mid back to the RLQ 10/04/2024 Code(s): B02.9 - Zoster without complications Category: Medical (8) Toe pain, right: Comment: 3rd toe Code(s): M79.674 - Pain in right toe(s) Category: Medical Plan History of Present Illness The patient is an 89-year-old female presenting for follow-up on her chronic conditions, including essential hypertension, atrial fibrillation, and congestive heart failure. Additionally, she is diagnosed with osteoarthritis of the knee and hypercholesterolemia. She reports an outbreak of shingles, associated with recent stress and effective pain management due to ongoing narcotic use. The patient has noted minimal pain from the rash. Previously, in March 2024, lab work revealed chronic microcytic anemia and elevated blood sugar. Her BNP was measured at 381, indicating ongoing heart strain. Medications managing her chronic conditions include losartan, metoprolol, and furosemide. Health Maintenance - Monitoring and management of elevated blood sugar. - Continued treatment regimen for hypertension and heart failure. - Pain management for osteoarthritis. Social History - Reports presence of significant stress due to personal issues. - Receives assistance from a home health aid several times a week. Review of Systems - Dermatologic: Reports rash, identified as shingles, without pain. - Musculoskeletal: Reports swelling and pain in the right toe. - Neurologic: Denied neurological symptoms but mentioned shoulder discomfort and weakness in the hand. - Psychological: Reports significant stress. Physical Exam - Musculoskeletal- Swelling observed in the right toe. Results - Labs: Chronic microcytic anemia with normal platelet and WBC count; elevated blood sugar; BNP at 381; high vitamin B12. - Imaging: X-rays in September were negative. Plan Management of the patient's chronic conditions includes maintaining current medication regimens for hypertension and atrial fibrillation, with adjustments as necessary. Antiviral medication is prescribed for shingles given the absence of significant pain, attributable to pain management for osteoarthritis. Monitoring continues for chronic anemia and elevated blood sugar, with periodic vitamin level checks due to hypervitaminosis. Exploring podiatry referral for persistent right toe pain is planned, with close observation of symptoms. Family and social stressors will be considered in ongoing care strategies. Patient was informed and verbally consented to the use of an ambient scribe for clinic note documentation during this visit. Discussion Notes I discussed with the patient the management plan for shingles, including starting an antiviral course, acknowledging the absence of pain possibly due to concurrent narcotic use. We reviewed the importance of controlling her hypertension, atrial fibrillation, hypercholesterolemia, and chronic heart failure with current medications. The necessity of ongoing monitoring of her blood glucose and chronic microcytic anemia, along with periodic vitamin B12 evaluations, was covered. We consented to monitor the swelling in her toe, with a decision to consult podiatry if pain persists. Stress management and home health support were reviewed to help reduce stress-related health impacts. Patient Instructions - Start antiviral medication for shingles immediately, and complete the full course. - Continue current medications for heart conditions as directed. - Monitor blood sugar levels regularly and follow dietary guidance. - Use supportive stockings as needed for knee pain. - Schedule follow-up if significant changes occur in symptoms, especially related to foot pain or rash. - Engage with home health aid services to help manage daily activities and stress. Orders: Orders XR toe RT min 2V Today M79.674 - Pain in right toe(s) Referrals Podiatry Referral M79.674 - Pain in right toe(s) Medications: New valacyclovir (Valtrex) 1,000 mg PO Q8H 21 tabs 0RF B02.9 - Zoster without complications
== END 2024-10-04 11:03 | disposition home or self-care (01) ==
LOC: HO.HMCH 09:52
PROVIDERS: PCP Internal Medicine; Visit Provider Internal Medicine
DX: I48.0 Paroxysmal atrial fibrillation (principal); I50.32 Chronic diastolic (congestive) heart failure; I48.21 Permanent atrial fibrillation; M17.0 Bilateral primary osteoarthritis of knee; I10 Essential (primary) hypertension; E78.00 Pure hypercholesterolemia, unspecified; B02.9 Zoster without complications; M79.674 Pain in right toe(s)

== ENCOUNTER → 2024-10-04 09:51 | Outpatient (BNVA) | payer MEDICARE, SELFPAY | PROVIDERS: PCP Internal Medicine; Visit Provider Internal Medicine | DX: M17.0 Bilateral primary osteoarthritis of knee (principal); E78.00 Pure hypercholesterolemia, unspecified; I48.0 Paroxysmal atrial fibrillation; I11.0 Hypertensive heart disease with heart failure; I50.32 Chronic diastolic (congestive) heart failure; I48.21 Permanent atrial fibrillation; B02.9 Zoster without complications; M79.674 Pain in right toe(s) | CPT/HCPCS: 99212 ==

== ENCOUNTER 2025-01-27 09:34 | Outpatient (AMB) | payer MEDICARE, SELFPAY ==
--- OUTSIDE RECORDS SUMMARY | 2025-01-27 09:42 | XMS_ITS | Patient Health Record ---
Author Organization [facility] Sandra peterson [place] Address [address] [place] [address] Care Team Providers Care Tuyere Fitter Name Role Phone Ann Marie Lyles Primary Care Provider Unavailabl e Anali Pimentel Unavailable [phone] Allergies Allergen (clinical drug ingredient) Drug/Non Drug Allergy documented on EMR Reaction Allergy Type Onset Date Status amlodipine amLODIPine Besylate Unknown Drug Allergy Active carvedilol Carvedilol Unknown Drug Allergy Activ e irbesartan Irbesartan Unknown Drug Allergy Activ e levofloxacin levoFLOXacin muscle pain Drug Allergy Active naproxen Naproxen severe rash Drug Allergy Activ e Triple Antibiotic Care One - rash Drug Allergy Active Product containing tetracycline structure (product) Tetracyclines & Related Unknown Drug Allergy Active Results Component Value Reference Range Notes X ray : Foot, right 3V Reviewed date:11/14/2024 12:19:17 PM Interpretation:See Examination above Performing Lab: Notes/Report: See Examination above Reason For Referral Diagnosis 1 Pain in left foot (M 79.672) Diagnosis 2 Other viral warts (B 07.8) Diagnosis 3 Pain in right toe(s) (M79.674) Diagnosis 4 Tinea unguium (B35.1 ) Diagnosis 5 Ingrowing nail (L60. 0) Diagnosis 6 Pain in Limb (729.5) Referring Provider First Name Ann Marie Referring Provider Last Name Po [facility] Referred Provider Anali Pimentel Referred Address [address] [facility],[place], [place],[address], Referred Provider Specialty Podiatry Referral Priority Routine Medications Medication SIG (Take, Route, Frequency, Duration) Notes Start Date End Date Status Compression Stockings 20-30mm Hg 1 pair wear daily; Duration: 30 days Active Pradaxa Not-Taking Vitamin B-12 1000 MCG TAKE ONE TABLET BY MOUTH EVERY DAY Oral; Duration: 90 Active Doxycycline Hyclate 100 MG TAKE ONE CAPS ULE BY MOUTH TWICE A DAY Oral; Duration: 7 Not-Taking zzzCompression Stockings 20-30mm Hg . . .; Duration: . Active Cephalexin 500 MG 1 capsule Orally Twi ce a day; Duration: 10 day(s) 08/22/2013 Not-Taking zzzCompression Stockings 20-30mm Hg . . .; Duration: . Not-Takin g zzzCompression Stockings 20-30mm Hg . . .; Duration: . Not-Takin g Azithromycin 250 MG TAKE 2 TABLETS ON FIRST DAY , THEN 1 TABLET DAILY FOR 4 DAYS Oral; Duration: 5 Not-Takin g Venes Custom Medical Stockings Active Compression Stockings Not-Taking Acetaminophen-Codeine 300-30 MG 1 tablet as needed Orally every4-6 hrs; Duration: as needed 08/22/2013 Active zzzCompression Stockings 20-30mm Hg . . .; Duration: . 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 No Points 0 Interpretation Negative Tobacco use other than smoking: Question Answer Notes Are you an other tobacco user? 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 Vital Signs Blood pressure diastolic 79 mm Hg 11/14/2024 Height 5 ft 4 in in 11/14/2024 Blood pressure systolic 117 mm Hg 11/14/2024 Weight 120 lbs 11/14/2024 BMI 20.6 kg/m2 11/14/2024 Procedures Procedure Date Ordered Date Performed Result Body Sit e 06503-DSUTHDG NAIL, 6 OR MORE 11/14/2024 N/A 79289-Ssrfhcqp Plate 11/14/2024 N/A Encounters Encounter Location Date Provider Diagnosis [facility] [address] [address] 11/14/2024 Anali Black Ingrowing nail L60.0 ; Pain in right toe(s) M79.674 ; Onychomycosis B35.1 ; Pain in left toe(s) M79.675 ; Other hammer toe(s) (acquired), right foot M20.41 ; Arthritis of joint of lesser toe, right M19.071 ; Subluxation of metatarsophalangeal joint of toe, initial encounter S93.149A ; Edema, lower extremity R60.0 ; Osteoarthritis of right ankle and foot M19.071 and Osteoporosis, unspecified M81.0 Assessments Encounter Date Diagnosis (ICD Code) Assessment Notes Treatment Notes Treatment Clinical Notes Section Notes 11/14/2024 Ingrowing nail (ICD- 10 - L60.0) 11/14/2024 Pain in right toe(s) (ICD-10 - M79.674) 11/14/2024 Onychomycosis (ICD-1 0 - B35.1) 11/14/2024 Pain in left toe(s) (ICD-10 - M79.675) 11/14/2024 Other hammer toe(s) (acquired), right foot (ICD-10 - M20.41) 11/14/2024 Arthritis of joint o f lesser toe, right (ICD-10 - M19.071) 11/14/2024 Subluxation of metatarsophalangeal joint of toe, initial encounter (ICD-10 - S93.149A) 11/14/2024 Edema, lower extremi ty (ICD-10 - R60.0) 11/14/2024 Osteoarthritis of ri ght ankle and foot (ICD-10 - M19.071) 11/14/2024 Osteoporosis, unspecified (ICD-10 - M81.0) Plan Of Treatment Pending Test Test Name Order Date 74126-PTJETMJ NAIL, 6 OR MORE 03/31/2011 97626-VBNVYVW NAIL, 6 OR MORE 05/05/2011 17380-MVWHGKY NAIL, 6 OR MORE 07/16/2011 62391-NIUISDU NAIL, 6 OR MORE 09/17/2011 38758-LZAQAAN NAIL, 6 OR MORE 10/15/2011 92135-MFKBHWZ NAIL, 6 OR MORE 11/12/2011 18118-CQUXNRU NAIL, 6 OR MORE 01/26/2012 90582-QNQYPCM NAIL, 6 OR MORE 04/05/2012 97014-MUFNZJB NAIL, 6 OR MORE 09/09/2012 51132-FHRTSPM NAIL, 6 OR MORE 11/04/2012 85722-EXYBCZA NAIL, 6 OR MORE 01/20/2013 15959-NUNHKZZ NAIL, 6 OR MORE 03/24/2013 51790-TFNUKLQ NAIL, 6 OR MORE 06/06/2013 07104-NWZHCMX NAIL, 6 OR MORE 10/05/2013 49038-AGIULNM NAIL, 6 OR MORE 01/05/2014 84594-SOMEVOI NAIL, 6 OR MORE 03/08/2014 05102-DPRAOWC NAIL, 6 OR MORE 06/05/2014 83105-HIUUFXA NAIL, 6 OR MORE 09/06/2014 08622-XXVEBKL NAIL, 6 OR MORE 11/16/2014 58514-FYWMNJZ NAIL, 6 OR MORE 02/05/2015 44624-EDDFJCM NAIL, 6 OR MORE 10/03/2015 27887-NKXQAXH NAIL, 6 OR MORE 01/30/2016 20347-XLYKZCI NAIL, 6 OR MORE 04/28/2016 71838-QXZHSDZ NAIL, 6 OR MORE 08/18/2016 44411-OUMEMOI NAIL, 6 OR MORE 10/20/2016 35497-QGSUXJQ NAIL, 6 OR MORE 12/29/2016 21556-ZVILDWX NAIL, 6 OR MORE 04/02/2017 59814-NNWEMLW NAIL, 6 OR MORE 06/15/2017 09968-TSSYZHI NAIL, 6 OR MORE 08/17/2017 18921-KXODXRK NAIL, 6 OR MORE 11/09/2017 67556-UGICRKK NAIL, 6 OR MORE 02/08/2018 84366-CPGUFJP NAIL, 6 OR MORE 05/10/2018 33846-FEXBHFV NAIL, 6 OR MORE 08/05/2018 83933-BRRCOEB NAIL, 6 OR MORE 10/25/2018 97772-VDWGQRJ NAIL, 6 OR MORE 01/27/2019 86105-XDITRUP NAIL, 6 OR MORE 03/31/2019 65061-IOCXXTT NAIL, 6 OR MORE 06/02/2019 94789-ICZPLYS NAIL, 6 OR MORE 08/04/2019 32363-DBMKNDW NAIL, 6 OR MORE 11/24/2019 71211-YGQJUBD NAIL, 6 OR MORE 02/09/2020 29407-DGCPTPC NAIL, 6 OR MORE 04/19/2020 07988-PJIKQXA NAIL, 6 OR MORE 10/01/2020 67623-VZOFRCE NAIL, 6 OR MORE 12/31/2020 58205-JITCNUK NAIL, 6 OR MORE 03/04/2021 80501-VBCCSOD NAIL, 6 OR MORE 06/13/2021 90659-PDPVKCP NAIL, 6 OR MORE 11/11/2021 77124-QJTJCIN NAIL, 6 OR MORE 02/10/2022 49454-BMQWPDG NAIL, 6 OR MORE 04/24/2022 00172-HJYODMV NAIL, 6 OR MORE 11/14/2024 98956-KPMRVEL NAIL, 1-5 07/02/2015 27795-VINQBPN NAIL, 1-5 05/07/2015 04521-Dcto Destruction, -14 04/04/2015 41909-Zrgl Destruction, -14 07/02/2015 96329-Zdvy Destruction, -14 02/05/2015 66770-Fjlc Destruction, -14 11/15/2015 71885-Awhn Destruction, -14 04/28/2016 99873-Xrft Destruction, -14 01/30/2016 54075-Lzvo Destruction, -14 03/10/2016 43660-Wdyo Destruction, -14 11/16/2014 75767-Kwaf Destruction, -14 10/11/2014 49279-Qvln Destruction, 07-2612/13/2014 34805-Woub Destruction, 07-2601/10/2015 45889-Cegh Destruction, 07-2609/06/2014 46360-Peme Destruction, 07-2608/07/2014 23923-Yurb Destruction, 07-2606/05/2014 65529-Ygkk Destruction, 07-2609/13/2018 60925-Jzjp Destruction, 07-2610/25/2018 73368-Xvde Destruction, 07-2606/21/2018 80831-Khuq Destruction, 07-2608/05/2018 58725-Voud Destruction, 07-2603/29/2018 22562-Szdk Destruction, 07-2605/10/2018 98365-Epqu Destruction, 07-2612/28/2017 28529-Mqws Destruction, 07-2602/08/2018 33292-Peod Destruction, 07-2606/15/2017 68406-Zmoy Destruction, 07-2608/17/2017 47845-Rkal Destruction, 07-2605/07/2017 89304-Lgui Destruction, 07-2602/16/2017 35123-Jget Destruction, 07-2604/02/2017 53294-Vavd Destruction, 07-2612/29/2016 17965-Mnai Destruction, 07-2610/20/2016 72423-Cbkd Destruction, 07-2608/18/2016 60357-Gtys Destruction, 07-2610/03/2015 89175-Phbt Destruction, 07-2606/12/2016 77957-Ucln Destruction, 07-2603/08/2014 75353-Rmke Destruction, 07-2604/05/2014 80456-Hszi Destruction, 07-2602/08/2014 15090-Eunf Destruction, 07-2610/05/2013 55140-Jqbc Destruction, 07-2610/04/2012 02061-Tqws Destruction, 07-2605/04/2013 62639-Scfz Destruction, 07-2606/06/2013 23676-Ktur Destruction, 07-2607/27/2013 13437-Xpcz Destruction, 07-2602/17/2013 31876-Wktr Destruction, 07-2609/17/2011 90512-Xgch Destruction, 07-2611/04/2012 58537-Bqdh Destruction, 07-2612/23/2012 65503-Uqpz Destruction, 07-2609/09/2012 80929-Cmdc Destruction, 07-2605/03/2012 26697-Wdzy Destruction, 07-2606/09/2012 23346-Bnci Destruction, 07-2604/05/2012 77634-Vegf Destruction, 07-2603/04/2012 94838-Lged Destruction, 07-2612/10/2011 82712-Ieco Destruction, 07-2601/26/2012 39238-Wmgv Destruction, 07-2611/12/2011 23832-Xedo Destruction, 07-2610/15/2011 97386-Qsxw Destruction, 07-2608/18/2011 60393-Fguk Destruction, 07-2607/16/2011 10926-Xzzw Destruction, 07-2605/05/2011 91763-Ueaa Destruction, 07-2603/31/2011 93958-Wfxu Destruction, 07-2611/11/2021 99663-Owvw Destruction, 07-2606/13/2021 16246-Hqtg Destruction, 07-2611/12/2020 97107-Mdjm Destruction, 07-2606/04/2020 68330-Oerd Destruction, 07-2604/19/2020 33161-Zpsn Destruction, 07-2602/09/2020 08488-Tcnp Destruction, 07-2606/02/2019 96940-Ztjx Destruction, 07-2611/24/2019 63145-Cqli Destruction, 07-2608/04/2019 46743-Ajmz Destruction, 07-2603/31/2019 43385-Hgux Destruction, 07-2612/13/2018 54904-Furt Destruction, 07-2611/09/2017 30079-Kfcm Destruction, 07-2601/27/2019 14492-Vgwndrzy Plate 06/02/2019 31967-Dfwujriz Plate 11/24/2019 58122-Nezwqqaj Plate 02/09/2020 10605-Ypelihup Plate 10/01/2020 47851-Hwbzcvrg Plate 06/04/2020 72023-Rsodidkx Plate 11/12/2020 21742-Xbpdwsto Plate 06/13/2021 17885-Lxfjlsmi Plate 12/31/2020 75253-Bxyervib Plate 11/11/2021 22979-Irtjvred Plate 02/10/2022 68201-Uctwbppy Plate 11/14/2024 66579-Mjewslpm Plate 07/16/2011 52164-Prnmgtrl Plate 01/26/2012 56864-Dciphihh Plate 04/05/2012 21450-Oxwbyrma Plate 07/14/2012 77071-Heezvkdr Plate 05/03/2012 21883-Lhyibmqf Plate 09/09/2012 62440-Cbphmdqw Plate 12/23/2012 62105-Ornrawtw Plate 10/04/2012 88189-Shchpwtr Plate 02/17/2013 54502-Udklgomg Plate 05/04/2013 70265-Zwfftydg Plate 03/24/2013 48269-Xdhogdtw Plate 11/09/2013 68521-Ljwcwoaa Plate 10/05/2013 03438-Gdoptkje Plate 06/06/2013 88663-Rwenygsn Plate 01/05/2014 01140-Mssqjbnf Plate 04/05/2014 78992-Dmlzbpct Plate 05/04/2014 19277-Smgdyefj Plate 08/18/2016 83076-Gnppwcuk Plate 10/20/2016 45243-Iluchikv Plate 12/29/2016 64964-Mosgsjxx Plate 06/15/2017 79978-Jjlfwzpw Plate 09/28/2017 49083-Rolrixhk Plate 03/29/2018 42502-Csxlbhym Plate 09/13/2018 03422-Spjvbgdo Plate 08/07/2014 67909-Psdbimhq Plate 06/05/2014 02247-Tgjdthiv Plate 09/06/2014 80375-Rvgnqrbs Plate 10/11/2014 03236-Rjraedtg Plate 02/05/2015 97927-Ovgyutxc Plate 12/13/2014 17802-Tfhvdfka Plate 11/16/2014 48435-Jlbiokgi Plate 04/28/2016 00484-Tbqskhko Plate 12/26/2015 87415-Afjsjlil Plate 08/15/2015 59298-Aeyneukx Plate 10/03/2015 19071-Blyhkbjf Plate 04/04/2015 10517-Ruxzilly Plate 06/06/2015 07493-Vztvzzeg Plate Each Additional 59072-Yqllnyhp Plate Each Additional 01/2015 01041-Qvrdjxiq Plate Each Additional 05153-Qgoedhso Plate Each Additional 02985-Bzpjfxvb Plate Each Additional 34342-Cgwfcklu Plate Each Additional 71589-Nlloijji Plate Each Additional 95948-Iwuwdehv Plate Each Additional 15912-Wgwdezeu Plate Each Additional 10/2011 56787-Pcthqejq Plate Each Additional 08/2021 45614-Mpxgyknm Plate Each Additional 09244-Sayujksd Plate Each Additional 67110-Hoyfjuoz Plate Each Additional 68146-UFE 08/22/2013 59718- Debride <25 sq cm 10/05/2013 55930- Debride <25 sq cm 11/09/2013 31264- Debride <25 sq cm 05/04/2014 65886- Debride <25 sq cm 01/05/2014 59511- Debride <25 sq cm 11/12/2011 58293- Debride <25 sq cm 03/04/2012 52057-WFABTRU SKIN/TISSUE 01/05/2014 00354-RMSFXKN SKIN/TISSUE 09/07/2013 99921 I&D ABSCESS- SIMPLE,SINGLE 012 [id number] I&D ABSCESS- SIMPLE,SINGLE 012 [id number] I&D ABSCESS- SIMPLE,SINGLE 012 [id number] I&D ABSCESS- SIMPLE,SINGLE 021 [id number] I&D ABSCESS- SIMPLE,SINGLE 020 [id number] I&D ABSCESS- SIMPLE,SINGLE 019 Insurance Providers Payer Name Payer Address Payer Phone Subscriber Number Group Number Insured Name Patient Relationship to Insured Coverage Start Date Coverage End Date [employer] 65 Medicare Preferred [address] [place] [address] [id number] Julianna Meehan Self - patient is the insured Medical (General) History Medical History History ICD Code measles mumps chicken pox high blood pressure Pneumonia Insomnia chest pain Ulnar neuropathy at elbow of left upper extremity Bronchitis Reactive airway disease Conjunctivitis, bilateral eyes Cataracts Compression fracture of T10 Vertebra Uterine prolapse Congestive heart failure TIA Atrial fibrillation Hypercholesterolemia Peripheral vascular disease osteoarthritis of knee Porphyria cutanea tarda Shingles Surgical History Surgery Date(Month/Year) Biopsy right cheek 08/31/13 cataract surgery 11/2015 hip surgery 06/28/20 D&C uterine prolapse Hospitalization History Reason Date(Month/Year) [facility] [place]- fell dislocated hip 07/2020 [facility] [place] - fell broke hip 06/26/20 Pt stated that she had a fal l she didnt go to the ER she stated she seeing other doctor. 04/2019 [facility] [place]- E.R, Back problems 10/2017
[2025-01-27 09:44] VITALS: BP 116/68; PULSE 68; TEMP 36.2; O2SAT 98; BMI 21.4
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
== END 2025-01-27 10:24 | disposition home or self-care (01) ==
PROVIDERS: PCP Internal Medicine; Visit Provider Internal Medicine
DX: I10 Essential (primary) hypertension (principal); I48.0 Paroxysmal atrial fibrillation; E78.00 Pure hypercholesterolemia, unspecified; M17.0 Bilateral primary osteoarthritis of knee; F51.01 Primary insomnia

== ENCOUNTER → 2025-01-27 09:34 | Outpatient (BNVA) | payer MEDICARE, SELFPAY | PROVIDERS: PCP Internal Medicine; Visit Provider Internal Medicine | DX: I10 Essential (primary) hypertension (principal); I48.0 Paroxysmal atrial fibrillation; E78.00 Pure hypercholesterolemia, unspecified; M17.0 Bilateral primary osteoarthritis of knee; F51.01 Primary insomnia; Z79.01 Long term (current) use of anticoagulants; Z79.899 Other long term (current) drug therapy; Z13.31 Encounter for screening for depression | CPT/HCPCS: 96127; 99212 ==

== ENCOUNTER 2025-02-02 09:47 | Emergency (ER) | payer MEDICARE, SELFPAY ==
[2025-02-02 10:09] VITALS: BP 134/50; PULSE 65; RESP 16; TEMP 36.9; O2SAT 94; BMI 21.9
--- NOTE | 2025-02-02 10:24 | ED_ITS ---
HPI - General Adult General Chief complaint: Animal Bite Stated complaint: bitten by an Cabrera Bird r hand Time Seen by Provider: 02/02/25 10:01 Source: patient, RN notes reviewed and old records reviewed Mode of arrival: ambulatory Limitations: no limitations History of Present Illness ED Provider: Jules HPI narrative: 89 year old female presents for evaluation of a parrot bite to the right hand. The patient was bitten on her right hand by her own. She describes it as a aviles burn This happened 5 days ago, last Thursday. She tried to keep the area clean and dry but noticed some drainage from the wound, increasing swelling She denies any fevers or chills. She reports she is able to move all fingers of the right hand Related Data Previous Rx's ?Medication ?Instructions ?Recorded wheelchair #1 ea 07/25/21 nystatin 100,000 unit/gram topical 1 appl topical TID #60 grams 10/09/21 powder nebulizers (Aeroneb Go Nebulizer) #1 ea 05/05/22 albuterol sulfate 2.5 mg/3 mL 2.5 mg (3 mL) inhalation QID PRN 12/10/22 (0.083 %) solution for nebulization shortness of breat h or wheezing #180 mL albuterol sulfate 90 mcg/actuation 2 inh inhalation Q6 H for wheezing 12/10/22 aerosol inhaler #8.5 grams triamcinolone acetonide 0.5 % 1 appl topical DAILY #15 grams 10/16/23 topical cream sodium chloride 0.65 % nasal spray 2 spray intranasal QID PRN dry 03/03/24 aerosol (Saline Nasal) nasal passages #88 mL eugenie.stocking,thigh,reg,med #12 ea 03/15/24 hydrocortisone 2.5 % topical cream 1 appl MD BID-QID P RN hemorrhoids 03/15/24 with perineal applicator #30 grams (Proctosol HC) cyanocobalamin (vitamin B-12) 1,000 mcg PO DAILY #90 c aps 06/15/24 1,000 mcg tablet (Vitamin B-12) fluticasone propionate 50 1 spray intranasal DAILY #16 grams 07/14/24 mcg/actuation nasal spray,suspension (Flonase Allergy Relief) metoprolol succinate 200 mg 200 mg PO DAILY #135 caps 10/03/24 tablet,extended release 24 hr valacyclovir 1 gram tablet 1,000 mg PO Q8H #21 tabs (Valtrex) apixaban 2.5 mg tablet 2.5 mg PO BID 30 days #60 ta bs 10/19/24 cholecalciferol (vitamin D3) 25 25 mcg PO DAILY #90 ca ps 11/11/24 mcg (1,000 unit) capsule (Vitamin D3) losartan 50 mg tablet 50 mg PO DAILY #90 caps /0 09/06 nystatin 100,000 unit/gram topical 1 appl topical BID #30 grams 11/11/24 ointment sennosides 8.6 mg-docusate sodium 2 tab-cap (2 x 8.6-5 0 mg) PO DAILY 11/17/24 50 mg capsule (Senna Plus) #60 caps zolpidem 6.25 mg tablet,extended 6.25 mg PO BEDTIME MD N insomnia 90 12/21/24 release,multiphase days #90 tabs acetaminophen 300 mg-codeine 15 mg 1 tab PO Q8H PRN pa in #55 tabs 01/20/25 tablet furosemide 40 mg tablet 40 mg PO DAILY 90 days #90 c aps 01/20/25 amoxicillin 875 mg-potassium 1 tab PO Q12H #13 tabs clavulanate 125 mg tablet linezolid 600 mg tablet 600 mg PO Q12H #13 tabs 01/11 11/04 Allergies Allergy/AdvReac Type Severity Reaction Status Date / Time amlodipine (AMLODIPINE) Allergy Unknown UNKNOWN Verified 02/02/25 10:12 carvedilol (CARVEDILOL) Allergy Unknown UNKNOWN Verified 02/02/25 10:12 irbesartan (From AVAPRO) Allergy Unknown UNKNOWN Verified 02/02/25 10:12 levofloxacin (From LEVAQUIN) Allergy Unknown GENERALIZED Verified 02/02/25 10:12 MUSCLE PAIN naproxen (Naproxen) Allergy Unknown HIVES, Verified 02/02/25 10:12 severe rash tetracycline (TETRACYCLINE) Allergy Unknown UNKNOWN Verified 02/02/25 10:12 CARE ONE TRIPLE ANTIBTIOTIC Allergy Intermediate rash Uncoded 01/27/25 09:48 OINTMENT Review of Systems 2 Constitutional: Constitutional: Denies body ache(s), Denies chills and Denies fever(s) Cardiovascular: Cardiovascular: Denies chest pain and Denies dyspnea on exertion Respiratory: Respiratory: Denies cough and Denies dyspnea on exertion Gastrointestinal: Gastrointestinal: Denies abdominal pain Musculoskeletal: Musculoskeletal: Denies back pain Integumentary/Breasts: Skin/Breast: Reports erythema and Reports wounds PMFSH Past Medical History Medical History Left-sided chest pain Ulnar neuropathy at elbow of left upper extremity Reactive airway disease Blurring of vision Nasal congestion Bronchitis Screening for eye condition Bilateral artificial lens implant Conjunctivitis, both eyes Cough Nasal congestion Compression fracture of T10 vertebra Mammogram declined Cataract Porphyria cutanea tarda Uterine prolapse Congestive heart failure TIA (transient ischemic attack) Atrial fibrillation Insomnia Hypertension Hypercholesterolemia Peripheral vascular disease Osteoarthritis of knee Surgical History History of right hip hemiarthroplasty S/P hip hemiarthroplasty History of uterine prolapse History of biopsy History of D&C Family History Family History Father Hypertension Mother Hypertension Daughter Colon cancer Lymph node cancer Social History Social History Household Members: None Housing: House Housing Other:: Ambulates with a cane Do you presently have visiting nurse or other home services: Yes (elder care, guidance and control system engineer, meals on wheels) Alcohol intake: current Alcohol intake frequency: does not drink Alcohol type: wine Comment: sleeping Patient Tobacco Use Status: Never used Tobacco Tobacco use type: Cigarette e-Cigarette/Vaping Use: Never Used Second Hand Smoke Exposure: No Advance Directives: No Advance Directives Information Provided: Yes service: No Current occupational status: retired Cognitive needs: No Hearing needs: Yes Vision needs: Yes Physical Exam ED Vital Signs: Vital Signs - 24 hr 02/02/25 10:09 Temperature 98.5 F Pulse Rate 65 Respiratory Rate 16 Blood Pressure 134/50 L Pulse Oximetry 94 Oxygen Delivery Method Room Air BMI result Body Mass Index 21.9 Const General: healthy appearing, comfortable, no acute distress, alert and awake Nutritional Appearance: well nourished Orientation/consciousness: patient oriented x3 HENMT Head: Yes normocephalic and Yes atraumatic Eyes Eyelids: Yes eyelids normal Conjunctivae: conjunctivae normal Sclerae: sclerae normal Corneas: corneas normal Pupils: Equal, round and reactive pupils present EOM: EOMs intact bilaterally Neck Neck: Yes full ROM Resp Effort & Inspection: normal respiratory effort, able to speak in complete sentences and not labored Skin Other: The patient has a 2 cm linear laceration to the dorsal surface of the right hand at the base of the 1st MCP. There is surrounding erythema with edema and purulent drainage from the area. No foul-smelling discharge General skin exam: elasticity normal Neuro General: patient oriented x3 Cranial nerves: Yes Equal, round and reactive pupils present and Yes Bilaterally intact EOM present Cognition (Neuro): normal cognition Extrem Other: The patient is able to flex and extend all digits of the right hand, as well as flex and extend The right wrist without difficulty Medical Decision Making Medical Decision Making MDM Narrative: 89-year-old female presents for evaluation of a parrot bite to her right hand. This is her parents appears to have a cellulitis. There is a wound. We will not close of the wounds as this is a 5-day-old wound that has already infected. Per up-to-date guidelines, recommendation would be doxycycline for first-line therapy. The patient has an allergy to tetracyclines listed. The reaction is unknown and the patient is unsure of what her reaction was in the past. For this reason I discussed with Infectious Disease, Dr. Ross who recommends Augmentin with linezolid for coverage. The patient's tetanus will be updated. There was no evidence of systemic infection or tenosynovitis. Return precautions were given. A wound culture was obtained Differential Diagnosis Differential Diagnoses: The differential diagnosis associated with the presentation includes Cellulitis Animal bite By Abscess Tenosynovitis Admission/Observation Consideration of admission/observation: Escalation of care including admission/observation considered Consult Healthcare Provider Management of the patient was discussed with: [facility] Furnace Loader (Dr. Ross) Discharge Plan Discharge Clinical Impression: Bitten by other birds, initial encounter, Cellulitis Patient Disposition: Home, Self-Care Instructions: Animal Bite (ED), Cellulitis (ED) Additional Instructions: I recommend applying topical antibiotic such as neosporin once daily. Take the oral antibiotics twice daily for 1 week Keep the area clean and dry Return to the ER if you have new or worsening symptoms, especially if you are unable to move any of your fingers, have increased swelling, or develop fevers Prescriptions: New linezolid 600 mg tablet 600 mg PO Q12H Qty: 13 0RF amoxicillin-pot clavulanate 875-125 mg tablet 1 tab PO Q12H Qty: 13 0RF No Action (DME) wheelchair See Rx Instructions .Route .MEDSUPPLY Qty: 1 0RF Rx Instructions: As directed nystatin 100,000 unit/gram powder 1 appl topical TID Qty: 60 1RF (DME) nebulizers [Aeroneb Go Nebulizer] Misc See Rx Instructions .Route Qty: 1 0RF Rx Instructions: As directed albuterol sulfate 90 mcg/actuation HFA aerosol inhaler 2 inh inhalation Q6H Qty: 8.5 0RF albuterol sulfate 2.5 mg /3 mL (0.083 %) solution for nebulization 2.5 mg inhalation QID PRN (Reason: shortness of breath or wheezing) Qty: 180 0RF triamcinolone acetonide 0.5 % cream 1 appl topical DAILY Qty: 15 0RF Saline Nasal 0.65 % aerosol,spray 2 spray intranasal QID PRN (Reason: dry nasal passages) Qty: 88 0RF cyanocobalamin (vitamin B-12) [Vitamin B-12] 1,000 mcg tablet 1,000 mcg PO DAILY Qty: 90 3RF fluticasone propionate [Flonase Allergy Relief] 50 mcg/actuation spray,suspension 1 spray intranasal DAILY Qty: 16 5RF Rx Instructions: administer into each nostril metoprolol succinate 200 mg tablet extended release 24 hr 200 mg PO DAILY Qty: 135 2RF apixaban 2.5 mg tablet 2.5 mg PO BID 30 Days Qty: 60 11RF losartan 50 mg tablet 50 mg PO DAILY Qty: 90 2RF cholecalciferol (vitamin D3) [Vitamin D3] 25 mcg (1,000 unit) capsule 25 mcg PO DAILY Qty: 90 3RF nystatin 100,000 unit/gram ointment 1 appl topical BID Qty: 30 0RF Senna Plus 8.6-50 mg capsule 2 tab-cap PO DAILY Qty: 60 0RF zolpidem 6.25 mg tablet,ext release multiphase 6.25 mg PO BEDTIME PRN (Reason: insomnia) 90 Days Qty: 90 1RF Rx Instructions: will decrease dose acetaminophen-codeine 300-15 mg tablet 1 tab PO Q8H PRN (Reason: pain) Qty: 55 0RF furosemide 40 mg tablet 40 mg PO DAILY 90 Days Qty: 90 3RF (DME) eugenie.stocking,thigh,reg,med Misc See Rx Instructions .Route Qty: 12 0RF Rx Instructions: As directed 20 - 30 mm HG hydrocortisone [Proctosol HC] 2.5 % cream with perineal applicator 1 appl MD BID-QID PRN (Reason: hemorrhoids) Qty: 30 0RF valacyclovir [Valtrex] 1 gram tablet 1,000 mg PO Q8H Qty: 21 0RF Print Language: Brazilian
--- OUTSIDE RECORDS SUMMARY | 2025-02-02 11:04 | XMS_ITS | Patient Health Record ---
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 Vital Signs Blood pressure diastolic 79 mm Hg 11/14/2024 Height 5 ft 4 in in 11/14/2024 Blood pressure systolic 117 mm Hg 11/14/2024 Weight 120 lbs 11/14/2024 BMI 20.6 kg/m2 11/14/2024 Procedures Procedure Date Ordered Date Performed Result Body Sit e 50364-TYVNINQ NAIL, 6 OR MORE 11/14/2024 N/A 00461-Lrganbkq Plate 11/14/2024 N/A Encounters Encounter Location Date Provider Diagnosis [facility] [address] [address] 11/14/2024 Anali Black Ingrowing nail L60.0 ; [...] Treatment Pending Test Test Name Order Date 67585-AGIJGTM NAIL, 6 OR MORE 03/31/2011 76134-KUBQGYU NAIL, 6 OR MORE 05/05/2011 15042-TXWYECN NAIL, 6 OR MORE 07/16/2011 02467-HTKGVPT NAIL, 6 OR MORE 09/17/2011 16145-JPJVHSB NAIL, 6 OR MORE 10/15/2011 31936-JBXDPZZ NAIL, 6 OR MORE 11/12/2011 08003-YKCUCLF NAIL, 6 OR MORE 01/26/2012 27772-TWTGFVV NAIL, 6 OR MORE 04/05/2012 04116-HECGOEK NAIL, 6 OR MORE 09/09/2012 47336-UTDOVIJ NAIL, 6 OR MORE 11/04/2012 26821-CPWWKII NAIL, 6 OR MORE 01/20/2013 70079-AIZXAVN NAIL, 6 OR MORE 03/24/2013 37751-ZCDEVJD NAIL, 6 OR MORE 06/06/2013 78700-LQXWKZI NAIL, 6 OR MORE 10/05/2013 15856-QDMGOKE NAIL, 6 OR MORE 01/05/2014 34367-FQBBLRI NAIL, 6 OR MORE 03/08/2014 96463-VRKLFEW NAIL, 6 OR MORE 06/05/2014 25689-MLBHBRN NAIL, 6 OR MORE 09/06/2014 82532-JBUCPFM NAIL, 6 OR MORE 11/16/2014 47489-ONJPEXY NAIL, 6 OR MORE 02/05/2015 32599-EZFGVJB NAIL, 6 OR MORE 10/03/2015 03225-GNPBKCF NAIL, 6 OR MORE 01/30/2016 75051-IYGSYYT NAIL, 6 OR MORE 04/28/2016 55303-ZEOUBXI NAIL, 6 OR MORE 08/18/2016 77020-QBCUHTB NAIL, 6 OR MORE 10/20/2016 59687-RVJQVTL NAIL, 6 OR MORE 12/29/2016 33730-PQIQFQW NAIL, 6 OR MORE 04/02/2017 44386-BUUBRDM NAIL, 6 OR MORE 06/15/2017 59526-JXVAOQH NAIL, 6 OR MORE 08/17/2017 59442-XJYPLYR NAIL, 6 OR MORE 11/09/2017 80756-XLPDFFF NAIL, 6 OR MORE 02/08/2018 91543-PNDBISX NAIL, 6 OR MORE 05/10/2018 83764-SPXDEHW NAIL, 6 OR MORE 08/05/2018 22732-WQIYSRT NAIL, 6 OR MORE 10/25/2018 84533-MXGTYWU NAIL, 6 OR MORE 01/27/2019 96392-LZFUDEW NAIL, 6 OR MORE 03/31/2019 91188-QVIXVHE NAIL, 6 OR MORE 06/02/2019 88337-POBUXCP NAIL, 6 OR MORE 08/04/2019 50577-LALNMTN NAIL, 6 OR MORE 11/24/2019 08192-DRJUMJU NAIL, 6 OR MORE 02/09/2020 89986-UFFTHFA NAIL, 6 OR MORE 04/19/2020 52889-VKDTIFQ NAIL, 6 OR MORE 10/01/2020 92157-IILOFFD NAIL, 6 OR MORE 12/31/2020 51634-JYGACCK NAIL, 6 OR MORE 03/04/2021 68003-PFGWUEJ NAIL, 6 OR MORE 06/13/2021 84768-QDIBMEP NAIL, 6 OR MORE 11/11/2021 11500-KSXJDPJ NAIL, 6 OR MORE 02/10/2022 21366-DMJJLRH NAIL, 6 OR MORE 04/24/2022 86908-JXMPIHI NAIL, 6 OR MORE 11/14/2024 58203-TLINWSP NAIL, 1-5 07/02/2015 47954-FRHULWG NAIL, 1-5 05/07/2015 83938-Mrak Destruction, -14 04/04/2015 80217-Apcr Destruction, -14 07/02/2015 73313-Zpif Destruction, -14 02/05/2015 37563-Wsft Destruction, -14 11/15/2015 86836-Oayq Destruction, -14 04/28/2016 75153-Xyvn Destruction, -14 01/30/2016 78647-Uetd Destruction, -14 03/10/2016 75588-Zghl Destruction, -14 11/16/2014 63817-Caje Destruction, 07-2610/11/2014 08157-Wmzg Destruction, 07-2612/13/2014 05720-Gyit Destruction, 07-2601/10/2015 23895-Zwtc Destruction, 07-2609/06/2014 99707-Kavx Destruction, 07-2608/07/2014 95472-Aicw Destruction, 07-2606/05/2014 68711-Hgte Destruction, 07-2609/13/2018 47959-Aymq Destruction, 07-2610/25/2018 55495-Zlil Destruction, 07-2606/21/2018 63628-Lyqj Destruction, 07-2608/05/2018 35158-Bqwk Destruction, 07-2603/29/2018 46248-Nwrx Destruction, 07-2605/10/2018 52524-Aapb Destruction, 07-2612/28/2017 04436-Jfnm Destruction, 07-2602/08/2018 48673-Drdu Destruction, 07-2606/15/2017 89396-Bjyq Destruction, 07-2608/17/2017 53591-Gmpe Destruction, 07-2605/07/2017 65603-Tzyz Destruction, 07-2602/16/2017 45032-Nwla Destruction, 07-2604/02/2017 61159-Gsvw Destruction, 07-2612/29/2016 10488-Phbj Destruction, 07-2610/20/2016 66360-Eebw Destruction, 07-2608/18/2016 59465-Jevp Destruction, 07-2610/03/2015 43632-Atpd Destruction, 07-2606/12/2016 59168-Sych Destruction, 07-2603/08/2014 09753-Njjw Destruction, 07-2604/05/2014 70093-Bczf Destruction, 07-2602/08/2014 53148-Nzvp Destruction, 07-2610/05/2013 35771-Gire Destruction, 07-2610/04/2012 30621-Sqsu Destruction, 07-2605/04/2013 54569-Kjmr Destruction, 07-2606/06/2013 16623-Zzem Destruction, 07-2607/27/2013 21488-Mwpo Destruction, 07-2602/17/2013 99058-Fxze Destruction, 07-2609/17/2011 91981-Szbt Destruction, 07-2611/04/2012 03584-Wese Destruction, 07-2612/23/2012 98137-Bgpt Destruction, 07-2609/09/2012 22321-Iiyz Destruction, 07-2605/03/2012 21321-Ktlu Destruction, 07-2606/09/2012 00862-Uydk Destruction, 07-2604/05/2012 17221-Ufey Destruction, 07-2603/04/2012 00428-Xivd Destruction, 07-2612/10/2011 87558-Ndpq Destruction, 07-2601/26/2012 82690-Rbjv Destruction, 07-2611/12/2011 68926-Dtpp Destruction, 07-2610/15/2011 76464-Hjqi Destruction, 07-2608/18/2011 90172-Iizp Destruction, 07-2607/16/2011 93119-Nrox Destruction, 07-2605/05/2011 52971-Hrua Destruction, 07-2603/31/2011 41483-Vruv Destruction, 07-2611/11/2021 46051-Spbb Destruction, 07-2606/13/2021 47362-Sqvc Destruction, 07-2611/12/2020 07369-Cexh Destruction, 07-2606/04/2020 96975-Ohar Destruction, 07-2604/19/2020 86343-Etpq Destruction, 07-2602/09/2020 65857-Klrw Destruction, 07-2606/02/2019 49082-Ozvb Destruction, 07-2611/24/2019 21554-Doeq Destruction, 07-2608/04/2019 51880-Kuxt Destruction, 07-2603/31/2019 37500-Dkdj Destruction, 07-2612/13/2018 23236-Zbld Destruction, 07-2611/09/2017 91604-Kztd Destruction, 07-2601/27/2019 00270-Zcogfqzg Plate 06/02/2019 36398-Keyulcjy Plate 11/24/2019 06943-Qjlwqucy Plate 02/09/2020 33597-Srdurlee Plate 10/01/2020 29321-Nhkewbin Plate 06/04/2020 40539-Wgjiumhe Plate 11/12/2020 35800-Zbxefcno Plate 06/13/2021 57047-Rgtfcziu Plate 12/31/2020 29969-Rgsxsqgp Plate 11/11/2021 96557-Jjumsbca Plate 02/10/2022 75565-Fsasseru Plate 11/14/2024 66991-Bkorkptq Plate 07/16/2011 90197-Kdvqdndt Plate 01/26/2012 97093-Mkovuhlq Plate 04/05/2012 88615-Qrbaiayb Plate 07/14/2012 30342-Taswaybn Plate 05/03/2012 68257-Neidzwaa Plate 09/09/2012 51677-Ksgmldtt Plate 12/23/2012 61354-Rgxozvpf Plate 10/04/2012 64208-Iaqlwxmo Plate 02/17/2013 34168-Aetywikp Plate 05/04/2013 44743-Jwsvewgv Plate 03/24/2013 29183-Slyrggul Plate 11/09/2013 99510-Ijvqothx Plate 10/05/2013 12877-Nhseiewp Plate 06/06/2013 12894-Avxidjxr Plate 01/05/2014 15697-Clmvcqkn Plate 04/05/2014 67752-Ytwhadea Plate 05/04/2014 01413-Voygrmmg Plate 08/18/2016 54687-Ibqkwowf Plate 10/20/2016 51612-Dlqdtdat Plate 12/29/2016 65193-Kkmcmjpd Plate 06/15/2017 02359-Pbkjttiu Plate 09/28/2017 57793-Zbzbsgcj Plate 03/29/2018 16945-Ehguldbb Plate 09/13/2018 54694-Hbbmvnxl Plate 08/07/2014 90605-Gnlkxuok Plate 06/05/2014 80931-Iyxklpjg Plate 09/06/2014 55381-Lhmkrskv Plate 10/11/2014 91928-Heskwsmh Plate 02/05/2015 09084-Vqkqfzym Plate 12/13/2014 51753-Hqclaklr Plate 11/16/2014 53419-Icvxbhah Plate 04/28/2016 80612-Ejklaywa Plate 12/26/2015 70899-Ieddcdwe Plate 08/15/2015 06280-Qhvlnrpd Plate 10/03/2015 88639-Lnpitvxj Plate 04/04/2015 19795-Skiqvien Plate 06/06/2015 31996-Iracqqzb Plate Each Additional 85728-Zvbnqxgy Plate Each Additional 01/2015 03308-Tzmypafu Plate Each Additional 60895-Dcslgpiy Plate Each Additional 35820-Scmewfcm Plate Each Additional 68219-Lkkhbejz Plate Each Additional 51765-Iyxynufk Plate Each Additional 68839-Aybrggnx Plate Each Additional 86317-Pcwysmrl Plate Each Additional 10/2011 41854-Hyaqgacb Plate Each Additional 08/2021 40187-Npbbocuj Plate Each Additional 19490-Bfuadidg Plate Each Additional 69248-Clqbisgv Plate Each Additional 96979-CEZ 08/22/2013 55165- Debride <25 sq cm 10/05/2013 38027- Debride <25 sq cm 11/09/2013 35631- Debride <25 sq cm 05/04/2014 76522- Debride <25 sq cm 01/05/2014 30254- Debride <25 sq cm 11/12/2011 34072- Debride <25 sq cm 03/04/2012 05808-BKUIJJS SKIN/TISSUE 01/05/2014 94926-VARNQFC SKIN/TISSUE 09/07/2013 16399 I&D ABSCESS- SIMPLE,SINGLE 012 [id number] I&D ABSCESS- SIMPLE,SINGLE 012 25714 I&D ABSCESS- SIMPLE,SINGLE 012 19912 I&D ABSCESS- SIMPLE,SINGLE 021 53574 I&D ABSCESS- SIMPLE,SINGLE 020 78022 I&D ABSCESS- SIMPLE,SINGLE 019 Insurance Providers Payer Name Payer Address Payer Phone Subscriber Number Group Number Insured Name Patient Relationship to Insured Coverage Start Date Coverage End Date [facility] 65 Medicare Preferred [address] [place] [address] [id number] Julianna Meehan Self - patient is [...] D&C uterine prolapse Hospitalization History Reason Date(Month/Year) [facility] [place] [facility] [place] 06/26/20 Pt stated that she had a fal l she didnt go to the ER she stated she seeing other doctor. 04/2019 [facility] [place], Back problems 10/2017
[2025-02-02] MEDS: Diphth,Pertus(ACell),Tet Adult 0.5 ML SYRINGE IM (11:12)
[2025-02-02 11:24] VITALS: BP 154/61; PULSE 65; RESP 18; TEMP 36.9; O2SAT 98
[2025-02-02 11:28] VITALS: BP 154/61; PULSE 65; RESP 18; TEMP 36.9; O2SAT 98
[2025-02-02 11:42] VITALS: BP 154/61; PULSE 65; RESP 18; TEMP 36.9; O2SAT 98
== END 2025-02-02 11:43 | disposition home or self-care (01) ==
PROVIDERS: Emergency Provider Emergency Medicine; PCP Internal Medicine
DX: S61.411A Laceration without foreign body of right hand, initial encounter (principal); W61.01XA Bitten by parrot, initial encounter; I10 Essential (primary) hypertension; I50.9 Heart failure, unspecified; Y93.89 Activity, other specified; Y92.098 Other place in other non-institutional residence as the place of occurrence of the external cause; Y99.8 Other external cause status; Z79.899 Other long term (current) drug therapy
CPT/HCPCS: 87070; 87077; 87186; 87205; 90471; 90715; 99284

== ENCOUNTER 2025-02-07 09:49 | Emergency (ER) | payer MEDICARE, SELFPAY ==
--- NOTE | ~2025-02-07 | XR_ITS ---
EXAMINATION: XR HAND 3 OR MORE VIEWS RIGHT HISTORY: s/p right hand bird bite, r/o infection COMPARISON: There are no prior studies available for comparison. FINDINGS: Four views of the right hand are submitted. The bones are osteopenic. There is no focal osseous destruction. There is no fracture or dislocation. There is moderate to severe osteoarthritis of the DIP joints and mild narrowing of the PIP joints. There is moderate osteoarthritis of the 1st carpometacarpal joint. The soft tissues are unremarkable. XR/XR hand RT min 3V IMPRESSION: Osteopenia and osteoarthritis as described. No plain film evidence of osteomyelitis. If this remains a clinical concern, three-phase bone scan or MRI could be performed. Electronically signed by: Kevin Bates MD 02/07/2025 12:18 PM EDT
[2025-02-07 09:53] VITALS: BP 121/58; PULSE 65; RESP 17; TEMP 36.4; O2SAT 98; BMI 23.4
--- OUTSIDE RECORDS SUMMARY | 2025-02-07 10:55 | XMS_ITS | Patient Health Record ---
Author Organization [facility] Sandra peterson [place] Address [address] [place] [address] Care Team Providers Care Cylindrical Mixer Name Role Phone Ann Marie Lyles Primary Care Provider Unavailabl e Anali Pimentel Unavailable [phone] Allergies Allergen (clinical drug ingredient) Drug/Non Drug [...] Referring Provider Last Name Po [facility] Referred Provider Anali Pimentel Referred Address [address] [facility] [facility],[place], [place],[address], Referred Provider Specialty Podiatry Referral Priority Routine [...] Problem Acquired hammer toe of right foot ([id number]) Other hammer toe(s) (acquired), right foot (M20.41) Active confirmed Problem Osteoarthritis o f right ankle and foot (M19.071) Active confirmed Vital Signs Blood pressure diastolic 79 mm Hg 11/14/2024 Height 5 ft 4 in in 11/14/2024 Blood pressure systolic 117 mm Hg 11/14/2024 Weight 120 lbs 11/14/2024 BMI 20.6 kg/m2 11/14/2024 Procedures Procedure Date Ordered Date Performed Result Body Sit e 65694-NMNGVSQ NAIL, 6 OR MORE 11/14/2024 N/A 48806-Opbkwmwk Plate 11/14/2024 N/A Encounters Encounter Location Date Provider Diagnosis [facility] [address] [address] 11/14/2024 Anali Black Ingrowing nail L60.0 ; [...] Treatment Pending Test Test Name Order Date 82520-UUHOCAX NAIL, 6 OR MORE 03/31/2011 19395-UOLAEEY NAIL, 6 OR MORE 05/05/2011 36245-ZYLMCXQ NAIL, 6 OR MORE 07/16/2011 18084-BDSJQCV NAIL, 6 OR MORE 09/17/2011 86116-KMFFONN NAIL, 6 OR MORE 10/15/2011 39479-VBTLSGF NAIL, 6 OR MORE 11/12/2011 69383-MNBMTBE NAIL, 6 OR MORE 01/26/2012 00908-NGRBGJA NAIL, 6 OR MORE 04/05/2012 09740-FQHUDFM NAIL, 6 OR MORE 09/09/2012 75477-HFBMSJB NAIL, 6 OR MORE 11/04/2012 56379-MCHCGII NAIL, 6 OR MORE 01/20/2013 16261-KGADVQW NAIL, 6 OR MORE 03/24/2013 57028-WCGTLNZ NAIL, 6 OR MORE 06/06/2013 80540-LDZHURM NAIL, 6 OR MORE 10/05/2013 97728-PWTHYEB NAIL, 6 OR MORE 01/05/2014 36347-AESVLMC NAIL, 6 OR MORE 03/08/2014 46597-CNIJFPN NAIL, 6 OR MORE 06/05/2014 55816-TEGTESY NAIL, 6 OR MORE 09/06/2014 30025-YYERWGL NAIL, 6 OR MORE 11/16/2014 26940-RAXOYQM NAIL, 6 OR MORE 02/05/2015 74966-XBQOTVL NAIL, 6 OR MORE 10/03/2015 19796-PEZQSSX NAIL, 6 OR MORE 01/30/2016 08360-ZRERELO NAIL, 6 OR MORE 04/28/2016 67587-WUAURGG NAIL, 6 OR MORE 08/18/2016 00802-WOBHKTN NAIL, 6 OR MORE 10/20/2016 66205-UMRFEQP NAIL, 6 OR MORE 12/29/2016 76613-OZJJLNE NAIL, 6 OR MORE 04/02/2017 53159-NMINCOW NAIL, 6 OR MORE 06/15/2017 60647-YXBBUZH NAIL, 6 OR MORE 08/17/2017 19307-NBKGJTD NAIL, 6 OR MORE 11/09/2017 68130-SIUFKCT NAIL, 6 OR MORE 02/08/2018 11557-BWRQIMI NAIL, 6 OR MORE 05/10/2018 11730-DSOPOLE NAIL, 6 OR MORE 08/05/2018 64313-YJCUKUO NAIL, 6 OR MORE 10/25/2018 23903-BFWWUHL NAIL, 6 OR MORE 01/27/2019 22553-KXZGLKL NAIL, 6 OR MORE 03/31/2019 46393-PURURNM NAIL, 6 OR MORE 06/02/2019 74296-VBAZMPW NAIL, 6 OR MORE 08/04/2019 38453-HJZUZIZ NAIL, 6 OR MORE 11/24/2019 87299-UBVXNPL NAIL, 6 OR MORE 02/09/2020 56842-XOSZRDS NAIL, 6 OR MORE 04/19/2020 69348-LKKKDAN NAIL, 6 OR MORE 10/01/2020 65506-TCPTSKZ NAIL, 6 OR MORE 12/31/2020 47863-MDBSNQN NAIL, 6 OR MORE 03/04/2021 31188-OBNGUAU NAIL, 6 OR MORE 06/13/2021 16385-TRKHRXK NAIL, 6 OR MORE 11/11/2021 28483-JEICEHL NAIL, 6 OR MORE 02/10/2022 06831-STKPVRT NAIL, 6 OR MORE 04/24/2022 90633-UPVBCMO NAIL, 6 OR MORE 11/14/2024 59663-NXVNGQA NAIL, 1-5 07/02/2015 28392-WLBZAQC NAIL, 1-5 05/07/2015 58428-Ofea Destruction, -14 04/04/2015 35718-Crdm Destruction, -14 07/02/2015 92653-Bfmk Destruction, -14 02/05/2015 42298-Tpiy Destruction, -14 11/15/2015 89135-Lbcb Destruction, -14 04/28/2016 59415-Frdy Destruction, -14 01/30/2016 36905-Nqno Destruction, -14 03/10/2016 61027-Rlxs Destruction, -14 11/16/2014 90189-Rodw Destruction, -14 10/11/2014 08333-Mpfp Destruction, 07-2612/13/2014 25316-Eiim Destruction, 07-2601/10/2015 97351-Curk Destruction, 07-2609/06/2014 08446-Zoih Destruction, 07-2608/07/2014 59187-Yvml Destruction, 07-2606/05/2014 53423-Camv Destruction, 07-2609/13/2018 84218-Wmdu Destruction, 07-2610/25/2018 97291-Srbe Destruction, 07-2606/21/2018 24726-Ibww Destruction, 07-2608/05/2018 58144-Wgzw Destruction, 07-2603/29/2018 36259-Wfvd Destruction, 07-2605/10/2018 00110-Pwpb Destruction, 07-2612/28/2017 43456-Aabl Destruction, 07-2602/08/2018 71517-Fcii Destruction, 07-2606/15/2017 06103-Kjkj Destruction, 07-2608/17/2017 49113-Ezhn Destruction, 07-2605/07/2017 85321-Obwu Destruction, 07-2602/16/2017 92112-Cvgf Destruction, 07-2604/02/2017 52748-Ghgl Destruction, 07-2612/29/2016 39332-Uorq Destruction, 07-2610/20/2016 86978-Etig Destruction, 07-2608/18/2016 07655-Myeb Destruction, 07-2610/03/2015 97633-Wvpw Destruction, 07-2606/12/2016 81823-Ociv Destruction, 07-2603/08/2014 77415-Egxa Destruction, 07-2604/05/2014 02256-Aodu Destruction, 07-2602/08/2014 29452-Noei Destruction, 07-2610/05/2013 10669-Gurm Destruction, 07-2610/04/2012 30542-Zkrj Destruction, 07-2605/04/2013 24113-Hdjp Destruction, 07-2606/06/2013 58864-Bbzl Destruction, 07-2607/27/2013 59630-Rttd Destruction, 07-2602/17/2013 11893-Lpmw Destruction, 07-2609/17/2011 16829-Fpfi Destruction, 07-2611/04/2012 04157-Ntaj Destruction, 07-2612/23/2012 66895-Evkd Destruction, 07-2609/09/2012 45534-Nwjk Destruction, 07-2605/03/2012 91869-Abfn Destruction, 07-2606/09/2012 55178-Uaey Destruction, 07-2604/05/2012 85216-Mgbt Destruction, 07-2603/04/2012 19214-Ydli Destruction, 07-2612/10/2011 09162-Ynwk Destruction, 07-2601/26/2012 60653-Jhqc Destruction, 07-2611/12/2011 36593-Lgzu Destruction, 07-2610/15/2011 19024-Sdvm Destruction, 07-2608/18/2011 97124-Ezgi Destruction, 07-2607/16/2011 32716-Eeod Destruction, 07-2605/05/2011 20458-Muwf Destruction, 07-2603/31/2011 60453-Uqhd Destruction, 07-2611/11/2021 33182-Fmey Destruction, 07-2606/13/2021 95253-Ehdf Destruction, 07-2611/12/2020 98890-Rafo Destruction, 07-2606/04/2020 47470-Hhrc Destruction, 07-2604/19/2020 67734-Eoho Destruction, 07-2602/09/2020 48978-Hqsh Destruction, 07-2606/02/2019 57505-Dpmq Destruction, 07-2611/24/2019 11473-Brnc Destruction, 07-2608/04/2019 76361-Xivz Destruction, 07-2603/31/2019 03803-Yovt Destruction, 07-2612/13/2018 83708-Odso Destruction, 07-2611/09/2017 90674-Isbc Destruction, 07-2601/27/2019 46481-Vggmeeis Plate 06/02/2019 23867-Kgytccxg Plate 11/24/2019 74704-Bsqihhbl Plate 02/09/2020 52970-Iomuvokh Plate 10/01/2020 49851-Zyouuzkf Plate 06/04/2020 77891-Qcrtwqiv Plate 11/12/2020 57498-Fuqgcwbp Plate 06/13/2021 33533-Rojjecev Plate 12/31/2020 67844-Uhfeflxu Plate 11/11/2021 45491-Wargyoun Plate 02/10/2022 26222-Pxsvuycm Plate 11/14/2024 51587-Tmyjxqye Plate 07/16/2011 48324-Yykfrdqk Plate 01/26/2012 89216-Lixdjhnj Plate 04/05/2012 03748-Obpwiknl Plate 07/14/2012 98185-Xdyfeiem Plate 05/03/2012 69626-Lnguxizs Plate 09/09/2012 32844-Bdjpzuqu Plate 12/23/2012 79688-Uhqcnbmk Plate 10/04/2012 84604-Shbaoclt Plate 02/17/2013 89313-Sjdnwbgj Plate 05/04/2013 45506-Ztvgvdwe Plate 03/24/2013 93537-Erccoudw Plate 11/09/2013 96327-Xjhzerrv Plate 10/05/2013 97831-Epbdxswi Plate 06/06/2013 04257-Ojtgabjq Plate 01/05/2014 62692-Hobotgid Plate 04/05/2014 31599-Zcwzektj Plate 05/04/2014 40817-Thjgwetu Plate 08/18/2016 15821-Xxkyrvun Plate 10/20/2016 19569-Gtrepxgc Plate 12/29/2016 96080-Ijqczmki Plate 06/15/2017 73448-Xdqevrjr Plate 09/28/2017 83789-Offarkvf Plate 03/29/2018 63420-Waymilxl Plate 09/13/2018 94274-Lsknqcqd Plate 08/07/2014 47560-Rrnnpwyo Plate 06/05/2014 68895-Mbrdqqpe Plate 09/06/2014 37986-Vvippnze Plate 10/11/2014 05832-Nteyivjt Plate 02/05/2015 08519-Szdhzedc Plate 12/13/2014 57396-Fdagdxgo Plate 11/16/2014 73098-Aajrhlcb Plate 04/28/2016 07978-Jphbkptj Plate 12/26/2015 31829-Tmgzkhrk Plate 08/15/2015 78176-Ohguziqx Plate 10/03/2015 92479-Zzqkhtfo Plate 04/04/2015 42908-Lbuqrhrv Plate 06/06/2015 45632-Pjrwgdtr Plate Each Additional 20500-Gjhcmpwh Plate Each Additional 01/2015 55781-Dptojsjs Plate Each Additional 18304-Oxzkfsht Plate Each Additional 32930-Opvudqfi Plate Each Additional 31825-Ppvpmmao Plate Each Additional 24205-Ivzdwitp Plate Each Additional 23880-Xifpinax Plate Each Additional 97498-Zilztulx Plate Each Additional 10/2011 13665-Oyudfpzf Plate Each Additional 08/2021 17837-Rhectqen Plate Each Additional 06390-Ihwclbrm Plate Each Additional 37515-Byimvvzg Plate Each Additional 57102-IPK 08/22/2013 28084- Debride <25 sq cm 10/05/2013 47718- Debride <25 sq cm 11/09/2013 91063- Debride <25 sq cm 05/04/2014 66218- Debride <25 sq cm 01/05/2014 26070- Debride <25 sq cm 11/12/2011 81157- Debride <25 sq cm 03/04/2012 96328-UBZWFJH SKIN/TISSUE 01/05/2014 58106-RUURABN SKIN/TISSUE 09/07/2013 37388 I&D ABSCESS- SIMPLE,SINGLE 012 [id number] I&D ABSCESS- SIMPLE,SINGLE 012 14251 I&D ABSCESS- SIMPLE,SINGLE 012 [id number] I&D ABSCESS- SIMPLE,SINGLE 021 [id number] I&D ABSCESS- SIMPLE,SINGLE 020 06352 I&D ABSCESS- SIMPLE,SINGLE 019 Insurance Providers Payer Name Payer Address Payer Phone Subscriber Number Group Number Insured Name Patient Relationship to Insured Coverage Start Date Coverage End Date [employer] 65 Medicare Preferred [address] [place] [address] [id number] Julianna Meehan Self - patient is [...] D&C uterine prolapse Hospitalization History Reason Date(Month/Year) [facility] [place]2020 [facility] [place] 06/26/20 Pt stated that she had a fal l she didnt go to the ER she stated she seeing other doctor. 04/2019 [facility] [place] Back problems 10/2017
--- NOTE | 2025-02-07 11:27 | PC.NURSE ---
Dr. Ferro at bedside speaking with the patient & visitor for initial evaluation. Care ongoing by this RN & Adelaida MEJIA.
--- NOTE | 2025-02-07 11:34 | ED_ITS ---
HPI - General Adult General Chief complaint: General Medical Stated complaint: Wound R hand? Time Seen by Provider: 02/07/25 11:25 Source: patient and family Mode of arrival: ambulatory Limitations: no limitations History of Present Illness ED Provider: DR. Ferro HPI narrative: 89-year-old female came in for re-evaluation of right hand wound from a bite from an aviles bird on 01/28/2025 patient was seen and evaluated in the emergency department last week was discharged home on linezolid and Augmentin. patient is here to recheck on wounds, no fever, chills, no discharge, swelling. Patient still finishing her antibiotic. Related Data Previous Rx's ?Medication ?Instructions ?Recorded wheelchair #1 ea 07/25/21 nystatin 100,000 unit/gram topical 1 appl topical TID #60 grams 10/09/21 powder nebulizers (Aeroneb Go Nebulizer) #1 ea 05/05/22 albuterol sulfate 2.5 mg/3 mL 2.5 mg (3 mL) inhalation QID PRN 12/10/22 (0.083 %) solution for nebulization shortness of breat h or wheezing #180 mL albuterol sulfate 90 mcg/actuation 2 inh inhalation Q6 H for wheezing 12/10/22 aerosol inhaler #8.5 grams triamcinolone acetonide 0.5 % 1 appl topical DAILY #15 grams 10/16/23 topical cream sodium chloride 0.65 % nasal spray 2 spray intranasal QID PRN dry 03/03/24 aerosol (Saline Nasal) nasal passages #88 mL eugenie.stocking,thigh,reg,med #12 ea 03/15/24 hydrocortisone 2.5 % topical cream 1 appl PA BID-QID P RN hemorrhoids 03/15/24 with perineal applicator #30 grams (Proctosol HC) cyanocobalamin (vitamin B-12) 1,000 mcg PO DAILY #90 c aps 06/15/24 1,000 mcg tablet (Vitamin B-12) fluticasone propionate 50 1 spray intranasal DAILY #16 grams 07/14/24 mcg/actuation nasal spray,suspension (Flonase Allergy Relief) metoprolol succinate 200 mg 200 mg PO DAILY #135 caps 10/03/24 tablet,extended release 24 hr valacyclovir 1 gram tablet 1,000 mg PO Q8H #21 tabs (Valtrex) apixaban 2.5 mg tablet 2.5 mg PO BID 30 days #60 ta bs 10/19/24 cholecalciferol (vitamin D3) 25 25 mcg PO DAILY #90 ca ps 11/11/24 mcg (1,000 unit) capsule (Vitamin D3) losartan 50 mg tablet 50 mg PO DAILY #90 caps 05/0 09/06 nystatin 100,000 unit/gram topical 1 appl topical BID #30 grams 11/11/24 ointment sennosides 8.6 mg-docusate sodium 2 tab-cap (2 x 8.6-5 0 mg) PO DAILY 11/17/24 50 mg capsule (Senna Plus) #60 caps zolpidem 6.25 mg tablet,extended 6.25 mg PO BEDTIME PA N insomnia 90 12/21/24 release,multiphase days #90 tabs acetaminophen 300 mg-codeine 15 mg 1 tab PO Q8H PRN pa in #55 tabs 01/20/25 tablet furosemide 40 mg tablet 40 mg PO DAILY 90 days #90 c aps 01/20/25 amoxicillin 875 mg-potassium 1 tab PO Q12H #13 tabs clavulanate 125 mg tablet linezolid 600 mg tablet 600 mg PO Q12H #13 tabs 01/11 11/04 mupirocin 2 % topical ointment 1 appl topical TID #15 grams 02/07/25 (Centany) Allergies Allergy/AdvReac Type Severity Reaction Status Date / Time amlodipine (AMLODIPINE) Allergy Unknown UNKNOWN Verified 02/07/25 09:56 carvedilol (CARVEDILOL) Allergy Unknown UNKNOWN Verified 02/07/25 09:56 irbesartan (From AVAPRO) Allergy Unknown UNKNOWN Verified 02/07/25 09:56 levofloxacin (From LEVAQUIN) Allergy Unknown GENERALIZED Verified 02/07/25 09:56 MUSCLE PAIN naproxen (Naproxen) Allergy Unknown HIVES, Verified 02/07/25 09:56 severe rash tetracycline (TETRACYCLINE) Allergy Unknown UNKNOWN Verified 02/07/25 09:56 CARE ONE TRIPLE ANTIBTIOTIC Allergy Intermediate rash Uncoded 02/07/25 09:56 OINTMENT Review of Systems 2 Review of Systems: All other systems are reviewed and are negative Constitutional: Reports as per HPI and Reports no additional constitutional complaints Eyes: Reports as per HPI and Reports no additional eye complaints Reports system reviewed and no additional complaints, except as documented Cardiovascular: Reports as per HPI and Reports no additional cardiovascular complaints Respiratory: Reports as per HPI and Reports no additional respiratory complaints Gastrointestinal: Reports as per HPI and Reports no additional gastrointestinal complaints Genitourinary: Reports no additional female genitourinary complaints Musculoskeletal: Reports no additional musculoskeletal complaints Skin/Breast: Reports system reviewed and no additional complaints, except as docu Psychiatric: Reports no additional psychiatric complaints Endocrine: Reports no additional endocrine complaints Hematologic/Lymphatic: Reports no additional hematologic/lymphatic complaints Allergic/Immunologic: Reports no additional allergic/immunologic complaints Reports system reviewed and no additional complaints, except as documented and Reports Abnormal speech present [facility] Past Medical History Medical History Left-sided chest pain Ulnar neuropathy at elbow of left upper extremity Reactive airway disease Blurring of vision Nasal congestion Bronchitis Screening for eye condition Bilateral artificial lens implant Conjunctivitis, both eyes Cough Nasal congestion Compression fracture of T10 vertebra Mammogram declined Cataract Porphyria cutanea tarda Uterine prolapse Congestive heart failure TIA (transient ischemic attack) Atrial fibrillation Insomnia Hypertension Hypercholesterolemia Peripheral vascular disease Osteoarthritis of knee Surgical History History of right hip hemiarthroplasty S/P hip hemiarthroplasty History of uterine prolapse History of biopsy History of D&C Family History Family History Father Hypertension Mother Hypertension Daughter Colon cancer Lymph node cancer Social History Social History Household Members: None Housing: House Housing Other:: Ambulates with a cane Do you presently have visiting nurse or other home services: Yes (elder care, sidewalk inspector, meals on wheels) Alcohol intake: current Alcohol intake frequency: does not drink Alcohol type: wine Comment: sleeping Patient Tobacco Use Status: Never used Tobacco Tobacco use type: Cigarette e-Cigarette/Vaping Use: Never Used Second Hand Smoke Exposure: No Advance Directives: No Advance Directives Information Provided: Yes Do you have a plan to hurt others: No Plan service: No Current occupational status: retired Cognitive needs: No Hearing needs: Yes Vision needs: Yes Physical Exam ED Vital Signs: Vital Signs - 24 hr 02/07/25 09:53 02/07/25 12:04 Temperature 97.5 F 97.7 F Pulse Rate 65 62 Respiratory Rate 17 14 Blood Pressure 121/58 L 117/45 L Pulse Oximetry 98 97 BMI result Body Mass Index 23.4 Vital signs have been reviewed and appear to be correct. Blood pressure elevated. Heart rate normal. Respiratory rate normal. Temperature normal. Oxygen saturation normal. Appearance: Alert. Oriented X3. No acute distress. Head: Normal external exam. Normocephalic. Atraumatic. No Padron signs noted. No raccoon eyes noted Eyes: PERRLA. EOMI. Conjunctiva and sclera normal. Eyelids normal. ENT: TM's Normal. Pharynx normal. Uvula midline. Moist mucous membranes. No trismus noted. No drooling noted. No muffled voice noted. Neck: Normal inspection. Neck supple. FROM. No adenopathy. Thyroid Normal. No meningeal signs. No neck mass noted. CVS: Normal heart rate and rhythm. Heart sound normal. No murmurs noted. Pulses normal throughout. Respiratory: No respiratory distress. Painless inspiration. Breath sounds normal. No wheezes/rales/rhonchi noted. Chest nontender. No accessory muscle usage noted or decreased air movement noted. Abdomen: Soft and nontender. Bowel sounds normal in all 4 quadrants. No distention noted. No organomegaly noted. No visible injury noted. Back: No CVA tenderness. Full range of motion noted. Skin: Skin warm and dry. Normal skin color. Normal skin turgor. No rashes/lesions/lacerations noted. Extremities: Right hand exam, wound was compared with last week picture appear healing well, no discharge, no fluctuation, slight erythema no redness or hotness around the wounds. Neurovascularly intact. Neuro: Oriented X 3. Cranial nerve exam: II-XII are grossly intact No motor deficit. No sensory deficit. Reflexes normal. Course Reevaluation(s) Reevaluation #1: right hand wound from a bird bite 2 weeks ago, is finishing a course of 2 antibiotic, the wound appear healing okay, will add mupirocin. X-ray today shows no osteomyelitis, will reassure the patient and discharge. Time: 11:42 Medical Decision Making Differential Diagnosis Differential Diagnoses: The differential diagnosis associated with the presentation includes ( Infected wound, abscess, osteomyelitis) Admission/Observation Consideration of admission/observation: Escalation of care including admission/observation considered Independent Interpretation I performed an independent interpretation of an: Plain X-Ray ( right hand x-ray: Osteopenia and osteoarthritis as described. No plain film evidence of osteomyelitis. If this remains a clinical concern, three-phase bone scan or MRI could be performed. ) Radiology Impression Discussion of test interpretation with radiology: I have reviewed the radiologist's reading. Discharge Plan Discharge Clinical Impression: Bitten by other birds, sequela Patient Disposition: Home, Self-Care Instructions: Animal Bite (ED) Prescriptions: New mupirocin [Centany] 2 % ointment 1 appl topical TID Qty: 15 0RF No Action (DME) wheelchair See Rx Instructions .Route .MEDSUPPLY Qty: 1 0RF Rx Instructions: As directed nystatin 100,000 unit/gram powder 1 appl topical TID Qty: 60 1RF (DME) nebulizers [Aeroneb Go Nebulizer] Misc See Rx Instructions .Route Qty: 1 0RF Rx Instructions: As directed albuterol sulfate 90 mcg/actuation HFA aerosol inhaler 2 inh inhalation Q6H Qty: 8.5 0RF albuterol sulfate 2.5 mg /3 mL (0.083 %) solution for nebulization 2.5 mg inhalation QID PRN (Reason: shortness of breath or wheezing) Qty: 180 0RF triamcinolone acetonide 0.5 % cream 1 appl topical DAILY Qty: 15 0RF Saline Nasal 0.65 % aerosol,spray 2 spray intranasal QID PRN (Reason: dry nasal passages) Qty: 88 0RF cyanocobalamin (vitamin B-12) [Vitamin B-12] 1,000 mcg tablet 1,000 mcg PO DAILY Qty: 90 3RF fluticasone propionate [Flonase Allergy Relief] 50 mcg/actuation spray,suspension 1 spray intranasal DAILY Qty: 16 5RF Rx Instructions: administer into each nostril metoprolol succinate 200 mg tablet extended release 24 hr 200 mg PO DAILY Qty: 135 2RF apixaban 2.5 mg tablet 2.5 mg PO BID 30 Days Qty: 60 11RF losartan 50 mg tablet 50 mg PO DAILY Qty: 90 2RF cholecalciferol (vitamin D3) [Vitamin D3] 25 mcg (1,000 unit) capsule 25 mcg PO DAILY Qty: 90 3RF nystatin 100,000 unit/gram ointment 1 appl topical BID Qty: 30 0RF Senna Plus 8.6-50 mg capsule 2 tab-cap PO DAILY Qty: 60 0RF zolpidem 6.25 mg tablet,ext release multiphase 6.25 mg PO BEDTIME PRN (Reason: insomnia) 90 Days Qty: 90 1RF Rx Instructions: will decrease dose acetaminophen-codeine 300-15 mg tablet 1 tab PO Q8H PRN (Reason: pain) Qty: 55 0RF furosemide 40 mg tablet 40 mg PO DAILY 90 Days Qty: 90 3RF linezolid 600 mg tablet 600 mg PO Q12H Qty: 13 0RF amoxicillin-pot clavulanate 875-125 mg tablet 1 tab PO Q12H Qty: 13 0RF (DME) eugenie.stocking,thigh,reg,med Misc See Rx Instructions .Route Qty: 12 0RF Rx Instructions: As directed 20 - 30 mm HG hydrocortisone [Proctosol HC] 2.5 % cream with perineal applicator 1 appl PA BID-QID PRN (Reason: hemorrhoids) Qty: 30 0RF valacyclovir [Valtrex] 1 gram tablet 1,000 mg PO Q8H Qty: 21 0RF Referrals: Rafal,Ann Marie Diego MD [Primary Care Provider, Internal Medicine] Print Language: Pashto
[2025-02-07 12:04] VITALS: BP 117/45; PULSE 62; RESP 14; TEMP 36.5; O2SAT 97
[2025-02-07 13:00] VITALS: BP 120/72; PULSE 62; RESP 14; TEMP 36.5; O2SAT 97
== END 2025-02-07 13:01 | disposition home or self-care (01) ==
PROVIDERS: Emergency Provider Emergency Medicine; PCP Internal Medicine
DX: S61.431D Puncture wound without foreign body of right hand, subsequent encounter (principal); W61.91XD Bitten by other birds, subsequent encounter; Z48.00 Encounter for change or removal of nonsurgical wound dressing
CPT/HCPCS: 73130; 99283

== ENCOUNTER → 2025-02-07 11:32 | Outpatient (BNV) | payer MEDICARE, SELFPAY | PROVIDERS: Emergency Provider Emergency Medicine; PCP Internal Medicine; Visit Provider Radiology Diagnostic Radiology | DX: M19.041 Primary osteoarthritis, right hand (principal) | CPT/HCPCS: 73130 ==

== ENCOUNTER 2025-02-17 08:13 | Outpatient (AMB) | payer MEDICARE, SELFPAY ==
--- OUTSIDE RECORDS SUMMARY | 2025-02-17 08:24 | XMS_ITS | Patient Health Record ---
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 Home Theater Name Role Phone Ann Marie Lyles Primary Care Provider Unavailabl e Anali Pimentel Unavailable [phone] Allergies Allergen (clinical drug ingredient) Drug/Non Drug [...] Referring Provider Last Name Po [facility] Referred Provider Anali Pimentel Referred Address [address] [facility],[place],[address], Referred Provider Specialty Podiatry Referral Priority Routine [...] Problem Acquired hammer toe of right foot ([id number]) Other hammer toe(s) (acquired), right foot (M20.41) Active confirmed Problem Osteoarthritis o f right ankle and foot (M19.071) Active confirmed Vital Signs Blood pressure diastolic 79 mm Hg 11/14/2024 Height 5 ft 4 in in 11/14/2024 Blood pressure systolic 117 mm Hg 11/14/2024 Weight 120 lbs 11/14/2024 BMI 20.6 kg/m2 11/14/2024 Procedures Procedure Date Ordered Date Performed Result Body Sit e 22564-TYGZQZC NAIL, 6 OR MORE 11/14/2024 N/A 08362-Gmlgcxnn Plate 11/14/2024 N/A Encounters Encounter Location Date Provider Diagnosis [facility] [address] [address] 11/14/2024 Anali Black Ingrowing nail L60.0 ; [...] Treatment Pending Test Test Name Order Date 11567-XDPDEBJ NAIL, 6 OR MORE 03/31/2011 89632-JRGNJSD NAIL, 6 OR MORE 05/05/2011 99094-KPYKGET NAIL, 6 OR MORE 07/16/2011 99724-WWVQZOU NAIL, 6 OR MORE 09/17/2011 01429-BPFREII NAIL, 6 OR MORE 10/15/2011 16625-NIUDGED NAIL, 6 OR MORE 11/12/2011 33646-YKVZDBP NAIL, 6 OR MORE 01/26/2012 53153-MXBQIEE NAIL, 6 OR MORE 04/05/2012 01111-EQXVSME NAIL, 6 OR MORE 09/09/2012 40239-UJJASQQ NAIL, 6 OR MORE 11/04/2012 01670-EJFXEVY NAIL, 6 OR MORE 01/20/2013 86310-BIRSNDI NAIL, 6 OR MORE 03/24/2013 79690-PTTAIEZ NAIL, 6 OR MORE 06/06/2013 72460-IRTJOVF NAIL, 6 OR MORE 10/05/2013 40221-SHNGRXQ NAIL, 6 OR MORE 01/05/2014 09267-TPZYBEK NAIL, 6 OR MORE 03/08/2014 90040-QZHPWAU NAIL, 6 OR MORE 06/05/2014 94484-VPNBIME NAIL, 6 OR MORE 09/06/2014 54855-RIVQIRV NAIL, 6 OR MORE 11/16/2014 58152-KJJBZEN NAIL, 6 OR MORE 02/05/2015 76120-CDBBDYT NAIL, 6 OR MORE 10/03/2015 34578-AUTVFAR NAIL, 6 OR MORE 01/30/2016 97342-HVZVGOK NAIL, 6 OR MORE 04/28/2016 37812-PZTSWGA NAIL, 6 OR MORE 08/18/2016 37305-OWLCYIB NAIL, 6 OR MORE 10/20/2016 20726-WAQQRNZ NAIL, 6 OR MORE 12/29/2016 30422-WKBMYMW NAIL, 6 OR MORE 04/02/2017 91130-RHTPQCY NAIL, 6 OR MORE 06/15/2017 09346-PIPHSSL NAIL, 6 OR MORE 08/17/2017 58291-BKPRILU NAIL, 6 OR MORE 11/09/2017 14531-OGTHGLY NAIL, 6 OR MORE 02/08/2018 37055-QZPQQWN NAIL, 6 OR MORE 05/10/2018 70818-HUVJKRI NAIL, 6 OR MORE 08/05/2018 47687-EHACOYU NAIL, 6 OR MORE 10/25/2018 65074-ZXTUKFS NAIL, 6 OR MORE 01/27/2019 93095-RNXKCCO NAIL, 6 OR MORE 03/31/2019 23949-UWWKWKE NAIL, 6 OR MORE 06/02/2019 57845-SVCYUIL NAIL, 6 OR MORE 08/04/2019 81544-QRCIBQJ NAIL, 6 OR MORE 11/24/2019 22703-ZGCXHYG NAIL, 6 OR MORE 02/09/2020 15918-BCNRAOL NAIL, 6 OR MORE 04/19/2020 47192-IXQEZFQ NAIL, 6 OR MORE 10/01/2020 48574-SFMJGJW NAIL, 6 OR MORE 12/31/2020 27437-OOODNVK NAIL, 6 OR MORE 03/04/2021 00769-OMSKXPS NAIL, 6 OR MORE 06/13/2021 93539-QUHXPVA NAIL, 6 OR MORE 11/11/2021 87433-WECDWFR NAIL, 6 OR MORE 02/10/2022 98082-CPKBWET NAIL, 6 OR MORE 04/24/2022 09975-YPJUTIC NAIL, 6 OR MORE 11/14/2024 59496-NTIQCWG NAIL, 1-5 07/02/2015 71006-NSLVWZW NAIL, 1-5 05/07/2015 70324-Cthw Destruction, -14 04/04/2015 55821-Aaqi Destruction, -14 07/02/2015 00916-Ukws Destruction, -14 02/05/2015 80711-Giid Destruction, -14 11/15/2015 25163-Bjlx Destruction, -14 04/28/2016 43053-Pxgd Destruction, -14 01/30/2016 36722-Ojkp Destruction, -14 03/10/2016 28041-Gqil Destruction, -14 11/16/2014 77707-Kznr Destruction, -14 10/11/2014 46738-Hnqo Destruction, 07-2612/13/2014 44065-Jbcm Destruction, 07-2601/10/2015 94448-Grex Destruction, 07-2609/06/2014 98069-Vnsi Destruction, 07-2608/07/2014 65581-Nmou Destruction, 07-2606/05/2014 41309-Hlyk Destruction, 07-2609/13/2018 55893-Xzcc Destruction, 07-2610/25/2018 70121-Mtja Destruction, 07-2606/21/2018 39215-Jank Destruction, 07-2608/05/2018 32688-Nhqn Destruction, 07-2603/29/2018 89337-Yers Destruction, 07-2605/10/2018 63971-Kqyg Destruction, 07-2612/28/2017 37415-Bhys Destruction, 07-2602/08/2018 71229-Wbhc Destruction, 07-2606/15/2017 84592-Xrbl Destruction, 07-2608/17/2017 04350-Yzer Destruction, 07-2605/07/2017 14894-Rxba Destruction, 07-2602/16/2017 60642-Ygyo Destruction, 07-2604/02/2017 44461-Ktvg Destruction, 07-2612/29/2016 77189-Ibwi Destruction, 07-2610/20/2016 96244-Luwa Destruction, 07-2608/18/2016 02431-Wscv Destruction, 07-2610/03/2015 14554-Tyal Destruction, 07-2606/12/2016 36434-Tgzm Destruction, 07-2603/08/2014 02021-Tsnt Destruction, 07-2604/05/2014 31136-Ditp Destruction, 07-2602/08/2014 23627-Dmjt Destruction, 07-2610/05/2013 10677-Uyqg Destruction, 07-2610/04/2012 76519-Chya Destruction, 07-2605/04/2013 78148-Gmxe Destruction, 07-2606/06/2013 51500-Wsdf Destruction, 07-2607/27/2013 74249-Vuzn Destruction, 07-2602/17/2013 18260-Icgf Destruction, 07-2609/17/2011 08942-Scaf Destruction, 07-2611/04/2012 65475-Kmha Destruction, 07-2612/23/2012 39948-Ybam Destruction, 07-2609/09/2012 71852-Oufm Destruction, 07-2605/03/2012 23228-Rkvk Destruction, 07-2606/09/2012 40164-Xkwv Destruction, 07-2604/05/2012 91282-Fkvv Destruction, 07-2603/04/2012 33665-Rmfj Destruction, 07-2612/10/2011 83096-Xlyz Destruction, 07-2601/26/2012 01672-Npty Destruction, 07-2611/12/2011 12409-Chxf Destruction, 07-2610/15/2011 68284-Pfck Destruction, 07-2608/18/2011 83073-Bpik Destruction, 07-2607/16/2011 46165-Rngp Destruction, 07-2605/05/2011 53645-Xlof Destruction, 07-2603/31/2011 94322-Qfbp Destruction, 07-2611/11/2021 93981-Xchp Destruction, 07-2606/13/2021 12730-Kddr Destruction, 07-2611/12/2020 33524-Ehjk Destruction, 07-2606/04/2020 44549-Dban Destruction, 07-2604/19/2020 26850-Ayyv Destruction, 07-2602/09/2020 05552-Yvsw Destruction, 07-2606/02/2019 33137-Xoxs Destruction, 07-2611/24/2019 09609-Hrnz Destruction, 07-2608/04/2019 36468-Jdkg Destruction, 07-2603/31/2019 50231-Iokz Destruction, 07-2612/13/2018 58833-Pqmi Destruction, 07-2611/09/2017 46865-Vnqk Destruction, 07-2601/27/2019 99348-Nrwnurib Plate 06/02/2019 84142-Dxnikaim Plate 11/24/2019 68670-Tigsvnbi Plate 02/09/2020 12409-Nmqpoigq Plate 10/01/2020 56770-Dhgthpxx Plate 06/04/2020 78146-Tbmchlgt Plate 11/12/2020 20676-Rzzvxlss Plate 06/13/2021 43678-Jsxuoxie Plate 12/31/2020 07432-Ortmplmw Plate 11/11/2021 15786-Pgldeung Plate 02/10/2022 58001-Qcuvcvuv Plate 11/14/2024 26044-Eghnedhp Plate 07/16/2011 13855-Mmeddrrc Plate 01/26/2012 48647-Gmpbwlet Plate 04/05/2012 44564-Djxybcnc Plate 07/14/2012 84644-Jsnkpmfs Plate 05/03/2012 52084-Nlepxbql Plate 09/09/2012 55502-Egcxgipx Plate 12/23/2012 64822-Fgordjuj Plate 10/04/2012 28353-Tncajegp Plate 02/17/2013 76350-Hjmdegbb Plate 05/04/2013 50426-Hpnmzpso Plate 03/24/2013 08370-Gzaiosiv Plate 11/09/2013 35922-Vrgilome Plate 10/05/2013 00983-Mcuvvzkl Plate 06/06/2013 30826-Kycpufyk Plate 01/05/2014 43465-Hdededkq Plate 04/05/2014 11518-Stqfiauj Plate 05/04/2014 03605-Kkzmmysa Plate 08/18/2016 59324-Ebvuviez Plate 10/20/2016 11214-Lhsuyiyn Plate 12/29/2016 03890-Faihcijg Plate 06/15/2017 16098-Zkrnwwga Plate 09/28/2017 99550-Abmlcojx Plate 03/29/2018 37534-Xkapjtsc Plate 09/13/2018 13940-Iytmrchz Plate 08/07/2014 49186-Ydydkaji Plate 06/05/2014 82151-Coirhdfi Plate 09/06/2014 65434-Pnfvvvbc Plate 10/11/2014 99881-Gewupuac Plate 02/05/2015 75208-Akumzcbb Plate 12/13/2014 66826-Ltmlyxni Plate 11/16/2014 15126-Idxeuxxn Plate 04/28/2016 10166-Vpahuszz Plate 12/26/2015 22591-Xxxhjlta Plate 08/15/2015 57299-Xftqlmeg Plate 10/03/2015 43315-Ebflmxsl Plate 04/04/2015 73287-Pjtmajmw Plate 06/06/2015 04638-Oomsyaye Plate Each Additional 84037-Gstaitzy Plate Each Additional 01/2015 24396-Wqmsuhmv Plate Each Additional 60341-Jrjophrd Plate Each Additional 58954-Uxdeepiq Plate Each Additional 26111-Gqqztbfi Plate Each Additional 64368-Vchoqmjb Plate Each Additional 16331-Hswofjtq Plate Each Additional 95356-Wdbekxbb Plate Each Additional 10/2011 98620-Fnjseafx Plate Each Additional 08/2021 27659-Sfbkwesi Plate Each Additional 96286-Ydfbbgko Plate Each Additional 99569-Qpceglkc Plate Each Additional 63827-QVN 08/22/2013 88723- Debride <25 sq cm 10/05/2013 74786- Debride <25 sq cm 11/09/2013 48804- Debride <25 sq cm 05/04/2014 86608- Debride <25 sq cm 01/05/2014 45712- Debride <25 sq cm 11/12/2011 15208- Debride <25 sq cm 03/04/2012 03621-OTDBNYS SKIN/TISSUE 01/05/2014 15291-EJTBVYH SKIN/TISSUE 09/07/2013 59878 I&D ABSCESS- SIMPLE,SINGLE 012 [id number] I&D ABSCESS- SIMPLE,SINGLE 012 [id number] I&D ABSCESS- SIMPLE,SINGLE 012 [id number] I&D ABSCESS- SIMPLE,SINGLE 021 [id number] I&D ABSCESS- SIMPLE,SINGLE 020 [id number] I&D ABSCESS- SIMPLE,SINGLE 019 Insurance Providers Payer Name Payer Address Payer Phone Subscriber Number Group Number Insured Name Patient Relationship to Insured Coverage Start Date Coverage End Date [employer] 65 Medicare Preferred [address] [place] [address] [id number] Julianna Meehan Self - patient is [...] D&C uterine prolapse Hospitalization History Reason Date(Month/Year) [facility]- fell dislocated hip 07/2020 [facility] - fell broke hip 06/26/20 Pt stated that she had a fal l she didnt go to the ER she stated she seeing other doctor. 04/2019 [facility] [place] E.R, Back problems 10/2017
--- NOTE | 2025-02-17 08:35 | A.OFFPC_ITS ---
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 Accompanied by: Caregiver Allergies amlodipine (AMLODIPINE) Allergy (Unknown, Verified 02/17/25 08:36) UNKNOWN carvedilol (CARVEDILOL) Allergy (Unknown, Verified 02/17/25 08:36) UNKNOWN irbesartan (From AVAPRO) Allergy (Unknown, Verified 02/17/25 08:36) UNKNOWN levofloxacin (From LEVAQUIN) Allergy (Unknown, Verified 02/17/25 08:36) GENERALIZED MUSCLE PAIN naproxen (Naproxen) Allergy (Unknown, Verified 02/17/25 08:36) HIVES, severe rash tetracycline (TETRACYCLINE) Allergy (Unknown, Verified 02/17/25 08:36) UNKNOWN CARE ONE TRIPLE ANTIBTIOTIC OINTMENT Allergy (Intermediate, Uncoded 02/17/25 08:36) rash Tobacco use date assessed: 02/17/25 Fall risk assessment: No Falls in past year Last assessed Fall Risk: 02/17/25 Dental Screening Dental Screen Date: 01/27/25 HPI HPI Comments History of Present Illness Details 89 y/o Female patient who presents to [facility] today for EDF. Pt was admitted at [facility] on [facility]/07 for re-evaluation of right hand wound from a bite from an aviles bird on 01/28/2025. Patient was discharged home on linezolid and Augmentin. Today reports complete resolution of the wounds and she completed all the Abx. Pt c/o Trouble hearing on both ears - feels blocked. [facility]LY [facility] Medical History Left-sided chest pain Ulnar neuropathy at elbow of left upper extremity Reactive airway disease Blurring of vision Nasal congestion Bronchitis Screening for eye condition Bilateral artificial lens implant Conjunctivitis, both eyes Cough Nasal congestion Compression fracture of T10 vertebra Mammogram declined Cataract Porphyria cutanea tarda Uterine prolapse Congestive heart failure TIA (transient ischemic attack) Atrial fibrillation Insomnia Hypertension Hypercholesterolemia Peripheral vascular disease Osteoarthritis of knee Surgical History History of right hip hemiarthroplasty S/P hip hemiarthroplasty History of uterine prolapse History of biopsy History of D&C Family History Father Hypertension Mother Hypertension Daughter Colon cancer Lymph node cancer Social History Household Members: None Housing: House Housing Other:: Ambulates with a cane Do you presently have visiting nurse or other home services: Yes (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 1. Little interest or pleasure in doing things: not at all 2. Feeling down, depressed, or hopeless: not at all 3. Trouble falling or staying asleep, or sleeping too much: not at all 4. Feeling tired or having little energy: not at all 5. Poor appetite or overeating: not at all 6. Feeling bad about yourself - or that you are a failure or have let yourself or your family down: not at all 7. Trouble concentrating on things, such as reading the newspaper or watching television: not at all 8. Moving or speaking so slowly that other people could have noticed. Or the opposite - being so fidgety or restless that you have been moving around a lot more than usual: not at all 9. Thoughts that you would be better off or of hurting yourself in some way: not at all Total score: 0 Depression Screening Interpretation: Negative Depression Screening Done: Yes Source: Developed by Drs. Kevin Kelly, Jacqui Horton, Castro Buck and colleagues, with an educational ed from [employer]. Thrive Questionnaire Date Thrive assessed: 10/04/24 I am a: Patient What is your living situation today?: I have a steady place to live Within the past 12 months, did the food you bought not last and you didn't have the money to get more?: Never true Within the past 12 months, did you worry whether your food would run out before you got money to buy more?: Never true Do you have trouble paying for medicines?: I choose not to answer this question Do you have trouble getting transportation to medical appointments?: I choose not to answer this question Do you have trouble paying your heating and electricity bill?: I choose not to answer this question Do you have trouble taking care of your child, family member or friend?: I choose not to answer this question Do you have trouble with day-to-day activities such as bathing, preparing meals, shopping, managing finances, etc.?: I choose not to answer this question Are you currently unemployed and looking for a job?: I choose not to answer this question Are you interested in more education?: I choose not to answer this question Please select the resources that you would like help with: None Currently or been in a relationship where the following occur: I choose not to answer THRIVE Score: 0 AUDIT C Alcohol Use Questionnaire (AUDIT-C) 1. How often do you have a drink containing alcohol?: Never 3. How often do you have six or more drinks on one occasion?: Never Total Score: 0 BRIAN-7 AMB Questionnaire BRIAN-7 Date BRIAN - 7 assessed: 02/17/25 Feeling nervous, anxious, or on edge: 0 = Not at all Not being able to stop or control worryin = Not at all Worrying too much about different things: 0 = Not at all Trouble relaxin = Not at all Being so restless that it is hard to sit still: 0 = Not at all Becoming easily annoyed or irritable: 0 = Not at all Feeling afraid as if something awful might happen: 0 = Not at all Total BRIAN-7 score (0-4 normal; 5-9 mild; 10-14 moderate; 15-21 severe): 0 Source: Developed by Drs. Kevin Kelly, Jacqui Horton, Castro Buck and colleagues, with an educational ed from [employer]. Review of Systems Const All systems reviewed & are unremarkable except as noted in HPI and below Physical exam (Primary Care) Vital Signs: Last Vital Signs Temp 97.1 F 02/17/25 08:36 Pulse 67 02/17/25 08:36 BP 142/94 H 02/17/25 08:36 Pulse Ox 99 02/17/25 08:36 Oxygen Delivery Method Room Air 02/17/25 08:36 BMI result Body Mass Index 21.5 Tobacco/Smoking Status: Tobacco use Status Tobacco use date assessed 02/17/25 02/17/25 08:40 Patient Tobacco Use Status Never used Tobacco 02/17/25 08:40 Tobacco use type Cigarette 02/17/25 08:40 e-Cigarette/Vaping Use Never Used 02/17/25 08:40 PHQ-9: PHQ-9 Score PHQ-9: Total score 0 02/17/25 08:40 Depression Screening Interpretation: Negative Thrive Assessment: Date of Thrive Assessment Date Thrive assessed 10/04/24 02/17/25 08:40 Currently or been in a relationship where the following occur: I choose not to answer Const General: no acute distress Orientation/consciousness: patient oriented x3 HENMT Ears: external ears normal and TM abnormal obstructed by cerumen Skin Other: Wounds have healed, small scar tissue present. No signs of infection. Neuro General: patient oriented x3 Coding Level of Care Code Est Pt Level 4 (60662) Diagnoses Bitten by other birds, sequela W61.91XS Impacted cerumen of both ears H61.23 Time Spent (min) 20 Assessment & Plan Assessment & Plan (1) Bitten by other birds, sequela: Code(s): W61.91XS - Bitten by other birds, sequela Category: Medical Plan: Wounds have healed well. Resolved. (2) Impacted cerumen of both ears: Code(s): H61.23 - Impacted cerumen, bilateral Category: Medical Plan: Ordered Debrox. Medications: New carbamide peroxide 6.5% (Debrox) 5 drps otic (ears) BID 15 mL 0RF 4 days H61.23 - Impacted cerumen, bilateral
[2025-02-17 08:36] VITALS: BP 142/94; PULSE 67; TEMP 36.2; O2SAT 99; BMI 21.5
== END 2025-02-17 09:32 | disposition home or self-care (01) ==
LOC: HO.HMCH 08:14
PROVIDERS: PCP Internal Medicine; Visit Provider Nurse Practitioner Family
DX: H61.23 Impacted cerumen, bilateral (principal); W61.91XA Bitten by other birds, initial encounter

== ENCOUNTER → 2025-02-17 08:13 | Outpatient (BNVA) | payer MEDICARE, SELFPAY | PROVIDERS: PCP Internal Medicine; Visit Provider Nurse Practitioner Family | DX: S61.451D Open bite of right hand, subsequent encounter (principal); W61.91XD Bitten by other birds, subsequent encounter; H61.23 Impacted cerumen, bilateral | CPT/HCPCS: 96127; 99212 ==

== ENCOUNTER 2025-03-24 11:55 | Emergency (ER) | payer MEDICARE, SELFPAY ==
--- NOTE | ~2025-03-24 | XR_ITS ---
EXAMINATION: XR CHEST CLINICAL INFORMATION: sob covid COMPARISON: September 30, 2024. TECHNIQUE: Frontal view of the chest was obtained. FINDINGS: Cardiomediastinal silhouette overlaps the left hemithorax due to patient's positioning to the left side. Prominence of the interstitial markings. Haziness in the left lower hemithorax. No gross pneumothorax. Hiatal hernia, moderate to large. Multilevel thoracic and upper lumbar spondylosis. Vertebroplasty at T12 vertebra region. Osteopenia versus osteoporosis. XR/XR chest 1V IMPRESSION: Prominence of the interstitial markings suggesting acute small airway inflammatory processes versus mild interstitial lung edema. Hiatal hernia, moderate to large volume. Electronically signed by: James Law MD 03/24/2025 02:14 PM EDT
[2025-03-24 12:03] VITALS: BP 149/65; BP 150/84; PULSE 59; PULSE 61; RESP 17; TEMP 37.7; O2SAT 95; O2SAT 97; BMI 19.6
[2025-03-24 12:11] VITALS: BP 149/65; PULSE 59; RESP 17; TEMP 37.7; O2SAT 95
[2025-03-24 12:56] LABS: Hematocrit 32.7 % (37.0-47.0); Hemoglobin 11.1 g/dl (12.0-16.0); Imm Gran Abs Auto 0.01 X10*3/uL (0.00-0.03); Imm Gran Pct Auto 0.2 % (0.0-0.4); Lymphocytes Absolute Auto 0.9 X10*3/uL (1.2-4.9); MANUAL DIFF FLAG SCAN; Mean Corpuscular HGB Conc 33.9 g/dl (31.0-35.0); Mean Corpuscular Hemoglobin 32.6 pg (27.0-33.0); Mean Corpuscular Volume 96.2 fL (80.0-98.0); NRBC Abs Auto 0.000 X10*3/uL (0.0-0.012); NRBC Pct Auto 0.0 /100WBC (0.0-0.2); Red Blood Count 3.40 X10*6/uL (4.20-5.50); SCAN SMEAR FLAG 1; White Blood Count 5.0 X10*3/uL (4.8-10.8)
[2025-03-24 13:01] LABS: COVID-19 Test Positive (Negative); IDNOW Serial# 55D5AD1C
[2025-03-24 13:02] LABS: Alanine Aminotransferase 19 U/L (0-31); Albumin Level 3.8 g/dL (3.5-5.0); Alkaline Phosphatase 85 U/L (39-117); Anion Gap 13 (12-20); Aspartate Amino Transferase 43 U/L (5-31); Blood Urea Nitrogen 26 mg/dL (9-16); Calcium 8.9 mg/dL (8.4-10.2); Carbon Dioxide 27 mmol/L (22-29); Chloride 97 mmol/L (96-108); Creatinine Clr Calc Pharmacy 28.8; Estimated Glomerular Filt Rate 53; Magnesium 2.0 mg/dL (1.6-2.6); Potassium 4.3 mmol/L (3.3-5.1); Sodium 133 mmol/L (135-145); Total Protein 7.5 g/dL (6.5-8.0)
[2025-03-24 13:03] LABS: INTERNATIONAL NORM RATIO 1.2 (0.9-1.1); Prothrombin Time 13.3 SEC (10.9-12.4)
[2025-03-24 13:11] LABS: IDNOW Serial# 58CA691E; Influenza B2 Negative (Negative)
[2025-03-24 14:00] VITALS: BP 147/70; PULSE 74; RESP 15; TEMP 37.1; O2SAT 100
--- NOTE | 2025-03-24 14:00 | ED.GENADULT ---
HPI - General Adult General Chief complaint: Upper Respiratory Symptoms Stated complaint: FLU SX W/FEVER PER EMS Time Seen by Provider: 03/24/25 12:09 Source: patient Mode of arrival: ambulatory Limitations: no limitations History of Present Illness ED Provider: LORRIANE Munguia HPI narrative: This is a 89-year-old female past medical history significant for left-sided chest pain, ulnar neuropathy, reactive airway disease, compression fracture of T10, TIA, AFib, hypertension, hyperlipidemia who presents to the emergency department with productive cough, fatigue, malaise, low-grade fever 100.9 degrees F at home x1 day. She reports her son is sick. She took an at-home COVID test such as positive she is coming in for confirmation. She is still eating and drinking. Denies chest pain, shortness of breath, nausea, vomiting, abdominal pain headache, vision change, dizziness . Related Data Previous Rx's ?Medication ?Instructions ?Recorded wheelchair #1 ea 07/25/21 nystatin 100,000 unit/gram topical 1 appl topical TID #60 grams 10/09/21 powder nebulizers (Aeroneb Go Nebulizer) #1 ea 05/05/22 albuterol sulfate 2.5 mg/3 mL 2.5 mg (3 mL) inhalation QID PRN 12/10/22 (0.083 %) solution for nebulization shortness of breath or wheezing #180 mL albuterol sulfate 90 mcg/actuation 2 inh inhalation Q6H for wheezing 12/10/22 aerosol inhaler #8.5 grams triamcinolone acetonide 0.5 % 1 appl topical DAILY #15 grams 10/16/23 topical cream sodium chloride 0.65 % nasal spray 2 spray intranasal QID PRN dry 03/03/24 aerosol (Saline Nasal) nasal passages #88 mL eugenie.stocking,thigh,reg,med #12 ea 03/15/24 hydrocortisone 2.5 % topical cream 1 appl IN BID-QID PRN hemorrhoids 03/15/24 with perineal applicator #30 grams (Proctosol HC) cyanocobalamin (vitamin B-12) 1,000 mcg PO DAILY #90 caps 06/15/24 1,000 mcg tablet (Vitamin B-12) fluticasone propionate 50 1 spray intranasal DAILY #16 grams 07/14/24 mcg/actuation nasal spray,suspension (Flonase Allergy Relief) metoprolol succinate 200 mg 200 mg PO DAILY #135 caps 10/03/24 tablet,extended release 24 hr valacyclovir 1 gram tablet 1,000 mg PO Q8H #21 tabs 10/04/24 (Valtrex) apixaban 2.5 mg tablet 2.5 mg PO BID 30 days #60 tabs 10/19/24 cholecalciferol (vitamin D3) 25 25 mcg PO DAILY #90 caps 11/11/24 mcg (1,000 unit) capsule (Vitamin D3) losartan 50 mg tablet 50 mg PO DAILY #90 caps 11/11/24 nystatin 100,000 unit/gram topical 1 appl topical BID #30 grams 11/11/24 ointment zolpidem 6.25 mg tablet,extended 6.25 mg PO BEDTIME PRN insomnia 90 12/21/24 release,multiphase days #90 tabs furosemide 40 mg tablet 40 mg PO DAILY 90 days #90 caps 01/20/25 linezolid 600 mg tablet 600 mg PO Q12H #13 tabs 02/02/25 mupirocin 2 % topical ointment 1 appl topical TID #15 grams 02/07/25 (Centany) carbamide peroxide 6.5 % ear drops 5 drp otic (ears) BID 4 days #15 mL 02/17/25 (Debrox) sennosides 8.6 mg-docusate sodium 2 tab-cap (2 x 8.6-50 mg) PO DAILY 03/01/25 50 mg capsule (Senna Plus) #60 caps acetaminophen 300 mg-codeine 15 mg 1 tab PO Q8H PRN pain #55 tabs 03/14/25 tablet albuterol sulfate 90 mcg/actuation 2 inh inhalation Q4-6H PRN 03/24/25 breath activated powder inhaler shortness of breath or wheezing #1 ea Allergies Allergy/AdvReac Type Severity Reaction Status Date / Time amlodipine (AMLODIPINE) Allergy Unknown UNKNOWN Verified 03/24/25 12:06 carvedilol (CARVEDILOL) Allergy Unknown UNKNOWN Verified 03/24/25 12:06 irbesartan (From AVAPRO) Allergy Unknown UNKNOWN Verified 03/24/25 12:06 levofloxacin (From LEVAQUIN) Allergy Unknown GENERALIZED Verified 03/24/25 12:06 MUSCLE PAIN naproxen (Naproxen) Allergy Unknown HIVES, Verified 03/24/25 12:06 severe rash tetracycline (TETRACYCLINE) Allergy Unknown UNKNOWN Verified 03/24/25 12:06 CARE ONE TRIPLE ANTIBTIOTIC Allergy Intermediate rash Uncoded 02/17/25 08:36 OINTMENT Review of Systems Review of Systems: Yes all other systems are reviewed and are negative [facility] Past Medical History Attestation statement: The following information was validated with the patient. Source: old records reviewed and nursing notes reviewed Medical History Left-sided chest pain Ulnar neuropathy at elbow of left upper extremity Reactive airway disease Blurring of vision Nasal congestion Bronchitis Screening for eye condition Bilateral artificial lens implant Conjunctivitis, both eyes Cough Nasal congestion Compression fracture of T10 vertebra Mammogram declined Cataract Porphyria cutanea tarda Uterine prolapse Congestive heart failure TIA (transient ischemic attack) Atrial fibrillation Insomnia Hypertension Hypercholesterolemia Peripheral vascular disease Osteoarthritis of knee Surgical History History of right hip hemiarthroplasty S/P hip hemiarthroplasty History of uterine prolapse History of biopsy History of D&C Family History Family History Father Hypertension Mother Hypertension Daughter Colon cancer Lymph node cancer Social History Social History Household Members: None Housing: House Housing Other:: Ambulates with a cane Do you presently have visiting nurse or other home services: Yes (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 Oriented X3.? No acute distress.? Head: Normocephalic, atraumatic, no step-offs or deformities Eyes: Pupils equal, round and reactive to light.? ENT: Pharynx normal.? Neck: Normal inspection.? Neck supple.? CVS: Normal heart rate and rhythm.? Pulses normal.? Respiratory: No respiratory distress.? Breath sounds normal.? No appreciated wheezing or crackles Abdomen: Soft and nontender.? Skin: Skin warm and dry.? Normal skin color.? Normal skin turgor.? Extremities: No lower extremity edema.? No calf ttp. Global weakness Back: No midline tenderness, no C-spine tenderness, full range of motion, no CVA tenderness bilaterally Neuro: Oriented X 3.? No motor deficit.? No sensory deficit. CN 2-12 intact Vital Signs: Vital Signs - 24 hr 03/24/25 12:03 03/24/25 12:11 03/24/25 14:00 Temperature 99.8 F 99.8 F 98.7 F Pulse Rate 59 59 74 Respiratory Rate 17 17 15 Blood Pressure 149/65 H 149/65 H 147/70 H Pulse Oximetry 95 95 100 Oxygen Delivery Method Room Air Room Air Room Air BMI result Body Mass Index 19.6 Vital signs state Course Reevaluation(s) Reevaluation #1: To note, patient's chest x-ray prominence of the interstitial markings suggesting acute small airway inflammatory process versus mild interstitial lung edema. Educated patient on diagnosis and treatment plan, answered all question, patient verbalizes understanding. At this time patient will be discharged home, advised to return with new or worsening symptoms. Educated on worrisome signs and symptoms and when to return. At this time I feel comfortable discharge home. Time: 14:50 Medical Decision Making Medical Decision Making [facility] Narrative: This is an 89-year-old female presenting with upper respiratory symptoms x1 day. Son at home sick with similar symptoms. COVID positive at home. Coming in for confirmation. PE benign. History and physical exam concerning for upper respiratory infection flu versus COVID. Unlikely pneumonia, PE, respiratory distress, ACS. I do not suspect pneumothorax. Plan will obtain viral testing and chest x-ray. Differential Diagnosis Differential Diagnoses: The differential diagnosis associated with the presentation includes (History and physical exam concerning for upper respiratory infection flu versus COVID. Unlikely pneumonia, PE, respiratory distress, ACS. I do not suspect pneumothorax.) Admission/Observation Consideration of admission/observation: Escalation of care including admission/observation considered Lab Data [facility] Lab Attestation statement: I reviewed the patient's lab results. 03/24/25 12:43 03/24/25 12:43 Labs: Lab Results 03/24/25 03/24/25 Range/Units 12:43 12:48 WBC 5.0 (4.8-10.8) X10*3/uL RBC 3.40 L (4.20-5.50) X10*6/uL Hgb 11.1 L (12.0-16.0) g/dl Hct 32.7 L (37.0-47.0) % MCV 96.2 (80.0-98.0) fL MCH 32.6 (27.0-33.0) pg MCHC 33.9 (31.0-35.0) g/dl RDW 14.1 (11.0-16.0) % Plt Count Not Reportable MPV Not Reportable Immature Gran % (Auto) 0.2 (0.0-0.4) % Neut % (Auto) 59.0 (45-73) % Lymph % (Auto) 18.6 L (20-40) % [place] % (Auto) 20.8 H (2-11) % Eos % (Auto) 0.6 (0-4) % Baso % (Auto) 0.8 (0-2) % Lymph # (Auto) 0.9 L (1.2-4.9) X10*3/uL [place] # (Auto) 1.0 (0.1-1.2) X10*3/uL Eos # (Auto) 0.0 (0.0-0.4) X10*3/uL Baso # (Auto) 0.0 (0.0-0.2) X10*3/uL Abs Immat Gran (auto) 0.01 (0.00-0.03) X10*3/uL Absolute Neuts (auto) 2.9 (2.0-8.3) x10*3/uL Absolute Nucleated RBC 0.000 (0.0-0.012) X10*3/uL Nucleated RBC % (auto) 0.0 (0.0-0.2) /100WBC Smear Tech's Comments VERIFIED PT 13.3 H (10.9-12.4) SEC INR 1.2 H (0.9-1.1) Sodium 133 L (135-145) mmol/L Potassium 4.3 (3.3-5.1) mmol/L Chloride 97 (96-108) mmol/L Carbon Dioxide 27 (22-29) mmol/L Anion Gap 13 (12-20) BUN 26 H (9-16) mg/dL Creatinine 0.98 (0.5-1.4) mg/dL Estim Creat Clear Calc 28.8 Estimated GFR 53 Random Glucose 116 H (60-115) mg/dL Calcium 8.9 D (8.4-10.2) mg/dL Magnesium 2.0 (1.6-2.6) mg/dL Total Bilirubin 0.6 (0.0-1.0) mg/dL AST 43 H (5-31) U/L ALT 19 (0-31) U/L Alkaline Phosphatase 85 (39-117) U/L Total Protein 7.5 (6.5-8.0) g/dL Albumin 3.8 (3.5-5.0) g/dL COVID-19 ([place]) Positive A (Negative) COVID-19 Clin Com See Note Influenza Type A ([facility]) Negative (Negative) Influenza Type B ([facility]) Negative (Negative) Influenza A & B Note See Note Independent Interpretation I performed an independent interpretation of an: Plain X-Ray Radiology Impression Discussion of test interpretation with radiology: I have reviewed the radiologist's reading. External Record Review External record reviewed: Inpatient record, Office record, Outpatient record, Prior outpatient labs, Prior outpatient radiology, Primary care record and Outside ED record Prescription Management I considered prescription management with: Other (Supportive measures) Chronic Conditions Patient?s care impacted by: Other (Please see HPI) Critical Care Time Critical Care Time Critical Care Time: No Discharge Plan Discharge Clinical Impression: COVID-19 Patient Disposition: Home, Self-Care Instructions: COVID-19 (Coronavirus Disease 2019) (ED) Additional Instructions: Take your medications as prescribed. If you were prescribed antibiotics today, it is important that you take your medication to their entirety, do not skip any doses, do not finish them early. Today you tested positive for COVID-19. Take Ibuprofen or Tylenol as needed for fevers or body aches. Quarantine for 5 days and ensure you wear a mask. After 5 days you should wear a mask for 5 days after that. Practice social distancing and good hand hygiene. Drink plenty of fluids. Follow-up with your primary care provider this week. Return to the emergency department with new or worsening symptoms. In case of emergency call 911 You can purchase a pulse oximeter from your local pharmacy or grocery store, and monitor your oxygen saturation if it goes below 94% you should return to the emergency department for further evaluation. You can take Tylenol as needed for symptoms. Do not exceed maximum daily dose as listed on packaging. XR/XR chest 1V IMPRESSION: Prominence of the interstitial markings suggesting acute small airway inflammatory processes versus mild interstitial lung edema. Hiatal hernia, moderate to large volume. Prescriptions: New albuterol sulfate 90 mcg/actuation aerosol powdr breath activated 2 inh inhalation Q4-6H PRN (Reason: shortness of breath or wheezing) Qty: 1 0RF No Action (DME) wheelchair See Rx Instructions .Route .MEDSUPPLY Qty: 1 0RF Rx Instructions: As directed nystatin 100,000 unit/gram powder 1 appl topical TID Qty: 60 1RF (DME) nebulizers [Aeroneb Go Nebulizer] [facility] See Rx Instructions .Route Qty: 1 0RF Rx Instructions: As directed albuterol sulfate 90 mcg/actuation HFA aerosol inhaler 2 inh inhalation Q6H Qty: 8.5 0RF albuterol sulfate 2.5 mg /3 mL (0.083 %) solution for nebulization 2.5 mg inhalation QID PRN (Reason: shortness of breath or wheezing) Qty: 180 0RF triamcinolone acetonide 0.5 % cream 1 appl topical DAILY Qty: 15 0RF Saline Nasal 0.65 % aerosol,spray 2 spray intranasal QID PRN (Reason: dry nasal passages) Qty: 88 0RF cyanocobalamin (vitamin B-12) [Vitamin B-12] 1,000 mcg tablet 1,000 mcg PO DAILY Qty: 90 3RF fluticasone propionate [Flonase Allergy Relief] 50 mcg/actuation spray,suspension 1 spray intranasal DAILY Qty: 16 5RF Rx Instructions: administer into each nostril metoprolol succinate 200 mg tablet extended release 24 hr 200 mg PO DAILY Qty: 135 2RF apixaban 2.5 mg tablet 2.5 mg PO BID 30 Days Qty: 60 11RF losartan 50 mg tablet 50 mg PO DAILY Qty: 90 2RF cholecalciferol (vitamin D3) [Vitamin D3] 25 mcg (1,000 unit) capsule 25 mcg PO DAILY Qty: 90 3RF nystatin 100,000 unit/gram ointment 1 appl topical BID Qty: 30 0RF zolpidem 6.25 mg tablet,ext release multiphase 6.25 mg PO BEDTIME PRN (Reason: insomnia) 90 Days Qty: 90 1RF Rx Instructions: will decrease dose furosemide 40 mg tablet 40 mg PO DAILY 90 Days Qty: 90 3RF Senna Plus 8.6-50 mg capsule 2 tab-cap PO DAILY Qty: 60 0RF acetaminophen-codeine 300-15 mg tablet 1 tab PO Q8H PRN (Reason: pain) Qty: 55 0RF linezolid 600 mg tablet 600 mg PO Q12H Qty: 13 0RF mupirocin [Centany] 2 % ointment 1 appl topical TID Qty: 15 0RF (DME) eugenie.stocking,thigh,reg,med Misc See Rx Instructions .Route Qty: 12 0RF Rx Instructions: As directed 20 - 30 mm HG hydrocortisone [Proctosol HC] 2.5 % cream with perineal applicator 1 appl IN BID-QID PRN (Reason: hemorrhoids) Qty: 30 0RF valacyclovir [Valtrex] 1 gram tablet 1,000 mg PO Q8H Qty: 21 0RF Debrox 6.5 % drops 5 drp otic (ears) BID 4 Days Qty: 15 0RF Referrals: Po,Ann Marie Diego MD [Primary Care Provider, Internal Medicine] Print Language: Egyptian
[2025-03-24 14:49] VITALS: BP 147/71; PULSE 70; RESP 15; TEMP 36.9; O2SAT 100
[2025-03-24 15:01] VITALS: BP 147/71; PULSE 70; RESP 15; TEMP 36.9; O2SAT 100
== END 2025-03-24 15:02 | disposition home or self-care (01) ==
PROVIDERS: Physician Assistant; Emergency Provider Emergency Medicine; PCP Internal Medicine
DX: U07.1 COVID-19 (principal); R06.02 Shortness of breath; R50.9 Fever, unspecified; Z79.899 Other long term (current) drug therapy; Z51.81 Encounter for therapeutic drug level monitoring
CPT/HCPCS: 36415; 71045; 80053; 83735; 85025; 85610; 87502; 87635; 99283

== ENCOUNTER → 2025-03-24 13:34 | Outpatient (BNV) | payer MEDICARE, SELFPAY | PROVIDERS: Emergency Provider Emergency Medicine; PCP Internal Medicine; Visit Provider Radiology Diagnostic Radiology | DX: U07.1 COVID-19 (principal); K44.9 Diaphragmatic hernia without obstruction or gangrene | CPT/HCPCS: 71045 ==

== ENCOUNTER 2025-05-05 14:05 | Outpatient (AMB) | payer MEDICARE, SELFPAY ==
--- NOTE | 2025-05-05 14:02 | MHC.PC.OV ---
Intake Visit Reasons: Cold Symptoms Allergies amlodipine (AMLODIPINE) Allergy (Unknown, Verified 05/05/25 14:02) UNKNOWN carvedilol (CARVEDILOL) Allergy (Unknown, Verified 05/05/25 14:02) UNKNOWN irbesartan (From AVAPRO) Allergy (Unknown, Verified 05/05/25 14:02) UNKNOWN levofloxacin (From LEVAQUIN) Allergy (Unknown, Verified 05/05/25 14:02) GENERALIZED MUSCLE PAIN naproxen (Naproxen) Allergy (Unknown, Verified 05/05/25 14:02) HIVES, severe rash tetracycline (TETRACYCLINE) Allergy (Unknown, Verified 05/05/25 14:02) UNKNOWN CARE ONE TRIPLE ANTIBTIOTIC OINTMENT Allergy (Intermediate, Uncoded 05/05/25 14:02) rash Tobacco use date assessed: 05/05/25 Fall risk assessment: No Falls in past year Last assessed Fall Risk: 05/05/25 Dental Screening Dental Screen Date: 05/05/25 Did you have a dental visit in the last 12 months?: No Did you have a dental problem in the last 6 months where you did not have access to dental care?: No Was dental information given to patient?: No HPI Cold Symptoms HPI Details coughing since 03/24/2025, no sore throat, cough drops taken with sob, [facility] Medical History Left-sided chest pain Ulnar neuropathy at elbow of left upper extremity Reactive airway disease Blurring of vision Nasal congestion Bronchitis Screening for eye condition Bilateral artificial lens implant Conjunctivitis, both eyes Cough Nasal congestion Compression fracture of T10 vertebra Mammogram declined Cataract Porphyria cutanea tarda Uterine prolapse Congestive heart failure TIA (transient ischemic attack) Atrial fibrillation Insomnia Hypertension Hypercholesterolemia Peripheral vascular disease Osteoarthritis of knee Surgical History History of right hip hemiarthroplasty S/P hip hemiarthroplasty History of uterine prolapse History of biopsy History of D&C Family History Father Hypertension Mother Hypertension Daughter Colon cancer Lymph node cancer Social History Household Members: None Housing: House Housing Other:: Ambulates with a cane Do you presently have visiting nurse or other home services: Yes (elder care, art therapy certified supervisor, meals on wheels) Alcohol intake: current Alcohol intake frequency: does not drink Alcohol type: wine Comment: sleeping Patient Tobacco Use Status: Never used Tobacco Tobacco use type: Cigarette e-Cigarette/Vaping Use: Never Used Second Hand Smoke Exposure: No service: No Current occupational status: retired Cognitive needs: No Hearing needs: Yes Vision needs: Yes Questionnaire PHQ-9 Over the last 2 weeks, how often have you been bothered by any of the following problems? 1. Little interest or pleasure in doing things: not at all 2. Feeling down, depressed, or hopeless: not at all 3. Trouble falling or staying asleep, or sleeping too much: not at all 4. Feeling tired or having little energy: not at all 5. Poor appetite or overeating: not at all 6. Feeling bad about yourself - or that you are a failure or have let yourself or your family down: not at all 7. Trouble concentrating on things, such as reading the newspaper or watching television: not at all 8. Moving or speaking so slowly that other people could have noticed. Or the opposite - being so fidgety or restless that you have been moving around a lot more than usual: not at all 9. Thoughts that you would be better off or of hurting yourself in some way: not at all Total score: 0 Depression Screening Interpretation: Negative Depression Screening Done: Yes Source: Developed by Drs. Kevin Kelly, Jacqui Horton, Castro Buck and colleagues, with an educational ed from [employer]. Thrive Questionnaire Date Thrive assessed: 10/04/24 I am a: Patient What is your living situation today?: I have a steady place to live Within the past 12 months, did the food you bought not last and you didn't have the money to get more?: Never true Within the past 12 months, did you worry whether your food would run out before you got money to buy more?: Never true Do you have trouble paying for medicines?: I choose not to answer this question Do you have trouble getting transportation to medical appointments?: I choose not to answer this question Do you have trouble paying your heating and electricity bill?: I choose not to answer this question Do you have trouble taking care of your child, family member or friend?: I choose not to answer this question Do you have trouble with day-to-day activities such as bathing, preparing meals, shopping, managing finances, etc.?: I choose not to answer this question Are you currently unemployed and looking for a job?: I choose not to answer this question Are you interested in more education?: I choose not to answer this question Please select the resources that you would like help with: None Currently or been in a relationship where the following occur: I choose not to answer THRIVE Score: 0 AUDIT C Alcohol Use Questionnaire (AUDIT-C) 1. How often do you have a drink containing alcohol?: Never 3. How often do you have six or more drinks on one occasion?: Never Total Score: 0 BRIAN-7 AMB Questionnaire BRIAN-7 Date BRIAN - 7 assessed: 02/17/25 Feeling nervous, anxious, or on edge: 0 = Not at all Not being able to stop or control worryin = Not at all Worrying too much about different things: 0 = Not at all Trouble relaxin = Not at all Being so restless that it is hard to sit still: 0 = Not at all Becoming easily annoyed or irritable: 0 = Not at all Feeling afraid as if something awful might happen: 0 = Not at all Total BRIAN-7 score (0-4 normal; 5-9 mild; 10-14 moderate; 15-21 severe): 0 Source: Developed by Drs. Kevin Kelly, Jacqui Horton, Castro Buck and colleagues, with an educational ed from [employer]. Physical exam (Primary Care) Tobacco/Smoking Status: Tobacco use Status Tobacco use date assessed 05/05/25 05/05/25 14:04 Patient Tobacco Use Status Never used Tobacco 05/05/25 14:04 Tobacco use type Cigarette 05/05/25 14:04 e-Cigarette/Vaping Use Never Used 05/05/25 14:04 PHQ-9: PHQ-9 Score PHQ-9: Total score 0 05/05/25 14:04 Depression Screening Interpretation: Negative Thrive Assessment: Date of Thrive Assessment Date Thrive assessed 10/04/24 05/05/25 14:04 Currently or been in a relationship where the following occur: I choose not to answer Telehealth Telehealth Telehealth Platform: Telephone Location of provider rendering services: practice address Location of patient: address on file Patient Identification confirmed using: Name, : Yes Telehealth method: voice only Patient verbally consented to treatment: Yes Patient verbally consented to billing insurance company: Yes Patient informed of any privacy concerns related to visit: Yes Minutes spent on Phone/Video with Pt.: 15 Coding Level of Care Code Tele Est Pt Level 3 (01766) Diagnoses COVID-19 U07.1 Primary osteoarthritis of both knees M17.0 Osteoarthritis type: primary Laterality: bilateral Assessment & Plan Assessment & Plan (1) COVID-19: Comment: 03/24/2025 Code(s): U07.1 - COVID-19 Category: Medical Plan: Advised to get the x-ray done and cough medication prescribed. (2) Osteoarthritis of knee: Code(s): M17.10 - Unilateral primary osteoarthritis, unspecified knee Category: Medical Qualifiers: Osteoarthritis type: primary Laterality: bilateral Qualified Code(s): M17.0 - Bilateral primary osteoarthritis of knee Plan: Narcotic pain meds: Is being prescribed with the understanding that these medications are potentially addictive and should be used only when absolutely necessary and must always be secured. Any remaining pills should be safely disposed off appropriately. Patient is advised that narcotics can impaired judgment and one should not drive or operate heavy machinery while taking these medications. Never share these medications with anybody and do not leave them unattended. They will not be replaced under any circumstances. Plan History of Present Illness The patient is an 89-year-old female presenting with persistent cough and breathing difficulties following a COVID-19 infection. She tested positive for COVID-19 on March 24, after experiencing symptoms of productive cough, malaise, and fever. Since then, she has had a persistent cough with phlegm production and occasional breathing difficulties, but denies fever or sore throat. The patient has a history of hypertension, hypercholesterolemia, atrial fibrillation, peripheral vascular disease, and congestive heart failure. Recent laboratory tests showed anemia with hemoglobin at 11.1 g/dL and hematocrit at 32.7%, mild hyponatremia, and elevated liver function tests, while renal function was normal. Review of Systems - Respiratory: Reports persistent cough with phlegm production since March 24. Denies fever or sore throat. - General: Reports malaise since COVID-19 diagnosis. - Cardiovascular: Denies chest pain or palpitations. - Neurological: Reports occasional weakness. Plan Patient was informed and verbally consented to the use of an ambient scribe for clinic note documentation during this visit. 1. Covid-19 Infection A chest x-ray is recommended to assess the persistent cough and breathing difficulties, with a concern for potential walking pneumonia. Cough medication has been prescribed to manage symptoms, though it is not a treatment for the underlying condition. 2. Anemia The anemia will be monitored, with further evaluation considered if symptoms persist or worsen. 3. Hyponatremia The mild hyponatremia will be monitored to ensure it does not progress. 4. Elevated Liver Function Tests The elevated liver function tests will be re-evaluated during follow-up visits to identify any underlying causes. Discussion Notes During the consultation, I discussed the need for a chest x-ray to evaluate the patient's persistent cough and potential walking pneumonia. I explained that the prescribed cough medication is for symptom relief and not a cure. We also reviewed the patient's anemia, hyponatremia, and elevated liver function tests, emphasizing the importance of monitoring these conditions. Follow-up visits will be necessary to reassess these issues and adjust the management plan as needed. Patient Instructions - Go to the hospital for a chest x-ray to check your lungs. - Take the prescribed cough medication as directed to help manage your cough. - Monitor your symptoms and report any worsening or new symptoms to your doctor. - Attend follow-up appointments to reassess your anemia, hyponatremia, and liver function tests. Orders: Orders XR chest 2V Today U07.1 - COVID-19 Medications: New benzonatate 200 mg PO BID-TID PRN 20 caps 0RF cough U07.1 - COVID-19 Refilled fluticasone propionate 50 mcg/actuation (Flonase Allergy Relief) administer into each nostril 1 spray intranasal DAILY 16 grams 5RF R09.81 - Nasal congestion acetaminophen-codeine 300-15 mg 1 tab PO Q8H PRN 55 tabs 0RF pain F51.01 - Primary insomnia Discontinued albuterol sulfate 90 mcg/actuation Discontinued Reason: Duplicate 2 inhalations inhalation Q6H 8.5 grams 0RF for wheezing J45.909 - Unspecified asthma, uncomplicated
--- OUTSIDE RECORDS SUMMARY | 2025-05-05 16:06 | XMS_ITS | Patient Health Record ---
Author Organization [facility] Sandra peterson [place] Address [address] [place] [address] Care Team Providers Care Bar Supervisor Name Role Phone Ann Marie Lyles Primary Care Provider Unavailabl e Anali Pimentel Unavailable [phone] Allergies Allergen (clinical drug ingredient) Drug/Non Drug [...] Referring Provider Last Name Po [facility] Referred Provider Anali Pimentel Referred Address [address] [facility],[place], [place],[address], Referred Provider Specialty Podiatry Referral Priority Routine [...] Problem Acquired hammer toe of right foot ([id number] ) Other hammer toe(s) (acquired), right foot (M20.41) Active confirmed Problem Localized, primary osteoarthritis of the ankle and/or foot (301588277) 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 Vital Signs Blood pressure diastolic 79 mm Hg 11/14/2024 Height 5 ft 4 in in 11/14/2024 Blood pressure systolic 117 mm Hg 11/14/2024 Weight 120 lbs 11/14/2024 BMI 20.6 kg/m2 11/14/2024 Procedures Procedure Date Ordered Date Performed Result Body Sit e 51801-YJPIAXU NAIL, 6 OR MORE 11/14/2024 N/A 94092-Oxanulmp Plate 11/14/2024 N/A Encounters Encounter Location Date Provider Diagnosis [facility] [address] [address] 11/14/2024 Anali Black Ingrowing nail L60.0 ; [...] Treatment Pending Test Test Name Order Date 81495-FEEMKND NAIL, 6 OR MORE 03/31/2011 50969-HUYBXUH NAIL, 6 OR MORE 05/05/2011 72636-FVJWFGA NAIL, 6 OR MORE 07/16/2011 08153-RERHHFJ NAIL, 6 OR MORE 09/17/2011 02765-QPOKGWD NAIL, 6 OR MORE 10/15/2011 62899-XUAUFUI NAIL, 6 OR MORE 11/12/2011 01446-MSTKZDV NAIL, 6 OR MORE 01/26/2012 38189-LFCCBMH NAIL, 6 OR MORE 04/05/2012 80540-URGPWJU NAIL, 6 OR MORE 09/09/2012 55227-YBOVCPI NAIL, 6 OR MORE 11/04/2012 74832-RXPKJEV NAIL, 6 OR MORE 01/20/2013 83817-TRGZNFX NAIL, 6 OR MORE 03/24/2013 74196-SFZSHZL NAIL, 6 OR MORE 06/06/2013 20648-TGWLNCQ NAIL, 6 OR MORE 10/05/2013 12167-AFEMXJG NAIL, 6 OR MORE 01/05/2014 61444-GFGBTGS NAIL, 6 OR MORE 03/08/2014 98754-NIPIZTO NAIL, 6 OR MORE 06/05/2014 92733-KQJXDMY NAIL, 6 OR MORE 09/06/2014 85523-NWPOCJO NAIL, 6 OR MORE 11/16/2014 75982-GXPGJYJ NAIL, 6 OR MORE 02/05/2015 95360-QALCKXU NAIL, 6 OR MORE 10/03/2015 18859-HNPNAQA NAIL, 6 OR MORE 01/30/2016 00879-DTRIUHC NAIL, 6 OR MORE 04/28/2016 48563-KUAUSLO NAIL, 6 OR MORE 08/18/2016 59894-EAATGFD NAIL, 6 OR MORE 10/20/2016 97413-IVUTBOS NAIL, 6 OR MORE 12/29/2016 64696-YNTROHE NAIL, 6 OR MORE 04/02/2017 14419-IMHMDYT NAIL, 6 OR MORE 06/15/2017 94644-YPNTKVQ NAIL, 6 OR MORE 08/17/2017 43315-OJFYPJF NAIL, 6 OR MORE 11/09/2017 01678-PKVUWWU NAIL, 6 OR MORE 02/08/2018 27525-JJVZFJN NAIL, 6 OR MORE 05/10/2018 90629-TKOVKGO NAIL, 6 OR MORE 08/05/2018 97360-BIFPSZM NAIL, 6 OR MORE 10/25/2018 57499-JWWJUAQ NAIL, 6 OR MORE 01/27/2019 57810-LZQPMQU NAIL, 6 OR MORE 03/31/2019 95444-QKDRMGI NAIL, 6 OR MORE 06/02/2019 81034-WPQKVDE NAIL, 6 OR MORE 08/04/2019 95767-EULPVHZ NAIL, 6 OR MORE 11/24/2019 25241-QCZUTFC NAIL, 6 OR MORE 02/09/2020 08018-RTQDUUE NAIL, 6 OR MORE 04/19/2020 63602-BKKGEDP NAIL, 6 OR MORE 10/01/2020 05901-DZFVRBU NAIL, 6 OR MORE 12/31/2020 73635-YFNJLVP NAIL, 6 OR MORE 03/04/2021 67225-LBKCTXN NAIL, 6 OR MORE 06/13/2021 51205-WVVKUAN NAIL, 6 OR MORE 11/11/2021 81492-JVNQYJH NAIL, 6 OR MORE 02/10/2022 28435-FULESDP NAIL, 6 OR MORE 04/24/2022 82404-OFJJDCU NAIL, 6 OR MORE 11/14/2024 96903-EPCJBWP NAIL, 1-5 07/02/2015 82264-KWVGSGH NAIL, 1-5 05/07/2015 05227-Nntw Destruction, -14 04/04/2015 94816-Xcod Destruction, -14 07/02/2015 06637-Oovz Destruction, -14 02/05/2015 76181-Wgqd Destruction, -14 11/15/2015 74540-Kahi Destruction, -14 04/28/2016 30839-Whpd Destruction, -14 01/30/2016 97117-Fhqu Destruction, -14 03/10/2016 16358-Aqsl Destruction, -14 11/16/2014 20118-Imwd Destruction, 07-2610/11/2014 83919-Jrkh Destruction, 07-2612/13/2014 56949-Btrk Destruction, 07-2601/10/2015 84634-Vqvj Destruction, 07-2609/06/2014 76283-Jxim Destruction, 07-2608/07/2014 76947-Lmmr Destruction, 07-2606/05/2014 86958-Nmsl Destruction, 07-2609/13/2018 17370-Tzwy Destruction, 07-2610/25/2018 75000-Avdx Destruction, 07-2606/21/2018 11290-Ufhg Destruction, 07-2608/05/2018 19295-Gpln Destruction, 07-2603/29/2018 61233-Pogw Destruction, 07-2605/10/2018 02931-Ohtf Destruction, 07-2612/28/2017 47225-Sgfv Destruction, 07-2602/08/2018 75522-Hqnk Destruction, 07-2606/15/2017 82466-Fwcg Destruction, 07-2608/17/2017 62118-Zbhv Destruction, 07-2605/07/2017 45554-Xknr Destruction, 07-2602/16/2017 48294-Ufqd Destruction, 07-2604/02/2017 12523-Vxpi Destruction, 07-2612/29/2016 26812-Ktiy Destruction, 07-2610/20/2016 10958-Kkrw Destruction, 07-2608/18/2016 37264-Qmfr Destruction, 07-2610/03/2015 73674-Mroz Destruction, 07-2606/12/2016 82186-Pefz Destruction, 07-2603/08/2014 46926-Kflc Destruction, 07-2604/05/2014 08312-Eiuy Destruction, 07-2602/08/2014 46150-Pckb Destruction, 07-2610/05/2013 69847-Vlfs Destruction, 07-2610/04/2012 49563-Hgmb Destruction, 07-2605/04/2013 99285-Ljfg Destruction, 07-2606/06/2013 24299-Cezu Destruction, 07-2607/27/2013 05449-Vntc Destruction, 07-2602/17/2013 63342-Heqx Destruction, 07-2609/17/2011 56703-Azrp Destruction, 07-2611/04/2012 75129-Amen Destruction, 07-2612/23/2012 75558-Lfhl Destruction, 07-2609/09/2012 20791-Ywaq Destruction, 07-2605/03/2012 15115-Qwsp Destruction, 07-2606/09/2012 84245-Brxg Destruction, 07-2604/05/2012 88422-Gxwj Destruction, 07-2603/04/2012 51455-Sqbl Destruction, 07-2612/10/2011 95811-Dvtd Destruction, 07-2601/26/2012 72964-Owpd Destruction, 07-2611/12/2011 74660-Ftpl Destruction, 07-2610/15/2011 92092-Qwdn Destruction, 07-2608/18/2011 89817-Zldi Destruction, 07-2607/16/2011 08772-Fdwe Destruction, 07-2605/05/2011 06731-Npzi Destruction, 07-2603/31/2011 09598-Svmr Destruction, 07-2611/11/2021 37378-Zuat Destruction, 07-2606/13/2021 35127-Xxad Destruction, 07-2611/12/2020 79360-Fgsh Destruction, 07-2606/04/2020 30036-Mqmd Destruction, 07-2604/19/2020 94755-Csyt Destruction, 07-2602/09/2020 88384-Aeep Destruction, 07-2606/02/2019 00994-Uaod Destruction, 07-2611/24/2019 27334-Otgk Destruction, 07-2608/04/2019 96384-Jpun Destruction, 07-2603/31/2019 56625-Iqhy Destruction, 07-2612/13/2018 61564-Rryg Destruction, 07-2611/09/2017 22092-Saml Destruction, 07-2601/27/2019 49315-Lbmrkkgj Plate 06/02/2019 26104-Slbwpqvv Plate 11/24/2019 44512-Ekcahbof Plate 02/09/2020 32906-Elatdrsy Plate 10/01/2020 89052-Hnugslku Plate 06/04/2020 15977-Teeiipbw Plate 11/12/2020 03532-Oqhqhqeq Plate 06/13/2021 52320-Iiwcuabt Plate 12/31/2020 53774-Knogjagu Plate 11/11/2021 89640-Qzavfbkk Plate 02/10/2022 82419-Ypiwniwl Plate 11/14/2024 77158-Jnbaytlv Plate 07/16/2011 50697-Ahcajete Plate 01/26/2012 39320-Vfjqybtr Plate 04/05/2012 35249-Sobipdcq Plate 07/14/2012 89176-Wlbbcwja Plate 05/03/2012 32949-Ddlvonkz Plate 09/09/2012 02359-Qfidohbr Plate 12/23/2012 04173-Mtocpcbe Plate 10/04/2012 23424-Svswtnwl Plate 02/17/2013 76783-Aaahmhqs Plate 05/04/2013 03834-Hhrwskba Plate 03/24/2013 59812-Pbhcuktf Plate 11/09/2013 99883-Qvejegtm Plate 10/05/2013 93700-Ggwtmlwk Plate 06/06/2013 05302-Batzouuz Plate 01/05/2014 56525-Acqtisnt Plate 04/05/2014 93712-Peffodkk Plate 05/04/2014 82251-Pjqgazyv Plate 08/18/2016 67721-Iqyyybcp Plate 10/20/2016 08658-Zfxivepc Plate 12/29/2016 02838-Twrxuftx Plate 06/15/2017 75686-Ocqdgwlp Plate 09/28/2017 74231-Uvjmtqyz Plate 03/29/2018 81620-Vfutigqj Plate 09/13/2018 22638-Vkngtfph Plate 08/07/2014 02859-Fkjfiabi Plate 06/05/2014 48126-Kdcitxja Plate 09/06/2014 77064-Aaimwwny Plate 10/11/2014 09763-Jdytjfpa Plate 02/05/2015 65271-Jbebcqby Plate 12/13/2014 23031-Asiyfegj Plate 11/16/2014 29676-Rkpwtbzp Plate 04/28/2016 91784-Ozxrpjwy Plate 12/26/2015 33456-Glppmezh Plate 08/15/2015 12341-Hpdchmja Plate 10/03/2015 40211-Pkhqezdh Plate 04/04/2015 06382-Burfjunc Plate 06/06/2015 63216-Wjcoczrl Plate Each Additional 33716-Xxwzoppx Plate Each Additional 01/2015 36406-Hbvkdovl Plate Each Additional 69610-Qxwdaerx Plate Each Additional 54815-Yiiogttb Plate Each Additional 77169-Aszfabia Plate Each Additional 24145-Fmytqbif Plate Each Additional 01463-Vlmackow Plate Each Additional 37002-Ukisdolf Plate Each Additional 10/2011 79721-Mjtfxuni Plate Each Additional 08/2021 52063-Pdrnpbes Plate Each Additional 26297-Iezzwmgs Plate Each Additional 53495-Kqrsslus Plate Each Additional 21823-EJK 08/22/2013 96066- Debride <25 sq cm 10/05/2013 25248- Debride <25 sq cm 11/09/2013 99246- Debride <25 sq cm 05/04/2014 99320- Debride <25 sq cm 01/05/2014 95101- Debride <25 sq cm 11/12/2011 35381- Debride <25 sq cm 03/04/2012 90216-IFACFLT SKIN/TISSUE 01/05/2014 41337-SFEGDSG SKIN/TISSUE 09/07/2013 57761 I&D ABSCESS- SIMPLE,SINGLE 012 15117 I&D ABSCESS- SIMPLE,SINGLE 012 [id number] I&D ABSCESS- SIMPLE,SINGLE 012 23116 I&D ABSCESS- SIMPLE,SINGLE 021 [id number] I&D ABSCESS- SIMPLE,SINGLE 020 [id number] I&D ABSCESS- SIMPLE,SINGLE 019 Insurance Providers Payer Name Payer Address Payer Phone Subscriber Number Group Number Insured Name Patient Relationship to Insured Coverage Start Date Coverage End Date [facility] 65 Medicare Preferred [address] [place] [address] [id number] Julianna Meehan Self - patient is [...] D&C uterine prolapse Hospitalization History Reason Date(Month/Year) [facility] [place] 07/2020 [facility] [place] 06/26/20 Pt stated that she had a fal l she didnt go to the ER she stated she seeing other doctor. 04/2019 [facility] [place], Back problems 10/2017
== END 2025-05-05 15:03 | disposition home or self-care (01) ==
LOC: HO.HMCH 14:05
PROVIDERS: PCP Internal Medicine; Visit Provider Internal Medicine
DX: U07.1 COVID-19 (principal); M17.0 Bilateral primary osteoarthritis of knee

== ENCOUNTER 2025-05-06 08:23 | Outpatient (REF) | payer MEDICARE, SELFPAY ==
--- NOTE | ~2025-05-06 | XR_ITS ---
EXAMINATION: XR CHEST 2 VIEWS HISTORY: U07.1 - COVID-19 COMPARISON: Comparison is made with the prior examination dated 03/24/2025. FINDINGS: PA and lateral views of the chest are submitted. There are increased interstitial markings which may represent viral or reactive airways disease versus mild interstitial pulmonary edema. There is no pleural effusion or pulmonary vascular congestion. The heart is normal in size. The aorta is calcified. There is a moderate to large hiatal hernia. There is degenerative disc disease of the spine. XR/XR chest 2V IMPRESSION: 1. Increased interstitial markings which may represent viral or reactive airways disease versus mild interstitial pulmonary edema. 2. Moderate to large hiatal hernia. Electronically signed by: Kevin Bates MD 05/08/2025 06:59 AM EDT
== END 2025-05-06 08:24 | disposition home or self-care (01) ==
LOC: HO.XRAY 08:23
PROVIDERS: PCP Internal Medicine; Visit Provider Internal Medicine
DX: U07.1 COVID-19 (principal)
CPT/HCPCS: 71046

== ENCOUNTER → 2025-05-06 08:29 | Outpatient (BNV) | payer MEDICARE, SELFPAY | PROVIDERS: PCP Internal Medicine; Visit Provider Radiology Diagnostic Radiology | DX: U07.1 COVID-19 (principal); R91.8 Other nonspecific abnormal finding of lung field; K44.9 Diaphragmatic hernia without obstruction or gangrene | CPT/HCPCS: 71046 ==

== ENCOUNTER 2025-05-23 09:23 | Outpatient (AMB) | payer MEDICARE, SELFPAY ==
[2025-05-23 09:26] VITALS: BP 126/62; PULSE 61; TEMP 36.4; O2SAT 95; BMI 21.3
--- NOTE | 2025-05-23 09:26 | MHC.PC.OV ---
Vital Signs 05/23/25 09:26 Height 5 ft Weight 109 lb BMI 21.3 BP 126/62 Blood Pressure Location Lt brachial Position Sitting Pulse 61 Pulse Source Pulse Oximeter Temp 97.5 F Temp Source Temporal Artery Scan Pulse Oximetry (%) 95 Oxygen Delivery Method Room Air Intake Visit Reasons: knee OA, HTN, A fib Allergies amlodipine (AMLODIPINE) Allergy (Unknown, Verified 05/23/25 09:31) UNKNOWN carvedilol (CARVEDILOL) Allergy (Unknown, Verified 05/23/25 09:31) UNKNOWN irbesartan (From AVAPRO) Allergy (Unknown, Verified 05/23/25 09:31) UNKNOWN levofloxacin (From LEVAQUIN) Allergy (Unknown, Verified 05/23/25 09:31) GENERALIZED MUSCLE PAIN naproxen (Naproxen) Allergy (Unknown, Verified 05/23/25 09:31) HIVES, severe rash tetracycline (TETRACYCLINE) Allergy (Unknown, Verified 05/23/25 09:31) UNKNOWN CARE ONE TRIPLE ANTIBTIOTIC OINTMENT Allergy (Intermediate, Uncoded 05/23/25 09:31) rash Medication List - Last Reconciled 05/23/25 by Ann Marie Lyles MD acetaminophen-codeine 300-15 mg 1 tab PO Q8H PRN albuterol sulfate 90 mcg/actuation 2 inhalations inhalation Q4-6H PRN albuterol sulfate 2.5 mg (3 mL) inhalation QID PRN apixaban 2.5 mg PO BID 30 days benzonatate 200 mg PO BID-TID PRN carbamide peroxide 6.5% (Debrox) 5 drps otic (ears) BID 4 days cholecalciferol (vitamin D3) (Vitamin D3) 25 mcg PO DAILY [email or web address].[email or web address],thigh,reg,med As directed 20 - 30 mm HG cyanocobalamin (vitamin B-12) (Vitamin B-12) 1,000 mcg PO DAILY fluticasone propionate 50 mcg/actuation (Flonase Allergy Relief) 1 spray intranasal DAILY furosemide 40 mg PO DAILY 90 days hydrocortisone 2.5% (Proctosol HC) [address] BID-QID PRN linezolid 600 mg PO Q12H losartan 50 mg PO DAILY metoprolol succinate ER 200 mg PO DAILY mupirocin 2% (Centany) 1 appl topical TID nebulizers (Aeroneb Go Nebulizer) As directed nystatin 1 appl topical TID nystatin 1 appl topical BID sennosides-docusate sodium 8.6-50 mg (Senna Plus) 2 tab-caps (2 x 8.6-50 mg) PO DAILY sodium chloride 0.65% (Saline Nasal) 2 sprays intranasal QID PRN triamcinolone acetonide 0.5% 1 appl topical DAILY valacyclovir (Valtrex) 1,000 mg PO Q8H [wheelchair As directed] zolpidem ER 6.25 mg PO BEDTIME PRN 90 days Tobacco use date assessed: 05/23/25 Fall risk assessment: No Falls in past year Last assessed Fall Risk: 05/23/25 Dental Screening Dental Screen Date: 05/23/25 Did you have a dental visit in the last 12 months?: No Did you have a dental problem in the last 6 months where you did not have access to dental care?: No Was dental information given to patient?: No PFSH Medical History Left-sided chest pain Ulnar neuropathy at elbow of left upper extremity Reactive airway disease Blurring of vision Nasal congestion Bronchitis Screening for eye condition Bilateral artificial lens implant Conjunctivitis, both eyes Cough Nasal congestion Compression fracture of T10 vertebra Mammogram declined Cataract Porphyria cutanea tarda Uterine prolapse Congestive heart failure TIA (transient ischemic attack) Atrial fibrillation Insomnia Hypertension Hypercholesterolemia Peripheral vascular disease Osteoarthritis of knee Surgical History History of right hip hemiarthroplasty S/P hip hemiarthroplasty History of uterine prolapse History of biopsy History of D&C Family History Father Hypertension Mother Hypertension Daughter Colon cancer Lymph node cancer Social History Household Members: None Housing: House Housing Other:: Ambulates with a cane Do you presently have visiting nurse or other home services: Yes (elder care, bulb grader, meals on wheels) Alcohol intake: current Alcohol intake frequency: does not drink Alcohol type: wine Comment: sleeping Patient Tobacco Use Status: Never used Tobacco Tobacco use type: Cigarette e-Cigarette/Vaping Use: Never Used Second Hand Smoke Exposure: No service: No Current occupational status: retired Cognitive needs: No Hearing needs: Yes Vision needs: Yes Questionnaire PHQ-9 Over the last 2 weeks, how often have you been bothered by any of the following problems? 1. Little interest or pleasure in doing things: not at all 2. Feeling down, depressed, or hopeless: not at all 3. Trouble falling or staying asleep, or sleeping too much: not at all 4. Feeling tired or having little energy: not at all 5. Poor appetite or overeating: not at all 6. Feeling bad about yourself - or that you are a failure or have let yourself or your family down: not at all 7. Trouble concentrating on things, such as reading the newspaper or watching television: not at all 8. Moving or speaking so slowly that other people could have noticed. Or the opposite - being so fidgety or restless that you have been moving around a lot more than usual: not at all 9. Thoughts that you would be better off or of hurting yourself in some way: not at all Total score: 0 Depression Screening Interpretation: Negative Depression Screening Done: Yes Source: Developed by Drs. Kevin Kelly, Jacqui Horton, Castro Buck and colleagues, with an educational ed from [employer]. Thrive Questionnaire Date Thrive assessed: 02/17/25 I am a: Patient What is your living situation today?: I have a steady place to live Within the past 12 months, did the food you bought not last and you didn't have the money to get more?: Never true Within the past 12 months, did you worry whether your food would run out before you got money to buy more?: Never true Do you have trouble paying for medicines?: I choose not to answer this question Do you have trouble getting transportation to medical appointments?: I choose not to answer this question Do you have trouble paying your heating and electricity bill?: I choose not to answer this question Do you have trouble taking care of your child, family member or friend?: I choose not to answer this question Do you have trouble with day-to-day activities such as bathing, preparing meals, shopping, managing finances, etc.?: I choose not to answer this question Are you currently unemployed and looking for a job?: I choose not to answer this question Are you interested in more education?: I choose not to answer this question Please select the resources that you would like help with: None Currently or been in a relationship where the following occur: I choose not to answer THRIVE Score: 0 AUDIT C Alcohol Use Questionnaire (AUDIT-C) 1. How often do you have a drink containing alcohol?: Never 3. How often do you have six or more drinks on one occasion?: Never Total Score: 0 BRIAN-7 AMB Questionnaire BRIAN-7 Date BRIAN - 7 assessed: 02/17/25 Feeling nervous, anxious, or on edge: 0 = Not at all Not being able to stop or control worryin = Not at all Worrying too much about different things: 0 = Not at all Trouble relaxin = Not at all Being so restless that it is hard to sit still: 0 = Not at all Becoming easily annoyed or irritable: 0 = Not at all Feeling afraid as if something awful might happen: 0 = Not at all Total BRIAN-7 score (0-4 normal; 5-9 mild; 10-14 moderate; 15-21 severe): 0 Source: Developed by Drs. Kevin Kelly, Jacqui Horton, Castro Buck and colleagues, with an educational ed from [employer]. Physical exam (Primary Care) Vital Signs: Last Vital Signs Temp 97.5 F 05/23/25 09:26 Pulse 61 05/23/25 09:26 BP 126/62 05/23/25 09:26 Pulse Ox 95 05/23/25 09:26 Oxygen Delivery Method Room Air 05/23/25 09:26 BMI result Body Mass Index 21.3 Tobacco/Smoking Status: Tobacco use Status Tobacco use date assessed 05/23/25 05/23/25 09:33 Patient Tobacco Use Status Never used Tobacco 05/23/25 09:26 Tobacco use type Cigarette 05/23/25 09:26 e-Cigarette/Vaping Use Never Used 05/23/25 09:26 PHQ-9: PHQ-9 Score PHQ-9: Total score 0 05/23/25 10:13 Depression Screening Interpretation: Negative Thrive Assessment: Date of Thrive Assessment Date Thrive assessed 02/17/25 05/23/25 09:26 Currently or been in a relationship where the following occur: I choose not to answer Const General: alert; No acute distress Eyes Conjunctivae: conjunctivae normal Resp Auscultation: clear to auscultation bilaterally Cardio Rate: regular rate Rhythm: regular rhythm GI Inspection: Yes normal to inspection Extrem General: Yes normal to inspection and No edema Office Procedures Flu Questionnaire Does the patient have a severe egg allergy?: No Does the patient have severe life threatening allergies?: No Does the patient have a fever or illness today?: No Has the patient ever had Guillain-[place] Syndrome?: No Has the patient ever had any past reaction to a flu shot?: No Immunizations Fluarix [id number] (PF) 45 mcg (15 mcg x 3)/0.5 mL IM syringe Performing Provider: Ann Marie Lyles MD Performing Location: [facility] [place] [facility] Administered by: Hannah Alcantar CMA on 05/23/25 10:13 Dose Route Admin Location Dispensed Lot Number Expiration Date NDC Investigator 0.5 mL IM Left Deltoid 0.5 mL [id number] 01/09/26 56526-049-69 [employer] VIS Given Date VIS Provided VIS Publication Date 05/23/25 Single Vaccine 24 Eligibility Eligibility Date Funding Source Not [facility] Eligible 05/23/25 Private Coding Level of Care Code Est Pt Level 4 (81442) Complex EM visit Add On G2211 Diagnoses Paroxysmal atrial fibrillation I48.0 Atrial fibrillation type: paroxysmal Essential hypertension I10 Hypertension type: essential hypertension Hypercholesterolemia E78.00 Primary osteoarthritis of both knees M17.0 Laterality: bilateral Osteoarthritis type: primary Insomnia G47.00 Assessment & Plan Assessment & Plan (1) Atrial fibrillation: Comment: Dr. Gamez 03/12/2011 Holter and echo September 2017, ejection fraction 60-65% moderate pulmonary hypertension April 2019 normal LV elevate LV EDP, atrial dilatation moderate MR TR, May 2023 Code(s): I48.91 - Unspecified atrial fibrillation Category: Medical Qualifiers: Atrial fibrillation type: paroxysmal Qualified Code(s): I48.0 - Paroxysmal atrial fibrillation Plan: Continue with apixaban 2.5 mg twice a day and metoprolol 200 mg once a day (2) Hypertension: Code(s): I10 - Essential (primary) hypertension Category: Medical Qualifiers: Hypertension type: essential hypertension Qualified Code(s): I10 - Essential (primary) hypertension Plan: Continue with blood pressure medication. Decrease salt intake and exercise on losartan 50 mg once a day metoprolol 200 mg once a day (3) Hypercholesterolemia: Code(s): E78.00 - Pure hypercholesterolemia, unspecified Category: Medical Plan: Avoid fried foods, chicken skin, eggs, butter margarine, pastries and meat. Be it pork or beef they have a lot of cholesterol LDL goal of less than 130 and triglyceride of less than 150 (4) Osteoarthritis of knee: Code(s): M17.10 - Unilateral primary osteoarthritis, unspecified knee Category: Medical Qualifiers: Laterality: bilateral Osteoarthritis type: primary Qualified Code(s): M17.0 - Bilateral primary osteoarthritis of knee Plan: Narcotic pain meds: Is being prescribed with the understanding that these medications are potentially addictive and should be used only when absolutely necessary and must always be secured. Any remaining pills should be safely disposed off appropriately. Patient is advised that narcotics can impaired judgment and one should not drive or operate heavy machinery while taking these medications. Never share these medications with anybody and do not leave them unattended. They will not be replaced under any circumstances. (5) Insomnia: Code(s): G47.00 - Insomnia, unspecified Category: Medical Plan: Continue with medication Plan History of Present Illness The patient is an 89-year-old female presenting for a follow-up visit. Her past medical history is significant for knee osteoarthritis, hypertension, hypercholesterolemia, atrial fibrillation, congestive heart failure, and a right hip arthroplasty. She was last seen on May 05, 2025, with concerns related to a COVID-19 infection. The patient also had an emergency room visit on March 24 for testing related to a COVID-19 infection. Blood work from March 24 showed mild anemia, mild hyponatremia, elevated blood sugar, and a liver function test elevated to 43, with normal renal function. A chest X-ray revealed increased interstitial markings, suggestive of a viral or reactive airway disease versus mild interstitial pulmonary edema, and also showed a moderate to large hiatal hernia. The patient receives 12 hours of help per week at home. Health Maintenance Plan to obtain follow-up blood work. An influenza vaccine will be administered today. Social History - The patient has a caregiver who provides 12 hours of assistance per week. - She expressed a need for additional help at home to live. Review of Systems - Respiratory: Patient requested an albuterol inhaler, suggesting respiratory symptoms. Physical Exam Results - Blood work (March 24): Revealed mild anemia, mild hyponatremia, elevated blood sugar, and elevated liver function to 43, with normal renal function. - Chest X-ray (date not specified): Showed increased interstitial markings possibly representing viral or reactive airway disease versus mild interstitial pulmonary edema, and a moderate to large hiatal hernia. Plan Patient was informed and verbally consented to the use of an ambient scribe for clinic note documentation during this visit. 1. Reactive Airway Disease A refill for the albuterol inhaler will be sent as per the patient's request. The patient was informed that a stronger version of the inhaler is not available. The patient was also instructed to use a nasal spray daily. 2. Need For Assistance At Home The patient expressed a need for more assistance at home; this was acknowledged. Discussion Notes I discussed the plan to obtain follow-up blood work. I advised the patient to use her nasal spray every day. We discussed her request for an albuterol inhaler, and I explained that while I will send a refill, a stronger version is not available. After confirming she had not yet received her flu shot, we agreed she would get one during today's visit. Patient Instructions - Use your nasal spray every day. - A refill for your albuterol inhaler has been sent to your pharmacy. - You will receive a flu shot today before you leave. - We will be getting new blood work done. Orders: Orders NT Pro B Type Natriuretic Pept Today I48.21 - Permanent atrial fibrillation UA CC w/rflx Micro + Cult Today I48.21 - Permanent atrial fibrillation, R30.0 - Dysuria CA echo transthorac w con Today I48.21 - Permanent atrial fibrillation Influenza [id number] Immunization Today Z23 - Encounter for immunization Medications: Refilled albuterol sulfate 90 mcg/actuation 2 inhalations inhalation Q4-6H PRN 1 ea 0RF shortness of breath or wheezing I48.21 - Permanent atrial fibrillation fluticasone propionate 50 mcg/actuation (Flonase Allergy Relief) administer into each nostril 1 spray intranasal DAILY 16 grams 5RF R09.81 - Nasal congestion
--- OUTSIDE RECORDS SUMMARY | 2025-05-23 10:14 | XMS_ITS | Patient Health Record ---
Author Organization [facility] Sandra peterson Gore Address [address] [place] [address] Care Team Providers Care Director Information Name Role Phone Ann Marie Lyles Primary Care Provider Unavailabl e Anali Pimentel Unavailable [phone] Allergies Allergen (clinical drug ingredient) Drug/Non Drug [...] Referring Provider Last Name [facility] Referred Provider Anali Pimentel Referred Address [address] [facility],[place], [place],[address], Referred Provider Specialty Podiatry Referral Priority Routine [...] Problem Acquired hammer toe of right foot (7921553397213291 ) Other hammer toe(s) (acquired), right foot (M20.41) Active confirmed Problem Localized, primary osteoarthritis of the ankle and/or foot (956806081) 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 Vital Signs Blood pressure diastolic 79 mm Hg 11/14/2024 Height 5 ft 4 in in 11/14/2024 Blood pressure systolic 117 mm Hg 11/14/2024 Weight 120 lbs 11/14/2024 BMI 20.6 kg/m2 11/14/2024 Procedures Procedure Date Ordered Date Performed Result Body Sit e 85338-BMMECIW NAIL, 6 OR MORE 11/14/2024 N/A 15338-Mgodklfo Plate 11/14/2024 N/A Encounters Encounter Location Date Provider Diagnosis [facility] [address] [address] 11/14/2024 Anali Black Ingrowing nail L60.0 ; [...] Treatment Pending Test Test Name Order Date 40958-KYUSQBQ NAIL, 6 OR MORE 03/31/2011 49842-LUMUSGE NAIL, 6 OR MORE 05/05/2011 00771-RVKLRWJ NAIL, 6 OR MORE 07/16/2011 59500-QAQDILZ NAIL, 6 OR MORE 09/17/2011 61680-XIXTZFP NAIL, 6 OR MORE 10/15/2011 69788-JREVWUH NAIL, 6 OR MORE 11/12/2011 50449-HMUNRXG NAIL, 6 OR MORE 01/26/2012 00212-PEHSKDG NAIL, 6 OR MORE 04/05/2012 90187-IGLURXG NAIL, 6 OR MORE 09/09/2012 94126-UABPTTH NAIL, 6 OR MORE 11/04/2012 22432-WIGOBRL NAIL, 6 OR MORE 01/20/2013 92261-MBSWRCA NAIL, 6 OR MORE 03/24/2013 54174-BAXSEYD NAIL, 6 OR MORE 06/06/2013 64257-UNUVCIM NAIL, 6 OR MORE 10/05/2013 24448-CPQVLUG NAIL, 6 OR MORE 01/05/2014 91542-XRWBTVV NAIL, 6 OR MORE 03/08/2014 48820-FOTGNDT NAIL, 6 OR MORE 06/05/2014 32199-JVWZWEK NAIL, 6 OR MORE 09/06/2014 79792-KJVAXJQ NAIL, 6 OR MORE 11/16/2014 59085-TBVGYNJ NAIL, 6 OR MORE 02/05/2015 36248-TDWXISN NAIL, 6 OR MORE 10/03/2015 52148-IVHADSJ NAIL, 6 OR MORE 01/30/2016 72142-GWARBDL NAIL, 6 OR MORE 04/28/2016 34240-HKNWNFR NAIL, 6 OR MORE 08/18/2016 38008-DDSJVWD NAIL, 6 OR MORE 10/20/2016 74623-JBZRFYE NAIL, 6 OR MORE 12/29/2016 69224-AVKFYEN NAIL, 6 OR MORE 04/02/2017 74500-XAXHWYZ NAIL, 6 OR MORE 06/15/2017 34403-IQDBHWZ NAIL, 6 OR MORE 08/17/2017 59269-QOXBPVF NAIL, 6 OR MORE 11/09/2017 28201-FVIKWBY NAIL, 6 OR MORE 02/08/2018 88317-QMCSKIC NAIL, 6 OR MORE 05/10/2018 50796-IXNFJNT NAIL, 6 OR MORE 08/05/2018 50519-MJYOENU NAIL, 6 OR MORE 10/25/2018 82999-BRITKFV NAIL, 6 OR MORE 01/27/2019 91398-ZWCXEYG NAIL, 6 OR MORE 03/31/2019 91453-NVEWETF NAIL, 6 OR MORE 06/02/2019 42979-ZQKDZRO NAIL, 6 OR MORE 08/04/2019 12130-EMPGLUT NAIL, 6 OR MORE 11/24/2019 29690-ZDMNYOC NAIL, 6 OR MORE 02/09/2020 00089-JBFINFZ NAIL, 6 OR MORE 04/19/2020 54829-MXEGIGF NAIL, 6 OR MORE 10/01/2020 50249-YZSSYVQ NAIL, 6 OR MORE 12/31/2020 62697-WBYEOKM NAIL, 6 OR MORE 03/04/2021 83044-YBUEUHG NAIL, 6 OR MORE 06/13/2021 79444-UEZAWNO NAIL, 6 OR MORE 11/11/2021 05657-WEINGQN NAIL, 6 OR MORE 02/10/2022 05271-RWFEIAV NAIL, 6 OR MORE 04/24/2022 16232-WANYCVL NAIL, 6 OR MORE 11/14/2024 63663-BQTTJNH NAIL, 1-5 07/02/2015 65053-PGPQRRZ NAIL, 1-5 05/07/2015 81678-Llmf Destruction, -14 04/04/2015 49439-Gjih Destruction, -14 07/02/2015 18915-Kcru Destruction, -14 02/05/2015 63074-Vycm Destruction, -14 11/15/2015 89141-Kglh Destruction, -14 04/28/2016 27470-Sxrd Destruction, -14 01/30/2016 79407-Pzqm Destruction, -14 03/10/2016 92165-Jrqx Destruction, -14 11/16/2014 04866-Vpjo Destruction, 07-2610/11/2014 72964-Wfet Destruction, 07-2612/13/2014 29827-Borv Destruction, 07-2601/10/2015 26693-Zreh Destruction, 07-2609/06/2014 52167-Flnq Destruction, 07-2608/07/2014 44853-Itnq Destruction, 07-2606/05/2014 32136-Tznc Destruction, 07-2609/13/2018 82376-Oubn Destruction, 07-2610/25/2018 84917-Kuuo Destruction, 07-2606/21/2018 70959-Byft Destruction, 07-2608/05/2018 95030-Fauy Destruction, 07-2603/29/2018 01146-Jvzd Destruction, 07-2605/10/2018 72311-Autm Destruction, 07-2612/28/2017 10027-Vhzm Destruction, 07-2602/08/2018 80606-Pwzw Destruction, 07-2606/15/2017 86015-Svjk Destruction, 07-2608/17/2017 47031-Tezr Destruction, 07-2605/07/2017 55917-Olgf Destruction, 07-2602/16/2017 85549-Odhb Destruction, 07-2604/02/2017 31366-Hbeg Destruction, 07-2612/29/2016 92810-Ubdy Destruction, 07-2610/20/2016 75222-Veyw Destruction, 07-2608/18/2016 92451-Bdwk Destruction, 07-2610/03/2015 20478-Zyyq Destruction, 07-2606/12/2016 18179-Bmug Destruction, 07-2603/08/2014 85140-Zcqh Destruction, 07-2604/05/2014 82035-Zpnl Destruction, 07-2602/08/2014 62830-Vsos Destruction, 07-2610/05/2013 38621-Lnwf Destruction, 07-2610/04/2012 98603-Tqtr Destruction, 07-2605/04/2013 58700-Rxxy Destruction, 07-2606/06/2013 84563-Glbr Destruction, 07-2607/27/2013 41107-Nvbq Destruction, 07-2602/17/2013 05278-Sefd Destruction, 07-2609/17/2011 92823-Zrbt Destruction, 07-2611/04/2012 29987-Arlt Destruction, 07-2612/23/2012 50973-Mufh Destruction, 07-2609/09/2012 00304-Avuu Destruction, 07-2605/03/2012 56036-Yflq Destruction, 07-2606/09/2012 71352-Hmjj Destruction, 07-2604/05/2012 01292-Vmzz Destruction, 07-2603/04/2012 01452-Qvzx Destruction, 07-2612/10/2011 71728-Rfno Destruction, 07-2601/26/2012 92726-Pehj Destruction, 07-2611/12/2011 36763-Ywqd Destruction, 07-2610/15/2011 68600-Qwhw Destruction, 07-2608/18/2011 23111-Rfij Destruction, 07-2607/16/2011 29940-Jtxx Destruction, 07-2605/05/2011 04442-Bnqt Destruction, 07-2603/31/2011 20063-Msez Destruction, 07-2611/11/2021 05197-Yhga Destruction, 07-2606/13/2021 53228-Zavg Destruction, 07-2611/12/2020 55612-Xhqd Destruction, 07-2606/04/2020 10816-Rxym Destruction, 07-2604/19/2020 47632-Vxad Destruction, 07-2602/09/2020 66124-Onwp Destruction, 07-2606/02/2019 38220-Bmrl Destruction, 07-2611/24/2019 92541-Yatx Destruction, 07-2608/04/2019 02613-Gewt Destruction, 07-2603/31/2019 07931-Rxlk Destruction, 07-2612/13/2018 00212-Laoa Destruction, 07-2611/09/2017 46509-Efxe Destruction, 07-2601/27/2019 02575-Dshqngnd Plate 06/02/2019 43150-Uzbruezq Plate 11/24/2019 79257-Cksgaepe Plate 02/09/2020 62283-Efbqtguj Plate 10/01/2020 70658-Ptjdjfrp Plate 06/04/2020 02699-Ozqieivr Plate 11/12/2020 59914-Sgjonhmc Plate 06/13/2021 95901-Dzmaapnw Plate 12/31/2020 47522-Pyvwmwbd Plate 11/11/2021 67608-Wkjfufcd Plate 02/10/2022 41408-Bxwjvlue Plate 11/14/2024 59928-Breyxdap Plate 07/16/2011 63448-Nautbtnr Plate 01/26/2012 91840-Ebollalp Plate 04/05/2012 20953-Ujmtfwva Plate 07/14/2012 06665-Loymjwsf Plate 05/03/2012 38568-Whcekfik Plate 09/09/2012 57675-Cxdxyfcg Plate 12/23/2012 59767-Xdqdojng Plate 10/04/2012 38327-Ljztbhez Plate 02/17/2013 90835-Vxpycwyd Plate 05/04/2013 38455-Khdvkuhw Plate 03/24/2013 71065-Ypjgcjaq Plate 11/09/2013 58533-Jlvzetkx Plate 10/05/2013 35875-Kvlykweq Plate 06/06/2013 15327-Aycbhfyi Plate 01/05/2014 30736-Ykfujgyc Plate 04/05/2014 74480-Aajrzcat Plate 05/04/2014 65051-Udivlowp Plate 08/18/2016 74401-Pmjzfgar Plate 10/20/2016 84174-Kmmlqscf Plate 12/29/2016 30963-Yommbjzy Plate 06/15/2017 19840-Tujxfydh Plate 09/28/2017 70209-Cfdwohoj Plate 03/29/2018 05126-Xwgrhvoj Plate 09/13/2018 57937-Pidknqnv Plate 08/07/2014 34359-Ivwxjbsq Plate 06/05/2014 77371-Sneygvwq Plate 09/06/2014 13264-Vijzebcw Plate 10/11/2014 42574-Lxgshhjv Plate 02/05/2015 88970-Baytftpl Plate 12/13/2014 25098-Srvqmtov Plate 11/16/2014 17261-Ijxwkrnm Plate 04/28/2016 70288-Ztcqwwly Plate 12/26/2015 47743-Jenljvox Plate 08/15/2015 87295-Zaovyasw Plate 10/03/2015 29492-Urnwjxxv Plate 04/04/2015 90667-Volvahds Plate 06/06/2015 05342-Dqoslbgq Plate Each Additional 82886-Bgpzhkku Plate Each Additional 01/2015 86368-Yfzgwakn Plate Each Additional 85476-Fmqwcaqd Plate Each Additional 54006-Wgobtxqz Plate Each Additional 22401-Awaulios Plate Each Additional 83122-Xznkwcaj Plate Each Additional 42848-Gwikyljt Plate Each Additional 56413-Gvpfiqlg Plate Each Additional 10/2011 25842-Pvyiqxsj Plate Each Additional 08/2021 24140-Mkwxhanx Plate Each Additional 88362-Hvhwbsfi Plate Each Additional 53588-Irpkltsl Plate Each Additional 26894-XRZ 08/22/2013 15700- Debride <25 sq cm 10/05/2013 71161- Debride <25 sq cm 11/09/2013 12095- Debride <25 sq cm 05/04/2014 26857- Debride <25 sq cm 01/05/2014 52635- Debride <25 sq cm 11/12/2011 16764- Debride <25 sq cm 03/04/2012 92065-FZUOPPU SKIN/TISSUE 01/05/2014 42522-ZYWGIMJ SKIN/TISSUE 09/07/2013 03082 I&D ABSCESS- SIMPLE,SINGLE 012 [id number] I&D ABSCESS- SIMPLE,SINGLE 012 83960 I&D ABSCESS- SIMPLE,SINGLE 012 42755 I&D ABSCESS- SIMPLE,SINGLE 021 61289 I&D ABSCESS- SIMPLE,SINGLE 020 87170 I&D ABSCESS- SIMPLE,SINGLE 019 Insurance Providers Payer Name Payer Address Payer Phone Subscriber Number Group Number Insured Name Patient Relationship to Insured Coverage Start Date Coverage End Date [facility] 65 Medicare Preferred [address] [place] [address] [phone] [id number] 1 Julianna Meehan Self - patient is [...] uterine prolapse Hospitalization History Reason Date(Month/Year) [facility]- fell dislocated hip 07/2020 [facility] - fell broke hip 06/26/20 Pt stated that she had a fal l she didnt go to the ER she stated she seeing other doctor. 04/2019 [facility]- E.R, Back problems 10/2017
== END 2025-05-23 10:18 | disposition home or self-care (01) ==
LOC: HO.HMCH 09:23
PROVIDERS: PCP Internal Medicine; Visit Provider Internal Medicine
DX: I48.0 Paroxysmal atrial fibrillation (principal); I10 Essential (primary) hypertension; E78.00 Pure hypercholesterolemia, unspecified; M17.0 Bilateral primary osteoarthritis of knee; G47.00 Insomnia, unspecified; Z23 Encounter for immunization